=== PATIENT | female | born 1945 | race Caucasian/White ===

== ENCOUNTER 2018-08-05 13:30 | Outpatient (CLI) | payer MEDICARE, BC, SELFPAY ==
--- NOTE | 2018-08-05 11:15 | DI.RAD_ITS ---
SYMPTOMS/DIAGNOSIS: RIGHT ANKLE PAIN, M25.571 RIGHT ANKLE: Three views. No priors. No acute fracture or dislocation is seen. In the ankle joint, there is moderate narrowing of the medial joint space. Osteophytes are seen at the ankle, particularly anteriorly. Small well- corticated osseous fragments are seen at the tip of the medial malleolus consistent with old injury. At the talonavicular joint, there is marked joint space narrowing, sclerosis and hypertrophy. No radiopaque foreign bodies are seen in the soft tissues. IMPRESSION: 1. No acute abnormality. 2. 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 The findings are most marked at the talonavicular joint.
== END 2018-08-05 13:50 ==
PROVIDERS: PCP Family Medicine; Visit Provider Family Medicine
DX: M25.571 Pain in right ankle and joints of right foot (principal); M25.771 Osteophyte, right ankle
CPT/HCPCS: 73610

== ENCOUNTER 2019-10-12 09:21 | Outpatient (RCR) | payer OTHER, SELFPAY ==
[2019-10-12 21:39] LABS: Calculated LDL 96 mg/dL; Cholesterol 174 mg/dL (<200); Glucose 94 mg/dL (74-106); HDL Cholesterol 65 mg/dL (40-60); Triglyceride 67 mg/dL (<150)
== END 2019-11-10 23:59 | disposition home or self-care (01) ==
LOC: PRC 09:21
PROVIDERS: PCP Family Medicine; Visit Provider Family Medicine
DX: E78.41 Elevated Lipoprotein(a) (principal); E78.5 Hyperlipidemia, unspecified; Z13.1 Encounter for screening for diabetes mellitus
CPT/HCPCS: 80061; 82947

== ENCOUNTER 2020-08-11 19:24 | Outpatient (REF) | payer OTHER, SELFPAY ==
[2020-08-15 19:06] LABS: Patient Race White; SARS-CoV-2 RNA Undetected (Undetected); SARS-CoV-2 Specimen Source Nasopharynx
== END 2020-08-11 19:44 ==
LOC: NCHCN 19:24
PROVIDERS: PCP Family Medicine; Visit Provider Family Medicine
DX: Z20.828 Contact with and (suspected) exposure to other viral communicable diseases (principal)
CPT/HCPCS: U0003

== ENCOUNTER 2021-10-27 08:31 | Outpatient (REF) | payer OTHER, SELFPAY ==
[2021-10-27 14:48] LABS: HCT 43.4 % (36.0-46.0); HGB 13.9 g/dL (11.2-15.7); MCH 28.8 pg (27.0-33.0); MCV 89.9 fL (80-95); MPV 9.7 fL (8.0-11.0); Platelet Count 203 10^3/uL (130-400); RBC 4.83 10^6/uL (3.93-5.22); RDW-SD 42.9 fL; WBC 6.19 10^3/uL (4.4-10.8)
[2021-10-27 15:02] LABS: ALT 21 U/L (14-59); AST 14 U/L (15-37); Albumin 3.6 g/dL (3.4-5.0); Alkaline Phosphatase 67 U/L (46-116); Anion Gap 4.8 mmol/L (3-11); BUN 19 mg/dL (7-18); Bilirubin, Total 0.5 mg/dL (0.2-1.0); CO2 30.2 mmol/L (21.0-32.0); CREATININE 0.9 mg/dL (0.55-1.02); Calcium 8.5 mg/dL (8.5-10.1); Calculated LDL 92 mg/dL (<100); Chloride 107 mmol/L (98-107); Cholesterol 169 mg/dL (<200); Glucose 92 mg/dL (74-106); HDL Cholesterol 66 mg/dL (40-60); Potassium 4.1 mmol/L (3.5-5.1); Sodium 142 mmol/L (136-145); Total Protein 6.3 g/dL (6.4-8.2); Triglyceride 59 mg/dL (<150)
[2021-10-27 15:07] LABS: Hemoglobin A1C 5.9 % (<5.7)
== END 2021-10-27 08:32 | disposition home or self-care (01) ==
LOC: NCHCN 08:31
PROVIDERS: PCP Family Medicine; Visit Provider Family Medicine
DX: D64.9 Anemia, unspecified (principal); E83.51 Hypocalcemia; R73.9 Hyperglycemia, unspecified; E78.49 Other hyperlipidemia
CPT/HCPCS: 80053; 80061; 85027; 83036

== ENCOUNTER 2022-06-08 16:25 | Outpatient (REF) | payer OTHER, SELFPAY ==
[2022-06-10 14:14] LABS: COVID-19 RT-PCR UVMMC Result Negative (Negative)
== END 2022-06-08 16:26 | disposition home or self-care (01) ==
LOC: NCHCN 16:25
PROVIDERS: PCP Family Medicine; Visit Provider Registered Nurse
DX: R39.89 Other symptoms and signs involving the genitourinary system (principal)
CPT/HCPCS: 87077; U0003; 87086

== ENCOUNTER 2022-06-12 19:06 | Outpatient (REF) | payer OTHER, SELFPAY ==
[2022-06-12 20:26] LABS: Bilirubin Negative (Negative); Blood Negative (Negative); Clarity Sl Cloudy (Clear); Glucose Negative (Negative); Ketones Negative (Negative); Leukocyte Esterase Negative (Negative); Nitrite Negative (Negative); Specific Gravity 1.015 (1.005-1.025); Urobilinogen 0.2 EU/dL (Up TO 0.2)
[2022-06-12 20:29] LABS: Abs Immature Grans 0.02 10^3/uL (0.0-0.06); Absolute Basophil Count 0.07 10^3/uL (0.0-0.2); Absolute Eosinophil Count 0.12 10^3/uL (0.0-0.7); Absolute Lymphocyte Count 1.95 10^3/uL (1.2-3.4); Absolute Monocyte Count 0.57 10^3/uL (0.1-0.8); Absolute Neutrophil Count 5.56 10^3/uL (1.2-6.7); Basophils % 0.8; ESR 3 mm/hr (0-30); Eosinophils % 1.4; HCT 43.7 % (36.0-46.0); HGB 14.9 g/dL (11.2-15.7); Immature Grans % 0.2; Lymphocytes % 23.5; MCH 29.9 pg (27.0-33.0); MCHC 34.1 % (32.0-36.0); MCV 88 fL (80-95); MPV 9.9 fL (8.0-11.0); Monocytes % 6.9; Neutrophils % 67.2; Platelet Count 228 10^3/uL (130-400); RBC 4.98 10^6/uL (3.93-5.22); RDW 12.6 % (11.7-14.6); RDW-SD 40.4 fL; WBC 8.29 10^3/uL (4.4-10.8)
[2022-06-12 21:07] LABS: ALT 21 U/L (14-59); AST 19 U/L (15-37); Albumin 3.9 g/dL (3.4-5.0); Alkaline Phosphatase 65 U/L (46-116); Anion Gap 5.7 mmol/L (3-11); BUN 16 mg/dL (7-18); Bilirubin, Total 0.5 mg/dL (0.2-1.0); CO2 29.3 mmol/L (21.0-32.0); CREATININE 0.8 mg/dL (0.55-1.02); Calcium 8.9 mg/dL (8.5-10.1); Chloride 101 mmol/L (98-107); Glucose 97 mg/dL (74-106); Lipase 342 U/L (73-393); Potassium 3.8 mmol/L (3.5-5.1); Sodium 136 mmol/L (136-145); Total Protein 7.3 g/dL (6.4-8.2)
[2022-06-12 21:11] LABS: C-Reactive Protein < 0.05 mg/dL (0.0-0.3)
[2022-06-14 10:51] LABS: Lyme Ab w Rflx to Lyme Confirm Negative (Negative)
[2022-06-18 21:31] LABS: Anaplasma phagocytophilum Negative (Negative); B. miyamotoi PCR Negative (Negative); Babesia divergens/MO-1 Negative (Negative); Babesia duncani Negative (Negative); Babesia microti Negative (Negative); Ehrlichia chaffeensis Negative (Negative); Ehrlichia ewingii/canis Negative (Negative); Ehrlichia muris eauclairensis Negative (Negative)
== END 2022-06-12 19:07 | disposition home or self-care (01) ==
LOC: NCHCN 19:06
PROVIDERS: PCP Family Medicine; Visit Provider Nurse Practitioner Family
DX: R11.0 Nausea (principal); G50.1 Atypical facial pain
CPT/HCPCS: 80053; 83690; 85652; 87798; 81003; 85025; 86140; 86618

== ENCOUNTER 2022-07-13 12:10 | Emergency (ER) | payer OTHER, SELFPAY ==
[2022-07-13] VITALS (11 sets, daily range): BP systolic 137–143; BP diastolic 67–77; PULSE 74–79; RESP 14–26; TEMP 36.7; O2SAT 96–99
--- NOTE | 2022-07-13 12:30 | RT.EKG_ITS ---
APPROVED REPORT Exam: Resting ECG Reason for Exam: generalized weakness Patient Location: E HR:78 bpm ECG Measurements Heart Rate 78 AXIS IA 171 P 67 QRSd 100 QRS -20 QT 374 T 45 QTc 428 Conclusion Sinus rhythm...normal P axis, V-rate 60- 99 sinus rhythm, normal axis, normal intervals; j point elevation and t wave inversions V1 V2
[2022-07-13 13:15] LABS: Abs Immature Grans 0.05 10^3/uL (0.0-0.06); Absolute Basophil Count 0.04 10^3/uL (0.0-0.2); Absolute Eosinophil Count 0.01 10^3/uL (0.0-0.7); Absolute Lymphocyte Count 0.69 10^3/uL (1.2-3.4); Absolute Monocyte Count 0.61 10^3/uL (0.1-0.8); Absolute Neutrophil Count 11.92 10^3/uL (1.2-6.7); Basophils % 0.3; Eosinophils % 0.1; HCT 41.3 % (36.0-46.0); Immature Grans % 0.4; Lymphocytes % 5.2; MCH 30.1 pg (27.0-33.0); MCHC 33.9 % (32.0-36.0); MCV 89 fL (80-95); Monocytes % 4.6; Neutrophils % 89.4; Platelet Count 174 10^3/uL (130-400); RBC 4.65 10^6/uL (3.93-5.22); RDW 12.7 % (11.7-14.6); RDW-SD 41.5 fL; WBC 13.33 10^3/uL (4.4-10.8)
[2022-07-13 13:16] LABS: Bilirubin Negative (Negative); Blood Trace-intact (Negative); Clarity Cloudy (Clear); Glucose Negative (Negative); Ketones Negative (Negative); Leukocyte Esterase Trace (Negative); Nitrite Positive (Negative); pH 6.5 (5-8)
[2022-07-13] MEDS: Normal Saline 1,000 ML 500 ML IV (13:21)
[2022-07-13 13:22] LABS: Source Nasal/Nares
[2022-07-13 13:23] LABS: Bacteria Many HPF (Negative); C & S Indicated? Yes; Casts Negative LPF (Negative); Crystals Negative HPF (Negative); Epithelial Cells Few HPF (Negative); Mucus Negative (Negative); RBC 0-2 HPF (0-2)
[2022-07-13 13:35] LABS: ALT 17 U/L (14-59); AST 16 U/L (15-37); Albumin 3.6 g/dL (3.4-5.0); Alkaline Phosphatase 58 U/L (46-116); BUN 17 mg/dL (7-18); CREATININE 0.9 mg/dL (0.55-1.02); Calcium 8.5 mg/dL (8.5-10.1); Chloride 103 mmol/L (98-107); Estimated GFR 66.26 (mL/min/1.73m2); Glucose 112 mg/dL (74-106); Lipase 42 U/L (73-393); Magnesium 2.1 mg/dL (1.8-2.4); Potassium 3.6 mmol/L (3.5-5.1); Sodium 139 mmol/L (136-145); Troponin I < 50 ng/L (<or=60)
[2022-07-13 13:54] LABS: COVID-19 PCR Negative (Negative)
--- NOTE | 2022-07-13 14:00 | DI.CT_ITS ---
Exam(s) CT RENAL COLIC WO EXAM: CT RENAL COLIC WO INDICATION: right flank pain. COMPARISON: No exams were available for comparison TECHNIQUE: CT examination was performed without contrast administration. FINDINGS: Images obtained through the lung bases are unremarkable. Visualized portions of the liver and splee n appear intact. Visualized portions of the pancreas are unremarkable. Gallbladder and bile ducts are CT normal. Abdominal aorta is of normal diameter. No significant abdominal wall hernia. No significant abdominal or pelvic adenopathy. Adrenals appear normal bilaterally. The kidneys are normal in size and shape. There is no evidence of a renal mass or hydronephrosis. A re nonobstructing right lower pole renal calculi measuring about 3 millimeters and 1 millimeter in di ameter. No left renal calculi. No ureteral dilatation or calcification identified. Urinary bladder is unremarkable in appearance. IMPRESSION: Small nonobstructing right renal calculi. No other significant findings.. RADIATION DOSE DELIVERED: 767.15mGy.cm DLP 767.15mGy.cm Total DLP !Error CTDIvol DATA REPOSITORY: All CT scans at this facility are submitted to the National Radiology Data Registry (NRDR) Dose Index Registry (DIR) with the [employer] (ACR). RADIATION OPTIMIZATION: All CT scans at this facility use at least one of these dose optimization te chniques: automated exposure control; mA and/or kV adjustment per patient size (includes targeted exa ms where dose is matched to clinical indication); or iterative reconstruction.
--- NOTE | 2022-07-13 15:18 | W.ED.GENAD ---
Discharge Plan Disposition Patient Disposition: HOME Condition: Stable Discharge Details Clinical Impression: Acute pyelonephritis Primary Care Provider: Rika Matthews ED Provider: Solomon Reid Home Meds and New Rx's Prescriptions: New cefpodoxime 200 mg tablet 200 mg PO BID 12 Days Qty: 24 0RF Rx Instructions: must administer with a meal/food ondansetron 4 mg tablet,disintegrating 4 mg PO Q6H PRN (Reason: nausea and vomiting) Qty: 10 0RF Continued rosuvastatin [Crestor] 10 mg Tablet 10 mg PO DAILY solifenacin [Vesicare] 10 mg Tablet 10 mg PO DAILY Held omeprazole 20 mg Capsule,Delayed Release(Dr/Ec) 20 mg PO DAILY Hold Instructions: Until antibiotics are completed Discharge Instructions Instructions: Kidney Infection (ED) Additional Instructions: If you develop any significant worsening of symptoms to include uncontrollable nausea vomiting, worsening fever chills, or inability to tolerate your medications please return immediately to the emergency department for reassessment. Otherwise you should notice signs of improvement in the next 24 to 48 hours and if you do not also return to the emergency department. Otherwise stay well-hydrated and take medication as prescribed. Referrals: Rika Matthews [Primary Care Provider] - 1 week Discharge Data Discharge Date/Time-TO BE ENTERED AT DEPARTURE: 07/13/22 15:45 Medical Decision Making Patient presents to the emergency department for not feeling well for approximately 1 month. Last night that she did began having some fever and some dry heaving. Patient states mild acid reflux and some urinary urgency with incontinence which is uncommon. Physical exam shows right CVA tenderness otherwise unremarkable exam with soft nonperitoneal abdomen. We will plan on checking labs, urinalysis and CT scan due to CVA tenderness. Review of labs show a leukocytosis, unremarkable nondiagnostic CMP, negative initial troponin, negative lipase. Urinalysis does show signs to suggest infection with the lab nitrates leukocyte esterase and 10-20 WBCs present. Reflective culture was ordered by the lab. Patient is negative for COVID. CT imaging shows no emergent findings. I feel that patient has developed pyelonephritis and will give patient dose of Rocephin and start patient on antibiotics. We will also send patient home with Zofran help with any further nausea. Given patient's age and diagnosis I did clearly instruct patient to monitor symptoms closely and have a low threshold to return to the emergency department for any worsening of symptoms otherwise at this time I do feel that patient is safe for attempt at outpatient therapy. After discussion of diagnosis and plan of care patient has no further needs, questions, or concerns and states clear understanding to return to the emergency department for any worsening symptoms. This documentation was generated using [employer] dictation system, please disregard any oddities of phrase or misspellings. Imaging Data Radiologic Study: Attestation: I personally reviewed and interpreted this imaging study as follows: Imaging: CT Scan Radiologist's impression: FINDINGS: Images obtained through the lung bases are unremarkable. Visualized portions of the liver and spleen appear intact. Visualized portions of the pancreas are unremarkable. Gallbladder and bile ducts are CT normal. Abdominal aorta is of normal diameter. No significant abdominal wall hernia. No significant abdominal or pelvic adenopathy. Adrenals appear normal bilaterally. The kidneys are normal in size and shape. There is no evidence of a renal mass or hydronephrosis. Are nonobstructing right lower pole renal calculi measuring about 3 millimeters and 1 millimeter in diameter. No left renal calculi. No ureteral dilatation or calcification identified. Urinary bladder is unremarkable in appearance. IMPRESSION: Small nonobstructing right renal calculi. No other significant findings. HPI General Mode of arrival: ambulatory. Date/Time Provider Initiated Documentation: 07/13/22 12:44. Limitations to Documentation: no limitations. Information obtained by: patient and RN notes reviewed. History of Present Illness 76 year old F presents to the emergency department with the chief complaint of General malaise fever chills no runny, described as mild, with intensity rated at 2. Quality is described as aching, and is localized to the right (flank). Patient started experiencing this month(s) and it has been constant. No relieving factors improve symptom(s), No exacerbating factors reported . Patient did receive the following treatments prior to arrival, none Related Data Home Medications Medication Instructions Recorded Confirmed cefpodoxime 200 mg tablet 200 mg PO BID 12 days #24 tabs 07/13/22 omeprazole 20 mg capsule,delayed 20 mg PO DAILY 07/13/22 07/13/22 release ondansetron 4 mg disintegrating 4 mg PO Q6H PRN nausea and 07/13/22 tablet vomiting #10 tabs rosuvastatin 10 mg tablet (Crestor) 10 mg PO DAILY 07/13/22 07/13/22 solifenacin 10 mg tablet (Vesicare) 10 mg PO DAILY 07/13/22 07/13/22 Previous Rx's Medication Instructions Recorded cefpodoxime 200 mg tablet 200 mg PO BID 12 days #24 tabs 07/13/22 ondansetron 4 mg disintegrating 4 mg PO Q6H PRN nausea and 07/13/22 tablet vomiting #10 tabs Allergies Allergy/AdvReac Type Severity Reaction Status Date / Time No Known Allergies Allergy Unverified 07/13/22 12:46 General Stated Complaint: GenMedical JANETTE: 3 Review of Systems Constitutional Constitutional: Reports chills, Reports fever(s), Denies headache(s), Reports malaise and Reports poor appetite ENT Ears, Nose, Mouth, and Throat: Denies headache(s) Cardiovascular Cardiovascular: Denies chest pain and Denies dyspnea Respiratory Respiratory: Denies cough and Denies dyspnea Gastrointestinal Gastrointestinal: Denies abdominal pain, Reports heartburn, Reports nausea and Reports vomiting Genitourinary Genitourinary: Denies dysuria, Reports urinary incontinence and Reports urinary urgency Musculoskeletal Musculoskeletal: Denies back pain Integumentary/Breasts Skin/Breast: Denies rash Neurologic Neurologic: Denies headache(s) PFSH All Active Problems (Updated 07/13/22 @ 15:19 by Solomon Reid NP) Acute pyelonephritis (Acute) Social History Smoking/Tobacco Use Status: Never Smoking risk assessment performed?: Yes Alcohol Intake: never Drug use: Never Substance use type: does not use Do you feel safe at home: Yes Do you feel safe in your relationship?: Yes Exam Const General: cooperative and no acute distress Orientation: alert, awake and oriented x3 Resp Effort & Inspection: normal respiratory effort and able to speak in complete sentences Auscultation: clear to auscultation bilaterally Cardio Rate: regular rate Rhythm: regular rhythm Heart Sounds: S1 normal and S2 normal GI Inspection: normal to inspection Palpation: soft, not firm, no guarding, not rigid and nontender General: CVA tenderness on the right Back/Spine/Pelvis Back: no CVA tenderness Neuro General: patient alert, patient awake and patient oriented x3 Extrem General: capillary refill normal Course Vital Signs Vital signs: Vital Signs Temperature 36.7 C 07/13/22 12:39 Pulse 76 07/13/22 12:39 Respiratory Rate 14 07/13/22 12:39 Blood Pressure 137/67 07/13/22 12:39 Pulse Oximetry 96 07/13/22 12:39 Temperature 36.7 C 07/13/22 12:39 Temperature Source Temporal Artery Scan 07/13/22 12:39 Pulse 76 07/13/22 12:39 Respiratory Rate 14 07/13/22 12:51 Respiratory Effort Non-Labored 07/13/22 12:51 Respiratory Depth Normal 07/13/22 12:51 Respiratory Pattern Normal 07/13/22 12:51 Blood Pressure 137/67 07/13/22 12:39 Blood Pressure Position Supine 07/13/22 12:39 Pulse Oximetry 96 07/13/22 12:39 Oxygen Delivery Method Room Air 07/13/22 12:39 Oxygen Flow Rate 0 07/13/22 12:39 Lab/Test Results Lab/Test Results: 07/13/22 12:58 Urine - Reflex from Ua Urine Culture - Pending Laboratory Tests Range/Units 07/13/22 07/13/22 07/13/22 12:58 13:05 13:05 WBC (4.4-10.8) 10^3/uL 13.33 H RBC (3.93-5.22) 10^6/uL 4.65 Hgb (11.2-15.7) g/dL 14.0 Hct (36.0-46.0) % 41.3 MCV (80-95) fL 89 MCH (27.0-33.0) pg 30.1 MCHC (32.0-36.0) % 33.9 RDW (11.7-14.6) % 12.7 Plt Count (130-400) 10^3/uL 174 MPV (8.0-11.0) fL 9.0 Immature Gran % 0.4 Neutrophils % 89.4 Lymphocytes % 5.2 Monocytes % 4.6 Eosinophils % 0.1 Basophils % 0.3 Nucleated RBC % (0.0-0.3) % 0.0 Absolute Neutrophils (1.2-6.7) 10^3/uL 11.92 H Absolute Lymphocytes (1.2-3.4) 10^3/uL 0.69 L Absolute Monocytes (0.1-0.8) 10^3/uL 0.61 Absolute Eosinophils (0.0-0.7) 10^3/uL 0.01 Absolute Basophils (0.0-0.2) 10^3/uL 0.04 Sodium (136-145) mmol/L 139 Potassium (3.5-5.1) mmol/L 3.6 Chloride (98-107) mmol/L 103 Carbon Dioxide (21.0-32.0) mmol/L 29.0 Anion Gap (3-11) mmol/L 7.0 BUN (7-18) mg/dL 17 Creatinine (0.55-1.02) mg/dL 0.9 Est GFR (CKD-EPI 2020) (mL/min/1.73m2) 66.26 Glucose (74-106) mg/dL 112 H Calcium (8.5-10.1) mg/dL 8.5 Magnesium (1.8-2.4) mg/dL 2.1 Total Bilirubin (0.2-1.0) mg/dL 1.0 AST (15-37) U/L 16 ALT (14-59) U/L 17 Alkaline Phosphatase (46-116) U/L 58 Troponin I (<or=60) ng/L < 50 Total Protein (6.4-8.2) g/dL 7.0 Albumin (3.4-5.0) g/dL 3.6 Lipase (73-393) U/L 42 Urine Color (Yellow) Yellow Urine Clarity (Clear) Cloudy Urine pH (5-8) 6.5 Ur Specific [place] (1.005-1.025) 1.020 Urine Protein (Negative) mg/dL Negative Urine Ketones (Negative) mg/dL Negative Urine Blood (Negative) Trace-intact H Urine Nitrite (Negative) Positive H Urine Bilirubin (Negative) Negative Urine Urobilinogen (Up TO 0.2) EU/dL 1.0 H Ur Leukocyte Esterase (Negative) Trace H Urine RBC (0-2) HPF 0-2 Urine WBC (0-5) HPF 10-20 H Ur Epithelial Cells (Negative) HPF Few Urine Crystals (Negative) HPF Negative Urine Bacteria (Negative) HPF Many Urine Casts (Negative) LPF Negative Urine Mucus (Negative) Negative Ur Culture Indicated? Yes Urine Glucose (Negative) mg/dL Negative COVID-19 Source SARS-CoV-2 (PCR) (Negative) Range/Units 07/13/22 13:18 WBC (4.4-10.8) 10^3/uL RBC (3.93-5.22) 10^6/uL Hgb (11.2-15.7) g/dL Hct (36.0-46.0) % MCV (80-95) fL MCH (27.0-33.0) pg MCHC (32.0-36.0) % RDW (11.7-14.6) % Plt Count (130-400) 10^3/uL MPV (8.0-11.0) fL Immature Gran % Neutrophils % Lymphocytes % Monocytes % Eosinophils % Basophils % Nucleated RBC % (0.0-0.3) % Absolute Neutrophils (1.2-6.7) 10^3/uL Absolute Lymphocytes (1.2-3.4) 10^3/uL Absolute Monocytes (0.1-0.8) 10^3/uL Absolute Eosinophils (0.0-0.7) 10^3/uL Absolute Basophils (0.0-0.2) 10^3/uL Sodium (136-145) mmol/L Potassium (3.5-5.1) mmol/L Chloride (98-107) mmol/L Carbon Dioxide (21.0-32.0) mmol/L Anion Gap (3-11) mmol/L BUN (7-18) mg/dL Creatinine (0.55-1.02) mg/dL Est GFR (CKD-EPI 2020) (mL/min/1.73m2) Glucose (74-106) mg/dL Calcium (8.5-10.1) mg/dL Magnesium (1.8-2.4) mg/dL Total Bilirubin (0.2-1.0) mg/dL AST (15-37) U/L ALT (14-59) U/L Alkaline Phosphatase (46-116) U/L Troponin I (<or=60) ng/L Total Protein (6.4-8.2) g/dL Albumin (3.4-5.0) g/dL Lipase (73-393) U/L Urine Color (Yellow) Urine Clarity (Clear) Urine pH (5-8) Ur Specific [place] (1.005-1.025) Urine Protein (Negative) mg/dL Urine Ketones (Negative) mg/dL Urine Blood (Negative) Urine Nitrite (Negative) Urine Bilirubin (Negative) Urine Urobilinogen (Up TO 0.2) EU/dL Ur Leukocyte Esterase (Negative) Urine RBC (0-2) HPF Urine WBC (0-5) HPF Ur Epithelial Cells (Negative) HPF Urine Crystals (Negative) HPF Urine Bacteria (Negative) HPF Urine Casts (Negative) LPF Urine Mucus (Negative) Ur Culture Indicated? Urine Glucose (Negative) mg/dL COVID-19 Source Nasal/Nares SARS-CoV-2 (PCR) (Negative) Negative
== END 2022-07-13 15:45 | disposition home or self-care (01) ==
PROVIDERS: Emergency Provider Nurse Practitioner Family; PCP Family Medicine
DX: N10 Acute pyelonephritis (principal); D72.829 Elevated white blood cell count, unspecified; K21.9 Gastro-esophageal reflux disease without esophagitis; N39.41 Urge incontinence; Z20.822 Contact with and (suspected) exposure to COVID-19
CPT/HCPCS: 36415; 80053; 83690; 87077; 87635; 93005; 96361; 96365; 99284; 74176; 81003; 81015; 83735; 84484; 85025; 87086; 87186; 93010; J0696

== ENCOUNTER 2023-12-12 10:03 | Outpatient (REF) | payer MEDICARE, SELFPAY ==
[2023-12-12 15:43] LABS: Calculated LDL 82 mg/dL (<100); Cholesterol 154 mg/dL (<200); HDL Cholesterol 64 mg/dL (40-60); Triglyceride 44 mg/dL (<150)
== END 2023-12-12 10:04 | disposition home or self-care (01) ==
LOC: NCHCN 10:03
PROVIDERS: PCP Family Medicine; Visit Provider Family Medicine
DX: E78.5 Hyperlipidemia, unspecified (principal); R73.03 Prediabetes
CPT/HCPCS: 80061; 83036

== ENCOUNTER 2024-05-26 18:16 | Outpatient (REF) | payer MEDICARE, SELFPAY ==
--- OUTSIDE RECORDS SUMMARY | 2024-05-26 18:27 | XMS_ITS ---
Author Organization Unknown Address [address] [place] [phone] Phone Care Team Providers Care Hot Kettle Tender Name Role Phone VANNESA Melgoza Attending Unavailable Results MM SCREENING BILAT MAMMO W T CAROLIN W CAD - Completed: 09/13/2022 10:59 LOINC: [facility] [place], [place] [address] PACS TRAY CHECKER REPORT Patient Name: KYLE SCALES MRN: Sex: : Age: [id number] F 1945 77 Account: Accession: Admit: StayType: [id number] 09/13/2022 O/P Ordered: Order ID: Submitted: Ordering Provider: 09/13/2022 10:27 [id number] MIGUEL MARTINEZ Completed: Technologist: Resulted: 09/13/2022 10:59 BMM 09/13/2022 12:36 Study Description: MM SCREENING BILAT MAMMO W ANNIKA W CAD Study Reason: SCREENING TECHNIQUE: Bilateral full field digital CC and MLO mammographic images were obtained with 3D tomosynthesis and utilizing computer aided detection (CAD). COMPARISON: Prior mammograms were reviewed. FINDINGS: The fibroglandular tissue pattern is again noted to be moderately dense, this somewhat decreasing the sensitivity of the mammogram for finding hidden underlying lesions. There are no CAD designations. There are no spiculated masses nor malignant appearing microcalcification groups. Asymmetric tissue medially in the right breast is unchanged from prior studies. There is no significant architectural distortion nor skin thickening-retraction. IMPRESSION: 1. No radiographic evidence of malignancy. BiRads Category: 1-negative BI_RADS Density Category C: Heterogeneously dense Breast density Category C or D implies that the patient has dense breast tissue. Dense breast tissue can make it harder to find cancer on a mammogram. Dense breast tissue is also associated with an increased risk of breast cancer. This information about the result of the mammogram report was provided to the patient to raise their awareness. Use this report when you speak with the patient about their risks for breast cancer, which includes their family history. At that time, you may recommend additional screening tests (Ultrasound or MRI) as these tests may add significant information. A negative radiographic report should not delay biopsy if a dominant or clinically suspicious mass is present. Up to ten percent of cancers are not identified on mammography. A negative report may reinforce clinical impression. Adenosis and dense breasts may obscure an underlying neoplasm. False positive reports average 6 to 10%. Patient will receive a letter notifying them of these results. Report Digitally Signed by Meng Edmond on 09/13/2022 12:36 PM EDT Social History Type Status Start Date End Date Code Code Syst em Smoking History Never smoker (Never Smoked) [id number] [employer] CT Sex Female Hospital Discharge Instructions Should you have any questions prior to discharge, please contact a member of your healthcare team. If you have left the hospital and have any questions, please contact your primary care physician. Reason For Referral No Data Found Allergies and Adverse Reactions Allergy Substance Reaction Severity Start Date Concern Status Co de Code System No Known Drug Allergies Active 466106827 SNOMED-CT Plan of Treatment Pre-Op Covid-19 Testing 10/17/2020 CT LOWER EXTREM W/O CONTRAST 03/15/2023 MM SCREEN BILAT 01/22/2024 MM SCREEN BILAT 09/13/2022 BONE DENSITY DEXA SPINE & HIP 4 Encounters Encounter Diagnosis Start Date Code Code Sys tem Inconclusive mammogram 09/13/2022 SNOME D-CT Personal Care Team Section Performer Name Performer Role Active Date Inactive Da te
--- OUTSIDE RECORDS SUMMARY | 2024-05-26 18:27 | XMS_ITS ---
Author Organization Unknown Address [address] [place] [address] [phone] Phone Care Team Providers Care Sliver Cutter Name Role Phone MIGUEL Arrington Attending Unavailable VANNESA Melgoza Primary Unavailable Results XR ANKLE RT 3V* - Completed: 02/06/2022 18:39 LOINC: RIGHT ANKLE Right ankle prosthesis is noted, unchanged. There are screws present related to calcaneal osteotomy. Degenerative changes are noted in the talocalcaneal, talonavicular and calcaneocuboid joints. Dictated by: CEO JAYDA HAMLIN MD Transcribed by: [facility] 02/06/2212:20 D Sunday, February 06, 2022 11:56:34 AM [id number] Electronically Reviewed and Signed By: JAYDA HAMLIN MD 02/06/22 12:37 Copy for: [facility] Social History Type Status Start Date End Date Code Code Syst em Smoking History Never smoker (Never Smoked) 660831046 SNOMED CT Sex Female Hospital Discharge Instructions Should [...] Code System No Known Drug Allergies Active [id number] SNOMED-CT Plan of Treatment Pre-Op Covid-19 Testing 10/17/2020 CT LOWER EXTREM W/O CONTRAST 03/15/2023 MM SCREEN BILAT 01/22/2024 MM SCREEN BILAT 09/13/2022 BONE DENSITY DEXA SPINE & HIP 4 Encounters Encounter Diagnosis Start Date Code Code Sys tem Ankle joint prosthesis present 02/06/2022 [id number] SNOMED-CT Personal Care Team Section Performer Name Performer Role Active Date Inactive Da te
--- OUTSIDE RECORDS SUMMARY | 2024-05-26 18:27 | XMS_ITS ---
Author Organization Unknown Address [address] [place] [address] [phone] Phone Care Team Providers Care Human Resources Operations Coordinator Name Role Phone MIGUEL Arrington Attending Unavailable VANNESA Melgoza Primary Unavailable Results CT LOWER EXT WO CONTRAST RT* - Completed: 03/15/2023 09:11 LOINC: [facility] RAD[facility]OLOG[facility] [place], [place] [address] PACS AUTO GLASS TECHNICIAN REPORT Patient Name: KYLE SCALES MRN: Sex: : Age: [id number] F 1945 77 Account: Accession: Admit: StayType: [id number] 03/15/2023 O/P Ordered: Order ID: Submitted: Ordering Provider: 03/15/2023 08:58 [id number] SUDHIR CEJA Completed: Technologist: Resulted: 03/15/2023 09:11 J 03/15/2023 12:44 Study Description: CT LOWER EXT WO CONTRAST RT* Study Reason: RT ANKLE PAIN Technique: Imaging Protocol: Axial computed tomography images with coronal and sagittal reformatted images were created and reviewed. Comparison: Comparison examination is 09/11/2022. FINDINGS: Examination is limited by artifact from the patient's total ankle arthroplasty. Bones: There are again seen postsurgical changes of a total right ankle arthroplasty. There is been no change in appearance of the lucencies seen around the tibial and talar components of the hardware. No worsening of the lucencies is seen. No fracture is identified. There are again seen findings of a posterior calcaneal osteotomy with a single screw traversing the osteotomy site. The osteotomy is intact. The orthopedic hardware appears unremarkable. There are degenerative changes seen in the hindfoot particularly at the talonavicular joint where there is joint space narrowing and bony hypertrophy. Subchondral sclerosis and subchondral cysts are also seen. The bones are osteopenic. No lytic or sclerotic lesions are identified. Soft Tissues: There is unchanged thickening of the Achilles tendon. No focal fluid collection is seen to suggest an abscess. IMPRESSION: 1. No change in appearance of the tibial talar arthroplasty since 09/11/2022. 2. Stable degenerative changes seen in the hindfoot. 3. No acute abnormality. Radiation Optimization: All CT scans at this facility use at least one of these dose optimization techniques: automated exposure control; mA and/or kV adjustment per patient size (includes targeted exams where dose is matched to clinical indication); or iterative reconstruction. Report Digitally Signed by Perez Beltran on 03/15/2023 12:44 PM EDT Social History Type Status Start Date End Date Code Code Syst em Smoking History Never smoker (Never Smoked) [id number] [facility] CT Sex Female Hospital Discharge Instructions Should [...] Code System No Known Drug Allergies Active [id number] [facility]-CT Plan of Treatment Pre-Op Covid-19 Testing 10/17/2020 CT LOWER EXTREM W/O CONTRAST 03/15/2023 MM SCREEN BILAT 01/22/2024 MM SCREEN BILAT 09/13/2022 BONE DENSITY DEXA SPINE & HIP 4 Encounters Encounter Diagnosis Start Date Code Code Sys tem Arthralgia of the ankle and/or foot 03/15/2023 [id number] SNOMED-CT Personal Care Team Section Performer Name Performer Role Active Date Inactive Da te
--- OUTSIDE RECORDS SUMMARY | 2024-05-26 18:27 | XMS_ITS ---
Author Organization Unknown Address [address] [place] [address] [phone] Phone Care Team Providers Care Loan Representative Name Role Phone MIGUEL Arrington Attending Unavailable VANNESA Melgoza Primary Unavailable Social History Type Status Start Date End Date Code Code Syst em Smoking History Never smoker (Never Smoked) 019131490 SNOMED CT Sex Female Hospital Discharge Instructions [...] Code System No Known Drug Allergies Active 996142613 SNOMED-CT Plan of Treatment Pre-Op Covid-19 Testing 10/17/2020 CT LOWER EXTREM W/O CONTRAST 03/15/2023 MM SCREEN BILAT 01/22/2024 MM SCREEN BILAT 09/13/2022 BONE DENSITY DEXA SPINE & HIP 4 Encounters Encounter Diagnosis Start Date Code Code Sys tem Loosening of prosthesis 09/19/2022 109366748 SNOM ED-CT Personal Care Team Section Performer Name Performer Role Active Date Inactive Da te
--- OUTSIDE RECORDS SUMMARY | 2024-05-26 18:27 | XMS_ITS ---
Author Organization Unknown Address [address] [place] [address] [phone] Phone Care Team Providers Care Extrusion Die Corrector Name Role Phone MIGUEL Arrington Attending Unavailable VANNESA Melgoza Primary Unavailable Social History Type Status Start Date End Date Code Code Syst em Smoking History Never smoker (Never Smoked) 467298912 SNOMED CT Sex Female Hospital Discharge Instructions [...] Code System No Known Drug Allergies Active 331274593 SNOMED-CT Plan of Treatment Pre-Op Covid-19 Testing 10/17/2020 CT LOWER EXTREM W/O CONTRAST 03/15/2023 MM SCREEN BILAT 01/22/2024 MM SCREEN BILAT 09/13/2022 BONE DENSITY DEXA SPINE & HIP 4 Encounters Encounter Diagnosis Start Date Code Code Sys tem Arthralgia of the ankle and/or foot 07/23/2022 96077 [id number] SNOMED-CT Personal Care Team Section Performer Name Performer Role Active Date Inactive Da te
--- OUTSIDE RECORDS SUMMARY | 2024-05-26 18:27 | XMS_ITS | Patient Health Record ---
Author Organization [facility] Address [address] [place] [address] Care Team Providers Care Real Estate Developer Name Role Phone ByronRika Primary Care Provider Unavailsilverio Merino MD, Gwen Unavailable [phone] Melonie Garcia Unavailable [phone] Allergies No Known Allergies Reason For Referral No Information Medications Medication SIG (Take, Route, Frequency, Duration) Notes Start Date End Date Status Azopt one eye only Active Vitamin D 1000 UNIT 1 capsule Orally Onc e a day Active Timolol Hemihydrate eye drops Active Crestor 10 MG 1 tablet Orally Once a day for 30 day(s) Active Solifenacin Succinate 10 MG TAKE 1 TABLET BY MOUTH ONCE DAILY for 90 days Active Estradiol 0.1 MG/GM _insert 1 GRAM VAGINALLY TWICE WEEKLY for 90 Active Estrace 0.1 MG/GM _insert 1 gm twice p r week Vaginal twice per week for 90 days Active Social History Tobacco Use: Social History Observation Description Date Details (start date - stop date) Never Smoker NA - NA Smoking Question Answer Notes Are you a: nonsmoker Problems Problem Type SNOMED Code ICD Code Onset Dates Problem Status W/U Status Risk Notes Problem Urge incontinence of urine (75365674) Urge incontinence (N39.41) Active confirmed Problem Postmenopausal atrophic vaginitis (27390029) Postmenopausal atrophic vaginitis (N95.2) Active confirmed Vital Signs Blood pressure diastolic 82 01/22/2024 Height 66 in 01/22/2024 Blood pressure systolic 122 01/22/2024 Weight 140 lbs 01/22/2024 BMI 22.59 kg/m2 01/22/2024 Encounters Encounter Location Date Provider Diagnosis [facility] [address] [facility], [address] [place] [address] 01/22/2024 Melonie Garcia Encounter for gynecological examination (general) (routine) without abnormal findings Z01.419 ; Urge incontinence N39.41 and Postmenopausal atrophic vaginitis N95.2 [facility] [address] [place] [address], [address] [place] [address] 07/03/2023 Gwen Merino [facility] [address] [place] [address], [address] [place] [address] 12/05/2023 Gwen Merino Postmenopausal atrophic vaginitis N95.2 [facility] [address] [place] [address], [address] [place] [address] 12/16/2023 Gwen eMrino Assessments Encounter Date Diagnosis (ICD Code) Assessment Notes Treat ment Notes Treatment Clinical Notes 12/05/2023 Postmenopausal atrophic vaginitis (ICD-10 - N95.2) 01/22/2024 Encounter for gynecological examination (general) (routine) without abnormal findings (ICD-10 - Z01.419) Continue healthy habits. Discussed health screening recommendations. Mammogram guidelines discussed. Return for yearly Production Supply Equipment Tender preventive exam and as needed for problems. Additional health care maintenance with primary care provider. Pap / HPV no longer needed (>65 yrs old). Reviewed routine DENSITY CONTROL PUNCHER care - optional - happy to see her for routine care. Would need to see her for mediation management or PCP could take over meds. [place] where [place] and [place] relocating 01/22/2024 Urge incontinence (ICD-10 - N39.41) No reported side effects with Vesicare but she feels as if it's no longer working -we reviewed risks/benefits of Vesicare including progressing Glaucoma -patient to discontinue medication for now because she does not feel it is helping -she defers urology vs urogyn referral today because she is trying to relocate care -she will keep us posted if she would like a referral 01/22/2024 Postmenopausal atrophic vaginitis (ICD-10 - N95.2) Happy with use of Estrace. Refill through [facility] today. Plan Of Treatment Pending Test Test Name Order Date MAMMOGRAM, SCREENING 07/25/2017 Insurance Providers Payer Name Payer Address Payer Phone Subscriber Number Group Number Insured Name Patient Relationship to Insured Coverage Start Date Coverage End Date [employer] [address] [address] [place] [address] [id number] GonzaloArlet gilmoreLou Self - patient is the insured Medical (General) History Medical History History ICD Code Hyperlipidemia Glaucoma (controlled per report) urge incontinence Hx kidney stones Hx kidney infection Hx recurrent UTI's Surgical History Surgery Date(Month/Year) Vaginal sling 1979' frozen shoulder surgery 2008 cataract surgery stents placed in b/l eyes for glaucoma
--- OUTSIDE RECORDS SUMMARY | 2024-05-26 18:27 | XMS_ITS ---
Author Organization Unknown Address [address] [place] [address] [phone] Phone Care Team Providers Care Jewish History Professor Name Role Phone MIGUEL Arrington Attending Unavailable VANNESA Melgoza Primary Unavailable Results XR ANKLE RT 3V* - Completed: 06/06/2022 11:42 LOINC: RIGHT ANKLE - 3 VIEWS:Compar ed to 02/06/22. Tibiotalar prosthesis remains stable. No fracture nor loosening. Osteotomy screw and site in the calcaneus appears satisfactory. Degenerative changes in the subtalar joint are again noted. Dictated by: MIKI DAMIAN MD Transcribed by: DANYELLE 06/09/2208:20 D Saturday, June 06, 2022 12:55:57 PM [id number] Electronically Reviewed and Signed By: KEILY DAMIAN MD 06/13/22 09:56 Copy for: [facility] Social History Type Status Start Date End Date Code Code Syst em Smoking History Never smoker (Never Smoked) 606013289 SNOMED CT Sex Female Hospital Discharge Instructions [...] Code System No Known Drug Allergies Active 876575586 SNOMED-CT Plan of Treatment Pre-Op Covid-19 Testing 10/17/2020 CT LOWER EXTREM W/O CONTRAST 03/15/2023 MM SCREEN BILAT 01/22/2024 MM SCREEN BILAT 09/13/2022 BONE DENSITY DEXA SPINE & HIP 4 Encounters Encounter Diagnosis Start Date Code Code Sys tem Bone spur of right ankle 06/06/2022 [id number] SNOMED-CT Personal Care Team Section Performer Name Performer Role Active Date Inactive Da te
--- OUTSIDE RECORDS SUMMARY | 2024-05-26 18:28 | XMS_ITS ---
Author Organization Unknown Address [address] [place] [address] [phone] Phone Care Team Providers Care Process Engineer Name Role Phone MIGUEL Arrington Attending Unavailable VANNESA Melgoza Primary Unavailable Social History Type Status Start Date End Date Code Code Syst em Smoking History Never smoker (Never Smoked) 725648440 SNOMED CT Sex Female Hospital Discharge Instructions [...] Code System No Known Drug Allergies Active 052745581 SNOMED-CT Plan of Treatment Pre-Op Covid-19 Testing 10/17/2020 CT LOWER EXTREM W/O CONTRAST 03/15/2023 MM SCREEN BILAT 01/22/2024 MM SCREEN BILAT 09/13/2022 BONE DENSITY DEXA SPINE & HIP 4 Encounters Encounter Diagnosis Start Date Code Code Sys tem Arthralgia of the ankle and/or foot 03/18/2023 86525 4009 SNOMED-CT Personal Care Team Section Performer Name Performer Role Active Date Inactive Da te
--- OUTSIDE RECORDS SUMMARY | 2024-05-26 18:28 | XMS_ITS ---
Author Organization Unknown Address [address] [place] [address] [phone] Phone Care Team Providers Care Flight Line Mechanic Name Role Phone VANNESA Melgoza Attending Unavailable Results BD DXA BONE DENSITY HIP AND SPINE - Completed: 01/22/2024 13:35 LOINC: [place], [place] [address] PACS DIRECTOR IT PROJECT REPORT Patient Name: KYLE SCALES MRN: Sex: : Age: [id number] F 1945 78 Account: Accession: Admit: StayType: [id number] 01/22/2024 O/P Ordered: Order ID: Submitted: Ordering Provider: 01/22/2024 12:47 [id number] MIGUEL MARTINEZ Completed: Technologist: Resulted: 01/22/2024 13:35 DA 01/22/2024 15:31 Study Description: BD DXA BONE DENSITY HIP AND SPINE Study Reason: OSTEOPENIA TECHNIQUE: Performed on a Hologic unit. COMPARISON: No exams were available for comparison FINDINGS: Lumbar Spine total T-score: 1.2 Hip total T-score: 0.2 Independent reading at the femoral neck yields a T score of -0.1 IMPRESSION: Bone mineral density measures in the normal range. Fracture risk is low. Note: Any spine fracture indicates 5x risk for subsequent spine fracture and 2x risk for subsequent hip fracture. World Health Organization criteria for BMD interpretation classify patients: Normal...... T- Score at or above -1.0 Osteopenic... T- Score between -1.0 and -2.5 Osteoporosis... T-Score at or below -2.5 No exams were available for comparison Report Digitally Signed by Meng Edmond on 01/22/2024 03:31 PM EDT MM SCREENING BILAT MAMMO W T CAROLIN W CAD - Completed: 01/22/2024 13:11 LOINC: [facility] [place], [place] [address] PACS DIRECTOR IT PROJECT REPORT Patient Name: KYLE SCALES MRN: Sex: : Age: [id number] F 1945 78 Account: Accession: Admit: StayType: [id number] 01/22/2024 O/P Ordered: Order ID: Submitted: Ordering Provider: 01/22/2024 12:47 [id number] MIGUEL MARTINEZ Completed: Technologist: Resulted: 01/22/2024 13:11 KVK 01/22/2024 13:23 Study Description: MM SCREENING BILAT MAMMO W ANNIKA W CAD Study Reason: Screening TECHNIQUE: Bilateral full field digital CC and MLO mammographic images were obtained with 3D tomosynthesis and utilizing computer aided detection (CAD). COMPARISON: Prior mammograms were reviewed. FINDINGS: There has been no significant change in the appearance and distribution of the fibroglandular tissue which is again noted to be moderately dense, this somewhat decreasing the sensitivity of the mammogram for finding hidden underlying lesions.. There are no CAD designations. There are no obvious new spiculated masses nor malignant appearing microcalcification groups. There is no significant architectural distortion nor [...] Report Digitally Signed by Meng Edmond on 01/22/2024 01:23 PM EDT Social History Type Status Start Date End Date Code Code Syst em Smoking History Never smoker (Never Smoked) 314748403 SNTiltap CT Sex Female Hospital Discharge Instructions Should [...] Code System No Known Drug Allergies Active 672453173 SNOMED-CT Plan of Treatment Pre-Op Covid-19 Testing 10/17/2020 CT LOWER EXTREM W/O CONTRAST 03/15/2023 MM SCREEN BILAT 01/22/2024 MM SCREEN BILAT 09/13/2022 BONE DENSITY DEXA SPINE & HIP 4 Encounters Encounter Diagnosis Start Date Code Code Sys tem Screening mammography 01/22/2024 47611143 SNOMED -CT Personal Care Team Section Performer Name Performer Role Active Date Inactive Da te
--- OUTSIDE RECORDS SUMMARY | 2024-05-26 18:29 | XMS_ITS | Encounter Summary ---
Author Organization [facility] Address [facility] [place] [address] Care Team Providers Care Binder Roller Name Role Phone Rika Matthews MD Primary Care Provider [phone] Encounter Details Date Type Department Care Team (Late st Contact Info) Description 04/24/2024 Telephone Ophthalmology at [facility] [place] [address] Rodolfo Xavier MD [facility] [place] [address] Social History Tobacco Use Types Packs/Day Years Used Date Smoking Tobacco: Never Smokeless Tobacco: Never Alcohol Use Standard Drinks/Week Comments Not Currently 0 (1 standard drink = 0.6 oz pur e alcohol) 2x/week [facility] Inpatient Questions Answer Date Recorded Does Anyone Try to Keep You From Having Contact with Others or Doing Things Outside Your Home? no 12/09/2023 Feels Threatened by Someone no 11/12 Feels Unsafe at Home or Work/School no 12/09/2023 Physical Signs of Abuse Present no 12/09/2023 Sex and Gender Information Value Date Recorded Sex Assigned at Not on file Gender Identity Female 08/26/2018 8:14 PM EDT Sexual Orientation Not on file documented as of this encounter Miscellaneous Notes * Telephone Encounter - Perez Kennedy - 04/24/2024 3:04 PM EDT PT requested callback re: Lens Billing she was not aware of/not quoted. Billing dept told her to contact [facility] Team about the matter. documented in this encounter Plan of Treatment Upcoming Encounters Date Type Department Care Team (Late st Contact Info) Description 10/13/2024 2:45 PM EST Office [place] [address] Rodolfo Xavier MD [facility] [place] [address] documented as of this encounter Visit Diagnoses Not on filedocumented in this encounter Care Teams Binder Roller Relationship Specialty Start Date End Date Rika Matthews MD [address] [place] [address] PCP - General 07/30/13 documented as of this encounter
--- OUTSIDE RECORDS SUMMARY | 2024-05-26 18:29 | XMS_ITS | Encounter Summary ---
Author Organization [facility] Address [facility] [place] [address] Care Team Providers Care Magento Developer Name Role Phone Rika Matthews MD Primary Care Provider [phone] Reason for Visit * Reason Comments Post Op Encounter Details Date Type Department Care Team (Late st Contact Info) Description 11/26/2023 10:00 AM EST Office [place] [address] [place] [address] Status post cataract extraction and insertion of intraocular lens, left Social History Tobacco Use Types Packs/Day Years Used Date Smoking Tobacco: Never Smokeless Tobacco: Never Alcohol Use Standard Drinks/Week Comments Not Currently 0 (1 standard drink = 0.6 oz pur e alcohol) 2x/week Sex and Gender Information Value Date Recorded Sex Assigned at Not on file Gender Identity Female 08/26/2018 8:14 PM EDT Sexual Orientation Not on file documented as of this encounter Progress Notes * Rodolfo Xavier MD - 11/26/2023 10:00 AM EST POD #1 S/p CE IOL OS eye done 11/25/23: Normal postoperative appearance IOP good Plan: Continue post operative drops left eye: Ketorolac 4x a day Vigamox 4x a day Pred forte 4x a day Until gone Shield at night Continue glaucoma medications both eyes: cosopt 2x a day FUV post op as scheduled documented in this encounter Plan of Treatment Upcoming Encounters Date Type Department Care Team (Late st Contact Info) Description 10/13/2024 2:45 PM EST Office Visit Ophthalmology at [facility] [place] [place] [address] [facility] [place] [address] documented as of this encounter Visit Diagnoses Diagnosis Status post cataract extraction and insertion of intraocular lens, left documented in this encounter Care Teams Magento Developer Relationship Specialty Start Date End Date Rika Matthews MD [address] [place] [address] PCP - General 07/30/13 documented as of this encounter
--- OUTSIDE RECORDS SUMMARY | 2024-05-26 18:29 | XMS_ITS | Encounter Summary ---
Author Organization [facility] [place] [address] Care Team Providers Care Catering Truck Operator Name Role Phone Rika Matthews MD Primary Care Provider [phone] Encounter Details Date Type Department Care Team (Latest Contact Info) Description 04/14/2024 Travel Social History Tobacco Use Types Packs/Day Years Used Date Smoking Tobacco: Never Smokeless Tobacco: Never Alcohol Use Standard Drinks/Week Comments Not Currently 0 (1 standard drink = 0.6 oz pur e alcohol) 2x/week [facility] Inpatient Questions Answer Date Recorded Does Anyone [...] on file documented as of this encounter Plan of Treatment Upcoming Encounters Date Type Department Care Team (Late st Contact Info) Description 10/13/2024 2:45 PM EST Office Visit Ophthalmology at [facility] [place] [address] Rodolfo Xavier MD [facility] [address] documented as of this encounter Visit Diagnoses Not on filedocumented in this encounter Care Teams Catering Truck Operator Relationship Specialty Start Date End Date Rika Matthews MD [address] [place] [address] PCP - General 07/30/13 documented as of this encounter
--- OUTSIDE RECORDS SUMMARY | 2024-05-26 18:29 | XMS_ITS ---
Author Organization Unknown Address [address] [place] [address] [phone] Phone Care Team Providers Care Dye Room Helper Name Role Phone MIGUEL Arrington Attending Unavailable VANNESA Melgoza Primary Unavailable Results XR ANKLE RT 3V* - Completed: 03/23/2024 10:23 LOINC: [place], [place] [address] [facility] PACS ARTIFICIAL MARBLE WORKER REPORT Patient Name: KYLE SCALES MRN: Sex: : Age: [id number] O 1945 78 Account: Accession: Admit: StayType: [id number] 03/23/2024 O Ordered: Order ID: Submitted: Ordering Provider: 03/23/2024 10:20 [id number] SUDHIR GRISSOM Completed: Technologist: Resulted: 03/23/2024 10:22 LB 03/23/2024 19:16 FINAL REPORT EXAM: XR ANKLE RT 3V* CLINICAL HISTORY: Reason for Extrem: Pain. TECHNIQUE: 2D digital imaging was performed. COMPARISON: XR ANKLE RT 3V* from 06/06/2022 CT ANKLE RIGHT WO CONTRAST from 09/11/2022 MM SCREENING BILAT MAMMO W ANNIKA W CAD from 09/13/2022 FINDINGS: 3 views Stable position alignment of the components of the tibiotalar joint prosthesis. However, there is now a lucent area in the distal tibia above the prosthesis which was not evident on outside CT scan of 09/11/2022. Also not evident on prior right ankle images of 06/06/2022. This has a thin sclerotic border. Similar lucency in the talus is not seen. Single screw in the calcaneus is again noted. No fractures IMPRESSION: There has been interval development of a lucent area in the distal tibia immediately above the tibial component of the prosthesis. Significant new finding. This area measures approximately 2 by 1.8 cm. DATA REPOSITORY: RADIATION DOSE DELIVERED: Electronically signed by: Meng Edmond Dictated: 03/23/2024 19:16 Social History Type Status Start Date End Date Code Code Syst em Smoking History Never smoker (Never Smoked) 123568093 SNOMED CT Sex Female Hospital Discharge Instructions [...] Code System No Known Drug Allergies Active 994938656 SNOMED-CT Plan of Treatment Pre-Op Covid-19 Testing 10/17/2020 CT LOWER EXTREM W/O CONTRAST 03/15/2023 MM SCREEN BILAT 01/22/2024 MM SCREEN BILAT 09/13/2022 BONE DENSITY DEXA SPINE & HIP 4 Encounters Encounter Diagnosis Start Date Code Code Sys tem Ankle joint prosthesis present 03/23/2024 843754497 SNOMED-CT Personal Care Team Section Performer Name Performer Role Active Date Inactive Da te Imaging Narrative Notes [facility] [place], [place] [address] [facility] P[facility] ARTIFICIAL MARBLE WORKER REPORT Patient Name: KYLE SCALES MRN: Sex: : Age: [id number] O 1945 78 Account: Accession: Admit: StayType: [id number] 03/23/2024 O Ordered: Order ID: Submitted: Ordering Provider: 03/23/2024 10:20 [id number] SUDHIR GRISSOM Completed: Technologist: Resulted: 03/23/2024 10:22 LB 03/23/2024 19:16 FINAL REPORT EXAM: XR ANKLE RT 3V* CLINICAL HISTORY: Reason for Extrem: Pain. TECHNIQUE: 2D digital imaging was performed. COMPARISON: XR ANKLE RT 3V* from 06/06/2022 CT ANKLE RIGHT WO CONTRAST from 09/11/2022 MM SCREENING BILAT MAMMO W ANNIKA W CAD from 09/13/2022 FINDINGS: 3 views Stable position alignment of the components of the tibiotalar joint prosthesis. However, there is now a lucent area in the distal tibia above the prosthesis which was not evident on outside CT scan of 09/11/2022. Also not evident on prior right ankle images of 06/06/2022. This has a thin sclerotic border. Similar lucency in the talus is not seen. Single screw in the calcaneus is again noted. No fractures
--- OUTSIDE RECORDS SUMMARY | 2024-05-26 18:29 | XMS_ITS | Data Portability ---
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 Education was provided on healthy nutrition, including a diet rich in fruits and vegetables, minimizing simple carbohydrates, salt, and saturated fats. Encouraged regular cardiovascular exercise such as walking at least 30 minutes daily, 5 times per week. Emphasized preventive health measures and educated pt on fall prevention and community-based lifestyle interventions to help reduce health risks and promote healthy living. Personalized prevention plan (PPP) completed and reviewed with patient. Patient was given copy of PPP at conclusion of visit. Not available 12/16/2023 07:01:02 Plan of Treatment Reminders Order Date Submit Date Provider Last Modified By Organization Details Last Modified Time Details Appointments Office Visit 30 2023 11:30A M AISHA Carpenter'HARRhona Not available Not available Not available Lab urinalysi s, dipstick 2023 024 [email or web address] [facility], [address] [facility], [place], [address], 12/02/2023 17:45:50 lipid panel, serum 2023 024 [email or web address] [facility] (Registration ), [address] [place] [address] [place], [address], 12/19/2023 06:49:49 HbA1c (hemoglob in A1c), blood 2023 024 [email or web address] [facility] (Registration ), [address] [facility] [place], [address], 12/19/2023 06:49:56 Referral urogyneco logist referral - urge incontine nce, tried pelvic floor PT without success 2023 024 [facility] [address], [address], 05/13/2024 09:20:38 Procedures None recorded. Surgeries None recorded. Imaging MAMMO, screening , bilateral [address] - Radiology, [address] [place] [address], [address], 05/11/2024 12:57:37 DEXA 2023 024 [facility] - Radiology, [address] [place] [address], [address], 01/22/2024 13:36:07 electroca rdiogram [address], [address] [facility], [place], [address], 05/26/2024 13:11:32 Medication Orders Flonase Allergy Relief 50 mcg/actua tion nasal spray,min pension 2023 024 [email or web address] [id number], [address], [place], [place], [id number], 05/26/2024 11:39:52 Patient TargetsNo targets recorded. Patient Instructions Encounter Date Encounter Id Patient Instructions Last Modified By Organization Details Last Modified Time 12/02/2023 [id number] Treat pain with acetaminophen (Tylenol) Try gargling with salt water for sore throat. Take honey, alone or in tea. Perform nasal irrigation with Neti Pot or saline nasal spray 2-3 times per day to help with congestion. Followed by flonase 2 sprays each nostril per day Try a hot shower before bed and sleep propped up to decrease postnasal drip. Please call with any question or concern [email or web address] Not available 12/02/2023 15:45:54 12/16/2023 [id number] Discussed and explained advance directives such as standard forms to the {{patient caregive r patient and caregiver}}. Face to face discussion lasted for a duration of ___ minutes. Not available 12/16/2023 07:01:02 Reason for Referral Urogynecologist Referral for Urge incontinence of urine urge incontinence, tried pelvic floor PT without success Referring Physician: Miguel Granado, Family Medicine, Encounter Date: 05/11/2024 Results Created Date Observation Date Name Description Value Unit Range Abnormal Flag LastModifiedBy Organization Detail LastModifiedTime 11/27/19 24 11/27/2023 influ nicole virus A + B + SARS- CoV-2 (COVI D19) Ag panel , rapid IA, upper respi rator y speci men Influenza A negati ve Not Available [address], [address], 11/27/2023 08:56:16 11/27/19 24 11/27/2023 influ nicole virus A + B + SARS- CoV-2 (COVI D19) Ag panel , rapid IA, upper respi rator y speci men Influenza B negati ve Not Available [address], [address], 11/27/2023 08:56:16 11/27/19 24 11/27/2023 influ nicole virus A + B + SARS- CoV-2 (COVI D19) Ag panel , rapid IA, upper respi rator y speci men SARS-COV-2 negati ve Not Available [address], [place], [address], 11/27/2023 08:56:16 12/02/19 24 12/02/2023 urina lysis , dipst ick Leukocytes Negati ve Not Available [address], [address], 12/02/2023 16:27:27 12/02/19 24 12/02/2023 urina lysis , dipst ick Nitrite negati ve Not Available [address], [address], 12/02/2023 16:27:27 12/02/19 24 12/02/2023 urina lysis , dipst ick Urobilinogen .2 Not Available [address], [address], 12/02/2023 16:27:27 12/02/19 24 12/02/2023 urina lysis , dipst ick Protein Negati ve Not Available [address], [address], 12/02/2023 16:27:27 12/02/19 24 12/02/2023 urina lysis , dipst ick pH 6.0 Not Available [address], [address], 12/02/2023 16:27:27 12/02/19 24 12/02/2023 urina lysis , dipst ick Blood Negati ve Not Available [address], [address], 12/02/2023 16:27:27 12/02/19 24 12/02/2023 urina lysis , dipst ick Specific [place] 1.010 Not Available [facility] [address] [place], [address], 12/02/2023 16:27:27 12/02/19 24 12/02/2023 urina lysis , dipst ick Ketone Negati ve Not Available [address], [address], 12/02/2023 16:27:27 12/02/19 24 12/02/2023 urina lysis , dipst ick Bilirubin Negati ve Not Available [address], [address], 12/02/2023 16:27:27 12/02/19 24 12/02/2023 urina lysis , dipst ick Glucose Negati ve Not Available [facility] [address] [place], [address], 12/02/2023 16:27:27 12/02/19 24 12/02/2023 urina lysis , dipst ick Appearance Clear Not Available [address], [address], 12/02/2023 16:27:27 12/02/19 24 12/02/2023 urina lysis , dipst ick Color Yellow Not Available [address], [address], 12/02/2023 16:27:27 12/12/19 24 12/12/2023 HEMOG LOBIN A1C hemoglobin A1C 6.0 % <5.7 high Not Available Earline prasad [address] [place], [address] 12/12/2023 15:32:53 12/12/19 24 12/12/2023 LIPID 2 cholesterol 154 mg/dL <200 Not Available [facility] [address] [place], [address] 12/12/2023 15:47:00 12/12/19 24 12/12/2023 LIPID 2 triglyceride 44 mg/dL <150 Not Available Jack kessler [address] [place], [address] 12/12/2023 15:47:00 12/12/19 24 12/12/2023 LIPID 2 HDL cholesterol 64 mg/dL 40-60 Not Available H[facility] [address] [facility] [place], [address] 12/12/2023 15:47:00 12/12/19 24 12/12/2023 LIPID 2 calculated LDL 82 mg/dL <100 Not Available Earline prasad [address] [facility] [place], [address] 12/12/2023 15:47:00 01/22/20 24 01/22/2024 tamra FAIR bilat eral [facility] Roc moreno [facility] [address] PACS TRANSC RIPCROW Prasad REPORT _ Patien t Name: ARLET TERESA MRN: Sex: : Age: [id number] F [id number] [address]: Access ion: Admit: StayTy pe: [id number] O/P Ordere d: Order ID: Submit angel: Orderi ng Provid er: 2023 12:47 [id number] MIGUEL MARTINEZ angel: Techno logist : Result ed: 2023 13:11 KVK 2023 13:23 _ Study Descri ption: MM SCREEN ING BILAT MAMMO W ANNIKA W CAD Study Reason : Screen ing TECHNI QUE: Bilate ral full field digita l CC and MLO mammog raphic images were obtain ed with 3D tomosy nthesi s and utiliz ing comput er aided detect ion (CAD). COMPAR SHER: Prior mammog sami were review ed. FINDIN GS: There has been no signif icant change in the appear ance and distri bution of the fibrog landul ar tissue which is again noted to be modera tely dense, this somewh at decrea sing the sensit ivity of the mammog luiz for findin g hidden underl candida lesion s.. There are no CAD design ations . There are no obviou s new spicul ated masses nor malign ant appear ing microc alcifi cation groups . There is no signif icant godwin ectura l distor tion nor skin thicke gilmar-r etract ion. IMPRES LON: 1. No radiog raphic eviden ce of malign lupillo. BiRads Catego ry: 1-nega tive BI_RAD S Densit y Catego ry C: Hetero geneou sly dense Breast densit y Catego ry C or D implie s that the patien t has dense breast tissue . Dense breast tissue can make it harder to find cancer on a mammog luiz. Dense breast tissue is also associ ated with an increa sed risk of breast cancer . This inform ation about the result of the mammog luiz report was provid ed to the patien t to raise their awaren ess. Use this report when you speak with the patien t about their risks for breast cancer , which includ es their family histor y. At that time, you may recomm end additi onal screen ing tests (Ultra sound or MRI) as these tests may add signif icant inform ation. A negati ve radiog raphic report should not delay biopsy if a domina nt or clinic ally suspic ious mass is presen t. Up to ten percen t of cancer s are not identi fied on mammog pedro. A negati ve report may reinfo rce clinic al impres lon. Adenos is and dense breast s may obscur e an underl candida neopla sm. False positi ve report s averag e 6 to 10%. Laura t will receiv e a letter notify ing them of these result s. Report Damien raya Signed by Meng Edmond on 2023 01:23 PM EDT [email or web address] [facility] (Lab) [address] [place], [address], 05/11/2024 12:57:37 01/22/20 24 01/22/2024 DEXA No observ ation record ed. [facility] Cardiology [address] [place], [address], 01/22/2024 15:44:02 01/22/20 24 01/22/2024 bd dxa bone densi ty hip and spine [facility] RADIOL OGY Meagan Crawford [address] PACS TRANSC RIPTIO N REPORT _ Patien t Name: ARLET TERESA MRN: Sex: : Age: [id number] F [id number] Accoun t: Access ion: Admit: StayTy pe: [id number] O/P Ordere d: Order ID: Submit angel: Orderi ng Provid er: 2023 12:47 [id number] MIGUEL MARTINEZ angel: Techno logist : Result ed: 2023 13:35 DAH 2023 15:31 _ Study Descri ption: BD DXA BONE DENSIT Y HIP AND SPINE Study Reason : OSTEOP ENIA TECHNI QUE: Perfor med on a Hologi c unit. COMPAR SHER: No exams were availa ble for compar sher FINDIN GS: Lumbar Spine total T-scor e: 1.2 Hip total T-scor e: 0.2 Indepe ndent readin g at the femora l neck yields a T score of -0.1 IMPRES LON: Bone minera l densit y measur es in the normal range. Fractu re risk is low. Note: Any spine fractu re indica suzy 5x risk for subseq uent spine fractu re and 2x risk for subseq uent hip fractu re. World Health Organi zation criter ia for BMD interp retati on classi fy patien ts: Normal ...... T- Score at or above -1.0 Osteop enic.. . T- Score betwee n -1.0 and -2.5 Osteop orosis ... T-Scor e at or below -2.5 No exams were availa ble for compar sher Report Damien raya Signed by Meng Edmond on 2023 03:31 PM EDT [facility] (Lab) [address] [place] [address], [address], 01/22/2024 19:32:34 03/23/20 24 03/23/2024 xr ankle RT 3V* [facility]GY Meagan Crawford t [address] INFINI TT PACS TRANSC RIPTIO N REPORT _ Patien t Name: ARLET TERESA MRN: Sex: : Age: [id number] O [id number] Accoun t: Access ion: Admit: StayTy pe: [id number] O Judy d: Order ID: Submit angel: Kam Monaco er: 2023 10:20 [id number] SUDHIR GRISSOM Tonia angel: Techno logist : Result ed: 2023 10:22 LB 2023 19:16 _ FINAL REPORT EXAM: XR ANKLE RT 3V* CLINIC AL HISTOR Y: Reason for Extrem : Pain. TECHNI QUE: 2D digita l imagin g was perfor med. COMPAR SHER: XR ANKLE RT 3V* from 2021 CT ANKLE RIGHT WO CONTRA ST from 2021 MM SCREEN ING BILAT MAMMO W ANNIKA W CAD from 2021 FINDIN GS: 3 views Stable positi on alignm ent of the compon ents of the tibiot alar joint prosth esis. Howeve r, there is now a lucent area in the distal tibia above the prosth esis which was not eviden t on outsid e CT scan of 2021. Also not eviden t on prior right ankle images of 2021. This has a thin sclero tic border . Simila r lucenc y in the talus is not seen. Single screw in the calcan eus is again noted. No fractu res IMPRES LON: There has been interv al develo pment of a lucent area in the distal tibia immedi ately above the tibial compon ent of the prosth esis. Signif icant new findin g. This area measur es approx imatel y 2 by 1.8 cm. DATA REPOSI TORY: RADIAT ION DOSE DELIVE RED: Electr onical ly signed by: Meng Edmond ed: 2023 19:[email or web address] [place] [address] (Lab) [address] [place], [address], 03/24/2024 08:58:43 03/27/20 24 03/23/2024 xr ankle RT 3V* [facility] Meagan Crawford [address] INFINI TT PACS TRANSC RIPTIO N REPORT _ Patien t Name: ARLET TERESA MRN: Sex: : Age: [id number] O [id number] Acc[address]: Access ion: Admit: StayTy pe: [id number] O Judy d: Order ID: Submit angel: Kam Monaco er: 2023 10:20 [id number] SUDHIR GRISSOM angel: Techno logist : Result ed: 2023 10:22 LB 2023 19:16 _ FINAL REPORT EXAM: XR ANKLE RT 3V* CLINIC AL HISTOR Y: Reason for Extrem : Pain. TECHNI QUE: 2D digita l imagin g was perfor med. COMPAR SHER: XR ANKLE RT 3V* from 2021 CT ANKLE RIGHT WO CONTRA ST from 2021 MM SCREEN ING BILAT MAMMO W ANNIKA W CAD from 2021 FINDIN GS: 3 views Stable positi on alignm ent of the compon ents of the tibiot alar joint prosth esis. Kulwinder r, there is now a lucent area in the distal tibia above the prosth esis which was not eviden t on outsid e CT scan of 2021. Also not eviden t on prior right ankle images of 2021. This has a thin sclero tic border . Simila r lucenc y in the talus is not seen. Single screw in the calcan eus is again noted. No fractu res IMPRES LON: There has been interv al develo pment of a lucent area in the distal tibia immedi ately above the tibial compon ent of the prosth esis. Signif icant new findin g. This area measur es approx imatel y 2 by 1.8 cm. DATA REPOSI TORY: RADIAT ION DOSE DELIVE RED: Electr onical ly signed by: Meng Edmond ed: 2023 19:[email or web address] [place] [address] (Lab) [address] [place] [address], [address], 03/27/2024 16:10:03 05/26/20 24 05/26/2024 elect guicho johnson am No observ ation record ed. [email or web address] [facility] [address] [facility], [place], [address], 05/26/2024 13:11:31 Result Notes None recorded. Problems Name Status Onset Date Resolution Date Notes Provider Name and Address Organization Details Recorded Time Glaucoma Active 2005 Problem Code: H40.9; Problem Code Type: ICD-10; Not Available [facility] 3 04:02:07 Degeneration of cervical intervertebra l disc Active 2005 Problem Code: M50.30; Problem Code Type: ICD-10; Not Available [facility] 3 04:02:07 Urge incontinence of urine Active 200411/01/2015 - Comments only - Miguel Granado MD - Mild, continue antichol meds for this. Problem Code: N39.41; Problem Code Type: ICD-10; Not Available [facility] 3 04:02:07 Idiopathic osteoarthriti s Active 201610/08/2017 - Comments only - Miguel Granado MD - reviewed conservative management. Problem Code: M19.049; Problem Code Type: ICD-10; Not Available [facility] 3 04:02:07 Contusion of right lower leg Completed 201707/11/2018 06/27/2018 - Comments only - Miguel Granado MD - Reassurance provided, advised conservative management. Problem Code: S80.11xA; Problem Code Type: ICD-10; Not Available [facility] 3 04:02:07 Screening mammography Active 2018 Problem Code: Z12.31; Problem Code Type: ICD-10; Not Available [facility] 3 04:02:07 Screening for malignant neoplasm of colon Active 2018 Problem Code: Z12.11; Problem Code Type: ICD-10; Not Available [facility] 3 04:02:08 Adjustment disorder Active 201810/23/2019 - Comments only - Miguel Granado MD - SC provided. Problem Code: F43.20; Problem Code Type: ICD-10; Not Available [facility] 3 04:02:08 Adult health examination Active 201810/23/2019 - Comments only - Miguel Granado MD - Medicare wellness exam. Personalized prevention plan competed and rev'd with patient. patient was given copy of PPP at conclusion of visit. Referred for mammo and for colo next jun. UTD with scg labs. Problem Code: Z00.00; Problem Code Type: ICD-10; Not Available [facility] 3 04:02:08 Impacted cerumen in left ear Completed 201912/18/2019 Problem Code: H61.22; Problem Code Type: ICD-10; Not Available [facility] 3 04:02:08 Exposure to communicable disease Completed 201908/12/2020 Problem Code: Z20.9; Problem Code Type: ICD-10; Not Available [facility] 3 04:02:08 History of polyp of colon Active 2019 Problem Code: Z86.010; Problem Code Type: ICD-10; Not Available [facility] 3 04:02:08 Prediabetes Active 202001/11/2023 - Comments only - Miguel Granado MD - A1c stable at 5.9. Patient very aware of strategies to decrease risk of progression to diabetes. Declined referral or further information. Problem Code: R73.03; Problem Code Type: ICD-10; Not Available [facility] 3 04:02:08 General examination of patient Active 202011/07/2021 - Comments only - Miguel Granado MD - Medicare wellness exam. Personalized prevention plan competed and rev'd with patient. patient was given copy of PPP at conclusion of visit. UTD with ca scgs, IZs, scg labs. Problem Code: Z00.8; Problem Code Type: ICD-10; Not Available [facility] 3 04:02:08 Acute stress disorder Active 202001/05/2022 - Improved - Miguel Granado MD - Agree with continuing just the buspirone and acupuncture. Noted adverse reaction to initial dose of Lexapro, although it sounds like her GI symptoms are somatic representatio n of anxiety so I would not counted as an allergy per se. Follow-up left open. Problem Code: F43.0; Problem Code Type: ICD-10; Not Available [facility] 3 04:02:09 Viral screening Completed 202107/08/2022 Problem Code: Z11.52; Problem Code Type: ICD-10; Not Available [facility] 3 04:02:09 Genitourinary symptoms Completed 202107/08/2022 Problem Code: R39.9; Problem Code Type: ICD-10; Not Available [facility] 3 04:02:09 Cough Completed 202106/22/2022 Problem Code: R05.8; Problem Code Type: ICD-10; Not Available [facility] 3 04:02:09 Lower abdominal pain Completed 202106/22/2022 Problem Code: R10.30; Problem Code Type: ICD-10; Not Available [facility] 3 04:02:09 Acute pharyngitis Completed 202106/22/2022 Problem Code: J02.9; Problem Code Type: ICD-10; Not Available [facility] 3 04:02:09 Fever Completed 202106/22/2022 Problem Code: R50.9; Problem Code Type: ICD-10; Not Available [facility] 3 04:02:09 Atypical facial pain Active 2021 Problem Code: G50.1; Problem Code Type: ICD-10; Not Available [facility] 3 04:02:10 Gastroesophag eal reflux disease without esophagitis Active 202108/01/2022 - Improved - Miguel Granado MD - Reviewed option of trial of discontinuati on of omeprazole to see if she can manage symptoms with diet alone. Okay to resume if symptoms worsen off the medication. Problem Code: K21.9; Problem Code Type: ICD-10; Not Available [facility] 3 04:02:10 Inconclusive mammography finding Active 2021 Problem Code: R92.2; Problem Code Type: ICD-10; Not Available [facility] 3 04:02:10 Urinary tract infectious disease Completed 202201/16/2023 Problem Code: N39.0; Problem Code Type: ICD-10; Not Available [facility] 3 04:02:10 Acute bronchitis Completed 201610/08/2017 Problem Code: J20.9; Problem Code Type: ICD-10; Not Available [facility] 3 04:02:12 Urinary incontinence Completed 200408/07/2023 Problem Code: 788.3; Problem Code Type: ICD-9; Not Available [facility] 3 04:02:13 Sprain of ankle Completed 201008/07/2023 Problem Code: 845.09; Problem Code Type: ICD-9; Not Available [facility] 3 04:02:13 Anemia Completed 202008/01/2022 Problem Code: D64.9; Problem Code Type: ICD-10; Not Available [facility] 3 04:02:15 Clinical finding Completed 201008/07/2023 Problem Code: 796.4; Problem Code Type: ICD-9; Not Available [facility] 3 04:02:15 Altered bowel function Completed 202108/01/2022 Problem Code: R19.4; Problem Code Type: ICD-10; Not Available [facility] 3 04:02:15 Screening mammography Completed 201510/08/2017 Problem Code: Z12.31; Problem Code Type: ICD-10; Not Available [facility] 3 04:02:16 Asthenia Completed 201011/01/2015 Problem Code: R53.1; Problem Code Type: ICD-10; Not Available [facility] 3 04:02:16 Arthralgia of the ankle and/or foot Completed 201708/07/2023 08/05/2018 - Comments only - Miguel Granado MD - 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 Recom'd plain films and referral to ortho ([facility]). Problem Code: M25.571; Problem Code Type: ICD-10; Not Available [facility] 3 04:02:17 Trochanteric bursitis of left hip Completed 201410/08/2017 Problem Code: M70.62; Problem Code Type: ICD-10; Not Available [facility] 3 04:02:18 Hypocalcemia Completed 202008/01/2022 Problem Code: E83.51; Problem Code Type: ICD-10; Not Available [facility] 3 04:02:18 Hyperglycemia Completed 202008/07/2023 Problem Code: R73.9; Problem Code Type: ICD-10; Not Available [facility] 3 04:02:19 Diabetes mellitus screening Completed 201810/23/2019 Problem Code: Z13.1; Problem Code Type: ICD-10; Not Available [facility] 3 04:02:19 Screening for disorder Completed 201410/08/2017 Problem Code: Z13.9; Problem Code Type: ICD-10; Not Available [facility] 3 04:02:20 Nausea Completed 202108/01/2022 Problem Code: R11.0; Problem Code Type: ICD-10; Not Available [facility] 3 04:02:21 Blood glucose outside reference range Completed 202008/07/2023 Problem Code: R73.09; Problem Code Type: ICD-10; Not Available [facility] 3 04:02:22 Spontaneous rupture of flexor tendons Completed 201010/08/2017 Problem Code: M66.379; Problem Code Type: ICD-10; Not Available [facility] 3 04:02:22 Bilateral age-related nuclear cataracts Active 2022 JUAN MANUEL ADAM, [facility] 3 10:25:52 Bilateral primary open angle glaucoma Active 2022 JUAN MANUEL ADAM, [facility] 3 10:26:06 Acute upper respiratory infection Active 2023 JUN BARAKAT [address], [place], [address] , [facility] 4 15:39:39 Familial combined hyperlipidemi a Active [address], [place], [address] , [facility] 4 08:26:29 Serous otitis media of left ear Active [address], [place], [address] , [facility] 4 11:20:05 Pain of right ankle joint Active 2023 JUAN MANUEL ADAM, [facility] 4 09:20:24 Pseudophakia Active 2023 JUAN MANUEL ADAM, [facility] 4 08:39:50 Bilateral eye astigmatism Active 2023 MIKE FRANK MA null, [facility] 4 08:40:11 Presbyopia Active 2023 MIKE FRANK MA null, [facility] 4 08:40:19 Retinal hemorrhage Active 2023 MIGUEL GRANADO MD [address], [place], [address] [facility] 4 07:40:47 Problem Notes None recorded. Procedures Surgical History None recorded. Imaging Results Imaging Date Name Status LastModified by Organization Details LastModified Time 01/22/2024 MAMMO, screening, bilateral completed [email or web address] [facility] (Lab) [address] [place] [address], [id number], 05/11/2024 12:57:37 01/22/2024 DEXA completed [address] [facility] [address] [place] [address], [id number], 01/22/2024 15:44:02 01/22/2024 bd dxa bone density hip and spine completed [facility] (Lab) [address] [place] [address], [id number], 01/22/2024 19:32:34 03/23/2024 xr ankle RT 3V* completed [email or web address] [facility] (Lab) [address] [place] [address], [id number], 03/24/2024 08:58:43 03/23/2024 xr ankle RT 3V* completed [facility] (Lab) [address] [place] [address], [id number], 03/27/2024 16:10:03 05/26/2024 electrocardiogram completed [address] 4 [facility], [place], [address], 05/26/2024 13:11:31 Procedure Notes None recorded. Medical Equipment None Reported. Allergies No known drug allergies Medications Name Sig Start Date Stop Date Status Note LastModified by Organization Details LastModified Time buspirone 5 mg tablet 1-2 tabs 3 times/ day as needed for anxiety or sleep 06/08 completed Not Available Not Available Not Available meloxicam 15 mg tablet Take one tab by mouth, once daily. 2019 active Not Available Not Available Not Avai lable ondansetron HCl 4 mg tablet Take on tab orally every 6 hours as needed for nausea 2019 active Not Available Not Available Not Avai lable calcium 500 mg tablet 1 tablet once a day 06/08 completed Not Available Not Available Not Available tramadol 50 mg tablet Take 1 tab by mouth every 7 hours as needed for pain. 2019 active Not Available Not Available Not Avai lable ketorolac 0.5 % eye drops INSTILL 1 DROP INTO AFFECTED EYE(S) BY OPHTHALMI C ROUTE 4 TIMES PER DAY 05/26 completed Not Available Not Available Not Available Guaiatussin AC 10 mg-100 mg/5 mL oral liquid Take 1-2 tsp by mouth at bedtime as needed for cough 10/08 completed Not Available Not Available Not Available famotidine 20 mg tablet Take 1 tablet by mouth once a day 07/11 completed Not Available Not Available Not Available benzonatate 100 mg capsule TAKE 1 CAPSULE BY MOUTH THREE TIMES DAILY NEEDED FOR COUGH 12/16 completed Not Available Not Available Not Available timolol 0.5 % eye drops 1 drop into both eyes once a day 07/11 completed Not Available Not Available Not Available omeprazole 20 mg capsule,del ayed release Take 1 capsule by mouth once a day take on empty stomach 01/11 completed Not Available Not Available Not Available dorzolamide 22.3 mg-timolol 6.8 mg/mL eye drops 04/23 completed Not Available Not Available Not Available gabapentin 100 mg capsule Take 1 capsule by mouth three times a day 11/07 completed Not Available Not Available Not Available estradiol 0.01% (0.1 mg/gram) vaginal cream active Not Available Not Available Not Available albuterol sulfate HFA 90 mcg/actuati on aerosol inhaler INHALE 2 PUFFS BY MOUTH EVERY 4 HOURS FOR 14 DAYS 05/26 completed Not Available Not Available Not Available Cipro 250 mg tablet 1 TAB BID 01/23 completed Not Available Not Available Not Available ondansetron 4 mg disintegrat ing tablet DISSOLVE 1 TABLET ON THE TONGUE EVERY 8 HOURS NEEDED FOR NAUSEA 12/16 completed Not Available Not Available Not Available fluticasone propionate 50 mcg/actuati on nasal spray,suspe nsion SHAKE LIQUID AND USE 2 SPRAYS IN EACH NOSTRIL EVERY DAY active Not Available Not Available No t Available amoxicillin 875 mg-potassiu m clavulanate 125 mg tablet TAKE 1 TABLET BY MOUTH EVERY 12 HOURS FOR 5 DAYS 12/02 completed Not Available Not Available Not Available dorzolamide 2 % eye drops Administe r 1 drop into both eyes twice a day 12/16 completed Not Available Not Available Not Available Acidophilus capsule 12/02 completed Not Available Not Available Not Available Bactrim DS 800 mg-160 mg tablet Take 1 tablet by mouth twice a day for 5 days 11/17 completed Not Available Not Available Not Available moxifloxaci n 0.5 % eye drops INSTILL 1 DROP INTO AFFECTED EYE(S) BY OPHTHALMI C ROUTE 3 TIMES PER DAY 05/26 completed Not Available Not Available Not Available Ciprodex 0.3 %-0.1 % ear drops,suspe nsion 4 drops in affected ear BID for 7 days 12/18 completed rx to hold - will ask for this if gets pain Not Available Not Available Not Available rosuvastati n 10 mg tablet Take 1 tablet by mouth once a day active Not Available Not Available No t Available Lexapro 5 mg tablet Take 1 tablet by mouth once a day may increase to 10 mg po qd after a week 01/05 completed Not Available Not Available Not Available gabapentin 100 mg tablet tabs three times daily 10/29 completed Not Available Not Available Not Available solifenacin 10 mg tablet Take 1 tablet by mouth once a day 05/12 completed Not Available Not Available Not Available Vesicare 5 mg tablet 1TAB daily 2010 active Not Available Not Available Not Avai lable Vitamin D3 active Not Available Not Av ailable Not Available prednisolon e acetate (PF) 1 % eye drops,suspe nsion 05/26 completed Not Available Not Available Not Available Paxlovid 300 mg (150 mg x 2)-100 mg tablets in a dose pack Take 3 tablet by mouth twice a day for 5 days 05/26 completed Not Available Not Available Not Available Vitals Date Recorded Body height Body mass index (BMI) Body weight Body temperature Oxygen saturation Oxygen saturation in Arterial blood by Pulse oximetry Heart rate Systolic blood pressure Diastolic blood pressure Provider Name and Address Organization Details Last Updated DateTime 4 168.91 cm 23.3 kg/m2 67747.2 9 g 97.6 [degF] 96 % 96 % 80 /min 128 mm[Hg] 66 mm[Hg] MARCUS LEO LPN [facility] 4 15:23:54 Date Recorded Body height Body mass index (BMI) Body weight Body temperature Oxygen saturation Oxygen saturation in Arterial blood by Pulse oximetry Heart rate Systolic blood pressure Diastolic blood pressure Systolic blood pressure Diastolic blood pressure Provider Name and Address Organization Details Last Updated DateTime 4 168.28 cm 22.8 kg/m2 48054.2 7 g 97.5 [degF] 99 % 99 % 68 /min 178 mm[Hg] 86 mm[Hg] 184 mm[Hg] 80 mm[Hg] ELIZABETH RAO RN [facility] 4 10:48:34 Date Recorded Body height Body mass index (BMI) Body weight Body temperature Oxygen saturation Oxygen saturation in Arterial blood by Pulse oximetry Heart rate Systolic blood pressure Diastolic blood pressure Provider Name and Address Organization Details Last Updated DateTime 4 168.28 cm 23.1 kg/m2 57552.7 4 g 98 [degF] 98 % 98 % 76 /min 116 mm[Hg] 78 mm[Hg] MIKE FRANK MA [facility] 4 11:41:23 Social History Question Answer Notes LastModified by Organizat ion Details LastModified Time Tobacco Smoking Status Never Smoker MARCUS LEO, DANITA null, [place] - [facility]. 12/02/2023 15:24:07 Would You Say That, In General, Your Health Is Very Good Information not available 12/16/2023 How Often Does Anyone, Including Family, Physically Hurt You? Never Information not available 12/16/2023 How Often Does Anyone, Including Family, Insult Or Talk Down To You? Never Information no t available 12/16/2023 How Often Does Anyone, Including Family, Threaten You With Harm? Never Information not available 12/16/2023 How Often Does Anyone, Including Family, Scream Or Curse At You? Never Information not available 12/16/2023 Within The Past 12 Months, You Worried That Your Food Would Run Out Before You Got Money To Buy More. Never True Information n ot available 12/16/2023 Within The Past 12 Months, The Food You Bought Just Didn't Last And You Didn't Have Money To Get More. Never True Information n ot available 12/16/2023 How Hard Is It For You To Pay For The Very Basics Like Food, Housing, Medical Care, And Heating? Would You Say It Is: Not Hard At All Information not available 12/16/2023 In The Past 12 Months, Has Lack Of Reliable Transportation Kept You From Medical Appointments, Meetings, Work Or From Getting Things Needed For Daily Living? No Information not available 12/16/2023 What Is Your Housing Situation Today? I Have Housing. Information not available 12/16/2023 How Often In The Past Year Have You Used Marijuana (including Smoking, Vaping, Dabbing, Or Edibles)? 2-4 Times Per Month Information not available 12/16/2023 How Often In The Past Year Have You Used Prescription Medications That Were Not Prescribed To You? Never Information n ot available 12/16/2023 How Often In The Past Year Have You Taken Your Own Prescription Medication More Than The Way It Was Prescribed Or For Different Reasons Than Its Intended Purpose? Never Information no t available 12/16/2023 How Often In The Past Year Have You Used Other Drugs (for Example, Heroin, Cocaine, Meth, Salvia, Inhalants)? Never Information not available 12/16/2023 Have You Ever Used IV Drugs? No Information not available 12/16/2023 What Matters Most To You? Family Information not available 12/16/2023 During The Past Four Weeks Has Your Physical And Emotional Health Limited Your Social Activities With Family And Friends, Neighbors, Or Groups? Not At All Information not available 12/16/2023 During The Past Four Weeks, Was Someone Available To Help You If You Needed And Wanted Help? (For Example, If You [place] Very Nervous, Lonely, Or Blue; Got Sick And Had To Stay In Bed; Needed Someone To Talk To; Needed Help With Daily Chores; Or Needed Help Just Taking Care Of Yourself.) Yes- As Much As I Wanted Information not available 12/16/2023 During The Past Four Weeks, What Was The Hardest Physical Activity You Could Do For At Least 2 Minutes? Moderate Information not available 12/16/2023 Can You Get To Places Out Of Walking Distance Without Help? (For Example, Can You Travel Alone On Buses Or Taxis, Or Drive Your Own Car?) Yes Information not available 12/16/2023 Can You Go Shopping For Groceries Or Clothes Without Someone? s Help? Yes Information not available 12/16/2023 Can You Prepare Your Own Meals? Yes Information not available 12/16/2023 Can You Do Your Housework Without Help? Yes Information not available 12/16/2023 Because Of Any Health Problems, Do You Need The Help Of Another Person With Your Personal Care Needs Such As Eating, Bathing, Dressing, Or Getting Around The House? No Information not available 12/16/2023 Can You Handle Your Own Money Without Help? Yes Information not available 12/16/2023 Are You Having Difficulties Driving Your Car? No Information no t available 12/16/2023 Do You Always Fasten Your Seat Belt When You Are In A Car? Yes- Usually Information not available 12/16/2023 How Often During The Past Four Weeks Have You Been Bothered By Any Of The Following Problems? Falling Or Dizzy When Standing Up? Never Information not available 12/16/2023 Sexual Problems? Never Informat ion not available 12/16/2023 Trouble Eating Well? Never Information not available 12/16/2023 Teeth Or Denture Problems? Never Information not available 12/16/2023 Problems Using The Telephone? Never Information not available 12/16/2023 Tiredness Or Fatigue? Seldom Information not available 12/16/2023 Have You Had 2 Or More Falls Or Sustained An Injury With A Fall In The Last Year? No Information no t available 12/16/2023 Do You Have Difficulty With Walking Or Balance? No Information not available 12/16/2023 Do You Currently Use A Hearing Device? No Information not available 12/16/2023 Do You Currently Have Any Trouble With Your Vision? No Information no t available 12/16/2023 Do You Exercise For About 20 Minutes Three Or More Days A Week? Yes- Most Of The Time Information not available 12/16/2023 Are There Any Safety Concerns In Your Home (see Attached CDC Pamphlet)? No Information not available 12/16/2023 How Often Do You Have Trouble Taking Medicines The Way You Have Been Told To Take Them? I Always Take Them As Prescribed Information not available 12/16/2023 How Confident Are You That You Can Control And Manage Most Of Your Health Problems? Somewhat Confident Information not available 12/16/2023 Do You Currently Have Any Difficulty With Your Hearing? No Information not available 12/16/2023 Date Of Most Recent SBINS 12/16/2023 Information not available 12/16/2023 What Was The Date Of Your Most Recent Tobacco Screening? 12/16/2023 Information not available 12/16/2023 Has Tobacco Cessation Counseling Been Provided? No Information not available 12/16/2023 Do You Or Have You Ever Used Any Other Forms Of Tobacco Or Nicotine? No Information not available 12/16/2023 Sex: Female Functional Status None recorded. Mental Status None recorded. Family History Relationship Description Onset Age of this Age Resolved Age Notes Mother Family history of acute medical disorder passed 1988 esophageal CA and Stomach CA Notes:*Problem: Significant for father at 70 of lung cancer. He was a smoker and mother is her early 70s of esophageal cancer. No known breast or colon cancer. No coronary artery disease and no Alzheimer's. brother passed AML 2022 Medical History No medical history recorded. Gynecological HistoryNo gynecological history recorded. Obstetrics History GPAL:G 0 P 0 0 0 0 Immunizations Vaccine Type Date Status Provider Name and Address Organization Details Recorded Time Tdap 06/21/2009 completed Not Available [facility] 05:19:46 Tdap 10/23/2019 completed Not Available [facility] 05:19:46 zoster live 06/21/2009 completed Not Available [facility] 09/20/2023 05:19:46 Pneumococcal conjugate PCV 13 10/08/2017 completed Not Available [facility] 09/20/2023 05:19:46 Influenza, high-dose, trivalent, PF 08/05/2018 completed Not Available [facility] 09/20/2023 05:19:47 Influenza, split virus, trivalent, preservative 10/13/2015 completed Not Available [facility] 09/20/2023 05:19:47 zoster recombinant 06/24/[address] [facility] 09/20/2023 05:19:47 zoster recombinant 10/14/[address] [facility] 09/20/2023 05:19:48 COVID-19, mRNA, LNP-S, PF, 100 mcg/0.5mL dose or 50 mcg/0.25mL dose 12/07/2020 completed Not Available [facility] 09/20/2023 05:19:48 COVID-19, mRNA, LNP-S, PF, 100 mcg/0.5mL dose or 50 mcg/0.25mL dose 01/04/2021 completed Not Available [facility] 09/20/2023 05:19:48 COVID-19, mRNA, LNP-S, PF, 100 mcg/0.5mL dose or 50 mcg/0.25mL dose 09/05/2021 completed Not Available [facility] 09/20/2023 05:19:48 SARS-COV-2 (COVID-19) vaccine, UNSPECIFIED 04/06/2022 completed Not Available [facility] 09/20/2023 05:19:48 COVID-19, mRNA, LNP-S, bivalent, PF, 10 mcg/0.2 mL 08/03/2022 completed Not Available [facility] 09/20/2023 05:19:48 pneumococcal polysaccharide PPV23 10/19/2011 completed Not Available [facility] 2022 05:19:49 Hep A, adult 11/01/2015 completed Not Available [facility] 09/20/2023 05:19:49 influenza, unspecified formulation 08/03/2022 completed Not Available [facility] 09/20/2023 05:19:49 influenza, unspecified formulation 08/04/2014 completed Not Available [facility] 09/20/2023 05:19:49 influenza, unspecified formulation 08/18/2020 completed Not Available [facility] 09/20/2023 05:19:49 influenza, unspecified formulation 08/20/2012 completed Not Available [facility] 09/20/2023 05:19:50 influenza, unspecified formulation 08/26/2009 completed Not Available [facility] 09/20/2023 05:19:50 influenza, unspecified formulation 08/31/2013 completed Not Available [facility] 09/20/2023 05:19:50 influenza, unspecified formulation 09/05/2021 completed Not Available [facility] 09/20/2023 05:19:50 influenza, unspecified formulation 09/12/2011 completed Not Available [facility] 09/20/2023 05:19:50 influenza, unspecified formulation 09/29/2007 completed Not Available [facility] 09/20/2023 05:19:50 SARS-COV-2 (COVID-19) vaccine, UNSPECIFIED 08/25/2023 completed JUAN MANUEL [facility] 11/18/2023 11:19:51 influenza, unspecified formulation 08/25/2023 completed JUAN MAN[facility] 11/18/2023 11:20:00 Past Encounters Encounter ID Performer Location Encounter Start Date Encounter Closed Date Diagnosis/Indication Diagnosis SNOMED-CT Code [id number] MIGUEL GRANADO MD [address] [address] 11/18/2023 11:09:03 11/18/2023 15:13:48 Bilateral age-related nuclear cataracts [id number] Aishajulieta Roland PA-C [address] [address] 11/27/2023 08:36:57 11/27/2023 09:22:39 Upper respiratory infection 07072491 Acute otitis media 93797 03 [id number] [address] 12/02/2023 15:14:36 12/02/2023 16:34:11 Acute upper respiratory infection 83339798 Urge incon tinence of urine 43068467 Urinary symptoms 0696079 08 [id number] Ary Smith [address] [address] 12/12/2023 08:33:50 12/12/2023 09:26:00 Adult health examination 287563430 [id number] MIGUEL GRANADO MD [address] [address] 12/16/2023 10:25:44 12/16/2023 11:37:10 Adult health examination 756778163 Prediabetes 277094777 Familial c ombined hyperlipidemia 093037054 Screening mammography 24 996082 Screening for osteoporosis 538642992 Serous darya tis media of left ear 970717557104292 3 Postmenopausal state 764 93198 [id number] MIGUEL GRANADO MD [address] [address] 05/11/2024 15:46:57 05/11/2024 16:27:06 Urge incontinence of urine 79782812 Retinal hemorrhage 99115 764 [id number] Aishajulieta Roland PA-C [address] [address] 05/26/2024 11:25:12 05/26/2024 12:19:19 Retinal hemorrhage 55885523 Health Concerns Section Related Observation LastModified by Organization Detai ls LastModified Time None Recorded Concern Status LastModified by Organization Details LastModified Time None Recorded Advance Directives Directive None Recorded Payers Encounter Date Sequence Insurance Name Policy Number Policy Grant Covered Member ID Grant Member ID Guarantor Name 12/02/2023 1 [employer] [id number] 2 Destinee Chalupa [id number] Destinee Chalupa 12/12/2023 1 [employer] (MEDICARE REPLACEMENT PPO) [id number] 2 Arlet L Chalupa [id number] Destinee Chalupa 12/16/2023 1 [employer] (MEDICARE REPLACEMENT PPO) [id number] 2 Arlet L Chalupa [id number] Destinee Chalupa 05/11/2024 1 [employer] (MEDICARE REPLACEMENT PPO) [id number] 2 Arlet L Chalupa [id number] Destinee Chalupa 05/26/2024 1 [employer] (MEDICARE REPLACEMENT PPO) [id number] 2 Arlet L Chalupa [id number] Destinee Chalupa Notes Date Note Type Note Provider Name and Address Organization Details Recorded Time 12/02/2023 text/html HPI Notes: CC: Continued left ear clogged sensation after completing Augmentin for possible bacterial OM. She has had upper respiratory symptoms for the past 3 weeks, gradually improving, definitely coughing less. She feels improved from when she was here on 11/27, continues to cough but not as much, ear pain continues but not as much, mostly just a clogged sensation. Also concerned she might have a UTI as her chronic urinary incontinence has worsened since she has had this URI. No fevers, shortness of breath, diarrhea, urethral burning, urethral discharge, or back pain [address], [place], [address], [facility]. 12/02/2023 17:38:28 12/16/2023 text/html HPI Notes: Raffi nt seen for MWV. HSA reviewed, no concerns. No cognitive concerns. Care team, med , FH, SH reviewed and updated. She is a week out from her second cataract repair and doing well. She is using eyedrops as recommended. Had a bad cold 2 weeks ago, see ROS regarding persistent left ear symptoms. MD [address], [place], [address], [facility]. 12/16/2023 11:20:45 05/11/2024 text/html HPI Notes: Raffi nt seen via telehealth to review incidental finding of a small retinal hemorrhage at eye exam. No known history of cardiovascular or cerebrovascular disease. No family history of early CAD. 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 She had elevated blood pressure readings the last 2 office visits but has checked some home readings and they have been fine. No History of hypertension. Denies any changes in vision, recovered well from recent cataract surgery. She does get treatment for glaucoma. 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 She had tried pelvic floor PT in the past without success. MD [address], [place], [address], [facility], [facility]. 05/11/2024 16:22:09 05/26/2024 text/html HPI Notes: Pt is a 78 y/o F here for ECG for a baseline as per PCP and recommendation as per her director of critical care. She is also interested in getting lipoprotein A testing and carotid exam. She is feeling well. No complaints. [address], [place], [address], [facility]. 05/26/2024 13:12:20 OBGyn Episode No OBEpisode recorded.
--- OUTSIDE RECORDS SUMMARY | 2024-05-26 18:29 | XMS_ITS | Encounter Summary ---
Author Organization [facility] [place] [address] Care Team Providers Care Test Conductor Name Role Phone Rika Matthews MD Primary Care Provider [phone] Reason for Visit * Auth/Cert (Routine) Specialty Diagnoses / Procedures Referred By Francisco t Referred To Contact Diagnoses Cataract Procedures PRO EXTRACAPSULAR CATARACT RMVL INSERTION IO LENS PROSTH W/O ECP PRO INSERTION ANTERIOR DRAINAGE DEV W/O EXTRAOCULAR RESERVOIR, EXT APPR CATARACT EXTRACTION, EXTRACAPSULAR,TORIC LENS INSERTION (WRVU 7.35) INSERTION OF ANTERIOR SEGMENT AQUEOUS DRAINAGE DEVICE W/O RESERVOIR (WRVU 13.2) Rodolfo Xavier MD [facility] [place] [address] [address] [facility] Referral ID Status Reason Start Date Expiration Date Visits Re quested Visits Authorized [id number] 1 1 Encounter Details Date Type Department Care Team (Latest Contact Info) Description 11/25/2023 12:21 PM EST - 11/25/2023 2:55 PM EST Hospital Encounter [facility] [place] [address] Rodolfo Xavier MD [facility] [place] [address] Discharge Disposition: Home Social History Tobacco Use Types Packs/Day Years Used Date Smoking Tobacco: Never Smokeless Tobacco: Never Alcohol Use Standard Drinks/Week Comments Not Currently 0 (1 standard drink = 0.6 oz pur e alcohol) 2x/week Sex and Gender Information Value Date Recorded Sex Assigned at Not on file Gender Identity Female 08/26/2018 8:14 PM EDT Sexual Orientation Not on file documented as of this encounter Last Filed Vital Signs Vital Sign Reading Time Taken Comments Blood Pressure 151/103 11/25/2023 2:47 PM EST Pulse 95 11/25/2023 2:47 PM EST Temperature 36 ??C (96.8 ??F) 11/25/2023 2:47 PM EST Respiratory Rate 16 11/25/2023 2:47 PM EST Oxygen Saturation 96% 11/25/2023 2:47 PM EST Inhaled Oxygen Concentration - - Weight 62.6 kg (138 lb) 11/25/2023 1:31 PM EST Height 170.2 cm (5' 7) 11/25/2023 1:31 PM EST Body Mass Index 21.61 11/25/2023 1:31 PM EST documented in this encounter Discharge Instructions * Discharge Instructions* Kayleigh Schmidt RN - 11/25/2023 1:17 PM EST Instructions for the first day following CATARACT (and cataract with iStent) surgery Rodolfo Xavier M.D. Section of ophthalmology [facility] [phone] - Wear either the eye shield or glasses of any kind for the first 24 hours after surgery. -Do not rub your eye. -No swimming or hot tubs for 1 month after surgery. - The surgery center nurses should confirm time of your follow up appointment for tomorrow with . This appointment will be at the [facility] in the main building at [facility] - Mild discomfort is normal, but if you have any severe eye pain or bleeding call [phone] and ask to speak to the eye doctor manager long term care. - Call you Primary Care Doctor or the Emergency Room for any non eye related medical issues. - Your eye will be red tomorrow - this is normal. - Your glasses prescription has changed and you old glasses may not work anymore. You will get a new glasses prescription in about 4-6 weeks - Start your post-op drops in 2 hours. Your post-op drops to take while awake are prednisolone acetate 1% (white or pink), Moxifloxacin (keating) and Ketorolac (hagen) each four times daily. Use at breakfast, lunch, dinner and bedtime. - Be sure to wait 5 minutes between each drop so that they don't dilute each other. - The prednisolone acetate drops (white or pink) need to be shaken. - Some of the drops, especially the Ketorolac (hagen), may sting. It can be helpful to refrigerate them to make them more comfortable. - If you are on glaucoma drops, it is very important that you keep taking these as usual. -Use all of the drops until the bottles run out, then stop. You do not need to refill any of the drops from surgery - Bring your Eye Kit and drops to all postoperative visits. Moderate Sedation You may have received medication before and/or during your procedure, which affects your judgement and reaction time. Do not drive, operate machinery, drink alcoholic beverages, or make any legal decisions for 24 hours. Be careful on stairs, as you may be unsteady on your feet. You may eat a regular diet as tolerated. Do not smoke if you are alone. IV site -- slight redness, or tenderness is normal, you can use a warm compress. If tenderness and redness increases or foul drainage occurs, please contact your M. D. Questions or problems after 5pm or on a weekend: Call the [facility] bulldozer operator and ask for the physician manager long term care covering for your doctor. 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 30 mL 3 10/18/2023 meloxicam (MOBIC) 15 mg Tablet Take 1 tablet by mouth daily. 30 tablet 1 09/02/2018 solifenacin (VESICARE) 5 mg Tablet Take 10 mg by mouth daily. rosuvastatin (CRESTOR) 10 mg tablet 12/22/2010 estradiol (ESTRACE) 0.01 % (0.1 mg/g) vaginal cream 12/22/2010 documented as of this encounter Progress Notes * Kayleigh Schmidt RN - 11/25/2023 2:51 PM EST Date/Procedure: Meds Given Comments Cataract Midazolam: 1.5mg Fentanyl: 12.5mcg Patient tolerated procedure without difficulty. If cataract, patient will be returning for second eye on 12/09/23. Okay to leave message and call day before on 12/06/23. Discharge instructions and medications reviewed with patient and escort. All questions answered andwritten copy sent home with patient. Patient ambulated to car for discharge accompanied by [facility] staff member. documented in this encounter H&P Notes * Bernie Adler MD - 11/25/2023 1:18 PM EST Arlet Hilton was examined in the preoperative area. She reports no new symptoms or other changein her health since her preoperative history and physical exam was performed less than 30 days ago.Her exam reveals no significant changes. She is breathing comfortably, without cyanosis or use of ac cessory muscles. Vital signs are within acceptable parameters. The eyes are quiet without dischargeor other signs of active infection. Heart: RRR Lungs: Trace wheeze in LLL Mal: 1 ASA: 2 The sedation plan was reviewed with Arlet Hilton and she expressed understanding and agreement. Arlet Hilton has bilateral cataracts and primary open angle glaucoma in both eyes. Today's surgery is on the LEFT side. Bernie Adler MD [facility] Ophthalmology PGY3 [id number] I saw the patient with the following level of supervision from the attending: Direct from Dr. Xavier. documented in this encounter Miscellaneous Notes * Op Note - Rodolfo Xavier MD - 11/25/2023 2:21 PM EST [facility] [place] Note Patient Name: Arlet Hilton : [id number] MR#: [id number] Case Date: 11/25/2023 Surgeon: Surgeon(s) and Role: * Rodolfo Xavier MD - Primary * Bernie Adler MD - Resident - Assisting Preoperative diagnosis: Cataract, Mild POAG Postoperative diagnosis: Cataract, Mild POAG Procedure(s) (LRB): CATARACT EXTRACTION, EXTRACAPSULAR,TORIC LENS INSERTION (WRVU 7.35) (Left) INSERTION OF ANTERIOR SEGMENT AQUEOUS DRAINAGE DEVICE W/O RESERVOIR (WRVU 13.2) (Left) Anesthesia: Anesthesia type not filed in the log. Estimated Blood Loss: Specimens removed during surgery: None Drains: * No LDAs found * Surgical Closure: Primary Closure - skin incision is completely closed without any wires, kristian, drains or other devices Disposition: regional anesthesia administered without incident Condition: doing well without problems (Please see the Surgical Encounter Summary for any Implant and Specimen details pertinent to this patient.) HPI/Surgical Indications: Ms Hilton presents to clinic with decreased vision in the left eye. Thisis secondary to nuclear sclerotic cataract and is interfering with her ability to perform her dailyactivities. In addition she has open-angle glaucoma and would like to have better control of her intraocular pressure. After discussing the risks and benefits of surgery, she requested we proceed with cataract extraction with a toric lens and iStent placement to improve her vision and help better control her pressure. Procedure Description: Procedure Description: After informed consent was obtained the patient was taken back to the OR where the cornea was marked at the 3 6 and 9:00 margins. She was placed under mild IV sedation. she was prepped and draped in a sterile fashion and an eyelid speculum was placed inthe left eye. 1% preservative free lidocaine was instilled on the eye and a paracenitsis port was made in the peripheral clear cornea and 1% preservative free lidocaine was injected into the anteriorchamber. The anterior chamber was filled with viscoelastic and a keratome was used to create a beveled, temporal clear cornea stab incision. A bent needle cystotome and Utrata forceps were used to create a continuous curvilinear capsulorhexis. Hydrodisection and hydrodemarcation was carried out using BSS. The nucleus was the emulsified using a stop and chop technique. The remaining epineculus andcortex was removed using irrigation and aspiration. The posterior capsule was inspected and found to be intact. The capsular bag and anterior chamber were filled with viscoelastic. The microscope wasrotated to 30 degrees and the patient's head was rotated 30 degrees in the opposite direction. The gonioprism was placed on the anterior surface of the cornea and iStent inject was inserted across the anterior chamber. 2 stents were placed without difficulty. The microscope was rotated back into position. The cornea was marked at 92 degrees and an [facility] [id number] 16.0 diopter lens was inserted in to the bag. The lens was dialed into position and remained well aligned with the corneal markings even after the viscoelastic had been removed. The remaining viscoelastic was removed with irrigation and aspiration. The corneal wound was hydrated and the wound was found to be water tight. The eyelid speculum and drapes were removed and routine postoperative drops were instilled and a patch and shield were placed. The patient was taken from the operating room to the recovery room in stable condition. Surgical Infection Prevention Bundle Used? N/A Attestation: Case Date: 11/25/2023 I was present and I participated during the entire procedure (does not need to include opening and closing). Rodolfo Xavier MD 11/25/2023 documented in this encounter Plan of Treatment Upcoming Encounters Date Type Department Care Team (Late st Contact Info) Description 10/13/2024 2:45 PM EST Office Visit Ophthalmology at [facility] [place] [address] Rodolfo Xavier MD [facility] [address] [place] [id number] documented as of this encounter Procedures Procedure Name Priority Date/Time Associated Diagnosis Comments Chemodenervation Of Trunk 6 Or More Muscles ([id number]) 11/25/2023 2:09 PM EST Cataract Extracapsular Cataract Rmvl Insertion Io Lens Prosth W/O Ecp (56143) 11/25/2023 2:09 PM EST Cataract CATARACT EXTRACTION,EXTRACAPSULAR,TO VICKY LENS INSERTION Routine 11/25/2023 1:12 PM EST documented in this encounter Visit Diagnoses Not on filedocumented in this encounter Administered Medications Inactive Administered Medications - up to 3 most recent administrations Medication Order MAR Action Action Date Dose Rate Site cyclopentolate (Cyclodryl) ophthalmic solution 1 drop 1 drop, Left Eye, EVERY 5 MIN, 3 doses, First dose on Sat11/25/23 at 1330, Last dose on Sat11/25/23 at 1340, 1 drop to the operative eye every 5 minutes times 3. Start day of surgery. Do NOT place dilating drops in post-op kit!, Day of Surgery (Day of Procedure), Routine Given 11/25/2023 1:36 PM EST 1 drop Given 11/25/2023 1:32 PM EST 1 drop Given 11/25/2023 1:22 PM EST 1 drop ketorolac tromethamine (Acular) 0.5 % ophthalmic solution 1 drop 1 drop, Left Eye, ONCE, 1 dose, On Sat11/25/23 at 1330, 1 drop to the operative eye once, start on day of surgery, Day of Surgery (Day of Procedure), Routine Given 11/25/2023 1:37 PM EST 1 drop lactated ringers infusion 1,000 mL, at 100 mL/hr, Intravenous, CONTINUOUS, Starting on Sat11/25/23 at 1330, Until Sat11/25/23 at 1451, Day of Surgery (Day of Procedure) New Bag 11/25/2023 1:40 PM EST 1,000 mLs 100 mL/hr moxifloxacin (Vigamox) 0.5 % ophthalmic solution 1 drop 1 drop, Left Eye, EVERY 5 MIN, 3 doses, First dose on Sat11/25/23 at 1330, Last dose on Sat11/25/23 at 1340, 1 drop to the operative eye every 5 minutes times 3. Start on the day of surgery. , Day of Surgery (Day of Procedure), Routine Given 11/25/2023 1:36 PM EST 1 drop Given 11/25/2023 1:32 PM EST 1 drop Given 11/25/2023 1:21 PM EST 1 drop PHENYLephrine (Mydfrin) 2.5 % ophthalmic solution 1 drop 1 drop, Left Eye, EVERY 5 MIN, 3 doses, First dose on Sat11/25/23 at 1330, Last dose on Sat11/25/23 at 1340, 1 drop to the operative eye every 5 minutes times 3. Start on the day of surgery. Do NOT place dilating drops in post-op kit!, Day of Surgery (Day of Procedure), Routine Given 11/25/2023 1:36 PM EST 1 drop Given 11/25/2023 1:32 PM EST 1 drop Given 11/25/2023 1:22 PM EST 1 drop prednisoLONE acetate (Pred-Forte) 1 % suspension 1 drop 1 drop, Left Eye, ONCE, 1 dose, On Sat11/25/23 at 1330, 1 drop to the operative eye once, start on day of surgery, Day of Surgery (Day of Procedure), Routine Given 11/25/2023 1:37 PM EST 1 drop documented in this encounter Active and Recently Administered Medications Times are shown in EST. Scheduled Medication Order 11/23/2023 11/24/2023 11/25/2023 cyclopentolate (Cyclodryl) ophthalmic solution 1 drop (COMPLETED) 1 drop, Left Eye, EVERY 5 MIN, 3 doses, First dose on Sat11/25/23 at 1330, Last dose on Sat11/25/23 at 1340, 1 drop to the operative eye every 5 minutes times 3. Start day of surgery. Do NOT place dilating drops in post-op kit!, Day of Surgery (Day of Procedure), Routine 1322 (Given - Provid er: Kayleigh Schmidt RN)1332 (Given - Provider: Lilian Dowling RN)1336 (Given - Provider: Lilian Dowling RN) ketorolac tromethamine (Acular) 0.5 % ophthalmic solution 1 drop (COMPLETED) 1 drop, Left Eye, ONCE, 1 dose, On Sat11/25/23 at 1330, 1 drop to the operative eye once, start on day of surgery, Day of Surgery (Day of Procedure), Routine 1337 (Given - Provid er: Lilian Dowling RN) moxifloxacin (Vigamox) 0.5 % ophthalmic solution 1 drop (COMPLETED) 1 drop, Left Eye, EVERY 5 MIN, 3 doses, First dose on Sat11/25/23 at 1330, Last dose on Sat11/25/23 at 1340, 1 drop to the operative eye every 5 minutes times 3. Start on the day of surgery. , Day of Surgery (Day of Procedure), Routine 1321 (Given - Provid er: Kayleigh Schmidt RN)1332 (Given - Provider: Lilian Dowling RN)1336 (Given - Provider: Lilian Dowling RN) PHENYLephrine (Mydfrin) 2.5 % ophthalmic solution 1 drop (COMPLETED) 1 drop, Left Eye, EVERY 5 MIN, 3 doses, First dose on Sat11/25/23 at 1330, Last dose on Sat11/25/23 at 1340, 1 drop to the operative eye every 5 minutes times 3. Start on the day of surgery. Do NOT place dilating drops in post-op kit!, Day of Surgery (Day of Procedure), Routine 1322 (Given - Provid er: Kayleigh Schmidt RN)1332 (Given - Provider: Lilian Dowling RN)1336 (Given - Provider: Lilian Dolwing RN) prednisoLONE acetate (Pred-Forte) 1 % suspension 1 drop (COMPLETED) 1 drop, Left Eye, ONCE, 1 dose, On Sat11/25/23 at 1330, 1 drop to the operative eye once, start on day of surgery, Day of Surgery (Day of Procedure), Routine 1337 (Given - Provid er: Lilian Dowling RN) Continuous Medication Order 11/23/2023 11/24/2023 11/25/2023 lactated ringers infusion (CANCELED) 1,000 mL, at 100 mL/hr, Intravenous, CONTINUOUS, Starting on Sat11/25/23 at 1330, Until Sat11/25/23 at 1451, Day of Surgery (Day of Procedure) 1340 (New Bag - Prov ider: Lilian Dowling RN) PRN Medication Order 11/23/2023 11/24/2023 11/25/2023 fentaNYL (pf) (50 mcg/mL) multi-dose injection 25 mcg (CANCELED) 25 mcg, Intravenous, EVERY 5 MIN PRN, Starting on Sat11/25/23 at 1313, Until Sat11/25/23 at 1451, Pain, For use in the Operating Room (OR), [facility] ([facility]), or Special Procedure Room only under direct provider supervision and verbal order. Hold for respiratory rate less than 8 breaths per minute. (maximum dose 100 mcg), Intra-Operative (Intra-Procedure), Routine 1421 (Given - Provid er: Kayleigh Schmidt RN) midazolam (pf) (Versed) (1 mg/mL) multi-dose injection 0.25-1 mg (CANCELED) 0.25-1 mg, Intravenous, EVERY 5 MIN PRN, Starting on Sat11/25/23 at 1313, Until Sat11/25/23 at 1451, Anxiety, For use in the Operating Room (OR), [facility] Center ([facility]) or Special Procedure room only with direct provider supervision and verbal order. Hold for delirium/agitation. (Maximum dose 4 mg.), Intra-Operative (Intra-Procedure), Routine 1419 (Given - Provid er: Kayleigh Schmidt RN)1425 (Given - Provider: Kayleigh Schmidt RN) documented in this encounter Care Teams Test Conductor Relationship Specialty Start Date End Date Rika Matthews MD [address] [place] [address] PCP - General 07/30/13 documented as of this encounter
--- OUTSIDE RECORDS SUMMARY | 2024-05-26 18:29 | XMS_ITS | Encounter Summary ---
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, moderate stage Social History Tobacco Use Types Packs/Day Years Used Date Smoking Tobacco: Never Smokeless Tobacco: Never Alcohol Use Standard Drinks/Week Comments Yes 7 (1 standard drink = 0.6 oz pur e alcohol) Sex and Gender Information Value Date Recorded Sex Assigned at Not on file Gender Identity Female 08/26/2018 8:14 PM EDT Sexual Orientation Not on file documented as of this encounter Plan of Treatment Upcoming Encounters Date Type Department Care Team (Late st Contact Info) Description 10/13/2024 2:45 PM EST [place] [phone] Rodolfo Xavier MD [facility] [place] [address] documented as of this encounter Visit Diagnoses Diagnosis Chronic open angle glaucoma of both eyes, moderate stage documented in this encounter Care Teams Power Mule Operator Relationship Specialty Start Date End Date Rika Matthews MD [address] [place] [address] PCP - General 07/30/13 documented as of this encounter
--- OUTSIDE RECORDS SUMMARY | 2024-05-26 18:29 | XMS_ITS | Encounter Summary ---
Author Organization [facility] Address [facility] [place] [address] Care Team Providers Care Senior Property Manager Name Role Phone Rika Matthews MD Primary Care Provider [phone] Encounter Details Date Type Department Care Team (Latest Contact Info) Description 12/02/2023 Travel Social History Tobacco Use Types Packs/Day [...] 2:45 PM EST Office Visit Ophthalmology at [facility] [place] [address] Rodolfo Xavier MD [facility] [place] [address] documented as of this encounter Visit Diagnoses Not on filedocumented in this encounter Care Teams Senior Property Manager Relationship Specialty Start Date End Date Rika Matthews MD [address] [place] [id number] PCP - General 07/30/13 documented as of this encounter
--- OUTSIDE RECORDS SUMMARY | 2024-05-26 18:29 | XMS_ITS | Encounter Summary ---
Author Organization [facility] [place] [address] Care Team Providers Care Deck Specialist Name Role Phone Rika Matthews MD Primary Care Provider [phone] Encounter Details Date Type Department Care Team (Latest Contact Info) Description 12/17/2023 Travel Social History Tobacco Use Types Packs/Day Years Used Date Smoking Tobacco: Never Smokeless Tobacco: Never Alcohol Use Standard Drinks/Week Comments Not Currently 0 (1 standard drink = 0.6 oz pur e alcohol) 2x/week [facility] Inpatient Questions Answer Date Recorded Does [...] 2:45 PM EST Office Visit Ophthalmology at [facility] [place] [address] Rodolfo Xavier MD [facility] [place] [address] documented as of this encounter Visit Diagnoses Not on filedocumented in this encounter Care Teams Deck Specialist Relationship Specialty Start Date End Date Rika Matthews MD [address] [place] [address] PCP - General 07/30/13 documented as of this encounter
--- OUTSIDE RECORDS SUMMARY | 2024-05-26 18:29 | XMS_ITS | Continuity of Care Document ---
Author Organization [facility], [facility] Address [address] [place] [address] Care Team Providers Care Economic History Teacher Name Role Phone [facility] Orthopedic Surgeon [facility] Social Worker [phone] Assessment No assessment recorded. Plan of Treatment Reminders Order Date Submit Date Provider Last Modified By Organization Details Last Modified Time Details Appointments Office Visit 30 2023 11:30A M YUDITH Carpenter'HARRhona Not available Not available Not available Lab None recorded. Referral urogyneco logist referral - urge incontine nce, tried pelvic floor PT without success 2023 [address], [address], 05/13/2024 09:20:38 Procedures None recorded. Surgeries None recorded. Imaging None recorded. Medication Orders None recorded. Patient TargetsNo targets recorded. Patient InstructionsNo instructions recorded. Reason for Referral Urogynecologist Referral for Urge incontinence of urine urge incontinence, tried pelvic floor PT without success Referring Physician: Rika Granado, Family Medicine, Encounter Date: 05/11/2024 Results Created Date Observation Date Name Description Value Unit Range Abnormal Flag LastModifiedBy Organization Detail LastModifiedTime 05/26/20 24 05/26/2024 darin johnson am No observ ation record ed. [email or web address] [address], [place], [address], 05/26/2024 13:11:31 Result Notes None recorded. Problems Name Status Onset Date Resolution Date Notes Provider Name and Address Organization Details Recorded Time Glaucoma Active 2005 Problem Code: H40.9; Problem Code Type: ICD-10; Not Available [facility] 3 04:02:07 Degeneration of cervical intervertebra l disc Active 2005 Problem Code: M50.30; Problem Code Type: ICD-10; Not Available [facility] 3 04:02:07 Urge incontinence of urine Active 200411/01/2015 - Comments only - Rika Granado MD - Mild, continue antichol meds for this. Problem Code: N39.41; Problem Code Type: ICD-10; Not Available [facility] 3 04:02:07 Idiopathic osteoarthriti s Active 201610/08/2017 - Comments only - Rika Granado MD - reviewed conservative management. Problem Code: M19.049; Problem Code Type: ICD-10; Not Available [facility] 3 04:02:07 Contusion of right lower leg Completed 201707/11/2018 06/27/2018 - Comments only - Rika Granado MD - Reassurance provided, advised conservative management. Problem Code: S80.11xA; Problem Code Type: ICD-10; Not Available [facility] 3 04:02:07 Screening mammography Active 2018 Problem Code: Z12.31; Problem Code Type: ICD-10; Not Available [facility] 3 04:02:07 Screening for malignant neoplasm of colon Active 2018 Problem Code: Z12.11; Problem Code Type: ICD-10; Not Available [facility] 3 04:02:08 Adjustment disorder Active 201810/23/2019 - Comments only - Rika Granado MD - AK provided. Problem Code: F43.20; Problem Code Type: ICD-10; Not Available [facility] 3 04:02:08 Adult health examination Active 201810/23/2019 - Comments only - Rika Granado MD - Medicare wellness exam. Personalized prevention plan competed and rev'd with patient. patient was given copy of PPP at conclusion of visit. Referred for mammo and for colo next jun. UTD with scg labs. Problem Code: Z00.00; Problem Code Type: ICD-10; Not Available [facility] 3 04:02:08 Impacted cerumen in left ear Completed 201912/18/2019 Problem Code: H61.22; Problem Code Type: ICD-10; Not Available [facility] 3 04:02:08 Exposure to communicable disease Completed 201908/12/2020 Problem Code: Z20.9; Problem Code Type: ICD-10; Not Available [facility] 3 04:02:08 History of polyp of colon Active 2019 Problem Code: Z86.010; Problem Code Type: ICD-10; Not Available [facility] 3 04:02:08 Prediabetes Active 202001/11/2023 - Comments only - Rika Granado MD - A1c stable at 5.9. Patient very aware of strategies to decrease risk of progression to diabetes. Declined referral or further information. Problem Code: R73.03; Problem Code Type: ICD-10; Not Available [facility] 3 04:02:08 General examination of patient Active 202011/07/2021 - Comments only - Rika Granado MD - Medicare wellness exam. Personalized prevention plan competed and rev'd with patient. patient was given copy of PPP at conclusion of visit. UTD with ca scgs, IZs, scg labs. Problem Code: Z00.8; Problem Code Type: ICD-10; Not Available [facility] 3 04:02:08 Acute stress disorder Active 202001/05/2022 - Improved - Rika Granado MD - Agree with continuing just the buspirone and acupuncture. Noted adverse reaction to initial dose of Lexapro, although it sounds like her GI symptoms are somatic representatio n of anxiety so I would not counted as an allergy per se. Follow-up left open. Problem Code: F43.0; Problem Code Type: ICD-10; Not Available [facility] 3 04:02:09 Viral screening Completed 202107/08/2022 Problem Code: Z11.52; Problem Code Type: ICD-10; Not Available [facility] 3 04:02:09 Genitourinary symptoms Completed 202107/08/2022 Problem Code: R39.9; Problem Code Type: ICD-10; Not Available [facility] 3 04:02:09 Cough Completed 202106/22/2022 Problem Code: R05.8; Problem Code Type: ICD-10; Not Available [facility] 3 04:02:09 Lower abdominal pain Completed 202106/22/2022 Problem Code: R10.30; Problem Code Type: ICD-10; Not Available [facility] 3 04:02:09 Acute pharyngitis Completed 202106/22/2022 Problem Code: J02.9; Problem Code Type: ICD-10; Not Available [facility] 3 04:02:09 Fever Completed 202106/22/2022 Problem Code: R50.9; Problem Code Type: ICD-10; Not Available [facility] 3 04:02:09 Atypical facial pain Active 2021 Problem Code: G50.1; Problem Code Type: ICD-10; Not Available [facility] 3 04:02:10 Gastroesophag eal reflux disease without esophagitis Active 202108/01/2022 - Improved - Rika Granado MD - Reviewed option of trial of discontinuati on of omeprazole to see if she can manage symptoms with diet alone. Okay to resume if symptoms worsen off the medication. Problem Code: K21.9; Problem Code Type: ICD-10; Not Available [facility] 3 04:02:10 Inconclusive mammography finding Active 2021 Problem Code: R92.2; Problem Code Type: ICD-10; Not Available [facility] 3 04:02:10 Urinary tract infectious disease Completed 202201/16/2023 Problem Code: N39.0; Problem Code Type: ICD-10; Not Available [facility] 3 04:02:10 Acute bronchitis Completed 201610/08/2017 Problem Code: J20.9; Problem Code Type: ICD-10; Not Available [facility] 3 04:02:12 Urinary incontinence Completed 200408/07/2023 Problem Code: 788.3; Problem Code Type: ICD-9; Not Available [facility] 3 04:02:13 Sprain of ankle Completed 201008/07/2023 Problem Code: 845.09; Problem Code Type: ICD-9; Not Available [facility] 3 04:02:13 Anemia Completed 202008/01/2022 Problem Code: D64.9; Problem Code Type: ICD-10; Not Available [facility] 3 04:02:15 Clinical finding Completed 201008/07/2023 Problem Code: 796.4; Problem Code Type: ICD-9; Not Available [facility] 3 04:02:15 Altered bowel function Completed 202108/01/2022 Problem Code: R19.4; Problem Code Type: ICD-10; Not Available [facility] 3 04:02:15 Screening mammography Completed 201510/08/2017 Problem Code: Z12.31; Problem Code Type: ICD-10; Not Available [facility] 3 04:02:16 Asthenia Completed 201011/01/2015 Problem Code: R53.1; Problem Code Type: ICD-10; Not Available [facility] 3 04:02:16 Arthralgia of the ankle and/or foot Completed 201708/07/2023 08/05/2018 - Comments only - Rika Granado MD - 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 Recom'd plain films and referral to ortho ([facility] Problem Code: M25.571; Problem Code Type: ICD-10; Not Available [facility] 3 04:02:17 Trochanteric bursitis of left hip Completed 201410/08/2017 Problem Code: M70.62; Problem Code Type: ICD-10; Not Available [facility] 3 04:02:18 Hypocalcemia Completed 202008/01/2022 Problem Code: E83.51; Problem Code Type: ICD-10; Not Available [facility] 3 04:02:18 Hyperglycemia Completed 202008/07/2023 Problem Code: R73.9; Problem Code Type: ICD-10; Not Available [facility] 3 04:02:19 Diabetes mellitus screening Completed 201810/23/2019 Problem Code: Z13.1; Problem Code Type: ICD-10; Not Available [facility] 3 04:02:19 Screening for disorder Completed 201410/08/2017 Problem Code: Z13.9; Problem Code Type: ICD-10; Not Available [facility] 3 04:02:20 Nausea Completed 202108/01/2022 Problem Code: R11.0; Problem Code Type: ICD-10; Not Available [facility] 3 04:02:21 Blood glucose outside reference range Completed 202008/07/2023 Problem Code: R73.09; Problem Code Type: ICD-10; Not Available [facility] 3 04:02:22 Spontaneous rupture of flexor tendons Completed 201010/08/2017 Problem Code: M66.379; Problem Code Type: ICD-10; Not Available [facility] 3 04:02:22 Bilateral age-related nuclear cataracts Active 2022 JUAN MANUEL ADAM, [facility]. 3 10:25:52 Bilateral primary open angle glaucoma Active 2022 JUAN MANUEL ADAM, [facility]. 3 10:26:06 Acute upper respiratory infection Active [address], [place], [address] , [facility]. 4 15:39:39 Familial combined hyperlipidemi a Active [address], [place], [address] , [facility] 4 08:26:29 Serous otitis media of left ear Active [address], [facility] [address] , [facility] 4 11:20:05 Pain of right ankle joint Active 2023 MIKE FRANK MA null, [facility] 4 09:20:24 Pseudophakia Active 2023 MIKE FRANK MA null, [facility] 4 08:39:50 Bilateral eye astigmatism Active 2023 MIKE FRANK MA null, [facility] 4 08:40:11 Presbyopia Active 2023 MIKE FRANK MA null, [facility] 4 08:40:19 Retinal hemorrhage Active [address], [place], [address] , [facility] 4 07:40:47 Problem Notes None recorded. Medical Equipment None Reported. [...] Not Available Not Available Not Available Vitals None Recorded Social History Question Answer Notes LastModified by Organizat ion Details LastModified Time Tobacco Smoking Status Never Smoker MARCUS LEO, DANITA null, [place] - [facility]. 12/02/2023 15:24:07 Would You Say That, In [...] And Wanted Help? (For Example, If You Keaton Very Nervous, Lonely, Or Blue; Got Sick [...] Safety Concerns In Your Home (see Attached [facility] Pamphlet)? No Information not available 12/16/2023 How [...] Recorded Time Tdap 06/21/2009 completed Not Available [facility] 05:19:46 Tdap 10/23/2019 completed Not Available [facility] 05:19:46 zoster live 06/21/2009 completed Not Available [facility] 09/20/2023 05:19:46 Pneumococcal conjugate PCV 13 10/08/2017 completed Not Available [facility] 09/20/2023 05:19:46 Influenza, high-dose, trivalent, PF 08/05/2018 completed Not Available [facility] 09/20/2023 05:19:47 Influenza, split virus, trivalent, preservative 10/13/2015 completed Not Available [facility] 09/20/2023 05:19:47 zoster recombinant 06/24/2018 completed Not Available [facility] 09/20/2023 05:19:47 zoster recombinant 10/14/2018 completed Not Available [facility] 09/20/2023 05:19:48 COVID-19, mRNA, LNP-S, PF, 100 mcg/0.5mL dose or 50 mcg/0.25mL dose 12/07/2020 completed Not Available [facility] 09/20/2023 05:19:48 COVID-19, mRNA, LNP-S, PF, 100 mcg/0.5mL dose or 50 mcg/0.25mL dose 01/04/2021 completed Not Available [facility] 09/20/2023 05:19:48 COVID-19, mRNA, LNP-S, PF, 100 mcg/0.5mL dose or 50 mcg/0.25mL dose 09/05/2021 completed Not Available [facility] 09/20/2023 05:19:48 SARS-COV-2 (COVID-19) vaccine, UNSPECIFIED 04/06/2022 completed Not Available [facility] 09/20/2023 05:19:48 COVID-19, mRNA, LNP-S, bivalent, PF, 10 mcg/0.2 mL 08/03/2022 completed Not Available [facility] 09/20/2023 05:19:48 pneumococcal polysaccharide PPV23 10/19/2011 completed Not Available [facility] 2022 05:19:49 Hep A, adult 11/01/2015 completed Not Available [facility] 09/20/2023 05:19:49 influenza, unspecified formulation 08/03/2022 completed Not Available [facility] 09/20/2023 05:19:49 influenza, unspecified formulation 08/04/2014 completed Not Available [facility] 09/20/2023 05:19:49 influenza, unspecified formulation 08/18/2020 completed Not Available [facility] 09/20/2023 05:19:49 influenza, unspecified formulation 08/20/2012 completed Not Available [facility] 09/20/2023 05:19:50 influenza, unspecified formulation 08/26/2009 completed Not Available [facility] 09/20/2023 05:19:50 influenza, unspecified formulation 08/31/2013 completed Not Available [facility] 09/20/2023 05:19:50 influenza, unspecified formulation 09/05/2021 completed Not Available [facility] 09/20/2023 05:19:50 influenza, unspecified formulation 09/12/2011 completed Not Available [facility] 09/20/2023 05:19:50 influenza, unspecified formulation 09/29/2007 completed Not Available [facility] 09/20/2023 05:19:50 SARS-COV-2 (COVID-19) vaccine, UNSPECIFIED 08/25/2023 completed JUAN MANUEL ADAM [facility] 11/18/2023 11:19:51 influenza, unspecified formulation 08/25/2023 completed JUAN MANUEL ADAM [facility] 11/18/2023 11:20:00 Past Encounters Encounter ID Performer Location Encounter Start Date Encounter Closed Date Diagnosis/Indication Diagnosis SNOMED-CT Code [id number] RIKA GRANADO MD [address] [address] 05/11/2024 15:46:57 05/11/2024 16:27:06 Urge incontinence of urine [id number] Retinal hemorrhage 71288 008 Health Concerns Section Related Observation LastModified by Organization Detai ls LastModified Time None Recorded Concern Status LastModified by Organization Details LastModified Time None Recorded Payers Encounter Date Sequence Insurance Name Policy Number Policy Grant Covered Member ID Grant Member ID Guarantor Name 05/11/2024 1 [employer] (MEDICARE REPLACEMENT PPO) [id number] 2 Arlet Hilton [id number] Destinee Hilton Notes Date Note Type Note Provider Name and Address Organization Details Recorded Time 05/11/2024 text/html HPI Notes: Raffi nt seen [...] urge incontinence which has worsened since her brake adjuster discontinued Vesicare due to concerns regarding increased risk of dementia associated with it. She had tried pelvic floor PT in the past without success. RIKA GRANADO MD [address], [place], [address], [facility]. 05/11/2024 16:22:09 OBGyn Episode No OBEpisode recorded.
--- OUTSIDE RECORDS SUMMARY | 2024-05-26 18:29 | XMS_ITS | Encounter Summary ---
Author Organization [facility], Located [facility] [place] [address] Care Team Providers Care High School Drafting Teacher Name Role Phone Rika Matthews MD Primary Care Provider [phone] Encounter Details Date Type Department Care Team (Latest Contact Info) Description 01/21/2024 Travel Social History Tobacco Use Types Packs/Day Years Used Date Smoking Tobacco: Never Smokeless Tobacco: Never Alcohol Use Standard Drinks/Week Comments Not Currently 0 (1 standard drink = 0.6 oz pur e alcohol) 2x/week [facility] Inpatient Questions Answer Date Recorded Does [...] 2:45 PM EST Office Visit Ophthalmology [facility] [place] [address] [facility] [place] [address] documented as of this encounter Visit Diagnoses Not on filedocumented in this encounter Care Teams [employer] Drafting Teacher Relationship Specialty Start Date End Date Rika Matthews MD [address] [place] [address] PCP - General 07/30/13 documented as of this encounter
--- OUTSIDE RECORDS SUMMARY | 2024-05-26 18:29 | XMS_ITS | Encounter Summary ---
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, moderate stage Social History Tobacco Use Types Packs/Day Years Used Date Smoking Tobacco: Never Smokeless Tobacco: Never Alcohol Use Standard Drinks/Week Comments Not Currently 0 (1 standard drink = 0.6 oz pur e alcohol) 2x/week [facility] Inpatient Questions Answer Date Recorded Does [...] as of this encounter Progress Notes * Leif Truong MD - 01/21/2024 10:30 AM EDT POM #1 S/p CE IOL + iStent OS eye done 11/25/23: Normal postoperative appearance IOP good S/p CE IOL with iStent right eye: Normal postoperative appearance Doing well IOP good Myopia with astigmatism & presbyopia OU: Glasses rx provided COAG OU, moderate stage: Continue cosopt, IOP WNL today. Plan: Continue cosopt BID OU, but will stop 1 month prior to appt. RTC in 3-4 months for OCT, DFE. Leif Truong MD PGY-3 Ophthalmology Pager #[phone] I saw the patient with the following level of supervision: Direct from the attending, Dr. Xavier * Rodolfo Xavier MD - 01/21/2024 10:30 AM EDT I have seen the patient in person and reviewed the resident's above history and exam and I agree with the details as written. The assessment and plan were formulated in discussion with me and I agreewith them as documented. 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
--- OUTSIDE RECORDS SUMMARY | 2024-05-26 18:29 | XMS_ITS | Encounter Summary ---
Author Organization [facility] [place] [address] Care Team Providers Care Air Tucker Name Role Phone Rika Matthews MD Primary Care Provider [phone] Encounter Details Date Type Department Care Team (Latest Contact Info) Description 12/10/2023 Travel Social History Tobacco Use Types Packs/Day Years Used Date Smoking Tobacco: Never Smokeless Tobacco: Never Alcohol Use Standard Drinks/Week Comments Not Currently 0 (1 standard drink = 0.6 oz pur e alcohol) 2x/week [facility] Inpatient Questions Answer Date Recorded Does [...] 2:45 PM EST Office Visit Ophthalmology at [facility] [place] [address] Rodolfo Xavier MD [facility] [place] [address] documented as of this encounter Visit Diagnoses Not on filedocumented in this encounter Care Teams Air Tucker Relationship Specialty Start Date End Date Rika Matthews MD [address] [place] [address] PCP - General 07/30/13 documented as of this encounter
--- OUTSIDE RECORDS SUMMARY | 2024-05-26 18:29 | XMS_ITS | Encounter Summary ---
Author Organization [facility] [place] [address] Care Team Providers [employer] Name Role Phone Rika Matthews MD Primary Care Provider [phone] Reason for Visit * Auth/Cert (Routine) Specialty Diagnoses / Procedures Referred By Francisco t Referred To Contact Diagnoses Cataract and glaucoma Procedures PRO EXTRACAPSULAR CATARACT RMVL INSERTION IO LENS PROSTH W/O ECP PRO INSERTION ANTERIOR DRAINAGE DEV W/O EXTRAOCULAR RESERVOIR, EXT APPR CATARACT EXTRACTION, EXTRACAPSULAR,TORIC LENS INSERTION (WRVU 7.35) INSERTION OF ANTERIOR SEGMENT AQUEOUS DRAINAGE DEVICE W/O RESERVOIR (WRVU 13.2) Rodolfo Xavier MD [facility] [place] [place] [address] [facility] Referral ID Status Reason Start Date Expiration Date Visits Re quested Visits Authorized [id number] 1 1 Encounter Details Date Type Department Care Team (Latest Contact Info) Description 12/09/2023 12:45 PM EST - 12/09/2023 2:48 PM EST Hospital Encounter Outpatient Surgery Center On License [facility] [place] [address] Rodolfo Xavier MD [facility] [place] [address] [place] [address] Discharge Disposition: Home Social History Tobacco Use Types Packs/Day Years Used Date Smoking Tobacco: Never Smokeless Tobacco: Never Alcohol Use Standard Drinks/Week Comments Not Currently 0 (1 standard drink = 0.6 oz pur e alcohol) 2x/week [facility] Inpatient Questions Answer Date Recorded Does Anyone [...] Sign Reading Time Taken Comments Blood Pressure 169/97 12/09/2023 2:30 PM EST Pulse 69 12/09/2023 2:30 PM EST Temperature 36.9 ??C (98.4 ??F) 12/09/2023 2:30 PM ES T Respiratory Rate 16 12/09/2023 2:30 PM EST Oxygen Saturation 99% 12/09/2023 2:30 PM EST Inhaled Oxygen Concentration - - Weight 63.5 kg (140 lb) 12/09/2023 1:00 PM EST Height 170.2 cm (5' 7) 12/09/2023 1:00 PM EST Body Mass Index 21.93 12/09/2023 1:00 PM EST documented in this encounter Discharge Instructions * Discharge Instructions* Barbara Aceves RN - 12/09/2023 12:54 PM EST Instructions for the first day following CATARACT (and cataract with iStent) surgery Rodolfo Xavier M.D. Section of ophthalmology [facility] [phone] - Wear either the eye shield or glasses of any kind for the first 24 hours after surgery. -Do not rub your eye. -No swimming or hot tubs for 1 month after surgery. - The surgery center nurses should confirm time of your follow up appointment for tomorrow with . This appointment will be at the Eye Clinic in the main building at [facility]. - Mild discomfort is normal, but if you have any severe eye pain or bleeding call [phone] and ask to speak to the eye doctor call or contact centre operator. - Call you Primary Care Doctor or [...] 5pm or on a weekend: Call the [facility] willow machine operator and ask for the physician call or contact centre operator covering for your doctor. documented in this encounter Medications at Time of Discharge Medication Sig Dispensed Refills Start Date End Date ketorolac tromethamine (Acular) 0.5 % Drops Place 1 drop into the right eye 4 times daily. prednisoLONE acetate (Pred-Forte) 1 % Drops, Suspension Place 1 drop into the right eye 4 times daily. dorzolamide-timoloL (Cosopt) 22.3-6.8 mg/mL DropsIndications:Chronic open angle [...] 0.01 % (0.1 mg/g) vaginal cream 12/22/2010 moxifloxacin (Vigamox) 0.5 % Drops Place 1 drop into the right eye 3 times daily. 04/14/2024 documented as of this encounter Progress Notes * Barbara Aceves RN - 12/09/2023 1:52 PM EST Date/Procedure: Meds Given Comments 12/09/23 right eye cataract removal 25 Mcg Fenanyl 1.5 Mg Midazolam Tolerated well. Vital signs stable during procedure. Needle stick occurred in operating room after the procedure during the clean-up. Patient made awareof the needle stick.This nurse adriana the necessary labs after the needle stick. Discharge instructions, medications, and follow-up appointments reviewed with patient and escort. All questions answered and written copy sent home with patient. Patient instructed to wiggle foot if having pain, need to cough, etc. Patient instructed not to talk during procedure. Pain assessment unable to verbalize (non-verbal) but will indicate pain with foot wiggle, ask surgeon to pause and verbally assess patient. Eye shield placed on correct eye before leaving the OR. Vital signs assessed and stable before discharge. Patient tolerating PO fluids before discharge. Patient walked with staff member to car for discharge. Eye care kit with eye drops given to patient for discharge. documented in this encounter H&P Notes * Bernie Adler MD - 12/09/2023 1:11 PM EST Arlet Hilton was examined in [...] signs of active infection. Heart: RRR Lungs: CTAB Mal: 1 ASA: 2 The sedation plan was reviewed with Arlet Hilton and she expressed understanding and agreement. Arlet Hilton has a cataract in the right eye and primary open angle glaucoma. Today's surgery is on the RIGHT side. Bernie Adler MD [facility] Ophthalmology PGY3 p3992 I saw the patient with the following level of supervision from the attending: Direct from Dr. Xavier. documented in this encounter Miscellaneous Notes * Op Note - Rodolfo Xavier MD - 12/09/2023 2:06 PM EST [facility] Operative Note Patient Name: Arlet Hilton : [id number] MR#: [id number] Case Date: 12/09/2023 Surgeon: Surgeon(s) and Role: * Rodolfo Xavier MD - Primary * Bernie Adler MD - Resident - Assisting Preoperative diagnosis: Cataract and glaucoma Postoperative diagnosis: Cataract and glaucoma Procedure(s) (LRB): CATARACT EXTRACTION, EXTRACAPSULAR,TORIC LENS INSERTION (WRVU 7.35) (Right) INSERTION OF ANTERIOR SEGMENT AQUEOUS DRAINAGE DEVICE W/O RESERVOIR (WRVU 13.2) (Right) Anesthesia: Anesthesia type not filed in the [...] to clinic with decreased vision in the right eye. This is secondary to nuclear sclerotic cataract and is interfering with her ability to perform her daily activities. In addition she has open-angle glaucoma and would like to decrease the number of medications she is taking. She also has a moderate to high amount of astigmatism and would like this corrected with a toric lens. After discussing the risks and benefits of surgery, she requested we proceed with cataract extraction with a toric lens placement and iStent placement to improve her vision and better control her pressure. Procedure Description: Procedure Description: After informed consent was obtained the patient was taken back to the OR where she was marked with a corneal marker at 3 6 and 9:00. She was then positioned and placed under mild IV sedation. she was prepped and draped in a sterile fashion and an eyelidspeculum was placed in the right eye. 1% preservative free lidocaine was instilled on the eye and aparacenitsis port was made in the peripheral clear cornea and 1% preservative free lidocaine was injected into the anterior chamber. The anterior chamber was filled with viscoelastic and a keratome was used to create a beveled, temporal clear cornea stab incision. A bent needle cystotome and Utrata forceps were used to create a continuous curvilinear capsulorhexis. Hydrodisection and hydrodemarcation was carried out using BSS. The nucleus was the emulsified using a stop and chop technique. The remaining epineculus and cortex was removed using irrigation and aspiration. The posterior capsule was inspected and found to be intact. The capsular bag and anterior chamber were filled with viscoelastic. The microscope was rotated to 30 degrees and the patient's head was rotated 30 degrees in the opposite direction. The gonioprism was placed on the anterior surface of the cornea and iStent inject was inserted across the anterior chamber. 2 stents were placed without difficulty. The microscope was rotated back into position. The cornea was marked at 92 degrees.[facility] [id number] 16.5diopter lens was inserted in to the bag without difficulty and dialed into position at 92 degrees. The remaining viscoelastic was removed with irrigation and aspiration. The corneal wound was hydrated and the wound was found to be water tight. The eyelid speculum and drapes were removed and routinepostoperative drops were instilled and a patch and shield were placed. The patient was taken from the operating room to the recovery room in stable condition. Surgical Infection Prevention Bundle Used? N/A Attestation: Case Date: 12/09/2023 I was present and I participated during the entire procedure (does not need to include opening and closing). Rodolfo Xavier MD 12/09/2023 documented in this encounter Plan of Treatment Upcoming Encounters Date Type Department Care Team (Late st Contact Info) Description 10/13/2024 2:45 PM EST Office Visit Ophthalmology at [facility] [place] [address] Rodolfo Xavier MD [facility] [place] [address] [place] [address] documented as of this encounter Procedures Procedure Name Priority Date/Time Associated Diagnosis Comments Chemodenervation Of Trunk 6 Or More Muscles (79402GZCK) 12/09/2023 1:56 PM EST Cataract and glaucoma Extracapsular Cataract Rmvl Insertion Io Lens Prosth W/O Ecp (69178) 12/09/2023 1:56 PM EST Cataract and glaucoma CATARACT EXTRACTION,EXTRACAPSULAR,TO VICYK LENS INSERTION Routine 12/09/2023 12:54 PM EST documented in this encounter Visit Diagnoses Not on filedocumented in this encounter Administered Medications Inactive Administered Medications - up to 3 most recent administrations Medication Order MAR Action Action Date Dose Rate Site cyclopentolate (Cyclodryl) ophthalmic solution 1 drop 1 drop, Right Eye, EVERY 5 MIN, 3 doses, First dose on Sat12/09/23 at 1315, Last dose on Sat12/09/23 at 1325, 1 drop to the operative eye every 5 minutes times 3. Start day of surgery. Do NOT place dilating drops in post-op kit!, Day of Surgery (Day of Procedure), Routine Given 12/09/2023 1:17 PM EST 1 drop Given 12/09/2023 1:11 PM EST 1 drop Given 12/09/2023 1:07 PM EST 1 drop ketorolac tromethamine (Acular) 0.5 % ophthalmic solution 1 drop 1 drop, Right Eye, ONCE, 1 dose, On Sat12/09/23 at 1315, 1 drop to the operative eye once, start on day of surgery, Day of Surgery (Day of Procedure), Routine Given 12/09/2023 1:33 PM EST 1 drop moxifloxacin (Vigamox) 0.5 % ophthalmic solution 1 drop 1 drop, Right Eye, EVERY 5 MIN, 3 doses, First dose on Sat12/09/23 at 1315, Last dose on Sat12/09/23 at 1325, 1 drop to the operative eye every 5 minutes times 3. Start on the day of surgery. , Day of Surgery (Day of Procedure), Routine Given 12/09/2023 1:27 PM EST 1 drop Given 12/09/2023 1:24 PM EST 1 drop Given 12/09/2023 1:23 PM EST 1 drop PHENYLephrine (Mydfrin) 2.5 % ophthalmic solution 1 drop 1 drop, Right Eye, EVERY 5 MIN, 3 doses, First dose on Sat12/09/23 at 1315, Last dose on Sat12/09/23 at 1325, 1 drop to the operative eye every 5 minutes times 3. Start on the day of surgery. Do NOT place dilating drops in post-op kit!, Day of Surgery (Day of Procedure), Routine Given 12/09/2023 1:17 PM EST 1 drop Given 12/09/2023 1:11 PM EST 1 drop Given 12/09/2023 1:07 PM EST 1 drop prednisoLONE acetate (Pred-Forte) 1 % suspension 1 drop 1 drop, Right Eye, ONCE, 1 dose, On Sat12/09/23 at 1315, 1 drop to the operative eye once, start on day of surgery, Day of Surgery (Day of Procedure), Routine Given 12/09/2023 1:29 PM EST 1 drop documented in this encounter Active and Recently Administered Medications Times are shown in EST. Scheduled Medication Order 12/07/2023 12/08/2023 12/09/2023 cyclopentolate (Cyclodryl) ophthalmic solution 1 drop (COMPLETED) 1 drop, Right Eye, EVERY 5 MIN, 3 doses, First dose on Sat12/09/23 at 1315, Last dose on Sat12/09/23 at 1325, 1 drop to the operative eye every 5 minutes times 3. Start day of surgery. Do NOT place dilating drops in post-op kit!, Day of Surgery (Day of Procedure), Routine 1307 (Given - Provid er: Barbara Aceves RN)1311 (Given - Provider: Barbara Aceves RN)1317 (Given - Provider: Barbara Aceves RN) ketorolac tromethamine (Acular) 0.5 % ophthalmic solution 1 drop (COMPLETED) 1 drop, Right Eye, ONCE, 1 dose, On Sat12/09/23 at 1315, 1 drop to the operative eye once, start on day of surgery, Day of Surgery (Day of Procedure), Routine 1333 (Given - Provid er: Barbara Aceves RN) moxifloxacin (Vigamox) 0.5 % ophthalmic solution 1 drop (COMPLETED) 1 drop, Right Eye, EVERY 5 MIN, 3 doses, First dose on Sat12/09/23 at 1315, Last dose on Sat12/09/23 at 1325, 1 drop to the operative eye every 5 minutes times 3. Start on the day of surgery. , Day of Surgery (Day of Procedure), Routine 1323 (Given - Provid er: aBrbara Aceves RN)1324 (Given - Provider: Barbara Aceves RN)1327 (Given - Provider: Barbara Aceves RN) PHENYLephrine (Mydfrin) 2.5 % ophthalmic solution 1 drop (COMPLETED) 1 drop, Right Eye, EVERY 5 MIN, 3 doses, First dose on Sat12/09/23 at 1315, Last dose on Sat12/09/23 at 1325, 1 drop to the operative eye every 5 minutes times 3. Start on the day of surgery. Do NOT place dilating drops in post-op kit!, Day of Surgery (Day of Procedure), Routine 1307 (Given - Provid er: Barbara Aceves RN)1311 (Given - Provider: Barbara Aceves RN)1317 (Given - Provider: Barbara Aceves RN) prednisoLONE acetate (Pred-Forte) 1 % suspension 1 drop (COMPLETED) 1 drop, Right Eye, ONCE, 1 dose, On Sat12/09/23 at 1315, 1 drop to the operative eye once, start on day of surgery, Day of Surgery (Day of Procedure), Routine 1329 (Given - Provid er: Barbara Aceves RN) PRN Medication Order 12/07/2023 12/08/2023 12/09/2023 acetaminophen (Tylenol) tablet 650 mg 650 mg, Oral, ONCE PRN, 1 dose, Starting on Sat12/09/23 at 1441, Until Sat12/09/23 at 1659, Pain, Maximum dose of acetaminophen is 4,000 mg from all sources in 24 hours. When ordered for pain, acetaminophen should be given even when other ordered pain medications are indicated., Recovery (Recovery-Hospital Unit), Routine fentaNYL (pf) (50 mcg/mL) multi-dose injection 25 mcg (CANCELED) 25 mcg, Intravenous, EVERY 5 MIN PRN, Starting on Sat12/09/23 at 1254, Until Sat12/09/23 at 1448, Pain, For use in the Operating Room (OR), Outpatient Surgical Center (OSC), or Special Procedure Room only under direct provider supervision and verbal order. Hold for respiratory rate less than 8 breaths per minute. (maximum dose 100 mcg), Intra-Operative (Intra-Procedure), Routine 1403 (Given - Provid er: Barbara Aceves RN) midazolam (pf) (Versed) (1 mg/mL) multi-dose injection 0.25-1 mg (CANCELED) 0.25-1 mg, Intravenous, EVERY 5 MIN PRN, Starting on Sat12/09/23 at 1254, Until Sat12/09/23 at 1448, Anxiety, For use in the Operating Room (OR), Outpatient Surgery Center (OSC) or Special Procedure room only with direct provider supervision and verbal order. Hold for delirium/agitation. (Maximum dose 4 mg.), Intra-Operative (Intra-Procedure), Routine 1403 (Given - Provid er: Barbara Aceves RN)1407 (Given - Provider: Barbara Aceves RN) documented in this encounter Care Teams [employer] Teacher Relationship Specialty Start Date End Date Rika Matthews MD [address] [place] [address] PCP - General 07/30/13 documented as of this encounter
--- OUTSIDE RECORDS SUMMARY | 2024-05-26 18:29 | XMS_ITS | Encounter Summary ---
Author Organization [facility] Address [facility] [place] [address] Care Team Providers Care Planer Tailer Name Role Phone Rika Matthews MD Primary Care Provider Reason for Visit * Reason Comments Chronic Open Angle Glaucoma Encounter Details Date Type Department Care Team (Late st Contact Info) Description 04/14/2024 3:15 PM EDT Office [place] [address] Rodolfo Xavier MD [facility] [address] Chronic open angle glaucoma of both eyes, moderate stage (Primary Dx); Pseudophakia of both eyes; Astigmatism with presbyopia, bilateral Social History Tobacco Use Types Packs/Day Years Used Date Smoking Tobacco: Never Smokeless Tobacco: Never Alcohol Use Standard Drinks/Week Comments Not Currently 0 (1 standard drink = 0.6 oz pur e alcohol) 2x/week [facility] Inpatient Questions Answer Date Recorded Does Anyone [...] Progress Notes * Rodolfo Xavier MD - 04/14/2024 3:15 PM EDT S/p CE IOL + iStent left eye done 11/25/23 S/p CE IOL + iStent right eye done 12/09/23: Doing good IOP higher than last visit, but good OCT stable Myopia with astigmatism & presbyopia OU: Glasses rx provided COAG OU, moderate stage: Continue cosopt Retinal Hemorrhage/ ? Small BRVO left eye: Unknown etiology, will have her see her primary MD for possible cardiac workup. Plan: Stay off Cosopt RTC F/u with Dr Matthews within 1-2 month for work up of retinal heme 6 months for HVF documented in this encounter Plan of Treatment Upcoming Encounters Date Type Department Care Team (Late st Contact Info) Description 10/13/2024 2:45 PM EST Office Visit Ophthalmology at [facility] [place], operated [place] [facility] [place] [address] Rodolfo Xavier [place] [address] documented as of this encounter Procedures Procedure Name Priority Date/Time Associated Diagnosis Comments OCT OPTIC NERVE - OU - BOTH EYES Routine 04/14/2024 4:12 PM EDT Chronic open angle glaucoma of both eyes, moderate stage documented in this encounter Results * Oct Optic Nerve - OU - Both Eyes (04/14/2024 4:12 PM EDT) Anatomical Region Laterality Modality Other Narrative 04/14/2024 4:12 PM EDT Right Eye Quality was good. Left Eye Quality was good. Notes Optic nerve report G = 71 OD G = 64 OS borderline normal limits OD, outside normal limits OS Interpretation: stable Rodolfo Xavier MD OPHTHALMOLOGY SERVIC [facility] ORDERABLES documented in this encounter Visit Diagnoses Diagnosis Chronic open angle glaucoma of both eyes, moderate stage- Primary Pseudophakia of both eyes Lens replaced by other means Astigmatism with presbyopia, bilateral documented in this encounter Care Teams Planer Tailer Relationship Specialty Start Date End Date Rika Matthews MD [address] [place] [address] PCP - General 07/30/13 documented as of this encounter
--- OUTSIDE RECORDS SUMMARY | 2024-05-26 18:29 | XMS_ITS | Encounter Summary ---
Author Organization [facility] [place] [address] Care Team Providers Care Rn Maternity Name Role Phone Rika Matthews MD Primary Care Provider [phone] Reason for Visit * Auth/Cert (Routine) Specialty Diagnoses / Procedures Referred By Francisco t Referred To Contact Diagnoses Cataract and glaucoma Procedures PRO EXTRACAPSULAR CATARACT RMVL INSERTION IO LENS PROSTH W/O ECP PRO INSERTION ANTERIOR DRAINAGE DEV W/O EXTRAOCULAR RESERVOIR, EXT APPR CATARACT EXTRACTION, EXTRACAPSULAR,TORIC LENS INSERTION (WRVU 7.35) INSERTION OF ANTERIOR SEGMENT AQUEOUS DRAINAGE DEVICE W/O RESERVOIR (WRVU 13.2) Rodolfo Xavier MD [facility] [place] [address] [facility] Referral ID Status Reason Start Date Expiration Date Visits Re quested Visits Authorized [id number] 1 1 Encounter Details Date Type Department Care Team (Late st Contact Info) Description 12/09/2023 2:31 PM EST - 12/09/2023 3:31 PM EST Surgery [facility] [place] [address] Rodolfo Xavier MD [facility] [place] [address] CATARACT EXTRACTION, EXTRACAPSULAR,TORIC LENS INSERTION (WRVU 7.35) Social History Tobacco Use Types Packs/Day Years Used Date Smoking Tobacco: Never Smokeless Tobacco: Never Alcohol Use Standard Drinks/Week Comments Not Currently 0 (1 standard drink = 0.6 oz pur e alcohol) 2x/week [facility] Questions Answer Date Recorded Does [...] encounter Discharge Instructions * Discharge Instructions* Barbara Aceves, RN - 12/09/2023 12:54 PM EST Instructions for the first day following CATARACT (and cataract with iStent) surgery Rodolfo Xavier M.D. Section of ophthalmology [facility] [phone] - Wear either the eye shield or [...] Eye Clinic in the main building at [facility]. - Mild discomfort is normal, but if you have any severe eye pain or bleeding call [phone] and ask to speak to the eye doctor counter control operator. - Call you Primary Care Doctor [...] 5pm or on a weekend: Call [facility] eyelet punch operator and ask for the physician counter control operator covering for your doctor. documented in [...] on the RIGHT side. Bernie Adler MD [facility] Ophthalmology PGY3 p3992 I saw the patient with the following level of supervision from the attending: Direct from Dr. Xavier. documented in this encounter Miscellaneous Notes * Op Note - Rodolfo Xavier MD - 12/09/2023 2:06 PM EST [facility] Operative Note Patient Name: Arlet Hilton : [id number] MR#: [id number] Case Date: 12/09/2023 Surgeon: Surgeon(s) and Role: [...] 2:45 PM EST Office Visit Ophthalmology at [facility] [place] [address] Rodolfo Xavier MD [facility] [place] [address] documented as of this encounter Procedures Procedure Name Priority Date/Time Associated Diagnosis Comments Chemodenervation Of Trunk 6 Or More Muscles ([id number]) 12/09/2023 1:56 PM EST Cataract and glaucoma Extracapsular Cataract Rmvl Insertion Io Lens Prosth W/O Ecp (09955) 12/09/2023 1:56 PM EST Cataract and glaucoma CATARACT EXTRACTION,EXTRACAPSULAR,TO VICKY LENS INSERTION Routine 12/09/2023 12:54 PM EST [...] Given 12/09/2023 1:07 PM EST 1 drop fentaNYL (pf) (50 mcg/mL) multi-dose injection 25 mcg 25 mcg, Intravenous, EVERY 5 MIN PRN, Starting on Sat12/09/23 at 1254, Until Sat12/09/23 at 1448, Pain, For use in the Operating Room (OR), Outpatient Surgical Center (OSC), or Special Procedure Room only under direct provider supervision and verbal order. Hold for respiratory rate less than 8 breaths per minute. (maximum dose 100 mcg), Intra-Operative (Intra-Procedure), Routine Given 12/09/2023 2:03 PM EST 2 5 mcg ketorolac tromethamine (Acular) 0.5 % ophthalmic solution 1 drop 1 drop, Right Eye, ONCE, 1 dose, On Sat12/09/23 at 1315, 1 drop to the operative eye once, start on day of surgery, Day of Surgery (Day of Procedure), Routine Given 12/09/2023 1:33 PM EST 1 drop midazolam (pf) (Versed) (1 mg/mL) multi-dose injection 0.25-1 mg 0.25-1 mg, Intravenous, EVERY 5 MIN PRN, Starting on Sat12/09/23 at 1254, Until Sat12/09/23 at 1448, Anxiety, For use in the Operating Room (OR), Outpatient Surgery Center (OSC) or Special Procedure room only with direct provider supervision and verbal order. Hold for delirium/agitation. (Maximum dose 4 mg.), Intra-Operative (Intra-Procedure), Routine Given 12/09/2023 2:07 PM EST 0.5 mg Given 12/09/2023 2:03 PM EST 1 mg moxifloxacin (Vigamox) 0.5 % ophthalmic solution 1 [...] Procedure), Routine 1323 (Given - Provid er: Barbara Aceves RN)1324 (Given - Provider: Barbara Aceves [...] RN) documented in this encounter Care Teams Rn Maternity Relationship Specialty Start Date End Date Rika Matthews MD [address] [place] [address] PCP - General 07/30/13 documented as of this encounter
--- OUTSIDE RECORDS SUMMARY | 2024-05-26 18:29 | XMS_ITS | Encounter Summary ---
Author Organization [facility] Address [facility] [place] [address] Care Team Providers Care Business Process Associate Name Role Phone Rika Matthews MD Primary Care Provider [phone] Reason for Visit * Reason Comments Post Op Encounter Details Date Type Department Care Team (Late st Contact Info) Description 12/02/2023 11:00 AM EST [place] [address] [place] [address] Status post cataract extraction and insertion of intraocular lens, left; Chronic open angle glaucoma of both eyes, moderate stage; Retinal tear, right Social History Tobacco Use Types Packs/Day Years [...] Progress Notes * Rodolfo Xavier MD - 12/02/2023 11:00 AM EST POW #1 S/p CE IOL OS eye done 11/25/23: Normal postoperative appearance IOP good Plan: Continue post operative drops left eye: Ketorolac 4x a day Vigamox 4x a day Pred forte 4x a day Until gone Shield at night Continue glaucoma medications both eyes: cosopt 2x a day Follow for surgery as scheduled documented in this encounter Plan of Treatment Upcoming Encounters Date Type Department Care Team (Late st Contact Info) Description 10/13/2024 2:45 PM EST Office Visit Ophthalmology at [facility] [place] [address] Rodolfo Xavier MD [facility] [place] [address] documented as of this encounter Visit Diagnoses Diagnosis Status post cataract extraction and insertion of intraocular lens, left Chronic open angle glaucoma of both eyes, moderate stage Retinal tear, right documented in this encounter Care Teams Business Process Associate Relationship Specialty Start Date End Date Rika Matthews MD [address] [place] [address] PCP - General 07/30/13 documented as of this encounter
--- OUTSIDE RECORDS SUMMARY | 2024-05-26 18:29 | XMS_ITS | Continuity of Care Document ---
Author Organization [facility], [facility] Address [address] [place] [address] Care Team Providers Care Farm Planner Name Role Phone [facility] Orthopedic Surgeon [facility] Semiconductor Development Technician Assessment No assessment recorded. Plan of Treatment Reminders Order Date Submit Date Provider Last Modified By Organization Details Last Modified Time Details Appointments Office Visit 30 2023 11:30A M AISHA Carpenter'HARRhona Not available Not available Not available Lab None recorded. Referral None recorded. Procedures None recorded. Surgeries None recorded. Imaging electroca rdiogram [address], [address] [place] [address], [address], 05/26/2024 13:11:32 Medication Orders None recorded. Patient TargetsNo targets recorded. Patient InstructionsNo instructions recorded. Reason for Referral Urogynecologist Referral for Urge incontinence of urine urge incontinence, tried pelvic floor PT without success Referring Physician: Rika Granado, Family Medicine, Encounter Date: 05/11/2024 Results Created Date Observation Date Name Description Value Unit Range Abnormal Flag LastModifiedBy Organization Detail LastModifiedTime 05/26/20 24 05/26/2024 elect guicho thompsongr am No observ ation record ed. [address], [address], 05/26/2024 13:11:31 Result Notes None recorded. Problems Name Status Onset Date Resolution Date Notes Provider Name and Address Organization Details Recorded Time Glaucoma Active 2005 Problem Code: H40.9; Problem Code Type: ICD-10; Not Available [facility] 3 04:02:07 Degeneration of cervical intervertebra l disc Active 2005 Problem Code: M50.30; Problem Code Type: ICD-10; Not Available [facility] 3 04:02:07 Urge incontinence of urine Active 200411/01/2015 - Comments only - Rika Granado MD - Mild, continue antichol meds for this. Problem Code: N39.41; Problem Code Type: ICD-10; Not Available [facility] 3 04:02:07 Idiopathic osteoarthriti s Active 201610/08/2017 - Comments only - Rika Granado MD - reviewed conservative management. Problem Code: M19.049; Problem Code Type: ICD-10; Not Available [facility] 3 04:02:07 Contusion of right lower leg Completed 201707/11/2018 06/27/2018 - Comments only - Rika Granado MD - Reassurance provided, advised conservative management. Problem Code: S80.11xA; Problem Code Type: ICD-10; Not Available [facility] 3 04:02:07 Screening mammography Active 2018 Problem Code: Z12.31; Problem Code Type: ICD-10; Not Available [facility] 3 04:02:07 Screening for malignant neoplasm of colon Active 2018 Problem Code: Z12.11; Problem Code Type: ICD-10; Not Available [facility] 3 04:02:08 Adjustment disorder Active 201810/23/2019 - Comments only - Rika Granado MD - [place] provided. Problem Code: F43.20; Problem Code Type: ICD-10; Not Available [facility] 3 04:02:08 Adult health examination Active 201810/23/2019 - Comments only - Rika Granado MD - Medicare wellness exam. Personalized prevention plan competed and rev'd with patient. patient was given copy of PPP at conclusion of visit. Referred for mammo and for colo next jun. UTD with scg labs. Problem Code: Z00.00; Problem Code Type: ICD-10; Not Available [facility] 3 04:02:08 Impacted cerumen in left ear Completed 201912/18/2019 Problem Code: H61.22; Problem Code Type: ICD-10; Not Available [facility] 3 04:02:08 Exposure to communicable disease Completed 201908/12/2020 Problem Code: Z20.9; Problem Code Type: ICD-10; Not Available [facility] 3 04:02:08 History of polyp of colon Active 2019 Problem Code: Z86.010; Problem Code Type: ICD-10; Not Available [facility] 3 04:02:08 Prediabetes Active 202001/11/2023 - Comments only - Rika Granado MD - A1c stable at 5.9. Patient very aware of strategies to decrease risk of progression to diabetes. Declined referral or further information. Problem Code: R73.03; Problem Code Type: ICD-10; Not Available [facility] 3 04:02:08 General examination of patient Active 202011/07/2021 - Comments only - Rika Granado MD - Medicare wellness exam. Personalized prevention plan competed and rev'd with patient. patient was given copy of PPP at conclusion of visit. UTD with ca scgs, IZs, scg labs. Problem Code: Z00.8; Problem Code Type: ICD-10; Not Available [facility] 3 04:02:08 Acute stress disorder Active 202001/05/2022 [...] F43.0; Problem Code Type: ICD-10; Not Available [facility] 3 04:02:09 Viral screening Completed 202107/08/2022 Problem Code: Z11.52; Problem Code Type: ICD-10; Not Available [facility] 3 04:02:09 Genitourinary symptoms Completed 202107/08/2022 Problem Code: R39.9; Problem Code Type: ICD-10; Not Available [facility] 3 04:02:09 Cough Completed 202106/22/2022 Problem Code: R05.8; Problem Code Type: ICD-10; Not Available [facility] 3 04:02:09 Lower abdominal pain Completed 202106/22/2022 Problem Code: R10.30; Problem Code Type: ICD-10; Not Available [facility] 3 04:02:09 Acute pharyngitis Completed 202106/22/2022 Problem Code: J02.9; Problem Code Type: ICD-10; Not Available [facility] 3 04:02:09 Fever Completed 202106/22/2022 Problem Code: R50.9; Problem Code Type: ICD-10; Not Available [facility] 3 04:02:09 Atypical facial pain Active 2021 Problem Code: G50.1; Problem Code Type: ICD-10; Not Available [facility] 3 04:02:10 Gastroesophag eal reflux disease without esophagitis Active 202108/01/2022 - Julienne - Rika Granado MD - Reviewed option of trial of discontinuati on of omeprazole to see if she can manage symptoms with diet alone. Okay to resume if symptoms worsen off the medication. Problem Code: K21.9; Problem Code Type: ICD-10; Not Available [facility] 3 04:02:10 Inconclusive mammography finding Active 2021 Problem Code: R92.2; Problem Code Type: ICD-10; Not Available [facility] 3 04:02:10 Urinary tract infectious disease Completed 202201/16/2023 Problem Code: N39.0; Problem Code Type: ICD-10; Not Available [facility] 3 04:02:10 Acute bronchitis Completed 201610/08/2017 Problem Code: J20.9; Problem Code Type: ICD-10; Not Available [facility] 3 04:02:12 Urinary incontinence Completed 200408/07/2023 Problem Code: 788.3; Problem Code Type: ICD-9; Not Available [facility] 3 04:02:13 Sprain of ankle Completed 201008/07/2023 Problem Code: 845.09; Problem Code Type: ICD-9; Not Available [facility] 3 04:02:13 Anemia Completed 202008/01/2022 Problem Code: D64.9; Problem Code Type: ICD-10; Not Available [facility] 3 04:02:15 Clinical finding Completed 201008/07/2023 Problem Code: 796.4; Problem Code Type: ICD-9; Not Available [facility] 3 04:02:15 Altered bowel function Completed 202108/01/2022 Problem Code: R19.4; Problem Code Type: ICD-10; Not Available [facility] 3 04:02:15 Screening mammography Completed 201510/08/2017 Problem Code: Z12.31; Problem Code Type: ICD-10; Not Available [facility] 3 04:02:16 Asthenia Completed 201011/01/2015 Problem Code: R53.1; Problem Code Type: ICD-10; Not Available [facility] 3 04:02:16 Arthralgia of the ankle and/or foot Completed 201708/07/2023 08/05/2018 - Comments only - Rika Granado MD - 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 Recom'd plain films and [place] [place] Problem Code: M25.571; Problem Code Type: ICD-10; Not Available [facility] 3 04:02:17 Trochanteric bursitis of left hip Completed 201410/08/2017 Problem Code: M70.62; Problem Code Type: ICD-10; Not Available [facility] 3 04:02:18 Hypocalcemia Completed 202008/01/2022 Problem Code: E83.51; Problem Code Type: ICD-10; Not Available [facility] 3 04:02:18 Hyperglycemia Completed 202008/07/2023 Problem Code: R73.9; Problem Code Type: ICD-10; Not Available [facility] 3 04:02:19 Diabetes mellitus screening Completed 201810/23/2019 Problem Code: Z13.1; Problem Code Type: ICD-10; Not Available [facility] 3 04:02:19 Screening for disorder Completed 201410/08/2017 Problem Code: Z13.9; Problem Code Type: ICD-10; Not Available [facility] 3 04:02:20 Nausea Completed 202108/01/2022 Problem Code: R11.0; Problem Code Type: ICD-10; Not Available [facility] 3 04:02:21 Blood glucose outside reference range Completed 202008/07/2023 Problem Code: R73.09; Problem Code Type: ICD-10; Not Available [facility] 3 04:02:22 Spontaneous rupture of flexor tendons Completed 201010/08/2017 Problem Code: M66.379; Problem Code Type: ICD-10; Not Available [facility] 3 04:02:22 Bilateral age-related nuclear cataracts Active 2022 JUAN MANUEL ADAM, [facility]. 3 10:25:52 Bilateral primary open angle glaucoma Active 2022 JUAN MANUEL ADAM, [facility]. 3 10:26:06 Acute upper respiratory infection Active [address], [place], [address] , [facility]. 4 15:39:39 Familial combined hyperlipidemi a Active [address], [place], [address] , [facility] 4 08:26:29 Serous otitis media of left ear Active [address], [place], [address] , [facility] 4 11:20:05 Pain of right ankle joint Active 2023 MIKE FRANK MA null, [facility] 4 09:20:24 Pseudophakia Active 2023 MIKE FRANK MA null, [facility] 4 08:39:50 Bilateral eye astigmatism Active 2023 MIKE FRANK MA null, [facility] 4 08:40:11 Presbyopia Active 2023 MIKE FRANK MA null, [facility] 4 08:40:19 Retinal hemorrhage Active [address], [place], [address] , [facility] 4 07:40:47 Problem Notes None recorded. Procedures Surgical History None recorded. Imaging Results Imaging Date Name Status LastModified by Organization Details LastModified Time 05/26/2024 electrocardiogram completed [address], [address], 05/26/2024 13:11:31 Procedure Notes None recorded. Medical [...] Not Available No t Available amoxicillin 875 mg-fernando m clavulanate 125 mg tablet TAKE 1 [...] Updated DateTime 4 168.28 cm 23.1 kg/m2 39292.7 4 g 98 [degF] 98 % 98 % 76 /min 116 mm[Hg] 78 mm[Hg] MIKE FRANK MA [facility] 4 11:41:23 Social History Question Answer Notes LastModified by Organizat ion Details LastModified Time Tobacco Smoking Status Never Smoker DANITA GOMEZ, [facility] 12/02/2023 15:24:07 Would You Say That, In [...] And Wanted Help? (For Example, If You [place] Very Nervous, Lonely, Or Blue; Got Sick [...] Recorded Time Tdap 06/21/2009 completed Not Available [facility] 05:19:46 Tdap 10/23/2019 completed Not Available [facility] 05:19:46 zoster live 06/21/2009 completed Not Available [facility] 09/20/2023 05:19:46 Pneumococcal conjugate PCV 13 10/08/2017 completed Not Available [facility] 09/20/2023 05:19:46 Influenza, high-dose, trivalent, PF 08/05/2018 completed Not Available [facility] 09/20/2023 05:19:47 Influenza, split virus, trivalent, preservative 10/13/2015 completed Not Available [facility] 09/20/2023 05:19:47 zoster recombinant 06/24/[address] [facility] 09/20/2023 05:19:47 zoster recombinant 10/14/[address] [facility] 09/20/2023 05:19:48 COVID-19, mRNA, LNP-S, PF, 100 mcg/0.5mL dose or 50 mcg/0.25mL dose 12/07/2020 completed Not Available [facility] 09/20/2023 05:19:48 COVID-19, mRNA, LNP-S, PF, 100 mcg/0.5mL dose or 50 mcg/0.25mL dose 01/04/2021 completed Not Available [facility] 09/20/2023 05:19:48 COVID-19, mRNA, LNP-S, PF, 100 mcg/0.5mL dose or 50 mcg/0.25mL dose 09/05/2021 completed Not Available [facility] 09/20/2023 05:19:48 SARS-COV-2 (COVID-19) vaccine, UNSPECIFIED 04/06/2022 completed Not Available [facility] 09/20/2023 05:19:48 COVID-19, mRNA, LNP-S, bivalent, PF, 10 mcg/0.2 mL 08/03/2022 completed Not Available [facility] 09/20/2023 05:19:48 pneumococcal polysaccharide PPV23 10/19/2011 completed Not Available [facility] 2022 05:19:49 Hep A, adult 11/01/2015 completed Not Available [facility] 09/20/2023 05:19:49 influenza, unspecified formulation 08/03/2022 completed Not Available [facility] 09/20/2023 05:19:49 influenza, unspecified formulation 08/04/2014 completed Not Available [facility] 09/20/2023 05:19:49 influenza, unspecified formulation 08/18/2020 completed Not Available [facility] 09/20/2023 05:19:49 influenza, unspecified formulation 08/20/2012 completed Not Available [facility] 09/20/2023 05:19:50 influenza, unspecified formulation 08/26/2009 completed Not Available [facility] 09/20/2023 05:19:50 influenza, unspecified formulation 08/31/2013 completed Not Available [facility] 09/20/2023 05:19:50 influenza, unspecified formulation 09/05/2021 completed Not Available [facility] 09/20/2023 05:19:50 influenza, unspecified formulation 09/12/2011 completed Not Available [facility] 09/20/2023 05:19:50 influenza, unspecified formulation 09/29/2007 completed Not Available [facility] 09/20/2023 05:19:50 SARS-COV-2 (COVID-19) vaccine, UNSPECIFIED 08/25/2023 completed JUAN MANUEL DAAM, [facility] 11/18/2023 11:19:51 influenza, unspecified formulation 08/25/2023 completed JUAN MANUEL ADAM, [facility] 11/18/2023 11:20:00 Past Encounters Encounter ID Performer Location Encounter Start Date Encounter Closed Date Diagnosis/Indication Diagnosis SNOMED-CT Code [id number] RIKA GRANADO MD [address] [address] 05/11/2024 15:46:57 05/11/2024 16:27:06 Urge incontinence of urine [id number] Retinal hemorrhage 00228 800 [id number] Aisha Roland PA-C [address] [address] 05/26/2024 11:25:12 05/26/2024 12:19:19 Retinal hemorrhage [id number] Health Concerns Section Related Observation LastModified by Organization Detai ls LastModified Time None Recorded Concern Status LastModified by Organization Details LastModified Time None Recorded Payers Encounter Date Sequence Insurance Name Policy Number Policy Grant Covered Member ID Grant Member ID Guarantor Name 05/26/2024 1 [employer] (MEDICARE REPLACEMENT PPO) [id number] 2 Arlet Hilton [id number] Destinee Hilton Notes Date Note Type Note Provider Name and Address Organization Details Recorded Time 05/26/2024 text/html HPI Notes: Pt is a 78 y/o F here for ECG for a baseline as per PCP and recommendation as per her finisher machine. She is also interested in getting lipoprotein A testing and carotid exam. She is feeling well. No complaints. [address], [place], [address], [facility] 05/26/2024 13:12:20 OBGyn Episode No OBEpisode recorded.
--- OUTSIDE RECORDS SUMMARY | 2024-05-26 18:29 | XMS_ITS | Encounter Summary ---
Author Organization [facility] Address [facility] [place] [address] Care Team Providers Care Supervisor Lime Name Role Phone Rika Matthews MD Primary Care Provider [phone] Reason for Visit * Reason Comments Post Op Encounter Details Date Type Department Care Team (Late st Contact Info) Description 12/10/2023 10:00 AM EST Office Visit Ophthalmology at [facility] [place] [address] Rodolfo Xavier MD [facility] [place] [address] Status post cataract extraction and insertion of intraocular lens of right eye Social History Tobacco Use Types Packs/Day Years Used Date Smoking Tobacco: Never Smokeless Tobacco: Never Alcohol Use Standard Drinks/Week Comments Not Currently 0 (1 standard drink = 0.6 oz pur e alcohol) 2x/week [facility] Inpatient Questions Answer Date Recorded Does Anyone [...] as of this encounter Progress Notes * Bernie Adler MD - 12/10/2023 10:00 AM EST POD #1 S/p CE IOL with iStent right eye: Normal postoperative appearance Doing well IOP good Plan: Ketorolac 4x a day Vigamox 4x a day Pred forte 4x a day Until gone Zofran for nausea Shield at night FUV post op as scheduled Bernie Adler MD [facility] Ophthalmology PGY3 [id number] I saw the patient with the following level of supervision from the attending: Direct from Dr. Xavier. * Rodolfo Xavier MD - 12/10/2023 10:00 AM EST I have seen the patient in person [...] 2:45 PM EST Office [place] [address] Rodolfo Xavier MD [facility] [place] [address] documented as of this encounter Visit Diagnoses Diagnosis Status post cataract extraction and insertion of intraocular lens of right eye documented in this encounter Care Teams Supervisor Lime Relationship Specialty Start Date End Date Rika Matthews MD [address] [place] [address] PCP - General 07/30/13 documented as of this encounter
--- OUTSIDE RECORDS SUMMARY | 2024-05-26 18:29 | XMS_ITS | Encounter Summary ---
Author Organization [facility] Address [facility] [place] [address] Care Team Providers Care Blade Filer Name Role Phone Rika Matthews MD Primary Care Provider [phone] Reason for Visit * Reason Comments Post Op Encounter Details Date Type Department Care Team (Late st Contact Info) Description 12/17/2023 2:45 PM EST Office [place] [address] Rodolfo Xavier MD [facility] [place] [address] Status post cataract extraction and insertion of intraocular lens, right Social History Tobacco Use Types Packs/Day Years Used Date Smoking Tobacco: Never Smokeless Tobacco: Never Alcohol Use Standard Drinks/Week Comments Not Currently 0 (1 standard drink = 0.6 oz pur e alcohol) 2x/week [facility] Inpatient Questions Answer Date Recorded Does Anyone [...] Progress Notes * Rodolfo Xavier MD - 12/17/2023 2:45 PM EST POD #1 S/p CE IOL OS eye done 11/25/23: Normal postoperative appearance IOP good S/p CE IOL with iStent right eye: Normal postoperative appearance Doing well IOP good Plan: Continue post operative drops [...] 2:45 PM EST Office [place] [address] Rodolfo Xavier MD [facility] [place] [id number] documented as of this encounter Visit Diagnoses Diagnosis Status post cataract extraction and insertion of intraocular lens, right documented in this encounter Care Teams Blade Filer Relationship Specialty Start Date End Date Rika Matthews MD [address] [place] [address] PCP - General 07/30/13 documented as of this encounter
--- OUTSIDE RECORDS SUMMARY | 2024-05-26 18:29 | XMS_ITS | Encounter Summary ---
Author Organization [facility] [place] [address] Care Team Providers Care Cpo Name Role Phone Rika Matthews MD Primary Care Provider [phone] Encounter Details Date Type Department Care Team (Latest Contact Info) Description 04/13/2024 Travel Social History Tobacco Use Types Packs/Day Years Used Date Smoking Tobacco: Never Smokeless Tobacco: Never Alcohol Use Standard Drinks/Week Comments Not Currently 0 (1 standard drink = 0.6 oz pur e alcohol) 2x/week [facility] Inpatient Questions Answer Date Recorded Does Anyone [...] 2:45 PM EST Office Visit Ophthalmology at [facility] [place] [address] Rodolfo Xavier MD [facility] [place] [address] documented as of this encounter Visit Diagnoses Not on filedocumented in this encounter Care Teams Cpo Relationship Specialty Start Date End Date Rika Matthews MD [address] [place] [address] PCP - General 07/30/13 documented as of this encounter
--- OUTSIDE RECORDS SUMMARY | 2024-05-26 18:29 | XMS_ITS | Clinical Summary ---
Author Organization [facility] Address [facility] [place] [address] Care Team Providers Care Spice Mixer Name Role Phone Rika Matthews MD Primary Care Provider [phone] Allergies Active Allergy Reactions Criticality Noted Date Comments Bimatoprost Medium Brimonidine Tartrate Medium Latanoprost Medium Medications Medication Sig Dispensed Refills Start Date End Date Status rosuvastatin (CRESTOR) 10 mg tablet 12/22/2010 Active estradiol (ESTRACE) 0.01 % (0.1 mg/g) vaginal cream 12/22/2010 Active solifenacin (VESICARE) 5 mg Tablet Take 10 mg by mouth daily. Active meloxicam (MOBIC) 15 mg Tablet Take 1 tablet by mouth daily. 30 tablet 1 09/02/2018 Active Additional Information Patient not taking.Reported on 04/14/2024 dorzolamide-timoloL (Cosopt) 22.3-6.8 mg/mL DropsIndications:Salesperson Florist Supplies libby open angle glaucoma of both eyes, moderate stage Place 1 drop into both eyes 2 times daily. 30 mL 3 10/18/2023 Active ketorolac tromethamine (Acular) 0.5 % Drops Place 1 drop into the right eye 4 times daily. Active prednisoLONE acetate (Pred-Forte) 1 % Drops, Suspension Place 1 drop into the right eye 4 times daily. Active ondansetron ODT (Zofran-ODT) 4 mg disintegrating tablet Take 1 tablet by mouth every 8 hours as needed for Nausea. 10 tablet 12/10/2023 Active Active Problems Problem Noted Date Diagnosed Date COAG (chronic open-angle glaucoma) 07/04/2011 Overview (08/10/2012): 07/04/2011 Arlet Hilton is a 65 y.o. female ref by dr chciho koehler, [facility], on 04/20 With coag. Discs= 0.3/0.5. VFs=nl od and os= small inf nasal step. OCT= 89/76 on 04/20. Tmax=~25. IOP status= 19 ou on lexy ou and az os. ADR= lum, xal, lobo, alpha. Gonio= open ou but slight plat config= watch. Surgery= pi ou. VA=20 ou w -3 myopia. Target= ~20/17. Plan dil. ? Alt. Encounters Date Type Department Care Team Description 04/28/2024 Telephone Ophthalmology at [place] [phone] Rodolfo Xavier MD Appointment 04/24/2024 [place] [phone] Rodolfo Xavier MD 04/14/2024 3:15 PM EDT Office [place] [phone] Rodolfo Xavier MD Chronic open angle glaucoma of both eyes, moderate stage (Primary Dx); Pseudophakia of both eyes; Astigmatism with presbyopia, bilateral 04/14/2024 Travel 04/13/2024 Travel from Last 3 Months Immunizations Name Administration Dates Next Due Hepatitis A Adult ([employer]ix, Vaqta) 04/19/2015 Hepatitis A, Unspecified Formulation 11/01/2015 Tdap 11/11/2007 Typhoid Live, Oral 04/19/2015 Family History Medical History Relation Comments Glaucoma Brother Heart Disease Brother Cancer Father Heart Disease Maternal Grandmother Cancer Mother Diabetes Mother Cancer Paternal Grandmother Glaucoma Paternal Uncle Amblyopia Neg Hx Cataracts Neg Hx Hypertension Neg Hx Macular Degeneration Neg Hx Retinal Detachment Neg Hx Strabismus Neg Hx Thyroid Disease Neg Hx Relation Status Comments Brother Father Maternal Grandmother Mother Paternal Grandmother Paternal Uncle Social History Tobacco Use Types Packs/Day Years Used Date Smoking Tobacco: Never Smokeless Tobacco: Never Alcohol Use Standard Drinks/Week Comments Not Currently 0 (1 standard drink = 0.6 oz pur e alcohol) 2x/week IPV Inpatient Questions Answer Date Recorded Does Anyone [...] PM EDT Sexual Orientation Not on file Last Filed Vital Signs Vital Sign Reading [...] Mass Index 21.93 12/09/2023 1:00 PM EST Plan of Treatment Upcoming Encounters Date Type Department Care Team (Late st Contact Info) Description 10/13/2024 2:45 PM EST Office Visit Ophthalmology at [facility] [place] [address] Rodolfo Xavier MD [facility] [place] [address] Health Maintenance Due Date Last Done Comments Hepatitis C Screening 1963 Zoster vaccine (1 of 2) 1995 Advance Directive 2000 Bone Density Scan 2010 Pneumoccocal Vaccine: 65+ (1 of 1 - PCV) 2010 Tetanus vaccine 11/11/2017 11/11/2007 Covid-19 Vaccine ( season) 2023 Influenza (Flu) vaccine (1 o f 1 - Influenza standard series) 07/12/2024 Tdap adult Completed 11/11/2007 Medical Devices Implanted Type Area Legal Arbitrator Device Identifier Shelf Expiration Date Model / Serial / Lot Lens Iol Sn6at6 +16.0d 6.0x13.0 Toric Post Biconvex Single ([id number]) (Autoreq) - [id number] Implanted:Qty: 1 on 11/25/2023 by Rodolfo Xavier MD at [facility] IMPLANTS Left: Eye [employer] [id number] 07/10/2026 SN6AT6.16 0 / [id number] / Stent Ophthalmic Cataract Intracocular Pressure Istent ([id number]) - [id number] Implanted:Qty: 1 on 11/25/2023 by Rodolfo Xavier MD at [facility] IMPLANTS Left: Eye [employer] [id number] 04/10/2025 [facility] / [id number] / [id number] Lens Iol Sn6at4 +16.5d 6.0x13.0 Toric Post Biconvex Single ([id number]) ([employer]) - [id number] Implanted:Qty: 1 on 12/09/2023 by Rodolfo Xavier MD at [facility] IMPLANTS Right: Eye [employer] [id number] 11/20/2025 SN6AT4.16 5 / [id number] 65 / Stent Ophthalmic Cataract Intracocular Pressure Istent ([id number]) - [id number] Implanted:Qty: 1 on 12/09/2023 by Rodolfo Xavier MD at [facility] IMPLANTS Right: Eye [employer] [id number] 05/10/2026 [facility] / [id number] / [id number] Procedures Procedure Name Priority Date/Time Associated Diagnosis Comments OCT OPTIC NERVE - OU - BOTH EYES Routine 04/14/2024 4:12 PM EDT Chronic open angle glaucoma of both eyes, moderate stage from Last 3 Months Results * Oct Optic Nerve - OU - Both Eyes (04/14/2024 4:12 PM EDT) Anatomical Region Laterality Modality Other Narrative 04/14/2024 4:12 PM EDT Right Eye Quality was good. Left Eye Quality was good. Notes Optic nerve report G = 71 OD G = 64 OS borderline normal limits OD, outside normal limits OS Interpretation: stable Rodolfo Xavier MD OPHTHALMOLOGY SERVIC ES ORDERABLES from Last 3 Months Care Teams Spice Mixer Relationship Specialty Start Date End Date Rika Matthews MD [address] [place], [place] [address] PCP - General 07/30/13
--- OUTSIDE RECORDS SUMMARY | 2024-05-26 18:29 | XMS_ITS | Encounter Summary ---
Author Organization [facility] Address [facility] [place] [address] Care Team Providers Care Chyron Operator Name Role Phone Rika Matthews MD Primary Care Provider [phone] Reason for Visit * Reason Onset Date Comments Appointment 04/28/2024 Encounter Details Date Type Department Care Team (Late st Contact Info) Description 04/28/2024 Telephone Ophthalmology at [place] [phone] Rodolfo Xavier MD [facility] [place] [address] Appointment Social History Tobacco Use Types Packs/Day Years [...] * Telephone Encounter - Perez Kennedy - 05/05/2024 2:08 PM EDT Pt scheduled * Telephone Encounter - Rika Campuzano - 04/28/2024 12:40 PM EDT LM for pt to schedule next appt with [facility]: Return in about 6 months (around 10/14/2024) for EPF, 24-2 HVF, no dilation, no imaging, IOP check. documented in this encounter Plan of Treatment Upcoming Encounters Date Type Department Care Team (Late st Contact Info) Description 10/13/2024 2:45 PM EST [place] [address] Rodolfo Xavier MD [facility] [place] [address] documented as of this encounter Visit Diagnoses Not on filedocumented in this encounter Care Teams Chyron Operator Relationship Specialty Start Date End Date Rika Matthews MD [address] [place] [address] PCP - General 07/30/13 documented as of this encounter
--- OUTSIDE RECORDS SUMMARY | 2024-05-26 18:29 | XMS_ITS | Encounter Summary ---
Author Organization [facility] Address [facility] [place] [address] Care Team Providers Care Ip Technology Transactions Attorney Name Role Phone Rika Matthews MD Primary Care Provider [phone] Reason for Visit * Reason Onset Date Comments Appointment 01/30/2024 Encounter Details Date Type Department Care Team (Late st Contact Info) Description 01/30/2024 Telephone Ophthalmology at [facility] [place] [phone] Rodolfo Xavier MD [facility] [place] [address] Appointment Social History Tobacco Use Types Packs/Day Years Used Date Smoking Tobacco: Never Smokeless Tobacco: Never Alcohol Use Standard Drinks/Week Comments Not Currently 0 (1 standard drink = 0.6 oz pur e alcohol) 2x/week [facility] Inpatient Questions Answer Date Recorded Does Anyone [...] encounter Miscellaneous Notes * Telephone Encounter - Rika Campuzano - 01/31/2024 4:56 PM EDT MP scheduled. * Telephone Encounter - Rika Campuzano - 01/30/2024 2:16 PM EDT Called and spoke to pt to schedule next appt with [facility]: Return in about 3 months (around 04/22/2024) for 3-4 months for AUG, DFE. . Pt would like to schedule in April, but would like to coordinate with other appts she has as she goes back and forth btwn [place] and [place]. Pt unable to schedule at time of call and will call back to schedule when able. documented in this encounter Plan of Treatment Upcoming Encounters Date Type Department Care Team (Late st Contact Info) Description 10/13/2024 2:45 PM EST Office [place] [address] [place] [address] documented as of this encounter Visit Diagnoses Not on filedocumented in this encounter Care Teams Ip Technology Transactions Attorney Relationship Specialty Start Date End Date Rika Matthews MD [address] [place] [address] PCP - General 07/30/13 documented as of this encounter
--- OUTSIDE RECORDS SUMMARY | 2024-05-26 18:29 | XMS_ITS | Encounter Summary ---
Author Organization [facility] Address [facility] [place] [address] Care Team Providers Care Commercial Journeyman Electrician Name Role Phone Rika Matthews MD Primary Care Provider [phone] Encounter Details Date Type Department Care Team (Latest Contact Info) Description 11/26/2023 Travel Social History Tobacco Use Types Packs/Day [...] Ophthalmology at [facility] [place] [address] Rodolfo Xavier MD [facility] [place] [address] documented as of this encounter Visit Diagnoses Not on filedocumented in this encounter Care Teams Commercial Journeyman Electrician Relationship Specialty Start Date End Date Rika Matthews MD [address] [place] [id number] PCP - General 07/30/13 documented as of this encounter
--- OUTSIDE RECORDS SUMMARY | 2024-05-26 18:29 | XMS_ITS | Encounter Summary ---
Author Organization [facility] Address [facility] [place] [address] Care Team Providers Care Acoustical Tile Drill Press Operator Name Role Phone Rika Matthews MD Primary Care Provider [phone] Reason for Visit * Reason Comments Cataract Encounter Details Date Type Department Care Team (Late st Contact Info) Description 10/08/2023 10:00 AM EST Office [place] [address] Rodolfo Xavier MD [facility] [place] [address] Age-related nuclear cataract, bilateral; Chronic open angle glaucoma of both eyes, [...] Progress Notes * Rodolfo Xavier MD - 10/08/2023 10:00 AM EST COAG OU, moderate stage OU IOP good today HVF with concern for slight progression nasally OD, stable OS Cataracts OU: Visually significant Affecting Arlet Hilton's daily activities Would likely benefit from CE IOL OU R/B/A re-discussed with Arlet Hilton and she would like to proceed with cataract extraction with iStent in both eyes left eye first [place] (distance) Desires Toric lens in both eyes (understands additional out of pocket cost) Plan: Continue glaucoma medications both eyes: cosopt 2x a day RTC: cataract surgery, documented in this encounter Plan of Treatment Upcoming Encounters Date Type Department Care Team (Late st Contact Info) Description 10/13/2024 2:45 PM EST Office Visit Ophthalmology at [facility] [place] [address] Rodolfo Xavier MD [facility] [place] [address] documented as of this encounter Visit Diagnoses Diagnosis Age-related nuclear cataract, bilateral Senile nuclear sclerosis 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
--- OUTSIDE RECORDS SUMMARY | 2024-05-26 18:29 | XMS_ITS | Encounter Summary ---
Author Organization [facility] Address [facility] [place] [address] Care Team Providers Care Lands Resource Manager Name Role Phone Rika Matthews MD Primary Care Provider [phone] Encounter Details Date Type Department Care Team (Latest Contact Info) Description 10/08/2023 Travel Social History Tobacco Use Types Packs/Day [...] 2:45 PM EST Office Visit Ophthalmology at [facility] [place] [address] Rodolfo Xavier MD [facility] [place] [address] documented as of this encounter Visit Diagnoses Not on filedocumented in this encounter Care Teams Lands Resource Manager Relationship Specialty Start Date End Date Rika Matthews MD [address] [place] [id number] PCP - General 07/30/13 documented as of this encounter
--- OUTSIDE RECORDS SUMMARY | 2024-05-26 18:29 | XMS_ITS | Encounter Summary ---
Author Organization [facility] [place] [address] Care Team Providers Care Product Safety Associate Name Role Phone Rika Matthews MD Primary Care Provider [phone] Reason for Visit * Auth/Cert (Routine) Specialty Diagnoses / Procedures Referred By Francisco t Referred To Contact Diagnoses Cataract Procedures PRO EXTRACAPSULAR CATARACT RMVL INSERTION IO LENS PROSTH W/O ECP PRO INSERTION ANTERIOR DRAINAGE DEV W/O EXTRAOCULAR RESERVOIR, EXT APPR CATARACT EXTRACTION, EXTRACAPSULAR,TORIC LENS INSERTION (WRVU 7.35) INSERTION OF ANTERIOR SEGMENT AQUEOUS DRAINAGE DEVICE W/O RESERVOIR (WRVU 13.2) Rodolfo Xavier MD [facility] [place] [address] [facility] Referral ID Status Reason Start Date Expiration Date Visits Re quested Visits Authorized [id number] 1 1 Encounter Details Date Type Department Care Team (Late st Contact Info) Description 11/25/2023 1:57 PM EST - 11/25/2023 2:57 PM EST Surgery [facility] [place] [address] Rodolfo Xavier MD [facility] [place] [address] CATARACT EXTRACTION, EXTRACAPSULAR,TORIC LENS INSERTION (WRVU 7.35) [...] surgery Rodolfo Xavier M.D. Section of ophthalmology [facility] [phone] - Wear either the eye shield or [...] Eye Clinic in the main building at [facility]. - Mild discomfort is normal, but if you have any severe eye pain or bleeding call [phone] and ask to speak to the eye doctor loss prevention and safety manager. - Call you Primary Care Doctor or [...] on a weekend: Call the [facility] switchboard operator helper and ask for the physician loss prevention and safety manager covering for your doctor. documented in this [...] on the LEFT side. Bernie Adler MD [place] Ophthalmology PGY3 [id number] I saw the patient with the following level of supervision from the attending: Direct from Dr. Xavier. documented in this encounter Miscellaneous Notes * Op Note - Rodolfo Xavier MD - 11/25/2023 2:21 PM EST [facility] Operative Note Patient Name: Arlet Hilton : [id number] MR#: [id number] Case Date: 11/25/2023 Surgeon: Surgeon(s) and Role: [...] at 92 degrees and an [facility] [id number] 16.0 diopter lens was inserted in to [...] 2:45 PM EST Office Visit Ophthalmology at [facility] [place] [address] Rodolfo Xavier MD [facility] [place] [address] documented as of this encounter Procedures Procedure Name Priority Date/Time Associated Diagnosis Comments Chemodenervation Of Trunk 6 Or More Muscles ([id number]) 11/25/2023 2:09 PM EST Cataract Extracapsular Cataract Rmvl Insertion Io Lens Prosth W/O Ecp (87642) 11/25/2023 2:09 PM EST Cataract CATARACT EXTRACTION,EXTRACAPSULAR,TO [...] Given 11/25/2023 1:22 PM EST 1 drop fentaNYL (pf) (50 [...] dose 100 mcg), Intra-Operative (Intra-Procedure), Routine Given 11/25/2023 2:21 PM EST 12.5 mcg Right Arm ketorolac tromethamine (Acular) 0.5 % ophthalmic solution [...] 1:40 PM EST 1,000 mLs 100 mL/hr midazolam (pf) (Versed) (1 mg/mL) multi-dose injection 0.25-1 mg 0.25-1 mg, Intravenous, EVERY 5 MIN PRN, Starting on Sat11/25/23 at 1313, Until Sat11/25/23 at 1451, Anxiety, For use in the Operating Room (OR), Outpatient Surgery Center (OSC) or Special Procedure room only with direct provider supervision and verbal order. Hold for delirium/agitation. (Maximum dose 4 mg.), Intra-Operative (Intra-Procedure), Routine Given 11/25/2023 2:25 PM EST 0.5 mg Right Arm Given 11/25/2023 2:19 PM EST 1 mg moxifloxacin (Vigamox) 0.5 [...] 1322 (Given - Provid er: Kayleigh Schmidt RN)133 (Given - Provider: Lilian Dowling RN)133 (Given - Provider: Lilian Dowling RN) ketorolac tromethamine (Acular) 0.5 % ophthalmic solution 1 drop (COMPLETED) 1 drop, Left Eye, ONCE, 1 dose, On Sat11/25/23 at 1330, 1 drop to the operative eye once, start on day of surgery, Day of Surgery (Day of Procedure), Routine 133 (Given - Provid er: Lilian Dowling RN) [...] RN)1336 (Given - Provider: Lilian Dowling RN) prednisoLONE acetate (Pred-Forte) 1 % suspension [...] RN) documented in this encounter Care Teams Product Safety Associate Relationship Specialty Start Date End Date Rika Matthews MD [address] [place] [address], [place] [address] PCP - General 07/30/13 documented as of this encounter
--- OUTSIDE RECORDS SUMMARY | 2024-05-26 18:30 | XMS_ITS | Encounter Summary ---
Author Organization [facility] [place] [address] Care Team Providers Care Or First Assist Registered Nurse Name Role Phone Rika Matthews MD Primary Care Provider [phone] Encounter Details Date Type Department Care Team (Late st Contact Info) Description 12/18/2016 10:30 AM EST Office [place] [address] Darwin Carrero MD [facility] [place] [address] Retinal tear, right [s/p Laser OD 10/10/15] Social History Tobacco Use Types Packs/Day Years Used Date Smoking Tobacco: Never Smokeless Tobacco: Never Alcohol Use Standard Drinks/Week Comments Yes 1 (1 standard drink = 0.6 oz pur e alcohol) QD Sex and Gender Information Value Date Recorded Sex Assigned at Not on file Gender Identity Female 08/26/2018 8:14 PM EDT Sexual Orientation Not on file documented as of this encounter Progress Notes * Darwin Carrero MD - 12/18/2016 10:30 AM EST ASSESSMENT: 1. Retinal tear, right [s/p Laser OD 10/10/15] Good treatment, no new breaks OU PLAN: Follow up with Dr. Calle for ongoing eye care and annual exams Follow up retina PRN The Ophthalmology scribe for this encounter is MAURO Quinn. I performed and personally participated in the best and critical portions of the service. I have reviewed/updated the documentation, and confirm that all of the information is accurate as described. Darwin Carrero MD documented in this encounter Plan of Treatment Upcoming Encounters Date Type Department Care Team (Late st Contact Info) Description 10/13/2024 2:45 PM EST Office Visit Ophthalmology at [facility] [place] [address] Rodolfo Xavier MD [facility] [place] [address] documented as of this encounter Visit Diagnoses Diagnosis Retinal tear, right [s/p Laser OD 10/10/15] documented in this encounter Care Teams Or First Assist Registered Nurse Relationship Specialty Start Date End Date Rika Matthews MD [address] [place] [address] PCP - General 07/30/13 documented as of this encounter
--- OUTSIDE RECORDS SUMMARY | 2024-05-26 18:30 | XMS_ITS | Encounter Summary ---
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 Chronic open angle glaucoma of both eyes, moderate stage ??? Age-related nuclear cataract, bilateral ??? Retinal tear, right [s/p Laser OD 10/10/15] ??? Ocular migraine ??? Astigmatism with presbyopia, bilateral Arlet Hilton is a 75 y.o. with the following ophthalmic problems: Assessment and Plan: COAG OU, stable nerves and IOP slightly above goal OD/OS. ?- Continue Azopt OS BID, and Timolol 0.5% OU QAM. Wait at least 15 min between each AM drop (2018) ?- RTC?? 6 months for CEE, DFE & VF 24-2 Glaucoma summary (continued from prior visits) 07/04/2011 Arlet Hilton is a 65 y.o. female ref by dr chicho koehler, [facility], on 04/20 With moderate coag. ?? Discs= 0.3/0.65. ?? VFs=nl od and os= small inf nasal step.and nsce on 12/23 and nsc on 01/21.and on 02/22= nsc od and slight increase in density of L inf nasal step.. And nsc ou on 02/23. Stable 02/2016. 11/2020 Stable 03/2017, 05/2018 OCT= 89/76 on 04/20. And 88/72 on 07/23. 83/74 on 07/24 and nsc ou. And on 08/24= nsc ou at 83/75. On 08/25 = 81/70. 09/2016 80/68. 78/67 11/2017. 79/67 01/2019. 74/64 2019. OCT mac on 08/24= nl ou. Normal and stable 09/2016 Target= ~20/17. Tmax=~25. ??ADR= lum, xal, lobo, alpha. ?? Gonio= open ou but slight plat config= watch. ?? Surgery= pi ou nj 04. Alt os 360 dgc on 04/24. Cataracts OU ? - Monitor for now, sooner with changes in vision. Stable retinal tear repair OD ?- Pt ed re si/sx/risks of RD and to RTC STAT w/ increase in floaters, flashes, curtains/shades. Ocular Migraine - Noted. Ref Err OU - Rx given at [facility]. Pt happy with current glasses! - Findings and concerns discussed with Arlet and she expressed understanding. -Upon Return 6 months for CEE, DFE, VF 24-2 sooner with changes in sx/vision documented in this encounter Plan of Treatment Upcoming Encounters Date Type Department Care Team (Late st Contact Info) Description 10/13/2024 2:45 PM EST Office Visit Ophthalmology at [facility] [place] [address] Rodolfo Xavier MD [facility] [place] [address] documented as of this encounter Procedures Procedure Name Priority Date/Time Associated Diagnosis Comments OCT OPTIC NERVE - OU - BOTH EYES Routine 05/18/2021 12:55 PM EDT Chronic open angle glaucoma of both eyes, moderate stage documented in this encounter Results * Oct Optic Nerve - OU - Both Eyes (05/18/2021 12:55 PM EDT) Anatomical Region Laterality Modality Other Narrative 05/18/2021 12:55 PM EDT OCT RNFL OD: Reliable, thin superior, S/T, within normal limits all other quadrants. ??last 80, 78, 79, 74, 75 OS: Reliable, thin superior, borderline all other quadrants. ??last 68, 67, 67, 64, 64 ?? Macula OD: Reliable, normal foveal pit. OS: Reliable, normal foveal pit. Dolly Calle OD OPHTHALMOLOGY SERVIC ES ORDERABLES documented in this encounter Visit Diagnoses Diagnosis Chronic open angle glaucoma of both eyes, moderate stage Age-related nuclear cataract, bilateral Senile nuclear sclerosis Retinal tear, right [s/p Laser OD 10/10/15] Ocular migraine Other forms of migraine, without mention of intractable migraine without mention of status migrainosus Astigmatism with presbyopia, bilateral documented in this encounter Care Teams Palm And Back Forger Relationship Specialty Start Date End Date Rika Matthews MD [address] [place] [address] PCP - General 07/30/13 documented as of this encounter
--- OUTSIDE RECORDS SUMMARY | 2024-05-26 18:30 | XMS_ITS | Encounter Summary ---
Author Organization [facility] Address [facility] [place] [address] Care Team Providers Care Hazardous Substances Scientist Name Role Phone Rika Matthews MD Primary Care Provider [phone] Encounter Details Date Type Department Care Team (Late st Contact Info) Description 05/23/2022 2:40 PM EDT Office Visit Dermatology at [facility] [address] [place] [address] Nina Abad MD [facility] [address] [place] [address] Multiple benign nevi; Nelson angioma; Seborrheic keratoses; Lentigines; Seborrheic keratoses, inflamed; Milia Social History Tobacco Use Types Packs/Day Years [...] as of this encounter Progress Notes * Nina Abad - 05/23/2022 2:40 PM EDT Images from the original note were not included. DEPARTMENT OF DERMATOLOGY Medical Dermatology Clinic Provider: Nina Abad MD Patient's preferred name Arlet Preferred contact method for results [x]Phone []myD-H []Letter Detailed phone message OK? YEs Are there any other people with whom we may discuss your care? Past Medical History Date, location, treatment Melanoma No Dysplastic nevi No SCC No BCC No AKs Yes - LN2 UV Exposure & Protection Other relevant past medical history + DF and mild DN bxd??in [place] Family History Details Melanoma No NMSC No Other relevant family history No Social History Occupation: Retired Other: Moved here from [place] to be closer to children and grandchildren Pre-Procedure Screening Details Allergy to lidocaine, epinephrine, Dermabond, chlorhexidine, or adhesives Bleeding disorder or blood thinners Implanted devices (Pacemaker, defibrillator, deep brain stimulator, cochlear implant) History of Present Illness: Arlet Hilton is a 76 y.o. Patient returns to clinic today for a full skin exam. Patient denies any specific skin concerns today; no lesions that are new, changing or symptomatic. Last visit at Dermatology: 02/28/2021 Last visit with this provider: 02/28/2021 Medications: Reviewed in eD-H Allergies: Reviewed in eD-H Skin Examination: Full skin examination: Patient asked to undress to their comfort level. Verbalized that the provider???s preference is that the patient remove all clothing and that the provider will not examine areas patient elects to keep covered. Patient elects to keep underwear on and have the following examined: scalp, hair, face, ears, neck, chest, axillae, abdomen, back, and upper and lower extremities. Genitalia and buttocks were not examined. Assessment/Plan #. Inflamed Seborrheic Keratosis - Inflamed, stuck on, waxy papule on the right shoulder. - Discussed benign nature of lesion(s) and provided reassurance. - Due to irritation present on today's exam and history of symptoms, discussed removal with cryotherapy. - Patient elects to proceed with cryotherapy today. Procedure: Destruction of lesion(s) with cryotherapy (LN2). Location(s): As noted above Number: 1 Discussed procedure and expectations including risks and benefits. Verbal consent obtained. Treatedwith LN2. There were no complications; Patient tolerated the procedure well. Post-procedure expectations and wound care were reviewed. #. Seborrheic Keratoses - Stuck on, waxy papules on the trunk and extremities. - Discussed benign nature of lesions and provided reassurance. No treatment necessary at this time. #. Benign Nevi - Scattered medium brown, evenly pigmented macules and papules on the trunk and extremities with reassuring pigment pattern on dermoscopy. - Discussed benign nature of lesions and provided reassurance. Will continue to monitor. #. Lentigines - Scattered light-brown, evenly pigmented, well-demarcated macules on sun-exposed areas of the trunk and extremities. - No worrisome pigmented lesions. Discussed benign nature of lesions and provided reassurance. Willcontinue to monitor. #. Nelson Angiomas - Multiple bright red, well-demarcated papules on the trunk and extremities. - Discussed benign nature of lesions and provided reassurance. No treatment necessary at this time. #. Milia - 0.1 cm firm, round, white subcutaneous papule on the right clavicle. - Discussed benign nature of lesion and provided reassurance. No treatment necessary. Other: ??? Sun protection discussed (protective clothing and SPF30+ broad-spectrum sunscreen) RTC: 1 year for FSE []Note routed to litigation legal secretary [x]Recall placed in scheduling system []Appointment scheduled at checkout Scribe attestation: Francia Hitchcock [facility] has performed the documentation for this encounter in the presence of and acting as a scribe for Nina Abad MD. I performed the above scribed service and agree with the accuracy of the documentation in this encounter. Reviewed and signed by: Nina Abad MD Dermatology [facility] Patient seen and evaluated with staff windows server architect: Vickie Carter MD Dermatology [facility] * Vickie Carter MD - 05/23/2022 2:40 PM EDT I directly supervised Dr. Abad during this office visit. Dr. Abad presented the history and physical exam to me. I, then, saw and examined this patient with Dr. Abad . We reviewed the history and pertinent details and I confirmed the physical findings. I agree with the details of the history and physical exam as documented in Dr. Abad's note. VICKIE CARTER MD Staff Physician documented in this encounter Plan of Treatment Upcoming Encounters Date Type Department Care Team (Late st Contact Info) Description 10/13/2024 2:45 PM EST Office Visit Ophthalmology at [facility] [place] [address] Rodolfo Xavier MD [facility] [place] [address] documented as of this encounter Visit Diagnoses Diagnosis Multiple benign nevi Benign neoplasm of skin, site unspecified Nelson angioma Nevus, non-neoplastic Seborrheic keratoses Lentigines Other dyschromia Seborrheic keratoses, inflamed Milia Sebaceous cyst documented in this encounter Care Teams Hazardous Substances Scientist Relationship Specialty Start Date End Date Rika Matthews MD [address] [place] [address] PCP - General 07/30/13 documented as of this encounter
--- OUTSIDE RECORDS SUMMARY | 2024-05-26 18:30 | XMS_ITS | Encounter Summary ---
Author Organization [facility] [place] [address] Care Team Providers Care Colorist Name Role Phone Rika Matthews MD Primary Care Provider [phone] Encounter Details Date Type Department Care Team (Latest Contact Info) Description 08/05/2018 - 08/05/2018 11:59 PM EDT Hospital Encounter [place] [phone] Rika Matthews MD [address] [address] Discharge Disposition: Home Social History Tobacco Use [...] on file documented as of this encounter Medications at Time of Discharge Medication Sig Dispensed Refills Start Date End Date solifenacin (VESICARE) 5 mg Tablet Take 10 mg by mouth daily. rosuvastatin (CRESTOR) 10 mg tablet 12/22/2010 estradiol (ESTRACE) 0.01 % (0.1 mg/g) vaginal cream 12/22/2010 brinzolamide (AZOPT) 1 % Drops, SuspensionIndications:M oderate stage chronic open angle glaucoma Place 1 drop into the left eye 2 times daily. 20 mL 3 10/16/2017 10/23/2018 timolol (TIMOPTIC-XE) 0.5 % Gel Forming SolutionIndications:Mod erate stage chronic open angle glaucoma Place 1 drop into both eyes every morning. 15 mL 3 10/16/2017 10/23/2018 atovaquone-proguanil (MALARONE) 250-100 mg TabletIndications:Couns eling about travel Take 1 tablet by mouth daily. Start 1 day before travel to risk area,daily in risk area and daily for one week after leaving risk area. 18 tablet 07/04/2016 09/02/2018 ciprofloxacin HCl (CIPRO) 500 mg Tablet Take 1 tablet by mouth 2 times daily. Take twice a day for fever with diarrhea. 6 tablet 0 04/19/2015 09/02/2018 documented as of this encounter Plan of Treatment Upcoming Encounters Date Type Department Care Team (Late st Contact Info) Description 10/13/2024 2:45 PM EST Office Visit Ophthalmology at [facility] [place] [address] Rodolfo Xavier MD [facility] [place] [address] documented as of this encounter Procedures Procedure Name Priority Date/Time Associated Diagnosis Comments FILM LIBRARY STORAGE ONLY DX ANKLE Routine 08/05/2018 12:00 AM EDT documented in this encounter Results * Film Library- Storage Only DX Ankle (08/05/2018 12:00 AM EDT) Narrative [facility] - 08/06/2018 10:47 AM EDT This exam is for storage only and is auto-finalizing. Rika Matthews MD IMG FILM LIBRARY ORD ERABLES [place], [place] documented in this encounter Visit Diagnoses Not on filedocumented in this encounter Care Teams Colorist Relationship Specialty Start Date End Date Rika Matthews MD [address] [place] [address] PCP - General 07/30/13 documented as of this encounter
--- OUTSIDE RECORDS SUMMARY | 2024-05-26 18:30 | XMS_ITS | Encounter Summary ---
Author Organization [facility] Address [facility] [place] [address] Care Team Providers Care Global Analytics Head Name Role Phone Rika Matthews MD Primary Care Provider [phone] Encounter Details Date Type Department Care Team (Late st Contact Info) Description 02/28/2021 9:00 AM EDT Office Visit Dermatology at [facility] [address] [place] [address] Gato Ng MD [facility] [address] [address] Multiple benign nevi; Nelson angioma Social History Tobacco Use Types Packs/Day Years [...] as of this encounter Progress Notes * Gato Ng MD - 02/28/2021 9:00 AM EDT Images from the original note were not included. DERMATOLOGY - ESTABLISHED PATIENT FOLLOW-UP Date of service: 02/28/2021 Arlet Hilton : 1945, 75 y.o. Chief Complaint: No chief complaint on file. HPI: Arlet Hilton is a 75 y.o. female last seen by Dr. Marcano on 12/2019 Ms. Hilton returns today for a full skin exam. Pt denies any new, growing or concerning lesions. Relevant Skin History: - Skin cancer (including type): None Hx of AKs?? No history of skin cancer DF and mild DN bxd??in [place] ?? Family History: Melanoma: none ?? Social History: Retired. From [place], moved here to be closer to children and grandchildren.?? Medications: Current Outpatient Medications Medication Sig Dispense Refill ??? timoloL (TIMOPTIC) 0.5 % Drops Place 1 drop into both eyes daily. 15 mL 3 ??? brinzolamide (Azopt) 1 % Drops, Suspension Place 1 drop into the left eye 2 times daily. 15 mL 3 ??? gabapentin (Neurontin) 100 mg Capsule Take 100 mg by mouth daily. ??? meloxicam (MOBIC) 15 mg Tablet Take 1 tablet by mouth daily. (Patient not taking: Reported on 04/29/2020) 30 tablet 1 ??? solifenacin (VESICARE) 5 mg tablet Take 10 mg by mouth daily. ??? rosuvastatin (CRESTOR) 10 mg tablet ??? estradiol (ESTRACE) 0.01 % (0.1 mg/g) vaginal cream No current facility-administered medications for this visit. Allergies: Allergies Allergen Reactions ??? Bimatoprost ??? Brimonidine Tartrate ??? Latanoprost Review of Systems: - General: Feels well. - Skin: No other skin concerns. Examination: - Constitutional: Patient was alert, well-appearing and in no noticeable distress. - Skin: Skin examination of the scalp, face, ears, neck, back, chest, abdomen, right and left upperextremities, right and left lower extremities, hands, feet, and buttocks was normal with the exception of the findings listed below. Genitalia not examined. 1. Scattered light to medium brown macules on the trunk and extremities with reassuring pigment pattern on dermoscopy. 2. 0.3-0.6cm light-brown evenly pigmented, well-demarcated macule 3. Multiple 0.2-0.4cm bright red, well-demarcated papules Assessment/Plan: 1. Benign Appearing Nevi- - On the trunk and extremities multiple, 0.3-0.5cm, medium-brown, evenly- pigmented macules and papules. - Reassurance, discussed importance of ABCDE's and monthly self exams 2. Lentigines Benign. Counseled: lentigines, sun damage and spontaneous development, rare risk of lentigo maligna (melanoma arising in a lentigo), sun protection, no treatment necessary but discussed cosmetic options, including topical bleaching agents, as well as chemical peels and lasers. Answered all questions. 3. Nelson Angiomas Counseled: nelson angiomas. Benign. No treatment necessary unless symptoms develop. Treatment considered cosmetic and [id number]. Treatment options, including but not limited to electrocautery, discussed. RTC: In one year for full skin exam Note initiated by GATO NG MD. GATO NG MD Department of Dermatology [facility] documented in this encounter Plan of Treatment Upcoming Encounters Date Type Department Care Team (Late st Contact Info) Description 10/13/2024 2:45 PM EST [place] [address] Rodolfo Xavier [place] [facility] [place] [address] documented as of this encounter Visit Diagnoses Diagnosis Multiple benign nevi Benign neoplasm of skin, site unspecified Nelson angioma Nevus, non-neoplastic documented in this encounter Care Teams Global Analytics Head Relationship Specialty Start Date End Date Rika Matthews MD [address] [place] [address] PCP - General 07/30/13 documented as of this encounter
--- OUTSIDE RECORDS SUMMARY | 2024-05-26 18:30 | XMS_ITS | Encounter Summary ---
Author [place] [address] Care Team Providers Care Boilermaker'S Assistant Name Role Phone Rika Matthews MD Primary Care Provider [phone] Reason for Visit * Reason Onset Date Comments Bumped Appointment 09/12/2017 Encounter Details Date Type Department Care Team (Late st Contact Info) Description 09/12/2017 Telephone [place] [phone] Dolly Calle OD [facility] DR [place] [address] Bumped Appointment Social History Tobacco Use Types Packs/Day [...] encounter Miscellaneous Notes * Telephone Encounter - Alexa Dorsey - 09/12/2017 1:42 PM EDT Called to CAN/RSC LYNN Calle appt on 10/01/17. Left contact info for pt to call on H & C #'s to RSC. Letter sent also. documented in this encounter Plan of Treatment Upcoming Encounters Date Type Department Care Team (Late st Contact Info) Description 10/13/2024 2:45 PM EST Office Visit Ophthalmology at [facility] [place] [address] Rodolfo Xavier MD [facility] [place] [address] documented as of this encounter Visit Diagnoses Not on filedocumented in this encounter Care Teams Boilermaker'S Assistant Relationship Specialty Start Date End Date Rika Matthews MD [address] [place] [address] PCP - General 07/30/13 documented as of this encounter
--- OUTSIDE RECORDS SUMMARY | 2024-05-26 18:30 | XMS_ITS | Encounter Summary ---
[place] [address] Care Team Providers Care Cigar Bander Name Role Phone Rika Matthews MD Primary Care Provider [phone] Reason for Visit * Reason Onset Date Comments Bumped Appointment 01/28/2020 Encounter Details Date Type Department Care Team (Late st Contact Info) Description 01/28/2020 [place] [phone] Dolly Calle OD [facility] [place] [address] Bumped Appointment Social History Tobacco Use Types [...] * Telephone Encounter - Alexa Dorsey - 02/19/2020 11:09 AM EDT Contacted pt, RSC appt kale Calle to 04/29/20. Pass code given. * Telephone Encounter - Anh Bowen COA - 01/28/2020 1:11 PM EDT Spoke with pt letting them know that their appt with Dr. Calle on 02/09/2020 has been cancelled and that they will receive a call in a few weeks to reschedule. documented in this encounter Plan of Treatment Upcoming Encounters Date Type Department Care Team (Late st Contact Info) Description 10/13/2024 2:45 PM EST Office Visit Ophthalmology at [facility] [place] [place] [address] Rodolfo Xavier MD [facility] [place] [address] documented as of this encounter Visit Diagnoses Not on filedocumented in this encounter Care Teams Cigar Bander Relationship Specialty Start Date End Date Rika Matthews MD [address] [place] [address] PCP - General 07/30/13 documented as of this encounter
--- OUTSIDE RECORDS SUMMARY | 2024-05-26 18:30 | XMS_ITS | Encounter Summary ---
Author Organization [place] [address] Care Team Providers Care Box Puller Name Role Phone Rika Matthews MD Primary Care Provider [phone] Reason for Visit * Reason Onset Date Comments Appointment 11/21/2020 Encounter Details Date Type Department Care Team (Late st Contact Info) Description 11/21/2020 [place] [phone] Dolly Calle OD [facility] [place] [address] Appointment Social History Tobacco Use Types Packs/Day [...] * Telephone Encounter - Alexa Dorsey - 11/21/2020 4:45 PM ESTSummary: 6 M Luc [facility] : 05/18/21. Spoke w pt to [facility] Luc FU for: 6 months (around 05/18/2021) for OCT RNFL, DFE. ARTHUR on 05/18/21 documented in this encounter Plan of Treatment Upcoming Encounters Date Type Department Care Team (Late st Contact Info) Description 10/13/2024 2:45 PM EST Office Visit Ophthalmology at [facility] [place] [address] Rodolfo Xavier MD [facility] [place] [address] documented as of this encounter Visit Diagnoses Not on filedocumented in this encounter Care Teams Box Puller Relationship Specialty Start Date End Date Rika Matthews MD [address] [place] [address] PCP - General 07/30/13 documented as of this encounter
--- OUTSIDE RECORDS SUMMARY | 2024-05-26 18:30 | XMS_ITS | Encounter Summary ---
Author Organization [facility] Address [facility] [place] [address] Care Team Providers Care Grader Green Meat Name Role Phone Rika Matthews MD Primary Care Provider [phone] Encounter Details Date Type Department Care Team (Latest Contact Info) Description 07/22/2023 Travel Social History Tobacco Use Types Packs/Day [...] 2:45 PM EST Office Visit Ophthalmology at [facility] [place] [address] Rodolfo Xavier MD [facility] [place] [address] documented as of this encounter Visit Diagnoses Not on filedocumented in this encounter Care Teams Grader Green Meat Relationship Specialty Start Date End Date Rika Matthews MD [address] [place] [id number] PCP - General 07/30/13 documented as of this encounter
--- OUTSIDE RECORDS SUMMARY | 2024-05-26 18:30 | XMS_ITS | Encounter Summary ---
Author Organization [facility] [place] [address] Care Team Providers Care Procedural Nurse Name Role Phone Rika Matthews MD Primary Care Provider Reason for Visit * Reason Comments Medication Refill Encounter Details Date Type Department Care Team (Late st Contact Info) Description 02/01/2020 [place] [phone] Dolly Calle OD [facility] [place] [address] Moderate stage chronic open angle glaucoma Social History Tobacco Use Types Packs/Day Years [...] 2:45 PM EST Office [place] [phone] Rodolfo Xavier MD [facility] [place] [address] documented as of this encounter Visit Diagnoses Diagnosis Moderate stage chronic open angle glaucoma documented in this encounter Care Teams Procedural Nurse Relationship Specialty Start Date End Date Rika Matthews MD [address] [address] PCP - General 07/30/13 documented as of this encounter
--- OUTSIDE RECORDS SUMMARY | 2024-05-26 18:30 | XMS_ITS | Encounter Summary ---
Author Organization [facility] [place] [address] Care Team Providers Care Industrial Hygenist Name Role Phone Rika Matthews MD Primary Care Provider [phone] Reason for Visit * Reason Comments Right Ankle Pain has been problematic for 40 years, over the summer and fall it has gotten worse especially within the last 1.5 months * Consultation (Routine) - Specialty Diagnoses / Procedures Referred By Francisco evans Referred To Contact Orthopaedics Diagnoses right ankle pain Procedures Rika Matthews MD [address] [address] [facility] [address] [place] [id number] Referral ID Status Reason Start Date Expiration Date V isits Requested Visits Authorized [id number] Consult, Test & Treat 08/06/2018 08/06/2019 1 1 Encounter Details Date Type Department Care Team (Late st Contact Info) Description 09/02/2018 10:20 AM EDT Office [place] [address] Emory Valentin MD [facility] [place] [address] Arthritis of ankle, right Social History Tobacco Use Types Packs/Day [...] Sign Reading Time Taken Comments Blood Pressure 159/83 09/02/2018 10:35 AM EDT Pulse 75 09/02/2018 10:35 AM EDT Temperature - - Respiratory Rate - - Oxygen Saturation - - Inhaled Oxygen Concentration - - Weight 61 kg (134 lb 6.4 oz) 09/02/2018 10:35 AM EDT Height 170.2 cm (5' 7) 09/02/2018 10:35 AM EDT Body Mass Index 21.05 09/02/2018 10:35 AM EDT documented in this encounter Progress Notes * Ritu Alicea, SALES REPRESENTATIVE [employer] - 09/02/2018 10:20 AM EDT PATIENT NAME: Arlet Hilton AGE: 73 y.o. MR#: [id number] DATE OF VISIT: 09/02/2018 DATE OF INJURY/ONSET: Acute on Chronic STAFF: Dr. Valentin CHIEF COMPLAINT: symptomatic LEFT ankle post traumatic OA New to Orthopaedics. HISTORY OF PRESENT ILLNESS Ms. Hilton a 73 y.o. year old female comes into clinic today for [facility] for above. She is quite active and has developed tibiotalar pain left ankle after a few recentinjuries. She is known with a + remote LEFT ankle sprain with chronic instability ~ 40 years ago that required surgical reconstructive surgery. She has done relatively well since then with no recurrent instability. No reported post op complications or infection. She has however experienced three recent distinct injuries over the past few months including inadvertently tripping over a rock while walking with her , a subsequent hitting her medial aspect of the ankle with a rail tie a fewweeks later with pain and swelling of the distal tibia region. Finally, Following the aforementioned injuries, she then joined her Daughter in a Cross Fit class that warmed up with running. She has not run in quite some time and since than she has developed persistent pain and swelling of the LEFT tibiotalar joint. Modalities thus far have including a soft neoprene sleeve, OTC oral NSAID's, relative rest and avoidance of painful activity. However, despite these conservative measures, the LEFT ankle pain and swelling persists and she is here discuss treatment options further. She and Her will be traveling to [place] in about 10 days and She is appropriately concerned about her ability to enjoy her trip. Other than evidence of increased superficial varicosities of the LEFT distal medial tibia since her contusion like injury with known hx of varicosities, Her health has been stable otherwise. She is here for definitive management. Past Medical History: Diagnosis Date ??? Allergic state ??? Chronic kidney disease per PT report hx of kidney stones. ??? Glaucoma ??? Hyperlipidemia ??? Post-menopause on HRT (hormone replacement therapy) Past Surgical History: Procedure Laterality Date ??? FOCAL LASER TREATMENT Right 10/10/15 Prophylactic laser OD for retinal ?hole/tear (NNB) ??? PERIPHERAL IRIDOTOMY 2002- OU Allergies Allergen Reactions ??? Bimatoprost ??? Brimonidine Tartrate ??? Latanoprost Social History Socioeconomic History ??? Marital status: Spouse name: None ??? Number of children: None ??? Years of education: None ??? Highest education level: None Social Needs ??? Financial resource strain: None ??? Food insecurity - worry: None ??? Food insecurity - inability: None ??? Transportation needs - medical: None ??? Transportation needs - non-medical: None Occupational History ??? None Tobacco Use ??? Smoking status: Never Smoker ??? Smokeless tobacco: Never Used Substance and Sexual Activity ??? Alcohol use: Yes Alcohol/week: 4.2 oz Types: 7 Cans of beer per week ??? Drug use: No ??? Sexual activity: None Other Topics Concern ??? None Social History Narrative ??? None Family History Problem Relation Age of Onset ??? Glaucoma Brother ??? Heart Disease Brother ??? Glaucoma Paternal Uncle ??? Cancer Mother ??? Diabetes Mother ??? Cancer Father ??? Heart Disease Maternal Grandmother ??? Cancer Paternal Grandmother ??? Macular Degeneration Neg Hx ??? Retinal Detachment Neg Hx ??? Cataracts Neg Hx ??? Amblyopia Neg Hx ??? Hypertension Neg Hx ??? Strabismus Neg Hx ??? Thyroid Disease Neg Hx ROS: Denies fever, chills, nausea, vomiting, vision change, shortness of breath, chest pain, visionchanges, headaches, bowel or bladder problem, ear, nose, sinus problem, neuro or psychiatric, or endocrine disorder not addressed above. There is no history of bleeding disorders. No DVT or PE history. No sleep apnea or CPAP use. There are no reported problems with anesthesia. PHYSICAL EXAM: Vitals: 09/02/18 1035 BP: 159/83 BP Location (NBP): Left arm Patient Position: Sitting BP Cuff Sizes: Adult (25-34 cm) Pulse: 75 Weight: 61 kg (134 lb 6.4 oz) Height: 170.2 cm (5' 7) Body mass index is 21.05 kg/m??. Ms. Lida gilmore 73 y.o. is alert and oriented. She appears in no acute discomfort and is resting comfortably in a chair in the exam room. Here with her . Enters exam room unassisted with a somewhat stiff gait and mildly antalgic. Double to raise is ok yet unable to single toe raise right. Inspection: Mild disuse atrophy of the calf muscles. Superficial varicosities noted both feet with no calf swelling, negative homans' sign. ++ moderate swelling of the tibiotalar joint. Painless motion of the subtalar joint which is quite stiff and no motion or pain of the talonavicular joint Palpation: + TTP at the tibiotalar joint and mild medial distal 2/3rds distal medial tibia at the contusion site. ROM: Dorsiflexion: 5 degrees Plantarflexion: 20 degrees Inversion: Equal and symmetric to the bilateral side Eversion: Equal and symmetric to the bilateral side Strength: 5/5 in all planes of motion with EHL/FHL 5/5. Orthopaedic tests: Painless subtalar joint. No instability with a/p drawer or inversion stress. Neurovascular: Foot is sensate and well perfused, DP and PT 2+ to palpation. Sensation intact to 1st webspace, medial and lateral sole and dorsum. RADIOLOGICAL STUDIES: Outside right ankle x-ray reviewed image by image in the office today revealsmoderate to severe tibiotalar DJD with marginal osteophytes and subchondral sclerosis with completeobliteration of the talonavicular joint with severe DJD. 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 PLAN: Ms. Hilton and Victor Manuel discussed her radiologic findings and physical exam findings. Treatment options and risks/benefits discussed from least to most invasive. Patient understands options. Dr Valentin looked in on the patient and agrees with above. Given the patients findings on physical examination and radiologic studies it seems appropriate to schedule and refer the patient for the followin) At this time, Given her pending trip to [place]. We could start with conservative treatment including a prescriptive oral NSAID'S, bracing, activity modification. 2) She can start with oral Mobic order in [facility]. Sent to her pharmacy to be used daily for 4-6 weeks at the same time every day with her largest meal. 3) Durable medical equipment including an active ankle brace recommended for her trip in the short term. Order in [facility]. We could consider an chela brace if pain and function are not significantly improved. 4) Ultimately however, if things do not settle with aforementioned conservative measures consider surgical options including arthrodesis. If she undergoes arthrodesis surgery, we would recommend a diagnostic injection to make certain we known exactly where her pain is generating from. She and her are comfortable with this approach. The patient indicates understanding of these issues and agrees with the plan. F/u PRN. Sooner as necessary. documented in this encounter Plan of Treatment Upcoming Encounters Date Type Department Care Team (Late st Contact Info) Description 10/13/2024 2:45 PM EST Office Visit Ophthalmology at [facility] [place] [address] Rodolfo Xavier MD [facility] [place] [address] documented as of this encounter Visit Diagnoses Diagnosis Arthritis of ankle, right Unspecified arthropathy, ankle and foot documented in this encounter Care Teams Industrial Hygenist Relationship Specialty Start Date End Date Rika Matthews MD [address] [place] [address] PCP - General 07/30/13 documented as of this encounter
--- OUTSIDE RECORDS SUMMARY | 2024-05-26 18:30 | XMS_ITS | Encounter Summary ---
[place] [address] Care Team Providers Care Photographic Processor Name Role Phone Rika Matthews MD Primary Care Provider [phone] Reason for Visit * Reason Comments Chronic Open Angle Glaucoma Encounter Details Date Type Department Care Team (Late st Contact Info) Description 12/04/2017 9:40 AM EST Office [place] [address] Dolly Calle, OD [facility] [place] [address] Moderate stage chronic open angle glaucoma; Retinal tear, right [s/p Laser OD 10/10/15]; Age-related nuclear cataract, bilateral; Ocular migraine; Astigmatism with presbyopia, bilateral Social [...] Progress Notes * Dolly Calle, OD - 12/04/2017 9:40 AM EST Encounter Diagnoses Name Primary? Moderate stage chronic open angle glaucoma ??? Retinal tear, right [s/p Laser OD 10/10/15] ??? Age-related nuclear cataract, bilateral ??? Ocular migraine ??? Astigmatism with presbyopia, bilateral Arlet Hilton is a 72 y.o. with the following ophthalmic problems: Assessment and Plan: COAG OU, stable nerves and IOP below goal OD/OS. ?- Continue Azopt OS BID, and Timolol 0.5% OU QAM ?- RTC?? 6 months for DFE & HVF 24-2 Glaucoma summary (continued from prior visits) 07/04/2011 Arlet Hilton is a 65 y.o. female ref by dr chicho koehler, [facility], on 04/20 With moderate coag. ?? Discs= 0.3/0.65. ?? VFs=nl od and os= small inf nasal step.and nsce on 12/23 and nsc on 01/21.and on 02/22= nsc od and slight increase in density of L inf nasal step.. And nsc ou on 02/23. Stable 02/2016. Stable 03/2017 OCT= 89/76 on 04/20. And 88/72 on 07/23. 83/74 on 07/24 and nsc ou. And on 08/24= nsc ou at 83/75. On 08/25 = 81/70. 09/2016 80/68. 78/67 11/2017. OCT mac on 08/24= nl ou. Normal [...] floaters, flashes, curtains/shades. Ocular Migraine - Noted. - Findings and concerns discussed with Arlet and she expressed understanding. -Upon Return 6 months for DFE and VF 24-2, sooner with changes in sx/vision documented in this encounter Plan of Treatment Upcoming Encounters Date Type Department Care Team (Late st Contact Info) Description 10/13/2024 2:45 PM EST Office Visit Ophthalmology at [facility] [place] [address] Rodolfo Xavier MD [facility] [place] [address] documented as of this encounter Procedures Procedure Name Priority Date/Time Associated Diagnosis Comments OCT OPTIC NERVE - OU - BOTH EYES Routine 12/04/2017 10:52 AM EST Moderate stage chronic open angle glaucoma documented in this encounter Results * OCT OPTIC [id number] EYES (12/04/2017 10:52 AM EST) Anatomical Region Laterality Modality Other Narrative 12/04/2017 10:52 AM EST OCT RNFL OD: Reliable, borderline superior, thin S/T, within normal limits all other quadrants. 78, last 80 OS: Reliable, thin superior, borderline nasal and inf, within normal limits all other quadrants. 67, last 68 ?? Macula OD: Reliable, normal foveal pit. OS: Reliable, normal foveal pit. Dolly Calle OD [facility]PHTHALMOLOGY SERV[facility] ES ORDERABLES documented in this encounter Visit Diagnoses Diagnosis Moderate stage chronic open angle glaucoma Retinal tear, right [s/p Laser OD 10/10/15] Age-related nuclear cataract, bilateral Senile nuclear sclerosis Ocular migraine Other forms of migraine, without mention of intractable migraine without mention of status migrainosus Astigmatism with presbyopia, bilateral documented in this encounter Care Teams Photographic Processor Relationship Specialty Start Date End Date Rika Matthews MD [address] [place] [address] PCP - General 07/30/13 documented as of this encounter
--- OUTSIDE RECORDS SUMMARY | 2024-05-26 18:30 | XMS_ITS | Encounter Summary ---
[place] [address] Care Team Providers Care Ballast Inspector Name Role Phone Rika Matthews MD Primary Care Provider [phone] Reason for Visit * Reason Onset Date Comments Medication Problem 08/22/2020 which timolol ? Encounter Details Date Type Department Care Team (Late st Contact Info) Description 08/22/2020 [place] [id number] Dolly Calle OD [facility] [place] [address] Medication Problem (which timolol?) Social History Tobacco Use Types Packs/Day Years [...] encounter Miscellaneous Notes * Telephone Encounter - Bernie Baumann - 08/22/2020 1:28 PM EDT Spoke to pharmacist: explained that timoptic (generic) was fine - lowest copay * Telephone Encounter - Bernie Baumann - 08/22/2020 1:06 PM EDT Pharmacist via : wanted to know which Timolol should be refilled. documented in this encounter Plan of Treatment Upcoming Encounters Date Type Department Care Team (Late st Contact Info) Description 10/13/2024 2:45 PM EST Office [place] [address] Rodolfo Xavier MD [place] [address] documented as of this encounter Visit Diagnoses Not on filedocumented in this encounter Care Teams Ballast Inspector Relationship Specialty Start Date End Date Rika Matthews MD [address] [place] [address] PCP - General 07/30/13 documented as of this encounter
--- OUTSIDE RECORDS SUMMARY | 2024-05-26 18:30 | XMS_ITS | Encounter Summary ---
Author Organization [facility] Address [facility] [place] [address] Care Team Providers Care Lien Searcher Name Role Phone Rika Matthews MD Primary Care Provider [phone] Encounter Details Date Type Department Care Team (Latest Contact Info) Description 12/07/2022 Travel Social History Tobacco Use Types Packs/Day [...] Ophthalmology at [facility] [place] [address] Rodolfo Xavier MD [facility] [place] [address] documented as of this encounter Visit Diagnoses Not on filedocumented in this encounter Care Teams Lien Searcher Relationship Specialty Start Date End Date Rika Matthews MD [address] [place] [id number] PCP - General 07/30/13 documented as of this encounter
--- OUTSIDE RECORDS SUMMARY | 2024-05-26 18:30 | XMS_ITS | Encounter Summary ---
[place] [address] Care Team Providers Care Engineer Process Name Role Phone Rika Matthews MD Primary Care Provider [phone] Reason for Visit * Reason Comments Chronic Open Angle Glaucoma Encounter Details Date Type Department Care Team (Late st Contact Info) Description 06/05/2018 9:45 AM EDT Office [place] [address] Dolly Calle, OD [facility] [place] [address] Chronic open angle glaucoma of both eyes, moderate stage; Retinal tear, right [s/p Laser OD 10/10/15]; [...] Progress Notes * Dolly Calle, OD - 06/05/2018 9:45 AM EDT Encounter Diagnoses Name Primary? Chronic open angle glaucoma of both eyes, moderate stage ??? Retinal tear, right [s/p Laser OD 10/10/15] ??? Age-related nuclear cataract, bilateral ??? Ocular migraine ??? Astigmatism with presbyopia, bilateral Arlet Hilton is a 72 y.o. with the following ophthalmic problems: Assessment and Plan: COAG OU, stable nerves and IOP below goal OD/OS. ?- Continue Azopt OS BID, and Timolol 0.5% OU QAM ?- RTC?? 6 months for DFE & OCTg Glaucoma summary (continued from prior visits) 07/04/2011 Arlet Hilton is a 65 y.o. female ref by dr chicho koehler, [facility], on 04/20 With moderate coag. ?? Discs= 0.3/0.65. ?? VFs=nl od and os= small inf nasal step.and nsce on 12/23 and nsc on 01/21.and on 02/22= nsc od and slight increase in density of L inf nasal step.. And nsc ou on 02/23. Stable 02/2016. Stable 03/2017, 05/2018 OCT= 89/76 on 04/20. [...] Noted. Ref Err OU - Rx given - Findings and concerns discussed with Arlet and she expressed understanding. -Upon Return 6 months for DFE and OCT RNFL, sooner with changes in sx/vision documented in this encounter Plan of Treatment Upcoming Encounters Date Type Department Care Team (Late st Contact Info) Description 10/13/2024 2:45 PM EST Office Visit Ophthalmology at [facility] [place] [place] [address] Rodolfo Xavier [place] [address] documented as of this encounter Procedures Procedure Name Priority Date/Time Associated Diagnosis Comments AUTOMATED VISUAL FIELD - EXTENDED - OU- BOTH EYES Routine 06/05/2018 10:50 AM EDT Chronic open angle glaucoma of both eyes, moderate stage documented in this encounter Results * AUTOMATED VISUAL FIELD - EXTENDED - OU- BOTH EYES (06/05/2018 10:50 AM EDT) Anatomical Region Laterality Modality Other Narrative 06/05/2018 10:50 AM EDT Right Eye Threshold was 24-2. Reliability was good. Progression has been stable. Left Eye Threshold was 24-2. Reliability was good. Progression has been stable. Notes OD: Normal and stable to prior tests. OS: inferior nasal step stable to prior tests. ? Dolly Calle OD OPHTHALMOLOGY SERVIC ES ORDERABLES documented in this encounter Visit Diagnoses Diagnosis Chronic open angle glaucoma of both eyes, moderate stage Retinal tear, right [s/p Laser OD 10/10/15] Age-related nuclear cataract, bilateral Senile nuclear sclerosis Ocular migraine Other forms of migraine, without mention of intractable migraine without mention of status migrainosus Astigmatism with presbyopia, bilateral documented in this encounter Care Teams Engineer Process Relationship Specialty Start Date End Date Rika Matthews MD [address] [place] [address] PCP - General 07/30/13 documented as of this encounter
--- OUTSIDE RECORDS SUMMARY | 2024-05-26 18:30 | XMS_ITS | Encounter Summary ---
Author Organization [facility] [place] [address] Care Team Providers Care Bill Poster Installer Name Role Phone Rika Matthews MD Primary Care Provider [phone] Reason for Referral * Physical Therapy (Routine) - Specialty Diagnoses / Procedures Referred By Francisco evans Referred To Contact Physical Therapy Diagnoses Right ankle pain, unspecified chronicity Emory Valentin MD [facility] [place] [address] Referral ID Status Reason Start Date Expiration Date V isits Requested Visits Authorized [id number] Evaluate and Treat 09/05/2018 03/04/2019 20 20 Encounter Details Date Type Department Care Team (Late st Contact Info) Description 09/05/2018 Orders [place] [address] Emory Valentin MD [facility] [place] [address] Right ankle pain, unspecified chronicity Social History Tobacco Use Types Packs/Day Years [...] 2:45 PM EST Office Visit Ophthalmology at [facility] [place] [address] Rodolfo Xavier [place] [facility] [place] [address] Scheduled Referrals Name Type Priority Associated Diagnoses Orde r Schedule Referral to Physical Therapy Outpatient Referral Routine Right ankle pain, unspecified chronicity Ordered: 09/05/2018 documented as of this encounter Visit Diagnoses Diagnosis Right ankle pain, unspecified chronicity documented in this encounter Care Teams Bill Poster Installer Relationship Specialty Start Date End Date Rika Matthews MD [address] [place] [address] PCP - General 07/30/13 documented as of this encounter
--- OUTSIDE RECORDS SUMMARY | 2024-05-26 18:30 | XMS_ITS | Encounter Summary ---
Author Organization [facility] Address [facility] [place] [address] Care Team Providers Care Department Chair Name Role Phone Rika Matthews MD Primary Care Provider [phone] Reason for Visit * Reason Comments Glaucoma Encounter Details Date Type Department Care Team (Late st Contact Info) Description 12/07/2022 9:30 AM EST [place] [address] [place] [address] Age-related nuclear cataract, bilateral (Primary Dx); Chronic open angle glaucoma of both eyes, [...] as of this encounter Progress Notes * Guillermo Marinelli MD - 12/07/2022 9:30 AM EST Assessment/Plan: Encounter Diagnoses Name Primary? Chronic open angle glaucoma of both eyes, moderate stage ??? Age-related nuclear cataract, bilateral Yes ??? Retinal tear, right Arlet Hilton is a 77 y.o. female with the following ophthalmic problems: COAG OU, moderate stage OU IOP good today HVF with concern for slight progression nasally OD, stable OS Cataracts OU: Visually significant Affecting Arlet Hilton's daily activities Would likely benefit from CE IOL OU R/B/A discussed with Arlet Hilton and she would like to proceed with cataract extraction with iStent in both eyes left eye first Goal [place] (distance) Desires Toric lens in both eyes (understands additional out of pocket cost) Plan: Could add drop but given symptomatic from cataracts, will pursue CE IOL with iStent OU Cataract orders entered, consent signed, THORNE done, planning initiated Continue cosopt both eyes two times a day RTC: Schedule for cataract surgery, hcks following -- Guillermo Marinelli MD PGY-3, Ophthalmology Resident #[id number] 12/07/2022 11:10 AM I saw the patient with the following level of supervision from the attending: Direct from Dr. Xavier. * Rodolfo Xavier MD - 12/07/2022 9:30 AM EST I have seen the patient [...] Ophthalmology at [facility] [place] [address] Rodolfo Xavier MD [facility] [place] [address] Pending Results Name Type Priority Associated Diagnoses Date /Time Automated Visual Field - Extended - OU - Both Eyes Ophthalmology Routine Chronic open angle glaucoma of both eyes, moderate stage Age-related nuclear cataract, bilateral Retinal tear, right 12/07/2022 11:17 AM EST documented as of this encounter Procedures Procedure Name Priority Date/Time Associated Diagnosis Comments AUTOMATED VISUAL FIELD - EXTENDED - OU- BOTH EYES Routine 12/07/2022 11:17 AM EST Chronic open angle glaucoma of both eyes, moderate stage Age-related nuclear cataract, bilateral Retinal tear, right documented in this encounter Visit Diagnoses Diagnosis Age-related nuclear cataract, bilateral- Primary Senile nuclear sclerosis Chronic open angle glaucoma of both eyes, moderate stage Retinal tear, right documented in this encounter Care Teams Department Chair Relationship Specialty Start Date End Date Rika Matthews MD [address] [place] [id number] PCP - General 07/30/13 documented as of this encounter
--- OUTSIDE RECORDS SUMMARY | 2024-05-26 18:30 | XMS_ITS | Encounter Summary ---
Author Organization [facility] Address [facility] [place] [address] Care Team Providers Care Production Hand Name Role Phone Rika Matthews MD Primary Care Provider [phone] Encounter Details Date Type Department Care Team (Late st Contact Info) Description 07/29/[address] [facility] [address] [place] [address] Deidra Taveras PA [facility] [address] [place] [address] Social History Tobacco Use Types Packs/Day Years [...] encounter Miscellaneous Notes * Telephone Encounter - Delia Witt - 07/29/2017 10:15 AM EDT Pt left message requesting a change of current appointments. I reached back out and left my return call back number. documented in this encounter Plan of Treatment Upcoming Encounters Date Type Department Care Team (Late st Contact Info) Description 10/13/2024 2:45 PM EST Office Visit Ophthalmology at [facility] [place] [address] Rodolfo Xavier MD [facility] [place] [address] documented as of this encounter Visit Diagnoses Not on filedocumented in this encounter Care Teams Production Hand Relationship Specialty Start Date End Date Rika Matthews MD [address] [place] [address] PCP - General 07/30/13 documented as of this encounter
--- OUTSIDE RECORDS SUMMARY | 2024-05-26 18:30 | XMS_ITS | Encounter Summary ---
Author Organization [facility] [place] [address] Care Team Providers Care Wool And Pelt Grader Name Role Phone Rika Matthews MD Primary Care Provider [phone] Reason for Visit * Reason Onset Date Comments Medication Refill 08/18/2020 Change from Ti mXE to Shayne drops Encounter Details Date Type Department Care Team (Late st Contact Info) Description 08/18/2020 [place] [phone] Dolly Calle OD [facility] [place] [address] Chronic open angle glaucoma of both eyes, [...] 2:45 PM EST Office [place] [address] Rodolfo Xavier MD [facility] [place] [address] documented as of this encounter Visit Diagnoses Diagnosis Chronic open angle glaucoma of both eyes, moderate stage documented in this encounter Care Teams Wool And Pelt Grader Relationship Specialty Start Date End Date Rika Matthews MD [address] [address] PCP - General 07/30/13 documented as of this encounter
--- OUTSIDE RECORDS SUMMARY | 2024-05-26 18:30 | XMS_ITS | Encounter Summary ---
Author Organization [facility] [place] [address] Care Team Providers Care Burnisher And Bumper Name Role Phone Rika Matthews MD Primary Care Provider [phone] Reason for Visit * Reason Comments Chronic Open Angle Glaucoma POAG OU. Cat aracts OU. Ocular migraine. Azopt bid OS and 6:00 am Timolol 1/2% GFS OU qam 5:30 am. Presents for DFE/HVF. SARMAD 12/28 Dr Carrero Encounter Details Date Type Department Care Team (Late st Contact Info) Description 03/13/2017 9:00 AM EDT Office [place] [address] Dolly Calle, OD [facility] DR [place] [address] COAG (chronic open-angle glaucoma); Retinal tear, right [s/p Laser OD 10/10/15]; History of repair of retinal tear by laser photocoagulation; Age-related nuclear cataract, bilateral; Ocular migraine Social History Tobacco Use Types Packs/Day Years [...] Progress Notes * Dolly Calle, OD - 03/13/2017 9:00 AM EDT Encounter Diagnoses Name Primary? COAG (chronic open-angle glaucoma) ??? Retinal tear, right [s/p Laser OD 10/10/15] ??? History of repair of retinal tear by laser photocoagulation ??? Age-related nuclear cataract, bilateral ??? Ocular migraine Arlet Hilton is a 71 y.o. with the following ophthalmic problems: Assessment and Plan: COAG OU, stable nerves and IOP below goal OD/OS. ?- Continue Azopt OS BID, and Timolol 0.5% OU QAM ?- RTC?? 6 months for DFE & OCT RNFL Glaucoma summary (continued from prior visits) 07/04/2011 Arlet Hilton is a 65 y.o. female ref by dr chicho koehler, [facility], on 04/20 With moderate coag. ?? Discs= [...] 83/75. On 08/25 = 81/70. 09/2016 80/68. OCT mac on 08/24= nl ou. Normal and stable 09/2016 Target= ~20/17. Tmax=~25. ??ADR= lum, xal, lobo, alpha. ?? Gonio= open ou but slight plat config= watch. ?? Surgery= pi ou nj 04. Alt os 360 dgc on 6/14. Cataracts OU ? - Monitor for now, [...] 2:45 PM EST Office Visit Ophthalmology at [facility] [place] [address] Rodolfo Xavier [place] [address] documented as of this encounter Procedures Procedure Name Priority Date/Time Associated Diagnosis Comments AUTOMATED VISUAL FIELD - EXTENDED - OU- BOTH EYES Routine 03/13/2017 1:04 PM EDT COAG (chronic open-angle glaucoma) documented in this encounter Results * AUTOMATED VISUAL FIELD - EXTENDED - OU- BOTH EYES (03/13/2017 1:04 PM EDT) Anatomical Region Laterality Modality Other Narrative 03/13/2017 1:04 PM EDT HVF 24-2 Indication: Glaucoma?? OD: FL: 11/25?? FP:?? 3% FN: 0%?? MD: -0.87 PSD: 2.04 Impression: Normal and stable to prior tests. OS: FL: 11/25?? FP:?? 1% FN:??2% ??MD: -2.69 PSD: 3.44 Impression: Inferior nasal step stable to prior tests. ? Dolly Calle OD OPHTHALMOLOGY SERVIC ES ORDERABLES documented in this encounter Visit Diagnoses Diagnosis COAG (chronic open-angle glaucoma) Primary open-angle glaucoma Retinal tear, right [s/p Laser OD 10/10/15] History of repair of retinal tear by laser photocoagulation Age-related nuclear cataract, bilateral Senile nuclear sclerosis Ocular migraine Other forms of migraine, without mention of intractable migraine without mention of status migrainosus documented in this encounter Care Teams Burnisher And Bumper Relationship Specialty Start Date End Date Rika Matthews MD [address] [place] [address] PCP - General 07/30/13 documented as of this encounter
--- OUTSIDE RECORDS SUMMARY | 2024-05-26 18:30 | XMS_ITS | Encounter Summary ---
Author Organization [facility] Address [facility] [place] [address] Care Team Providers Care Emergency Medical Services Coordinator Name Role Phone Rika Matthews MD Primary Care Provider [phone] Reason for Visit * Reason Comments Chronic Open Angle Glaucoma Encounter Details Date Type Department Care Team (Late st Contact Info) Description 05/07/2022 9:00 AM EDT Office [place] [address] Rodolfo Xavier MD [facility] [place] [address] Chronic open angle glaucoma of both eyes, moderate stage; Combined forms of age-related cataract of both eyes Social History Tobacco Use Types Packs/Day Years [...] Progress Notes * Rodolfo Xavier MD - 05/07/2022 9:00 AM EDT COAG OU, moderate stage OU IOP good today Cataract OU Borderline glare, she is happy with her current vision Plan: Cosopt both eyes two times a day RTC: 6 months IOP, dilation, HVF, BAT, refract if needed documented in this encounter Plan of Treatment Upcoming Encounters Date Type Department Care Team (Late st Contact Info) Description 10/13/2024 2:45 PM EST Office [place] [address] Rodolfo Xavier MD [facility] [place] [address] documented as of this encounter Visit Diagnoses Diagnosis Chronic open angle glaucoma of both eyes, moderate stage Combined forms of age-related cataract of both eyes Other and combined forms of senile cataract documented in this encounter Care Teams Emergency Medical Services Coordinator Relationship Specialty Start Date End Date Rika Matthews MD [address] [place] [address] PCP - General 07/30/13 documented as of this encounter
--- OUTSIDE RECORDS SUMMARY | 2024-05-26 18:30 | XMS_ITS | Encounter Summary ---
Author Organization [facility] [place] [address] Care Team Providers Care Railway Switchman Name Role Phone Rika Matthews MD Primary Care Provider [phone] Reason for Visit * Reason Onset Date Comments Medication Refill 10/16/2017 Azopt and Shayne to [facility] Encounter Details Date Type Department Care Team (Late st Contact Info) Description 10/16/2017 [place] [phone] Dolly Calle OD [facility] [address] Moderate stage chronic open angle glaucoma Social [...] 2:45 PM EST Office [place] [address] Rodolfo Xavier MD [facility] [place] [address] documented as of this encounter Visit Diagnoses Diagnosis Moderate stage chronic open angle glaucoma documented in this encounter Care Teams Railway Switchman Relationship Specialty Start Date End Date Rika Matthews MD [address] [address] PCP - General 07/30/13 documented as of this encounter
--- OUTSIDE RECORDS SUMMARY | 2024-05-26 18:30 | XMS_ITS | Encounter Summary ---
[place] [address] Care Team Providers Care Wellfield Technician Name Role Phone Rika Matthews MD Primary Care Provider [phone] Reason for Visit * Reason Comments Chronic Open Angle Glaucoma Encounter Details Date Type Department Care Team (Late st Contact Info) Description 01/12/2019 10:40 AM EST Office [place] [address] Dolly Calle, OD [facility] [place] [address] Chronic open angle glaucoma of both eyes, moderate stage; Moderate stage chronic open angle glaucoma; Age-related nuclear cataract, bilateral; Retinal tear, right [...] on file documented as of this encounter Patient Instructions * Patient Instructions* Dolly Calle, OD - 01/12/2019 10:40 AM EST For dry eye, use AM and PM PRESERVATIVE FREE drops noted below 4 to 6 times per day. Do NOT use ???Visine or anything that says ???gets the red out?? . AM Drops (Use 4-6 times per day) - DAYTIME DROPS TheraTears Refresh GenTeal Systane PM Drops (Use once at night in both eyes before you go to bed) - NIGHT-TIME DROPS Refresh PM Systane Gel GenTeal Gel documented in this encounter Progress Notes * Dolly Calle, OD - 01/12/2019 10:40 AM EST Encounter Diagnoses Name Primary? Chronic open angle glaucoma of both eyes, moderate stage ??? Retinal tear, right [s/p Laser OD 10/10/15] ??? Age-related nuclear cataract, bilateral ??? Ocular migraine ??? Astigmatism with presbyopia, bilateral Arlet Hilton is a 73 y.o. with the following ophthalmic problems: Assessment and Plan: COAG OU, stable nerves and IOP below goal OD/OS. ?- Continue Azopt OS BID, and Timolol 0.5% OU QAM ?- RTC?? 6 months for DFE & HVF 24-2 Glaucoma summary (continued from prior visits) 07/04/2011 Arlet Hilton is a 65 y.o. female ref by dr chicho koehler, [facility], on 04/20 With moderate coag. [...] 81/70. 09/2016 80/68. 78/67 11/2017. 79/67 01/2019. OCT mac on 08/24= nl ou. Normal [...] Ref Err OU - Rx given at [facility] - Findings and concerns discussed with Arlet and she expressed understanding. -Upon Return 6 months for CEE, DFE and HVF 24-2, sooner with changes in sx/vision documented in this encounter Plan of Treatment Upcoming Encounters Date Type Department Care Team (Late st Contact Info) Description 10/13/2024 2:45 PM EST Office Visit Ophthalmology at [facility] [place] [place] [address] Rodolfo Xavier MD [facility] [place] [address] documented as of this encounter Procedures Procedure Name Priority Date/Time Associated Diagnosis Comments OCT OPTIC NERVE - OU - BOTH EYES Routine 01/12/2019 11:21 AM EST Chronic open angle glaucoma of both eyes, moderate stage documented in this encounter Results * OCT OPTIC [id number] EYES (01/12/2019 11:21 AM EST) Anatomical Region Laterality Modality Other Narrative 01/12/2019 11:21 AM EST OCT RNFL OD: Reliable, borderline superior, thin S/T, within normal limits all other quadrants. 79, last 80, 78 OS: Reliable, thin superior, borderline nasal and inf, within normal limits all other quadrants. 67, last 68, 67 ?? Macula OD: Reliable, normal foveal pit. OS: Reliable, normal foveal pit. Dolly Crockettvas OD OPHTHALMOLOGY SERVIC ES ORDERABLES documented in this encounter Visit Diagnoses Diagnosis Chronic open angle glaucoma of both eyes, moderate stage Moderate stage chronic open angle glaucoma Age-related nuclear cataract, bilateral Senile nuclear sclerosis Retinal tear, right [s/p Laser OD 10/10/15] Ocular migraine Other forms of migraine, without mention of intractable migraine without mention of status migrainosus Astigmatism with presbyopia, bilateral documented in this encounter Care Teams Wellfield Technician Relationship Specialty Start Date End Date Rika Matthews MD [address] [place] [address] PCP - General 07/30/13 documented as of this encounter
--- OUTSIDE RECORDS SUMMARY | 2024-05-26 18:30 | XMS_ITS | Encounter Summary ---
Author Organization [facility] [place] [address] Care Team Providers Care Veneer Drier Feeder Name Role Phone Rika Matthews MD Primary Care Provider [phone] Encounter Details Date Type Department Care Team (Late st Contact Info) Description 08/08/2018 External Results [place] [phone] Rika Matthews MD [address] [address] Social History Tobacco Use Types Packs/Day Years [...] 2:45 PM EST Office [place] [address] Rodolfo Xavier MD [facility] [place] [address] documented as of this encounter Procedures Procedure Name Priority Date/Time Associated Diagnosis Comments DIAGNOSTIC RADIOLOGY SCAN Routine 08/05/2018 documented in this encounter Results * Scan Doc: Diagnostic Radiology (08/05/2018) Anatomical Region Laterality Modality Other Rika Matthews MD MEDIA MGR SCAN EXT O RDR/RSLT documented in this encounter Visit Diagnoses Not on filedocumented in this encounter Care Teams Veneer Drier Feeder Relationship Specialty Start Date End Date Rika Matthews MD [address] [place] [address] PCP - General 07/30/13 documented as of this encounter
--- OUTSIDE RECORDS SUMMARY | 2024-05-26 18:30 | XMS_ITS | Encounter Summary ---
Author Organization [facility] Address [facility] [place] [address] Care Team Providers Care Night Shift Manager Name Role Phone Rika Matthews MD Primary Care Provider [phone] Reason for Visit * Reason Comments Skin Check Encounter Details Date Type Department Care Team (Late st Contact Info) Description 12/15/2019 1:00 PM EST Office Visit Dermatology at [facility] [address] [place] [address] Leif Blanton MD [facility] [address] [place] [address] Multiple benign nevi; Nelson angioma Social History [...] of this encounter Progress Notes * Leif Marcano MD - 12/15/2019 1:00 PM EST Images from the original note were not included. DERMATOLOGY - ESTABLISHED PATIENT FOLLOW-UP Date of service: 12/15/2019 Arlet Hilton : 1945, 74 y.o. Chief Complaint: Chief Complaint Patient presents with ??? Skin Check HPI: Arlet Hilton is a 74 y.o. female last seen by Dr. Schilling on 02/13/2019. Ms. Hilton returns today for a full skin exam. Pt denies any new, growing or concerning lesions. Relevant Skin History: - Skin cancer (including type): None Hx of AKs?? No history of skin cancer DF and mild DL bxd??in [place] ?? Family History: Melanoma: none ?? Social History: [place]ired. From [place], moved here to be closer to children and grandchildren.?? Medications: Current Outpatient Medications Medication Sig Dispense Refill ??? brinzolamide (AZOPT) 1 % Drops, Suspension Place 1 drop into the left eye 2 times daily. 15 mL 3 ??? timolol (TIMOPTIC-XE) 0.5 % Gel Forming Solution Place 1 drop into both eyes every morning. 15 mL 3 ??? solifenacin (VESICARE) 5 mg tablet Take 10 mg by mouth daily. ??? rosuvastatin (CRESTOR) 10 mg tablet ??? estradiol (ESTRACE) 0.01 % (0.1 mg/g) vaginal cream ??? meloxicam (MOBIC) 15 mg Tablet Take 1 tablet by mouth daily. (Patient not taking: Reported on 12/15/2019) 30 tablet 1 No current facility-administered medications for this visit. [...] the findings listed below. Genitalia not examined. - SVETLANA Mays was present and on standby during my examination. Diagnosis/Skin findings/Assessment/Plan: 1. Benign Appearing Nevi- - On the trunk and extremities multiple, 0.3-0.5cm, medium-brown, evenly- pigmented macules and papules. - Reassurance, discussed importance of ABCDE's and monthly self exams 2. Nelson Angiomas- - Multiple 0.2-0.4cm bright red, well-demarcated papules on the trunk and extremities - Reassured of benign nature RTC: In one year for full skin exam Note initiated by SVETLANA Mays. I, SVETLANA Mays, have performed the documentation for this encounter in the presence of and acting as a scribe for Leif Marcano MD. I performed the services which were documented by the scribe, and I agree with the accuracy of the documentation in this encounter. Leif Marcano MD Reviewed and signed by: Leif Marcano MD Resident in Dermatology [facility] Patient seen and evaluated with staff food production supervisor: Carly Charles MD Section of Dermatology [facility] * Carly Charles MD - 12/15/2019 1:00 PM EST I directly supervised Dr. Marcano during this office visit. Dr. Marcano presented the history and physical exam to me. I then saw and examined this patient with Dr. Marcano . We reviewed the history and pertinent details and I confirmed the physical findings. I agree with the details of the historyand physical exam as documented in Dr. Marcano's note. Carly Charles MD Staff Physician documented in this encounter Plan of Treatment Upcoming Encounters Date Type Department Care Team (Late st Contact Info) Description 10/13/2024 2:45 PM EST Office Visit Ophthalmology at [facility] [place] [address] Rodolfo Xavier [place] [address] documented as of this encounter Visit Diagnoses Diagnosis Multiple benign nevi Benign neoplasm of skin, site unspecified Nelson angioma Nevus, non-neoplastic documented in this encounter Care Teams Night Shift Manager Relationship Specialty Start Date End Date Rika Matthews MD [facility] [address] [place] [address] PCP - General 07/30/13 documented as of this encounter
--- OUTSIDE RECORDS SUMMARY | 2024-05-26 18:30 | XMS_ITS | Encounter Summary ---
[place] [address] Care Team Providers Care Oracle E Business Developer Name Role Phone Rika Matthews MD Primary Care Provider [phone] Reason for Visit * Reason Comments Eye Exam Encounter Details Date Type Department Care Team (Late st Contact Info) Description 07/20/2019 10:00 AM EDT Office Visit [place] [address] Dolly Calle, OD [facility] [place] [address] Chronic open angle glaucoma of both eyes, [...] Progress Notes * Dolly Calle, OD - 07/20/2019 10:00 AM EDT Encounter Diagnoses Name Primary? Chronic [...] drop (2018) ?- RTC?? 6 months for DFE & OCTg Glaucoma summary (continued from prior visits) 07/04/2011 Arlet Hilton is a 65 y.o. female ref by dr chicho koehler, [facility], on 04/20 With moderate coag. ?? [...] -Upon Return 6 months for DFE and OCTg, sooner with changes in sx/vision documented in this encounter Plan of Treatment Upcoming Encounters Date Type Department Care Team (Late st Contact Info) Description 10/13/2024 2:45 PM EST Office Visit Ophthalmology at [facility] [place] [address] Rodolfo Xavier MD [place] [address] documented as of this encounter Procedures Procedure Name Priority Date/Time Associated Diagnosis Comments AUTOMATED VISUAL FIELD - EXTENDED - OU- BOTH EYES Routine 07/20/2019 11:09 AM EDT Chronic open angle glaucoma of both eyes, moderate stage documented in this encounter Results * AUTOMATED VISUAL FIELD - EXTENDED - OU- BOTH EYES (07/20/2019 11:09 AM EDT) Anatomical Region Laterality Modality Other Narrative 07/20/2019 11:09 AM EDT Right Eye Threshold was 24-2. [...] bilateral documented in this encounter Care Teams Oracle E Business Developer Relationship Specialty Start Date End Date Rika Matthews MD [address] [place] [address] PCP - General 07/30/13 documented as of this encounter
--- OUTSIDE RECORDS SUMMARY | 2024-05-26 18:30 | XMS_ITS | Encounter Summary ---
Author Organization [facility] Address [facility] [place] [address] Care Team Providers Care Complex Case Manager Name Role Phone Rika Matthews MD Primary Care Provider [phone] Encounter Details Date Type Department Care Team (Late st Contact Info) Description 02/20/[address] [facility] [address] [place] [address] Gauri Schilling MD [facility] [address] [place] [address] Social History Tobacco Use Types Packs/Day Years [...] encounter Miscellaneous Notes * Telephone Encounter - Gauri Schilling MD - 02/20/2019 5:10 PM EDT Called patient to discuss pathology: DIAGNOSIS A. Skin, left lower medial leg, shave biopsy: - Ulcer and hemorrhage, with inflammation and reactive changes ? (see discussion) DISCUSSION Sections show central ulceration with hemorrhage and fibrin deposition. There is focal epidermal necrosis adjacent to the ulcer and an associated mixed inflammatory component composed of lymphocytes,histiocytes, neutrophils and scattered eosinophils is present. Reactive vascular changes are also present under the ulcerated area. Small focus of foreign material is noted in the superficial aspect of the ulcer, which is not polarizable and may represent a tissue contaminant. ??The background epidermis shows subtle verrucoid hyperplasia. Overall, the etiology of ulceration is not clear. No carcinoma or ?atypical melanocytic proliferation ??is identified on multiple deeper sections. ?Clinical correlation is recommended. Discussed that biopsy somewhat non-specific but suspect area was unknowingly traumatized a created a superficial wound. No evidence for malignancy on biopsy. Advised to continue applying plain vaseline to area until healed. If this lesion is persistent, instructed patient to call back to clinic forre-evaluation. If resolves will see patient back at annual FBSE. documented in this encounter Plan of Treatment Upcoming Encounters Date Type Department Care Team (Late st Contact Info) Description 10/13/2024 2:45 PM EST Office Visit [place] [address] Rodolfo Xavier MD [facility] [place] [address] documented as of this encounter Visit Diagnoses Not on filedocumented in this encounter Care Teams Complex Case Manager Relationship Specialty Start Date End Date Rika Matthews MD [address] [place] [address] PCP - General 07/30/13 documented as of this encounter
--- OUTSIDE RECORDS SUMMARY | 2024-05-26 18:30 | XMS_ITS | Encounter Summary ---
[place] [address] Care Team Providers Care Business System Manager Name Role Phone Rika Matthews MD Primary Care Provider [phone] Reason for Visit * Reason Onset Date Comments Appointment 05/03/2020 Encounter Details Date Type Department Care Team (Late st Contact Info) Description 05/03/2020 Telephone [place] [phone] Dolly Calle OD [facility] [place] [address] Appointment Social History Tobacco Use Types Packs/Day [...] encounter Miscellaneous Notes * Telephone Encounter - Kayce Cheek - 05/18/2020 2:32 PM EDT Pt scheduled * Telephone Encounter - Alexa Dorsey - 05/17/2020 2:20 PM EDT Lft pt a 2nd msg and mailed a letter. * Telephone Encounter - Alexa Dorsey - 05/03/2020 11:24 AM EDT Pt to call & ARTHUR w Luc: months (around 10/29/2020), or if symptoms worsen or fail to improve, for CEE, HVF 24-2, DFE. At time of call was looking at Early Oct for a date due to distance pt drives from [place], [place] (to avoid winter driving for pt) and scheduling mid-day in past. documented in this encounter Plan of Treatment Upcoming Encounters Date Type Department Care Team (Late st Contact Info) Description 10/13/2024 2:45 PM EST Office Visit Ophthalmology at [facility] [place] [address] Rodolfo Xavier MD [facility] [place] [address] documented as of this encounter Visit Diagnoses Not on filedocumented in this encounter Care Teams Business System Manager Relationship Specialty Start Date End Date Rika Matthews MD [address] [place] [address] PCP - General 07/30/13 documented as of this encounter
--- OUTSIDE RECORDS SUMMARY | 2024-05-26 18:30 | XMS_ITS | Encounter Summary ---
[place] [address] Care Team Providers Care Resaw Machine Operator Name Role Phone Rika Matthews MD Primary Care Provider [phone] Reason for Visit * Reason Comments Chronic Open Angle Glaucoma Encounter Details Date Type Department Care Team (Late st Contact Info) Description 09/11/2016 10:00 AM EDT Office [place] [address] Dolly Calle, OD [facility] [place] [address] COAG (chronic open-angle glaucoma), moderate stage; Age-related nuclear cataract, bilateral; History of repair of retinal tear by laser photocoagulation; Ocular migraine Social History Tobacco Use Types [...] Progress Notes * Dolly Calle, OD - 09/11/2016 10:00 AM EDT Encounter Diagnoses Name Primary? COAG (chronic open-angle glaucoma), moderate stage ??? Age-related nuclear cataract, bilateral ??? History of repair of retinal tear by laser photocoagulation ??? Ocular migraine Arlet Hilton is a 71 y.o. with the following ophthalmic problems: Assessment and Plan: COAG OU, stable nerves and IOP below goal OD, 1 point above goal OS. ?- Continue Azopt OS BID, and Timolol 0.5% OU QAM ?- RTC?? 6 months for DFE & HVF 24-2 Glaucoma summary (continued from visits with Dr. Santamaria) 07/04/2011 Arlet Hilton is a 65 y.o. female ref by dr chicho koehler, [facility], on 04/20 With moderate coag. ?? Discs= 0.3/0.5. ?? VFs=nl od and os= small inf nasal step.and nsce on 12/23 and nsc on 01/21.and on 02/22= nsc od and slight increase in density of L inf nasal step.. And nsc ou on 02/23. Stable 02/2016. OCT= 89/76 on 04/20. And 88/72 on 07/23. 83/74 on 07/24 and nsc ou. And on 08/24= nsc ou at 83/75. On 08/25 = 81/70. 09/2016 80/68. OCT mac on 08/24= nl ou. Normal and stable 09/2016 Tmax=~25. ?? ADR= lum, xal, lobo, alpha. ?? Gonio= open ou but slight plat config= watch. ?? Surgery= pi ou nj 04. Alt os 360 dgc on 04/24. Target= ~20/17. Cataracts OU ? - Monitor for now, sooner with changes in vision. Stable retinal tear repair OD ?- Pt ed re si/sx/risks of RD and to RTC STAT w/ increase in floaters, flashes, curtains/shades. Ocular Migraine - Noted. Ref Err OU - Rx given today - Findings and concerns discussed with Arlet and she expressed understanding. -Upon Return 6 months for DFE and HVF 24-2, sooner with changes in sx/vision documented in this encounter Plan of Treatment Upcoming Encounters Date Type Department Care Team (Late st Contact Info) Description 10/13/2024 2:45 PM EST Office Visit Ophthalmology at [facility] [place] [address] Rodolfo Xavier MD [facility] [address] documented as of this encounter Procedures Procedure Name Priority Date/Time Associated Diagnosis Comments OCT OPTIC NERVE - OU - BOTH EYES Routine 09/11/2016 1:10 PM EDT COAG (chronic open-angle glaucoma), moderate stage documented in this encounter Results * OCT OPTIC [id number] EYES (09/11/2016 1:10 PM EDT) Anatomical Region Laterality Modality Other Narrative 09/11/2016 1:10 PM EDT OCT RNFL OD: Reliable, borderline superior, within normal limits all other quadrants. 80 OS: Reliable, thin superior, borderline nasal, within normal limits all other quadrants. 68 Macula OD: Reliable, normal foveal pit. OS: Reliable, normal foveal pit. ? Dolly Calle OD OPHTHALMOLOGY SERVIC ES ORDERABLES documented in this encounter Visit Diagnoses Diagnosis Coag (chronic open-angle glaucoma), moderate stage Age-related nuclear cataract, bilateral Senile nuclear sclerosis History of repair of retinal tear by laser photocoagulation Ocular migraine Other forms of migraine, without mention of intractable migraine without mention of status migrainosus documented in this encounter Care Teams Resaw Machine Operator Relationship Specialty Start Date End Date Rika Matthews MD [address] [place] [address] PCP - General 07/30/13 documented as of this encounter
--- OUTSIDE RECORDS SUMMARY | 2024-05-26 18:30 | XMS_ITS | Encounter Summary ---
Author Organization [facility] Address [facility] [place] [address] Care Team Providers Care Solid Tire Tuber Machine Operator Name Role Phone Rika Matthews MD Primary Care Provider [phone] Encounter Details Date Type Department Care Team (Late st Contact Info) Description 02/12/2019 Telephone Dermatology at [facility] [address] [place] [address] Gauri Schilling MD [facility] DR CAR[place] [address] Social History Tobacco Use Types Packs/Day Years [...] Telephone Encounter - Gauri Schilling MD - 02/12/2019 4:47 PM EDT Called patient regarding photos that she sent in via - of lesion on leg. Per patient, this has changed since her visit; has darkened and started bleeding. Based on this history and clinical photographs, recommended that patient come in for biopsy of lesion. She is available tomorrow, 02/13/19 at 1 pm. Will CC steel worker. documented in this encounter Plan of Treatment Upcoming Encounters Date Type Department Care Team (Late st Contact Info) Description 10/13/2024 2:45 PM EST Office Visit Ophthalmology at [facility] [place] [address] Rodolfo Xavier MD [facility] [place] [address] documented as of this encounter Visit Diagnoses Not on filedocumented in this encounter Care Teams Solid Tire Tuber Machine Operator Relationship Specialty Start Date End Date Rika Matthews MD [address] [place] [address] PCP - General 07/30/13 documented as of this encounter
--- OUTSIDE RECORDS SUMMARY | 2024-05-26 18:30 | XMS_ITS | Encounter Summary ---
Author Organization [facility] [place] [address] Care Team Providers Care Photographer Motion Picture Name Role Phone Rika Matthews MD Primary Care Provider [phone] Reason for Visit * Reason Onset Date Comments Appointment 05/25/2021 Encounter Details Date Type Department Care Team (Late st Contact Info) Description 05/25/2021 Telephone [place] [phone] Dolly Calle OD [facility] [place] [address] Appointment Social History Tobacco Use Types Packs/Day [...] * Telephone Encounter - Alexa Dorsey - 05/25/2021 3:45 PM EDTSummary: NPW ES Glauc Eval ARTHUR: 10/26/21 Spoke w pt to [facility] Follow-up appt to her visit w Dr Calle on 05/18/21. ARTHUR w ES on 10/26/21 for: 6 M for Glaucoma eval, POM - COAG OU - IOP continues to run above target OU. documented in this encounter Plan of Treatment Upcoming Encounters Date Type Department Care Team (Late st Contact Info) Description 10/13/2024 2:45 PM EST Office Visit Ophthalmology at [facility] [place] [address] Rodolfo Xavier MD [facility] [place] [address] documented as of this encounter Visit Diagnoses Not on filedocumented in this encounter Care Teams Photographer Motion Picture Relationship Specialty Start Date End Date Rika Matthews MD [address] [place] [address] PCP - General 07/30/13 documented as of this encounter
--- OUTSIDE RECORDS SUMMARY | 2024-05-26 18:30 | XMS_ITS | Encounter Summary ---
Author Organization [facility] [place] [address] Care Team Providers Care Dimensional Integration Engineer Name Role Phone Rika Matthews MD Primary Care Provider [phone] Reason for Visit * Reason Comments Medication Refill Encounter Details Date Type Department Care Team (Late st Contact Info) Description 11/08/2022 [place] [phone] Rodolfo Xavier MD [facility] [place] [address] Chronic open angle glaucoma of both eyes, [...] 2:45 PM EST Office [place] [phone] Rodolfo Xavier MD [facility] [place] [address] documented as of this encounter Visit Diagnoses Diagnosis Chronic open angle glaucoma of both eyes, moderate stage documented in this encounter Care Teams Dimensional Integration Engineer Relationship Specialty Start Date End Date Rika Matthews MD [address] [place] [address] PCP - General 07/30/13 documented as of this encounter
--- OUTSIDE RECORDS SUMMARY | 2024-05-26 18:30 | XMS_ITS | Encounter Summary ---
Author Organization [facility] Address [facility] [address] Care Team Providers Care Patient Ambassador Name Role Phone Rika Matthews MD Primary Care Provider [phone] Encounter Details Date Type Department Care Team (Late st Contact Info) Description 07/22/2023 2:00 PM EDT Office Visit Dermatology at [facility] [address] [place] [address] Leatha Landin MD [facility] DR CAROL[place] [address] Lentigines; SK (seborrheic keratosis); Nelson angioma; Multiple benign nevi; Dermatofibroma Social History Tobacco Use Types Packs/Day Years [...] as of this encounter Progress Notes * Leatha Landin MD - 07/22/2023 2:00 PM EDT Images from the original note were not included. DEPARTMENT OF DERMATOLOGY Medical Dermatology Clinic Provider: Leatha Landin MD Patient's preferred name Arlet Calero Preferred contact method for results [x]Phone []myD-H []Letter Detailed phone message OK? Yes Are there any other people with whom we may discuss your care? No Past Medical History Date, location, treatment Melanoma No Dysplastic nevi No SCC No BCC No AKs Yes - LN2 UV Exposure & Protection No Other relevant past medical history + DF and mild DN bxd in [place] Family History Details Melanoma No NMSC No Other relevant family history No Social History Occupation: Retired Hobbies: Other: Pre-Procedure Screening Details Allergy to lidocaine, epinephrine, Dermabond, chlorhexidine, or adhesives No Bleeding disorder or blood thinners No Implanted devices (Pacemaker, defibrillator, deep brain stimulator, cochlear implant) No History of Present Illness: Arlet Hilton is a 77 y.o. Patient returns to clinic today for a full skin exam. Patient denies any specific skin concerns today; no lesions that are new, changing or symptomatic. Last visit at Dermatology: 05/23/2022 Last visit with this provider: 05/23/2022 Medications: Reviewed in eD-H Allergies: Reviewed in [...] Genitalia and buttocks were not examined. Assessment/Plan # Solar lentigines - 0.3-0.6cm light-brown evenly pigmented, well-demarcated macules in a photodistributed pattern on the face, trunk and extremities. - Recommend diligent sun protection (hats/shade/clothing/sunscreen) - Discussed warning signs of skin cancer # Seborrheic keratoses - keating/brown waxy stuck-on papules and plaques on the nose, trunk and extremities. - Reassured of the benign nature of these lesions - No treatment needed # Melanocytic nevi - Scattered medium-brown macules and papules on the head, trunk, and extremities. - Morphology reassuring for benign nevi. - Reassured of benign appearance on exam today. - Reviewed warning signs of skin cancer - Recommend daily sun protection with protective clothing and SPF 30+ # Nelson angiomas - scattered on the trunk and extremities are bright red smooth papules. - Reassured of the benign nature of these lesions. No treatment needed. #. Dermatofibroma- 4mm brown macule on the right calf with stellate appearence on dermoscopy Counseled: Dermatofibromas, benign/non-cancerous growth of dermal dendritic histiocyte cells, commonly arise at site of a minor injury and etiology is unknown, prognosis, treatment options if recurs and/or is symptomatic. Other: Sun protection discussed (protective clothing and SPF30+ broad-spectrum sunscreen) RTC: 1-2 year for FSE []Note routed to receptionist secretary [x]Recall placed in scheduling system []Appointment scheduled at checkout Scribe attestation: SVETLANA Ozuna and Rosendo Macedo have performed the documentation for this encounter in the presence of and acting as a scribe for Leatha Landin MD. I performed the above scribed service and agree with the accuracy of the documentation in this encounter. Reviewed and signed by: Leatha Landin MD Dermatology [facility] Patient seen and evaluated with staff book binder: Carly Charles MD Dermatology [facility] * Carly Charles MD - 07/22/2023 2:00 PM EDT I directly supervised Dr. Landin during this office visit. Dr. Landin presented the history and physical exam to me. I, then, saw and examined this patient with Dr. Landin . We reviewed the history and pertinentdetails and I confirmed the physical findings. I agree with the details of the history and physicalexam as documented in Dr. Landin's note. Carly Charles MD Staff Physician documented in this encounter Plan of Treatment Upcoming Encounters Date Type Department Care Team (Late st Contact Info) Description 10/13/2024 2:45 PM EST Office Visit Ophthalmology at [facility] [place] [address] Rodolfo Xavier MD [facility] [place] [address] documented as of this encounter Visit Diagnoses Diagnosis Lentigines Other dyschromia SK (seborrheic keratosis) Other seborrheic keratosis Nelson angioma Nevus, non-neoplastic Multiple benign nevi Benign neoplasm of skin, site unspecified Dermatofibroma Benign neoplasm of skin, site unspecified documented in this encounter Care Teams Patient Ambassador Relationship Specialty Start Date End Date Rika Matthews MD [address] [place] [address] PCP - General 07/30/13 documented as of this encounter
--- OUTSIDE RECORDS SUMMARY | 2024-05-26 18:30 | XMS_ITS | Encounter Summary ---
[place] [address] Care Team Providers Care Application Helper Name Role Phone Rika Matthews MD Primary Care Provider [phone] Reason for Visit * Reason Comments Chronic Open Angle Glaucoma Encounter Details Date Type Department Care Team (Late st Contact Info) Description 04/29/2020 10:40 AM EDT Office [place] [address] Dolly Calle, OD [facility] [place] [address] Chronic open angle glaucoma of both eyes, moderate stage; Age-related nuclear cataract, bilateral; Retinal tear, right [s/p Laser OD 10/10/15]; Ocular migraine; Astigmatism with presbyopia, bilateral; Moderate stage chronic open angle glaucoma Social [...] Progress Notes * Dolly Calle, OD - 04/29/2020 10:40 AM EDT Encounter Diagnoses Name Primary? Chronic open angle glaucoma of both eyes, moderate stage ??? Age-related nuclear cataract, bilateral ??? Retinal tear, right [s/p Laser OD 10/10/15] ??? Ocular migraine ??? Astigmatism with presbyopia, bilateral Arlet Hilton is a 74 y.o. with the following ophthalmic problems: Assessment and Plan: COAG OU, stable nerves and IOP a unit above goal OD/OS. ?- Continue Azopt OS BID, and Timolol 0.5% OU QAM. Wait at least 15 min between each AM drop (2018) ?- RTC?? 6 months for DFE & HVF 24-2 Glaucoma summary (continued from prior visits) 07/04/2011 Arlet Hilton is a 65 y.o. female ref by dr chicho koehler, [facility], on 04/20 With moderate coag. ?? Discs= [...] Ref Err OU - Rx given at [place] - Findings and concerns discussed with Arlet and she expressed understanding. -Upon Return 6 months for CEE and HVF 24-2, sooner with changes in sx/vision documented in this encounter Plan of Treatment Upcoming Encounters Date Type Department Care Team (Late st Contact Info) Description 10/13/2024 2:45 PM EST Office Visit Ophthalmology at [facility] [place] [address] Rodolfo Xavier MD [facility] [place] [address] documented as of this encounter Procedures Procedure Name Priority Date/Time Associated Diagnosis Comments OCT OPTIC NERVE - OU - BOTH EYES Routine 04/29/2020 11:06 AM EDT Chronic open angle glaucoma of both eyes, moderate stage documented in this encounter Results * Oct Optic Nerve - OU - Both Eyes (04/29/2020 11:06 AM EDT) Anatomical Region Laterality Modality Other Narrative 04/29/2020 11:06 AM EDT OCT RNFL OD: Reliable, borderline superior, thin S/T, within normal limits all other quadrants. 74, last 80, 78, 79 OS: Reliable, thin superior, borderline nasal and inf, within normal limits all other quadrants. 64, last 68, 67, 67 ?? Macula OD: Reliable, normal foveal [...] of status migrainosus Astigmatism with presbyopia, bilateral Moderate stage chronic open angle glaucoma documented in this encounter Care Teams Application Helper Relationship Specialty Start Date End Date Rika Matthews MD [address] [place] [address] PCP - General 07/30/13 documented as of this encounter
--- OUTSIDE RECORDS SUMMARY | 2024-05-26 18:30 | XMS_ITS | Encounter Summary ---
Author Organization [facility] Address [facility] [place] [address] Care Team Providers Care Ict Programmer Name Role Phone Rika Matthews MD Primary Care Provider Reason for Visit * Reason Comments Skin Lesion Encounter Details Date Type Department Care Team (Late st Contact Info) Description 02/13/2019 1:00 PM EDT Office Visit Dermatology at [facility] [address] [place] [address] Gauri Schilling MD [facility] [place] [address] Neoplasm of uncertain behavior of skin (Primary Dx) Social History Tobacco Use Types Packs/Day Years [...] as of this encounter Progress Notes * Gauri Schilling MD - 02/13/2019 1:00 PM EDT Images from the original note were not included. DERMATOLOGY - ESTABLISHED PATIENT FOLLOW-UP Date of service: 02/13/2019 Arlet Hilton : 1945, 73 y.o. Chief Complaint: Chief Complaint Patient presents with ??? Skin Lesion HPI: Arlet Hilton is a 73 y.o. female last seen by myself on 10/23/2018. Ms. Hilton returns today for a lesion on her left lower leg. She thinks it first started this pastsummer. At her last visit, 10/23/18 appeared to be a benign keratosis. However, over the past week it darkened and started bleeding. Patient does not recall any trauma to this area; though noted it bleeding when she got out of the pool. She says she takes daily ASA 81 mg qday. No other lesions of concern. Relevant Skin History: - Skin cancer (including type): None Hx of AKs No history of skin cancer DF and mild DL bxd??in [place] Family History: Melanoma: none Social History: Retired. From [place], moved here to be closer to children and grandchildren. Medications: Current Outpatient Medications Medication Sig Dispense Refill ??? brinzolamide (AZOPT) 1 % Drops, Suspension Place 1 drop into the left eye 2 times daily. 15 mL 3 ??? timolol (TIMOPTIC-XE) 0.5 % Gel Forming Solution Place 1 drop into both eyes every morning. 15 mL 3 ??? meloxicam (MOBIC) 15 mg Tablet Take 1 tablet by mouth daily. 30 tablet 1 ??? solifenacin (VESICARE) 5 [...] and in no noticeable distress. - Skin: Focused skin examination of the left lower extremity was normal with the exception of the findings listed below. Diagnosis/Skin findings/Assessment/Plan: 1. Neoplasm of the Skin DDx: sSCC vs sBCC vs iSK vs amelanotic melanoma: 0.9cm x 0.7 cm pink plaque with central erosion. ?? Procedure: Skin biopsy by shave technique Time of procedure: 1314 Location: left lower medial leg ?? Discussed indications for procedure and expectations including risks and benefits. Verbal consent obtained. Skin prep with alcohol. Local anesthesia with 1% xylocaine, 1/100,000 epinephrine. A sampleof the lesion was removed by shave technique to the level of the dermis and submitted to Pathology.Hemostasis obtained (AlCl and/or electrocautery). There were no complications; the pt. tolerated the procedure well. The wound was dressed. Post-procedure expectations, wound care and activity restrictions were reviewed. ?? Follow-up based on pathology results. RTC: Pending pathology. If benign, previously recommended 1-2 years for FBSE. The following photos were obtained with patient consent: Note initiated by Gauri Schilling MD. I performed the above scribed service and agree with the accuracy of the documentation in this encounter. Reviewed and signed by: Gauri Schilling MD Resident in Dermatology [facility] Patient seen and evaluated with staff manager infrastructure: Bernie Yin MD Section of Dermatology [facility] * Bernie Yin MD - 02/13/2019 1:00 PM EDT I directly supervised Dr. Gauri Schilling during this office visit. Dr. Schilling presented the history andphysical exam to me. I then saw and examined this patient with Dr. Schilling. We reviewed the history andpertinent details and I confirmed the physical findings. I agree with the details of the history and physical exam as documented in Dr. Maier note. Bernie Yin MD Staff Physician documented in this encounter Plan of Treatment Upcoming Encounters Date Type Department Care Team (Late st Contact Info) Description 10/13/2024 2:45 PM EST Office [place] [address] Rodolfo Xavier MD [facility] [place] [address] documented as of this encounter Procedures Procedure Name Priority Date/Time Associated Diagnosis Comments SPECIMEN TO PATHOLOGY Routine 02/13/2019 1:35 PM EDT Neoplasm of uncertain behavior of skin SURGICAL PATHOLOGY REPORT Routine 02/13/2019 1:15 PM EDT documented in this encounter Results * Specimen to Pathology (02/13/2019 1:35 PM EDT) AP Specimen 02/13/2019 1:35 PM EDT 02/13/2019 5:09 PM EDT Narrative [facility] - 02/13/2019 5:09 PM EDT Specimen requisition ordered. ??Separate Pathology report to follow Resulting Agency Comment Spec In Lab Bernie Yin MD PATHOLOGY/CYTOLOG Y ORDERABLES [facility] [place] [address] * Surgical Pathology Report (02/13/2019 1:15 PM EDT) Surgical Pathology Report [id number] ? Location: [facility] The signing pathologist has (i) examined the relevant preparation(s) for the specimen(s) and (ii) rendered or confirmed the diagnosis(es). . ?Surgical Pathology DIAGNOSIS A. Skin, left lower medial leg, shave biopsy: - Ulcer and hemorrhage, with inflammation and reactive changes ? (see discussion) Electronically signed by: ??Lashonda Stevens MD Verified: ??02/19/2019 ?Dermatopatholog ist Performed at: ??-[facility]. of [facility]ology, [place], [place] DISCUSSION Sections show central ulceration with hemorrhage and fibrin deposition. There is focal epidermal necrosis adjacent to the ulcer and an associated mixed inflammatory component composed of lymphocytes, histiocytes, neutrophils and scattered eosinophils is present. Reactive vascular changes are also present under the ulcerated area. Small focus of foreign material is noted in the superficial aspect of the ulcer, which is not polarizable and may represent a tissue contaminant. The background epidermis shows subtle verrucoid hyperplasia. Overall, the etiology of ulceration is not clear. No carcinoma or ?atypical melanocytic proliferation ??is identified on multiple deeper sections. ?Clinical correlation is recommended. ADDITIONAL STUDIES A, A2. ??Multiple step-leveled sections were reviewed. CLINICAL INFORMATION Specimen Submitted: A - Skin, left lower medial leg, skin shave biopsy (1) Clinical History and Diagnosis: S SCC vs. S BCC vs. ISK vs. a melanocytic melanoma. 0.9 x 0.7 cm pink plaque with central erosion SPECIMEN PROCESSING A - Labeled/Fixative: Left lower medial leg, formalin. Quantity/Size: ??Single, 1.3 x 1.1 x 0.1 cm. Tissue Description: Shave of keating-pink skin with an eccentric keating-brown macule, 0.9 x 0.7 cm. Sections/Processi ng: Inked, serially sectioned and entirely submitted in 2 cassettes as follows: ? A1: ??Tips ? A2: ??Body ??pps [facility] 02/13/2019 1:15 PM EDT Gauri Schilling MD PATHOLOGY/CYTOLOGY O STEPHANIE [facility] [place] [address] documented in this encounter Visit Diagnoses Diagnosis Neoplasm of uncertain behavior of skin- Primary documented in this encounter Care Teams Ict Programmer Relationship Specialty Start Date End Date Rika Matthews MD [address] [place] [address] PCP - General 07/30/13 documented as of this encounter
--- OUTSIDE RECORDS SUMMARY | 2024-05-26 18:30 | XMS_ITS | Encounter Summary ---
Author Organization [facility] [place] [address] Care Team Providers Care Relationship Manager Name Role Phone Rika Matthews MD Primary Care Provider [phone] Reason for Visit * Reason Comments Medication Refill Encounter Details Date Type Department Care Team (Late st Contact Info) Description 10/23/2018 [place] [phone] Dolly Calle OD [facility] DR [place] [address] Moderate stage chronic open angle glaucoma Social [...] 2:45 PM EST Office [place] [phone] Rodolfo Xavier MD [facility] [place] [address] documented as of this encounter Visit Diagnoses Diagnosis Moderate stage chronic open angle glaucoma documented in this encounter Care Teams Relationship Manager Relationship Specialty Start Date End Date Rika Matthews MD [address] [address] PCP - General 07/30/13 documented as of this encounter
--- OUTSIDE RECORDS SUMMARY | 2024-05-26 18:30 | XMS_ITS | Encounter Summary ---
[place] [address] Care Team Providers Care Band Leader Name Role Phone Rika Matthews MD Primary Care Provider Reason for Visit * Reason Onset Date Comments Medication Refill 03/14/2021 Encounter Details Date Type Department Care Team (Late st Contact Info) Description 03/14/2021 Refill [place] [phone] Dolly Calle, [facility] [place] [address] Moderate stage chronic open angle glaucoma; Chronic open angle glaucoma of both eyes, [...] 2:45 PM EST Office Visit [place] [phone] Rodolfo Xavier MD [facility] [place] [address] documented as of this encounter Visit Diagnoses Diagnosis Moderate stage chronic open angle glaucoma Chronic open angle glaucoma of both eyes, moderate stage documented in this encounter Care Teams Band Leader Relationship Specialty Start Date End Date Rika Matthews MD [address] [address] PCP - General 07/30/13 documented as of this encounter
--- OUTSIDE RECORDS SUMMARY | 2024-05-26 18:30 | XMS_ITS | Encounter Summary ---
Author Organization [facility] Address [facility] [place] [address] Care Team Providers Care Plate Developer Name Role Phone Rika Matthews MD Primary Care Provider [phone] Reason for Visit * Reason Comments Eye Problem Encounter Details Date Type Department Care Team (Late st Contact Info) Description 10/26/2021 12:30 PM EST Office [place] [address] Rodolfo Xavier MD [place] [address] Combined forms of age-related cataract of both eyes (Primary Dx) Social History Tobacco Use Types [...] Progress Notes * Rodolfo Xavier MD - 10/26/2021 12:30 PM EST Arlet Hilton is a 76 y.o. female is referred by Dr Calle. COAG OU, moderate stage OU IOP good today HVF stable Cataract OU Borderline Glare, she is happy with her current vision Plan: Azopt OS BID Timolol 0.5% OU QAM Will change to Cosopt BID OU to decrease the number of bottles she is taking RTC: 6 months IOP documented in this encounter Plan of Treatment Upcoming Encounters Date Type Department Care Team (Late st Contact Info) Description 10/13/2024 2:45 PM EST Office Visit Ophthalmology at [facility] [place] [address] Rodolfo Xavier MD [facility] [place] [address] documented as of this encounter Procedures Procedure Name Priority Date/Time Associated Diagnosis Comments [id number] CALC BY LASER INTERFEROMETRY - OU - BOTH EYES Routine 10/26/2021 4:25 PM EST Combined forms of age-related cataract of both eyes AUTOMATED VISUAL FIELD - EXTENDED - OU- BOTH EYES Routine 10/26/2021 4:25 PM EST Combined forms of age-related cataract of both eyes documented in this encounter Results * [id number] Calc By Laser Interferometry - OU - Both Eyes (10/26/2021 4:25 PM EST) Anatomical Region Laterality Modality Other Narrative 10/26/2021 4:25 PM EST Table formatting from the original result was not included. Physician PreOp Lens Selection Right Eye Style: [id number] Power: 16.50. Target: plano. 12/19/2022. Left Eye Style: [id number] Power: 16.00. Target: plano. 12/19/2022. Notes Patient Hx Past Medical Hx ??Pt. ??has a past medical history of Allergic state, Chronic kidney disease, Glaucoma, Hyperlipidemia, and Post-menopause on HRT (hormone replacement therapy). Past Ophth Surg Hx ??Ophth surgical history includes: right focal laser, 10/10/15 (Prophylactic laser OD for retinal ?hole/tear (NNB)) and peripheral iridotomy, 2002- (OU). Eye Meds ??brinzolamide, dorzolamide-timoloL, estradioL, gabapentin, meloxicam, rosuvastatin, solifenacin, and timoloL IOL Biometry - Initial (source: LENSTAR) OD OS Date Performed 10/26/2021 ??2:21 PM 10/26/2021 ??2:21 PM ?? Target Refraction 0 0 ?? Axial Length 24.5 (mm) 24.58 (mm) ?? Anterior Chamber Depth 2.88 (mm) 2.89 (mm) ?? Horizontal White to White 12.06 (mm) 12.01 (mm) ?? Formula Used ? K's 44.12, 44.00@002, 012 / 46.02, 45.50@092, 102 43.83, 43.75@002, 001 / 46.53, 46.00@092, 091 ? Add'l Comments/Discrepancies/Concerns: POM done by HDD on 10/26/2021 OD: place @ 92 degrees OS: place @ 92 degrees Rodolfo Xavier MD OPHTHALMOLOGY SERVIC ES ORDERABLES * Automated Visual Field - Extended - OU - Both Eyes (10/26/2021 4:25 PM EST) Anatomical Region Laterality Modality Other Narrative 10/26/2021 4:25 PM EST Right Eye Threshold was 24-2. Strategy was BRIANDA. Left Eye Threshold was 24-2. Strategy was BRIANDA. Notes Visual Field Results Type of VF: ??HVF 24-2 Indication: ??COAG Reliability: ??good Glaucoma Hemifield Test (GHT) OD: outside normal limits OS: outside normal limits Visual Function Index (VFI) OD: 99 % OS: 91 % MD OD: +0.01 dB ?PSD OD: 2.02 dB MD OS: -3.59 dB ?? PSD OS: 7.18 dB Interpretation: stable Rodolfo Xavier MD OPHTHALMOLOGY SERVIC ES ORDERABLES documented in this encounter Visit Diagnoses Diagnosis Combined forms of age-related cataract of both eyes- Primary Other and combined forms of senile cataract documented in this encounter Care Teams Plate Developer Relationship Specialty Start Date End Date Rika Matthews MD [address] [place] [address] PCP - General 07/30/13 documented as of this encounter
--- OUTSIDE RECORDS SUMMARY | 2024-05-26 18:30 | XMS_ITS | Encounter Summary ---
Author Organization [facility] Address [facility] [place] [address] Care Team Providers Care Admissions Recruiter Name Role Phone Rika Matthews MD Primary Care Provider [phone] Reason for Visit * Reason Comments Skin Check Encounter Details Date Type Department Care Team (Late st Contact Info) Description 08/28/2017 11:00 AM EDT Office Visit Dermatology at [facility] [address] [place] [address] Shilo Pyle MD [facility] [address] [address] Deidra Taveras PA [facility] [place] [address] Multiple benign nevi; Seborrheic keratosis; Lentigines; Nelson angioma; AK (actinic keratosis); Dermatofibroma Social History Tobacco Use Types Packs/Day [...] this encounter Patient Instructions * Patient Instructions* Rossana Angel - 08/28/2017 11:00 AM EDT Actinic Keratoses You have been diagnosed today with Actinic Keratosis (AK). These dry, scaly patches are considered the earliest stage in the development of skin cancer. In rare cases, an AK can progress to skin cancer. Because of this risk, AKs are usually treated. You were treated today with Liquid Nitrogen. This is the most common treatment for AKs. Liquid nitrogen is extremely cold, and freezes the surface of the skin, causing the lesion to flake off. Treatment with liquid nitrogen can be uncomfortable, but discomfort should subside after a couple of hours. The area treated will look red and irritated, and it may blister up or turn dark, then fall off. This is normal! You do not need any special treatment for the area, but you may find cold compresses and/or a lightapplication of Vaseline soothing. For best results, do not rub or pick at the healing lesion. Expected healing time is 3-4 weeks. Please contact the Dermatology clinic at [phone] if the lesion has not fully resolved after 6 weeks. documented in this encounter Progress Notes * Deidra Taveras PA - 08/28/2017 11:00 AM EDT DERMATOLOGY - NEW PATIENT NOTE Date of service: 08/28/2017 Arlet Hilton : 1945 Dermatology Physician Rating Specialist Note: Deidra Taveras PA-C Chief Complaint Patient presents with ??? Skin Check Ms. Arlet Hilton is a 72 y.o. female. This is a new patient to me and to the clinic. Patient isself-referred. HPI: Ms. Hilton presents for a total body skin exam. She was last seen 2 years ago by a district court justice in [place]. She has no concerns. Skin History: No history of skin cancer DF and mild DL bxd in [place] Family History: Melanoma: none Social History: Relevant occupational/recreational/travel/animal exposures: retired. Medical History: Patient Active Problem List Diagnosis Code ??? COAG (chronic open-angle glaucoma) H40.1199 Medications: Current Outpatient Prescriptions Medication Sig Dispense Refill ??? timolol (TIMOPTIC-XE) 0.5 % Gel Forming Solution Place 1 drop into both eyes every morning. 15 mL 3 ??? brinzolamide (AZOPT) 1 % Drops, Suspension Place 1 drop into the left eye 2 times daily. 20 mL 3 ??? atovaquone-proguanil (MALARONE) 250-100 mg Tablet Take 1 tablet by mouth daily. Start 1 day before travel to risk area,daily in risk area and daily for one week after leaving risk area. 18 tablet0 ??? ciprofloxacin HCl (CIPRO) 500 mg Tablet Take 1 tablet by mouth 2 times daily. Take twice a day for fever with diarrhea. 6 tablet 0 ??? solifenacin (VESICARE) 5 mg tablet Take 10 mg by mouth daily. ??? rosuvastatin (CRESTOR) 10 mg tablet ??? estradiol (ESTRACE) 0.01 % (0.1 mg/g) vaginal cream No current facility-administered medications for this visit. Allergies: Allergies Allergen Reactions ??? Bimatoprost ??? Brimonidine Tartrate ??? Latanoprost Procedure screening: Allergies to lido/epi: no Defibrillator: no Review of Systems: - General: Feels well. - Skin: As per HPI; no other skin concerns. Examination: - Constitutional: Patient was alert, well-appearing and in no noticeable distress. - Skin: A full skin examination was performed. This includes the head, neck, face and scalp including behind the ears. The chest, abdomen, back, and axillae, as well as the arms, hands, palms, fingers. Legs, feet, toes and soles were also examined. Buttocks and breasts were also examined with patient consent. Genitalia were not examined. - Skin Type: 2 Specific skin findings/Diagnosis/Assessment/Treatment Plan: 1. Benign appearing nevi with even pigmentation and well defined margins are noted - Trunk and extremities: multiple, 0.3-0.5cm, medium-brown, evenly- pigmented macules and papules. All with regular pigment pattern on dermoscopy. No pigmented lesions suspicious for melanoma. - Patient reassured of benign nature. - No lesions suspicious for melanoma identified on exam today. Will continue to monitor. - Discussed importance of sun protection, sun avoidance strategies, protective clothing, and sunscreen. I discussed warning signs for skin cancer, including the ABCDEs of melanoma. ?? - Observe skin for change in color, size or character. Call if such occur. 2. Seborrheic keratosis - Trunk and extremities: Multiple, 0.4-0.6cm brown papules with waxy, stuck-on appearance. Milia-like cysts, comedone-like openings and/or fissuring on dermoscopy. - Patient reassured of benign nature. - Advised patient to call if areas become inflamed or irritated. - Advised patient these lesions are hereditary and adult-acquired, they can develop anywhere on thebody with the exception of the palms and soles. 3. Lentigines - Trunk and extremities: 0.3-0.6cm light-brown evenly pigmented, well-demarcated macules. - Patient reassured of benign nature. - Observe skin for change in color, size or character. Call if such occur. 4. Nelson angiomas - Trunk and extremities: Multiple 0.2-0.4cm bright red, well- demarcated papules. - Patient reassured of benign nature. - No treatment necessary. 5. Actinic keratosis - Left cheek, nose x3: 0.2-0.3cm scaly irregular pink papules. - Discussed premalignent potential of these lesions. - Discussed that a surgical procedure would likely be needed if these were to progress to skin cancer. - Shared decision to proceed with LN2 treatment at this time: Procedure Note: Procedure: Destruction of lesions with cryotherapy. Number: 3 Location: as above Discussed procedure and expectations including risks (including risk of hypopigmentation) and benefits. Verbal consent obtained. Frozen with LN2, 15-30 second thaw time, TWICE. There were no complications; the patient tolerated the procedure well. Post-procedure expectations and wound care were reviewed. 6. Dermatofibroma (DF) - Right dang and right thigh: firm papule, centrally raised and sclerotic, with peripheral hyperpigmentation and dimpling with lateral pressure. - Patient reassured of benign nature. - No treatment necessary. LOS: [address] RTC in 1 year for a full skin exam, sooner if needed. Reminder placed in scheduling system. Instructed to call if problems arise. Note initiated by DANITA SOLORZANO, Clinical Scribe - I am documenting this encounter acting as the scribe for and in the presence of Deidra Taveras PA-C I performed the above scribed service and agree with the accuracy of the documentation in this encounter. Reviewed and signed by Deidra Taveras PA-C Dermatology [facility] Patient seen with direct supervision of Attending Physician: Shilo Pyle MD Section of Dermatology [facility] * Shilo Pyle MD - 08/28/2017 11:00 AM EDT Skin cancer examination. Scaly papules c/w AKs on the face x [address] Otherwise benign skin exam including benignnevi, lengines. Patient seen in conjunction with Deidra Taveras PA-C Signed by: SHILO PYLE MD Section of Dermatology [facility] documented in this encounter Plan of Treatment Upcoming Encounters Date Type Department Care Team (Late st Contact Info) Description 10/13/2024 2:45 PM EST Office Visit Ophthalmology at [facility] [place] [place] [address] Rodolfo Xavier MD [facility] [place] [address] documented as of this encounter Visit Diagnoses Diagnosis Multiple benign nevi Benign neoplasm of skin, site unspecified Seborrheic keratosis Other seborrheic keratosis Lentigines Other dyschromia Nelson angioma Nevus, non-neoplastic AK (actinic keratosis) Actinic keratosis Dermatofibroma Benign neoplasm of skin, site unspecified documented in this encounter Care Teams Admissions Recruiter Relationship Specialty Start Date End Date Rika Matthews MD [address] [place] [address] PCP - General 07/30/13 documented as of this encounter
--- OUTSIDE RECORDS SUMMARY | 2024-05-26 18:30 | XMS_ITS | Encounter Summary ---
Author Organization [facility] Address [facility] [place] [address] Care Team Providers Care Fuel Truck Driver Name Role Phone Rika Matthews MD Primary Care Provider [phone] Encounter Details Date Type Department Care Team (Late st Contact Info) Description 04/25/2023 Telephone Ophthalmology at [facility] [place] [address] Rodolfo Xavier MD [facility] [place] [address] Social History Tobacco Use Types Packs/Day Years [...] encounter Miscellaneous Notes * Telephone Encounter - Rosario Bagley - 06/11/2023 2:00 PM EDT 06/11 spoke with pt and rescheduled, offered dates in Sep & Oct , pt declined and scheduled for Nov that way only 1 pre op is required, will need to be seen in clinic again as was last seen 12/07/2022, pt asked to be transferred back to clinic, sent letters -- [facility] [id number] * Telephone Encounter - Desiree Abel - 06/11/2023 12:44 PM EDT Cat re-eval with THORNE and sign new consents scheduled. * Telephone Encounter - Rosario Bagley - 04/25/2023 4:57 PM EDT 04/25 spoke with pt, surgery was canceled as Dr Xavier will be unexpectedly away & Department management is currently working on a plan for rescheduling.-- [facility] [address] documented in this encounter Plan of Treatment Upcoming Encounters Date Type Department Care Team (Late st Contact Info) Description 10/13/2024 2:45 PM EST Office [place] [address] [place] [address] documented as of this encounter Visit Diagnoses Not on filedocumented in this encounter Care Teams Fuel Truck Driver Relationship Specialty Start Date End Date Rika Matthews MD [address] [place] [address] PCP - General 07/30/13 documented as of this encounter
--- OUTSIDE RECORDS SUMMARY | 2024-05-26 18:30 | XMS_ITS | Encounter Summary ---
[place] [address] Care Team Providers Care Medical Insurance Clerk Name Role Phone Rika Matthews MD Primary Care Provider [phone] Reason for Visit * Reason Onset Date Comments Medication Refill 03/13/2021 Encounter Details Date Type Department Care Team (Late st Contact Info) Description 03/13/2021 [place] [id number] Dolly Calle, [facility] [place] [address] Moderate stage chronic open angle glaucoma; Chronic [...] 2:45 PM EST Office [place] [address] Rodolfo Xavier MD [facility] [place] [address] documented as of this encounter Visit Diagnoses Diagnosis Moderate stage chronic open angle glaucoma Chronic open angle glaucoma of both eyes, moderate stage documented in this encounter Care Teams Medical Insurance Clerk Relationship Specialty Start Date End Date Rika Matthews MD [address] [address] PCP - General 07/30/13 documented as of this encounter
--- OUTSIDE RECORDS SUMMARY | 2024-05-26 18:30 | XMS_ITS | Encounter Summary ---
Author Organization [facility] Address [facility] [place] [address] Care Team Providers Care Greenhouse Manager Name Role Phone Rika Matthews MD Primary Care Provider [phone] Reason for Visit * Reason Comments Skin Check Encounter Details Date Type Department Care Team (Late st Contact Info) Description 10/23/2018 10:00 AM EST Office Visit Dermatology at [facility] [address] [place] [address] Gauri Schilling MD [facility] DR [facility] [address] Seborrheic keratoses; Multiple benign nevi; Skin cancer screening; Solar lentigo Social History Tobacco Use Types Packs/Day Years [...] Progress Notes * Gauri Schilling MD - 10/23/2018 10:00 AM EST Images from the original note were not included. DERMATOLOGY - ESTABLISHED PATIENT FOLLOW-UP Date of service: 10/23/2018 Arlet Hilton : 1945, 73 y.o. Chief Complaint: Chief Complaint Patient presents with ??? Skin Check HPI: Arlet Hilton is a 73 y.o. female last seen by Sang ZACARIAS on 08/28/2017. Ms. Hilton returns today for a full skin cancer screening. She has only one area of concern on herleft lower leg. It started this summer as a brown spot, patient says it darkened in color which worried her and now has lightened. Lesion is asymptomatic. Non-tender, non-bleeding. No other lesions of concern. Relevant Skin History: Hx of AKs No history of skin cancer DF and mild DL bxd in [place] ?? Family History: Melanoma: none ?? Social History: Retired. From [place], moved here to be closer to children [...] the findings listed below. Genitalia not examined. Diagnosis/Skin findings/Assessment/Plan: 1. Seborrheic Keratoses: Scattered brown and flesh colored waxy nummular stuck on lesions on trunk and extremities, including lesion of concern in HPI. - Reassured of benign nature, no treatment needed 2. Solar lentigines: scattered light brown 3-6mm macules on the upper back, chest, and extremities. - Reassured of benign nature 3. Low density benign nevi - scattered medium brown macules and papules on the trunk and extremities with reassuring pigment pattern on dermoscopy. - Reassured of benign appearance on exam today. - Reviewed ABCDEs of melanoma and sun protection 4. Skin Cancer Surveillance -- no growths or lesions suspicious for malignancy on the body parts examined as listed above - discussed the importance of frequently monitoring for spots that change, which include the ABCEs of melanoma - discussed the importance of sun protection/avoidance RTC: In 1-2 years for a full skin check, or sooner if needed. Note initiated by MAURICE DENNY LPN. I, MAURICE DENNY LPN, have performed the documentation for this encounter in the presence of and acting as a scribe for Gauri Schilling MD. I performed the services which were documented by the scribe, and I agree with the accuracy of the documentation in this encounter. MAURICE DENNY LPN Reviewed and signed by: Gauri Schilling MD Resident in Dermatology [facility] Patient seen and evaluated with staff grease worker: Carly Charles MD Section of Dermatology [facility] * Carly Charles MD - 10/23/2018 10:00 AM EST I directly supervised Dr. Jett during this office visit. Dr. Jett presented the history and physical exam to me. I then saw and examined this patient with Dr. Jett. We reviewed the history and pertinent details and I confirmed the physical findings. I agree with the details of the history and physical exam as documented in Dr. Jett's note. Carly Charles MD Staff Physician documented in this encounter Plan of Treatment Upcoming Encounters Date Type Department Care Team (Late st Contact Info) Description 10/13/2024 2:45 PM EST Office Visit Ophthalmology at [facility] [place] [address] Rodolfo Xavier [place] [facility] [place] [address] documented as of this encounter Visit Diagnoses Diagnosis Seborrheic keratoses Multiple benign nevi Benign neoplasm of skin, site unspecified Skin cancer screening Screening for malignant neoplasm of the skin Solar lentigo Other dyschromia documented in this encounter Care Teams Greenhouse Manager Relationship Specialty Start Date End Date Rika Matthews MD [address] [place] [address] PCP - General 07/30/13 documented as of this encounter
--- OUTSIDE RECORDS SUMMARY | 2024-05-26 18:30 | XMS_ITS | Encounter Summary ---
[place] [address] Care Team Providers Care Timber Girdler Name Role Phone Rika Matthews MD Primary Care Provider [phone] Reason for Visit * Reason Comments Eye Problem Encounter Details Date Type Department Care Team (Late st Contact Info) Description 11/18/2020 2:40 PM EST Office [place] [address] Dolly Calle, OD [facility] [place] [address] Chronic open angle glaucoma of both eyes, moderate stage (Primary Dx); Age-related nuclear cataract, bilateral; Retinal tear, right [...] Progress Notes * Dolly Calle, OD - 11/18/2020 2:40 PM EST Encounter Diagnoses Name Primary? Chronic open angle glaucoma of both eyes, moderate stage Yes ??? Age-related nuclear cataract, bilateral ??? Retinal [...] dr chicho koehler, [facility], on 04/20 With moderate coag. ?? Discs= [...] expressed understanding. -Upon Return 6 months for DFE, OCTg sooner with changes in sx/vision documented in this encounter Plan of Treatment Upcoming Encounters Date Type Department Care Team (Late st Contact Info) Description 10/13/2024 2:45 PM EST Office Visit Ophthalmology at [facility] [place] [address] [facility] [address] documented as of this encounter Procedures Procedure Name Priority Date/Time Associated Diagnosis Comments AUTOMATED VISUAL FIELD - EXTENDED - OU- BOTH EYES Routine 11/18/2020 3:26 PM EST Chronic open angle glaucoma of both eyes, moderate stage documented in this encounter Results * Automated Visual Field - Extended - OU - Both Eyes (11/18/2020 3:26 PM EST) Anatomical Region Laterality Modality Other Narrative 11/18/2020 3:26 PM EST Right Eye Threshold was 24-2. Reliability was [...] glaucoma of both eyes, moderate stage- Primary Age-related nuclear cataract, bilateral Senile nuclear sclerosis Retinal tear, right [s/p Laser OD 10/10/15] Ocular migraine Other forms of migraine, without mention of intractable migraine without mention of status migrainosus Astigmatism with presbyopia, bilateral documented in this encounter Care Teams Timber Girdler Relationship Specialty Start Date End Date Rika Matthews MD [address] [place] [address] PCP - General 07/30/13 documented as of this encounter
--- OUTSIDE RECORDS SUMMARY | 2024-05-26 18:31 | XMS_ITS | Encounter Summary ---
Author Organization [facility] [place] [address] Care Team Providers Care Tumbling Instructor Name Role Phone Rika Matthews MD Primary Care Provider [phone] Reason for Visit * Reason Comments Blurred Vision 2-mon f/u on RT, s/p laser on 10/10/15-OS Encounter Details Date Type Department Care Team (Late st Contact Info) Description 12/13/2015 10:30 AM EST Office [place] [address] Darwin Carrero MD [facility] [place] [address] Retinal tear, right Social History Tobacco Use [...] Progress Notes * Darwin Carrero MD - 12/13/2015 11:24 AM EST ASSESSMENT 1. Retinal tear, right S/p Laser OD 2 months ago Good treatment PLAN FU Retina 1 year [address] DFE OU Dr. Calle for routine eye care I performed and personally participated in the best and critical portions of the service. I have reviewed/updated the documentation, and confirm that all of the information is accurate as described. Darwin Carrero MD documented in this encounter Plan of Treatment Upcoming Encounters Date Type Department Care Team (Late st Contact Info) Description 10/13/2024 2:45 PM EST Office Visit Ophthalmology at [facility] [place] [address] Rodolfo Xavier [place] [address] documented as of this encounter Visit Diagnoses Diagnosis Retinal tear, right documented in this encounter Care Teams Tumbling Instructor Relationship Specialty Start Date End Date Rika Matthews MD [address] [place] [address] PCP - General 07/30/13 documented as of this encounter
--- OUTSIDE RECORDS SUMMARY | 2024-05-26 18:31 | XMS_ITS | Referral Summary ---
Author Organization [facility] Address [address] [place] [address] Care Team Providers Care Reinstatement Clerk Name Role Phone Rika Matthews MD Primary Care Provider [phone] Social History Tobacco Use Types Packs/Day Years Used Date Smoking Tobacco: Never Smokeless Tobacco: Never Alcohol Use Standard Drinks/Week Comments Not Asked 0 (1 standard drink = 0.6 oz pur e alcohol) Sex and Gender Information Value Date Recorded Sex Assigned at Not on file Gender Identity Female 08/17/2022 16:46 EDT Sexual Orientation Not on file Last Filed Vital Signs Vital Sign Reading Time Taken Comments Blood Pressure - - Pulse - - Temperature - - Respiratory Rate - - Oxygen Saturation - - Inhaled Oxygen Concentration - - Weight 64.4 kg (142 lb) 03/27/2016 1230 EDT Height 169.1 cm (5' 6.58) 03/27/2016 1230 EDT Body Mass Index 22.53 03/27/2016 1230 EDT Plan of Treatment Not on file Chalupa, Destinee Personal/Famil y Self 1945 [address] [facility] [address] Chalupa, Destinee Personal/Famil y Self 1945 [address] [facility] [place] [address] Chalupa, Destinee Personal/Famil y Self 1945 [address] [facility] [address] Care Teams Reinstatement Clerk Relationship Specialty Start Date End Date Rika Matthews MD [address] [place] [address] PCP - General 03/27/16
--- OUTSIDE RECORDS SUMMARY | 2024-05-26 18:31 | XMS_ITS | Clinical Summary ---
Author Organization [facility] Address [address] [place] [address] Care Team Providers Care Currency Examiner Name Role Phone Rika Matthews MD Primary Care Provider [phone] Social History Tobacco Use Types Packs/Day Years Used Date Smoking Tobacco: Never Smokeless Tobacco: Never Alcohol Use Standard Drinks/Week Comments Not Asked 0 (1 standard drink = 0.6 oz pur e alcohol) Sex and Gender Information Value Date Recorded Sex Assigned at Not on file Gender Identity Female 08/17/2022 16:46 EDT Sexual Orientation Not on file Obstetrics History Last Filed Vital Signs Vital Sign Reading Time Taken Comments Blood Pressure - - Pulse - - Temperature - - Respiratory Rate - - Oxygen Saturation - - Inhaled Oxygen Concentration - - Weight 64.4 kg (142 lb) 03/27/2016 1230 EDT Height 169.1 cm (5' 6.58) 03/27/2016 1230 EDT Body Mass Index 22.53 03/27/2016 1230 EDT Plan of Treatment Health Maintenance Due Date Last Done Comments Hepatitis C Screen 1945 RSV Immunization ( o r 60+ Years) (1 - 1-dose 60+ series) 2005 Fall Risk Screening 2010 COVID-19 Vaccine (2022-24 season) 2023 Hernandezupa, Destinee Personal/Famil y Self 1945 [address] [place] [address] Hernandezupa, Destinee Personal/Famil y Self 1945 [address] [place] [address] Chalupa, Destinee Personal/Famil y Self 1945 [address] [facility] [place] [address] Care Teams Currency Examiner Relationship Specialty Start Date End Date Rika Matthews MD [address] [place] [address] PCP - General 03/27/16
--- OUTSIDE RECORDS SUMMARY | 2024-05-26 18:31 | XMS_ITS | Encounter Summary ---
Author Organization [facility] Address [address] [place] [address] Care Team Providers Care Roofing Foreman Name Role Phone Rika Matthews MD Primary Care Provider [phone] Reason for Referral * Radiology Services (Routine/Next Available) - Authorization Not Required Specialty Diagnoses / Procedures Referred By Contac t Referred To Contact Diagnoses Presence of right artificial ankle joint Pain in right ankle and joints of right foot Procedures CT ANKLE RIGHT WO CONTRAST CT LOWER EXTREMITY RIGHT WO CONTRAST James Verduzco MD [address] [place] [address] [facility] Referral ID Status Reason Start Date Expiration Date Visits Requested Visits Authorized [id number] Authorization Not Required 08/03/2022 1 1 Reason for Visit * Radiology Services (Routine/Next Available) - Authorization Not Required Specialty Diagnoses / Procedures Referred By Contlit evans Referred To Contact Diagnoses Presence of right artificial ankle joint Pain in right ankle and joints of right foot Procedures CT ANKLE RIGHT WO CONTRAST CT LOWER EXTREMITY RIGHT WO CONTRAST James Verduzco MD [address] [place] [address] [facility] Referral ID Status Reason Start Date Expiration Date Visits Requested Visits Authorized [id number] Authorization Not Required 08/03/2022 1 1 Encounter Details Date Type Department Care Team (Latest Contact Info) Description 09/11/2022 9:31 EDT Hospital Encounter [facility] Radiology [facility] [place] [address] [place] [address] Presence of right artificial ankle joint; Pain in right ankle and joints of right foot Discharge Disposition: Home or Self Care Social History Tobacco Use Types Packs/Day Years Used Date Smoking Tobacco: Never Smokeless Tobacco: Never Alcohol Use Standard Drinks/Week Comments Not Asked 0 (1 standard drink = 0.6 oz pur e alcohol) Sex and Gender Information Value Date Recorded Sex Assigned at Not on file Gender Identity Female 08/17/2022 16:46 EDT Sexual Orientation Not on file documented as of this encounter Discharge Disposition Disposition Code Departure Means Destination Home or Self Care documented in this encounter Plan of Treatment Not on file documented as of this encounter Procedures Procedure Name Priority Date/Time Associated Diagnosis Comments CT ANKLE RIGHT WO CONTRAST Routine 09/11/2022 14:21 EDT Presence of right artificial ankle joint Pain in right ankle and joints of right foot documented in this encounter Results * CT ANKLE RIGHT WO CONTRAST (09/11/2022 14:21 EDT) Anatomical Region Laterality Modality Lower Extremities Right Computed Tomog pedro 09/11/2022 16:1 1 EDT Impressions 09/11/2022 16:11 EDT 1. 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 In conjunction with the SPECT findings, imaging features are suspicious for hardware loosening. 2. ??Additional chronic and incidental findings as described in detail above. Narrative 09/11/2022 16:[address] ANKLE RIGHT WO CONTRAST ??09/11/2022 2:00 PM Signs and Symptoms/Comments: ?? Evaluate painful total ankle arthroplasty. Patient has pain, discomfort, instability and limited ROM.; right ankle Comparison: Concurrent Nuclear medicine SPECT exam. Technique: Routine contiguous axial 0.[address] images of the right ankle were obtained without contrast. Sagittal and coronal 2-D reconstructions were generated and reviewed. Findings: There is a total ankle arthroplasty with associated metallic streak artifact from the hardware producing some study limitation around the prosthesis. The hardware appears to be grossly intact with no evidence of failure or polyethylene liner displacement. However, there is some osteolysis around the anterior and medial margins of the talar component (for example sagittal series 206#111), which in conjunction with the SPECT findings is suspicious for a component of hardware loosening. No periprosthetic fracture is identified. There are surgical changes from a remote calcaneal osteotomy that appears well-healed. The screw spanning the osteotomy site is intact without evidence of failure or loosening. There are moderate to severe degenerative changes in the subtalar joint and throughout the midfoot. Degenerative changes are also noted in the first MTP joint. The bones are osteopenic. There is marked thickening of the Achilles tendon compatible with tendinosis. There is mild soft tissue swelling over the lateral malleolus. Minimal vascular calcifications are noted. There are is mild atrophy and fatty replacement of regional musculature. The soft tissues are otherwise grossly unremarkable in appearance. Procedure Note Adriano Kay, DO - 09/11/2022 CT ANKLE RIGHT WO CONTRAST 09/11/2022 2:00 PM Signs and Symptoms/Comments: Evaluate painful total ankle arthroplasty. Patient has pain, discomfort,instability and limited ROM.; right ankle Comparison: Concurrent Nuclear medicine SPECT exam. Technique: Routine contiguous axial 0.[address] images of the rightankle were obtained without contrast. Sagittal and coronal 2-Dreconstructions were generated and reviewed. Findings: There is a total ankle arthroplasty with associated metallic streakartifact from the hardware producing some study limitation around theprosthesis. The hardware appears to be grossly intact with no evidence offailure or polyethylene liner displacement. However, there is someosteolysis around the anterior and medial margins of the talar component(for example sagittal series 206#111), which in conjunction with the SPECTfindings is suspicious for a component of hardware loosening. Noperiprosthetic fracture is identified. There are surgical changes from a remote calcaneal osteotomy that appearswell- healed. The screw spanning the osteotomy site is intact withoutevidence of failure or loosening. There are moderate to severedegenerative changes in the subtalar joint and throughout the midfoot.Degenerative changes are also noted in the first MTP joint. The bones areosteopenic. There is marked thickening of the Achilles tendon compatible withtendinosis. There is mild soft tissue swelling over the lateral malleolus.Minimal vascular calcifications are noted. There are is mild atrophy andfatty replacement of regional musculature. The soft tissues are otherwisegrossly unremarkable in appearance. IMPRESSION 1. Total ankle arthroplasty with areas of osteolysis around theanteromedial margin of the talar component. In conjunction with the SPECTfindings, imaging features are suspicious for hardware loosening. 2. Additional chronic and incidental findings as described in detailabove. James Verduzco MD IMG CT ORDERABLES documented in this encounter Visit Diagnoses Diagnosis Presence of right artificial ankle joint Ankle joint replacement by other means Pain in right ankle and joints of right foot documented in this encounter Care Teams Roofing Foreman Relationship Specialty Start Date End Date Rika Matthews MD [address] [place] [id number] PCP - General 03/27/16 documented as of this encounter
--- OUTSIDE RECORDS SUMMARY | 2024-05-26 18:31 | XMS_ITS | Encounter Summary ---
Author Organization [facility] Address [address] [place] [address] Care Team Providers Care Wildlife Biostation Research Ecologist Name Role Phone Rika Matthews MD Primary Care Provider [phone] Reason for Referral * Radiology Services (Routine/Next Available) - Authorization Not Required Specialty Diagnoses / Procedures Referred By Contac t Referred To Contact Nuclear Medicine Diagnoses Presence of right artificial ankle joint Pain in right ankle and joints of right foot Procedures NM BONE SINGLE ZONE WITH SPECT/CT NM BONE SCAN 3 James Farmer MD [address] [place] [address] [facility] Referral ID Status Reason Start Date Expiration Date Visits Requested Visits Authorized [id number] Authorization Not Required 07/27/2022 1 1 Reason for Visit * Radiology Services (Routine/Next Available) - Authorization Not Required Specialty Diagnoses / Procedures Referred By Contac t Referred To Contact Nuclear Medicine Diagnoses Presence of right artificial ankle joint Pain in right ankle and joints of right foot Procedures NM BONE SINGLE ZONE WITH SPECT/CT NM BONE SCAN 3 James Farmer MD [address] [place] [address] [facility] Referral ID Status Reason Start Date Expiration Date Visits Requested Visits Authorized [id number] Authorization Not Required 07/27/2022 1 1 Encounter Details Date Type Department Care Team (Latest Contact Info) Description 09/11/2022 9:30 EDT Hospital Encounter [facility] Radiology Nuclear [place] [address] Presence of right artificial ankle joint; Pain [...] Procedure Name Priority Date/Time Associated Diagnosis Comments NM BONE SINGLE ZONE WITH SPECT/CT Routine 09/11/2022 14:15 EDT Presence of right artificial ankle joint Pain in right ankle and joints of right foot documented in this encounter Results * NM BONE SINGLE ZONE WITH SPECT/CT (09/11/2022 14:15 EDT) Anatomical Region Laterality Modality Nuclear Medicine 09/11/2022 16:2 2 EDT Impressions 09/11/2022 16:22 EDT 1. ??Findings concerning for loosening of the talar component of the right ankle arthroplasty (however unable to differentiate between an aseptic or septic process using the 3-phase scintigraphy findings). Correlation with radiographic history is essential for an accurate diagnosis. 2. ??Intense uptake in the right mid tarsal and talocalcaneal joints suggestive of severe arthrosis. 3. 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 4. ??Other scattered areas of mild to moderate degenerative changes throughout both feet. I have personally reviewed the images and the above interpretation and agree with the findings. Narrative 09/11/2022 16:22 EDT NM BONE SINGLE ZONE WITH SPECT/CT ??09/11/2022 1:00 PM Signs and Symptoms: ??Evaluate painful total ankle arthroplasty. Patient has pain, discomfort, instability and limited ROM.; Evaluate painful total ankle arthroplasty. Patient has pain, discomfort, instability and limited ROM. Comparison: CT right ankle 09/11/22 Technique: 3-phase bone scan with planar images was performed of the right ankle after the IV injection of 19 mCi Tc-99m MDP. Additionally SPECT/CT images of the right ankle were also obtained. Findings: Planar images: Flow, blood pool, and delayed images demonstrate increased uptake around the arthroplasty hardware in the right ankle, with more intense uptake around the talar component. Note Increased flow can be seen in both aseptic and septic loosening. ?? There is a normal clearance of radiotracer from the soft tissues. SPECT/CT There is intense radiotracer uptake along the undersurface of the talar prosthesis, with no obvious explanation on the accompanying low-resolution CT. There is also mild uptake along the periphery of the tibial prosthesis, associated with areas of lucency on the accompanying CT. However the majority of the bone-prosthesis interface demonstrate no significant uptake. There is intense uptake within the right mid tarsal and talocalcaneal joints, associated with severe joint space loss on CT. 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 Other scattered areas of mild uptake in the joints of the midfoot, MTP joints, and interphalangeal joints bilaterally suggest additional areas of arthrosis. Low-dose CT obtained for attenuation correction and co-registration: There has been a prior arthroplasty of the right tibiotalar joint as well as internal fixation of a remote calcaneal fracture. There are scattered degenerative changes in the midfoot and hindfoot. Degenerative disease is also present in the MTP and interphalangeal joints. The left ankle demonstrates normal alignment with no dislocation. There are scattered degenerative changes in the midfoot as well as the MTP and interphalangeal joints. ?? Procedure Note Pepe Hoffman MD - 09/11/2022 NM BONE SINGLE ZONE WITH SPECT/CT 09/11/2022 1:00 PM Signs and Symptoms: Evaluate painful total ankle arthroplasty. Patienthas pain, discomfort, instability and limited ROM.; Evaluate painful totalankle arthroplasty. Patient has pain, discomfort, instability and limitedROM. Comparison: CT right ankle 09/11/22 Technique: 3-phase bone scan with planar images was performed of the right ankleafter the IV injection of 19 mCi Tc-99m MDP. Additionally SPECT/CT imagesof the right ankle were also obtained. Findings: Planar images: Flow, blood pool, and delayed images demonstrate increased uptake aroundthe arthroplasty hardware in the right ankle, with more intense uptakearound the talar component. Note Increased flow can be seen in bothaseptic and septic loosening. There is a normal clearance of radiotracer from the soft tissues. SPECT/CT There is intense radiotracer uptake along the undersurface of the talarprosthesis, with no obvious explanation on the accompanying low-resolutionCT. There is also mild uptake along the periphery of the tibial prosthesis,associated with areas of lucency on the accompanying CT. However themajority of the bone-prosthesis interface demonstrate no significantuptake. There is intense uptake within the right mid tarsal and talocalcanealjoints, associated with severe joint space loss on CT. Additional intense focus of uptake in the left 2nd MTP joint associatedwith flattening of the metatarsal head, likely reflecting avascularnecrosis (Freiberg's infarction). Other scattered areas of mild uptake in the joints of the midfoot, MTPjoints, and interphalangeal joints bilaterally suggest additional areas ofarthrosis. Low-dose CT obtained for attenuation correction and co-registration: There has been a prior arthroplasty of the right tibiotalar joint as wellas internal fixation of a remote calcaneal fracture. There are scattereddegenerative changes in the midfoot and hindfoot. Degenerative disease isalso present in the MTP and interphalangeal joints. The left ankle demonstrates normal alignment with no dislocation. Thereare scattered degenerative changes in the midfoot as well as the MTP andinterphalangeal joints. IMPRESSION 1. Findings concerning for loosening of the talar component of the rightankle arthroplasty (however unable to differentiate between an aseptic orseptic process using the 3-phase scintigraphy findings). Correlation withradiographic history is essential for an accurate diagnosis. 2. Intense uptake in the right mid tarsal and talocalcaneal jointssuggestive of severe arthrosis. 3. 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 4. Other scattered areas of mild to moderate degenerative changesthroughout both feet. I have personally reviewed the images and the above interpretation andagree with the findings. James Verduzco [place] [facility] [place] documented in this encounter Visit Diagnoses Diagnosis Presence of right artificial ankle joint Ankle joint replacement by other means Pain in right ankle and joints of right foot documented in this encounter Administered Medications Inactive Administered Medications - up to 3 most recent administrations Medication Order MAR Action Action Date Dose Rate Site technetium (Tc-99m) methylene diphosphonate (MDP) injection 18 millicurie 18 millicurie, radiopharm IV, NOW X1, 1 dose, On Sat09/11/22 at 1030, Routine, Imaging Protocol Orders Given 09/11/2022 10:11 EDT 19.21 millicuries documented in this encounter Orders Medications Ordered That Alfonso ht Not Have Been Administered Count Last Ordered Date First Ordered Date technetium (Tc-99m) methylen e diphosphonate (MDP) injection 18 millicurie 1 09/11/2022 documented in this encounter Care Teams Wildlife Biostation Research Ecologist Relationship Specialty Start Date End Date Rika Matthews MD [address] [place] [id number] PCP - General 03/27/16 documented as of this encounter
--- OUTSIDE RECORDS SUMMARY | 2024-05-26 18:31 | XMS_ITS | Encounter Summary ---
[place] [address] Care Team Providers Care Golf Course Mechanic Name Role Phone Rika Matthews MD Primary Care Provider [phone] Reason for Visit * Reason Comments Chronic Open Angle Glaucoma moderate sta ge OU, 6 month f/u with HVF 24-2 fast and DFE Encounter Details Date Type Department Care Team (Late st Contact Info) Description 03/07/2016 10:00 AM EDT [place] [address] Dolly Calle, OD [facility] [place] [address] COAG (chronic open-angle glaucoma), moderate stage; Age-related nuclear cataract, bilateral; Retinal tear, right; Ocular migraine Social History Tobacco Use Types [...] Progress Notes * Dolly Calle, OD - 03/07/2016 10:32 AM EDT Encounter Diagnoses Name Primary? COAG (chronic open-angle glaucoma), moderate stage ??? Age-related nuclear cataract, bilateral ??? Retinal tear, right Arlet Hilton is a 70 y.o. with the following ophthalmic problems: Assessment and Plan: COAG OU, stable nerves and IOP below goal OD / OS. ?- Continue Azopt OS BID, and Timolol 0.5% OU QAM ?- RTC?? 6 months for DFE & OCT RNFL Glaucoma summary (continued from visits with Dr. Santamaria) 07/04/2011 Arlet Hilton is a 65 y.o. female ref [facility] dr [facility], [facility]20 With moderate coag. ?? Discs= [...] nsc ou at 83/75. On 08/25 = 81/70 Tmax=~25. ?? IOP status= 19 ou on lexy ou and az os. ie mtmt. ADR= lum, xal, lobo, alpha. ?? Gonio= open ou but slight plat config= watch. ?? Surgery= pi ou nj 04. Alt os 360 dgc on 04/24. VA=20 ou w -3 myopia. ?? OCT mac on 08/24= nl ou. Nc. Target= ~20/17. Cataracts OU ? - Monitor for now, sooner with changes in vision. Stable retinal tear repair OD ?- Follow up with Dr. Carrero as advised. ?- Pt ed re si/sx/risks of RD [...] 2:45 PM EST Office Visit Ophthalmology at [facility] [place] [address] Rodolfo Xavier [place] [address] Pending Results Name Type Priority Associated Diagnoses Date /Time AUTOMATED VISUAL FIELD - EXTENDED - OS - LEFT EYE Ophthalmology Routine 03/07/2016 11:31 AM EDT documented as of this encounter Procedures Procedure Name Priority Date/Time Associated Diagnosis Comments AUTOMATED VISUAL FIELD - EXTENDED - OU- BOTH EYES Routine 03/07/2016 11:31 AM EDT COAG (chronic open-angle glaucoma), moderate stage documented in this encounter Results * AUTOMATED VISUAL FIELD - EXTENDED - OU- BOTH EYES (03/07/2016 11:31 AM EDT) Anatomical Region Laterality Modality Other Narrative 03/07/2016 11:33 AM EDT HVF 24-2 Indication: Glaucoma ?? OD: FL: 0/10 ??FP: ??0% FN: 0% ??MD: -0.89 PSD: 1.39 Impression: Normal and stable to prior tests. OS: FL: 12/22 ??FP: ??8% FN: ??0% MD: -2.18 PSD: 4.63 Impression: Inferior nasal step stable to prior tests. Dolly Calle OD OPHTHALMOLOGY SERVIC ES ORDERABLES documented in this encounter Visit Diagnoses Diagnosis Coag (chronic open-angle glaucoma), moderate stage Age-related nuclear cataract, bilateral Senile nuclear sclerosis Retinal tear, right Ocular migraine Other forms of migraine, without mention of intractable migraine without mention of status migrainosus documented in this encounter Care Teams Golf Course Mechanic Relationship Specialty Start Date End Date Rika Matthews MD [address] [place] [address] PCP - General 07/30/13 documented as of this encounter
--- OUTSIDE RECORDS SUMMARY | 2024-05-26 18:31 | XMS_ITS | Encounter Summary ---
[place] [address] Care Team Providers Care Reaming Machine Operator For Plastic Name Role Phone Rika Matthews MD Primary Care Provider [phone] Reason for Visit * Reason Comments Chronic Open Angle Glaucoma 6 mo ck, OCT disc, dilate Encounter Details Date Type Department Care Team (Late st Contact Info) Description 07/30/2013 9:00 AM EDT [place] [id number] Martín Santamaria MD [facility] [address] [place] [address] COAG (chronic open-angle glaucoma) (Primary Dx) Discharge Disposition: Home Social History Tobacco Use Types Packs/Day Years Used Date Smoking Tobacco: Never Alcohol Use Standard Drinks/Week Comments Yes 0 (1 standard drink = 0.6 oz pur e alcohol) Sex and Gender Information Value Date Recorded Sex Assigned at Not on file Gender Identity Female 08/26/2018 8:14 PM EDT Sexual Orientation Not on file documented as of this encounter Progress Notes * Martín Santamaria MD - 07/30/2013 10:20 AM EDT 07/04/2011 Arlet Hilton is a 65 y.o. female ref by dr chicho koehler, [facility], on 04/20 With coag. Discs= 0.3/0.5. VFs=nl od and os= small inf nasal step.and no change on 12/23 and no change on 01/21.. OCT= 89/76 on 04/20. And 88/72 on 07/23. 83/74 on 07/24 and nsc ou. Tmax=~25. IOP status= 19 ou on lexy ou and az os. ADR= lum, xal, lobo, alpha. Gonio= open ou but slight plat config= watch. Surgery= pi ou nj 04. VA=20 ou w -3 myopia. Target= ~20/17. 07/30/2013= iops= 16 and glc stable same rx ck 6m hvfs and dil documented in this encounter Plan of Treatment Upcoming Encounters Date Type Department Care Team (Late st Contact Info) Description 10/13/2024 2:45 PM EST Office Visit Ophthalmology at [facility] [place] [address] Rodolfo Xavier MD [facility] [place] [address] documented as of this encounter Procedures Procedure Name Priority Date/Time Associated Diagnosis Comments OCT OPTIC NERVE - OU - BOTH EYES Routine 07/30/2013 10:17 AM EDT COAG (chronic open-angle glaucoma) documented in this encounter Results * OCT OPTIC [id number] EYES (07/30/2013 10:17 AM EDT) Anatomical Region Laterality Modality Other Narrative 07/30/2013 10:17 AM EDT No significant change/stable OU 83/74 Procedure Note Martín Santamaria MD - 07/30/2013 No significant change/stable OU 83/74 Martín Santamaria MD OPHTHALMOLOGY SERVIC ES ORDERABLES documented in this encounter Visit Diagnoses Diagnosis COAG (chronic open-angle glaucoma)- Primary Primary open-angle glaucoma documented in this encounter Care Teams Reaming Machine Operator For Plastic Relationship Specialty Start Date End Date Rika Matthews MD [address] [place] [address] PCP - General 07/30/13 documented as of this encounter
--- OUTSIDE RECORDS SUMMARY | 2024-05-26 18:31 | XMS_ITS | Encounter Summary ---
Author Organization [facility] Address [address] [place] [address] Care Team Providers Care Broadcast News Producer Name Role Phone Unknown, Provider Primary Care Provider [phone] Encounter Details Date Type Department Care Team ([facility] st Contact Info) Description 04/23/2007 Results Only [facility] [address] [place] [address] Jc Maldonado MD [address] [place] [id number] Social History Tobacco Use Types Packs/Day Years Used Date Smoking Tobacco: Never Assessed Sex and Gender Information Value Date Recorded Sex Assigned at Not on file Gender Identity Female 08/17/2022 16:46 EDT Sexual Orientation Not on file documented as of this encounter Plan of Treatment Not on file documented as of this encounter Procedures Procedure Name Priority Date/Time Associated Diagnosis Comments CYTOPATHOLOGY Routine 04/23/2007 0:00 EDT documented in this encounter Results * CYTOPATHOLOGY (04/23/2007 0:00 EDT) Pathology Report: CYTOPATHOLOGY REPORT Reports generated via electronic interface contain original data; however they are lacking the format of the original report. Caution should be taken when reading/interpreti ng unformatted reports. Name: ? DESTINEE SCALES ? Accession #: ? [id number] : ? 1945 (Age: 61) ??F ?Collect Date: ? 04/23/2007 Location: ? [facility] ? Receive Date: ? 04/24/2007 Provider: ?JC MALDONADO MD Copy to: ? Specimen/Source: ?ThinPrep Pap Test, Cervix, processed on [employer] ThinPrep Imaging System, with manual evaluation Last Menstrual Period: ? Menstrual/Pregnanc y Status: ? Menopausal Other: ? HPVA - HPV testing requested if ASC-US on the current ThinPrep Pap test. ? SPECIMEN ADEQUACY ? Satisfactory for Evaluation - transformation zone component present GENERAL CATEGORIZATION ? Negative for Intraepithelial Lesion or Malignancy ? Document reviewed and electronically signed by: ? DARELL Orantes(ASCP) ? Report Date: ??04/30/2007 12:04 End of Report SYDNEY DUARTE 04/23/2007 04/24/2007 Jc Maldonado MD PATHOLOGY ORDERABLES [facility] [address] [place] [address] documented in this encounter Visit Diagnoses Not on filedocumented in this encounter Care Teams Broadcast News Producer Relationship Specialty Start Date End Date Unknown, Provider, PCP - General 05/17/09 03/26/16 documented as of this encounter
--- OUTSIDE RECORDS SUMMARY | 2024-05-26 18:31 | XMS_ITS | Encounter Summary ---
Author Organization [facility] Address [address] [place] [address] Care Team Providers Care Online Marketing Coordinator Name Role Phone Rika Matthews MD Primary Care Provider [phone] Encounter Details Date Type Department Care Team (Late st Contact Info) Description 06/08/2022 Lab Requisition [facility] Pathology & Laboratory Medicine - [address] [address] Outr Resulting Lab, Provider Social History Tobacco Use Types Packs/Day Years [...] Procedure Name Priority Date/Time Associated Diagnosis Comments ZZCOVID-19 TEST [facility] PCR Today 06/08/2022 15:30 EDT COVID-19 TESTING Routine 06/08/2022 15:3 0 EDT documented in this encounter Results * COVID-19 TEST [facility] PCR (06/08/2022 15:30 EDT) Swab 06/08/2022 15:3 0 EDT 06/09/2022 21:25 EDT Provider Outr Resulting Lab MICROBIOLOGY - GENERAL ORDERABLES [facility] [address] [place] [address] * COVID-19 TESTING (06/08/2022 15:30 EDT) COVID-19 rt-PCR Result Negative Negative 06/10/2022 14:08 EDT [facility] Comment: This test has not been FDA cleared or approved. This test has been authorized by FDA under an EUA for use by authorized laboratories. This test has been authorized only for detection of nucleic acid from 2019-nCoV, not for any other viruses or pathogens. This test is only authorized for the duration of the declaration that circumstances exist justifying the authorization of emergency use of in vitro diagnostic tests for detection and/or diagnosis of 2019-nCoV under section 564(b)(1) of Act, 21 U.S.C ?? 360bbb-3(b) (1), unless the authorization is terminated or revoked sooner. Negative results do not preclude 2019-nCoV infection and should not be used as the sole basis for treatment or other patient management decisions. Negative results must be combined with clinical observations, patient history, and epidemiological information. Testing was performed using the robyn SARS-CoV-2 assay ([employer] on the Robyn 6800 System Performing Lab Robyn [address] [facility] 06/10/2022 14:08 EDT [facility] Swab 06/08/2022 15:3 0 EDT 06/09/2022 21:25 EDT Provider Outr Resulting Lab MICROBIOLOGY - GENERAL ORDERABLES [facility] [address] [place] [address] documented in this encounter Visit Diagnoses Not on filedocumented in this encounter Care Teams Online Marketing Coordinator Relationship Specialty Start Date End Date Rika Matthews MD [address] [place] [address] PCP - General 03/27/16 documented as of this encounter
--- OUTSIDE RECORDS SUMMARY | 2024-05-26 18:31 | XMS_ITS | Encounter Summary ---
Author Organization [facility] [place] [address] Care Team Providers Care Foundry Worker Name Role Phone Rika Matthews MD Primary Care Provider [phone] Reason for Visit * Reason Comments Procedure ALT OS Encounter Details Date Type Department Care Team (Latest Contact Info) Description 04/12/2014 12:30 PM EDT Procedure [place] [address] Martín Santamaria MD [facility] [place] [address] COAG (chronic open-angle glaucoma) (Primary Dx) Discharge [...] Progress Notes * Martín Santamaria MD - 04/12/2014 1:19 PM EDT 07/04/2011 Arlet Hilton is a 65 y.o. female ref by dr chicho koehler, [facility], on 04/20 With coag. Discs= 0.3/0.5. VFs=nl od and os= small inf nasal step.and no change on 12/23 and no change on 01/21.and on 02/22= nscod and slight increase in density of L inf nasal step.. OCT= 89/76 on 04/20. And 88/72 on 07/23. 83/74 on 07/24 and nsc ou. Tmax=~25. IOP status= 19 ou on lexy ou and az os. ie mtmt. ADR= lum, xal, lobo, alpha. Gonio= open ou but slight plat config= watch. Surgery= pi ou nj 04. VA=20 ou w -3 myopia. Target= ~20/17. 02/16/2014= iops= 18/19 and the hvf os slightly worse. Plan alt os 360 in 2m after [place] trip. pilo1 os 04/12/2014= ALT os 360, seg pig, plan ck 4m dil oct disc ou documented in this encounter Plan of Treatment Upcoming Encounters Date Type Department Care Team (Late st Contact Info) Description 10/13/2024 2:45 PM EST Office [place] [address] Rodolfo Xavier MD [facility] [place] [address] documented as of this encounter Procedures Procedure Name Priority Date/Time Associated Diagnosis Comments TRABECULOPLASTY BY LASER - OS - LEFT EYE Routine 04/12/2014 1:20 PM EDT COAG (chronic open-angle glaucoma) documented in this encounter Results * Laser Trabeculoplasty - OS - Left Eye (04/12/2014 1:20 PM EDT) Laser Applications Laser Total Energy Anatomical Region Laterality Modality Other Narrative 04/12/2014 1:20 PM EDT 04/12/2014= PROCEDURE: ARGON LASER TRABECULOPLASTY os Arlet Hilton is a 68 y.o. female , with a diagnosis of open angle glaucoma, underwent an argon laser trabeculoplasty treatment, 360 degrees, in the os. Surgeon: Martín Santamaria MD Procedure: Following the installation of 1 drop of 1% pilocarpine in the surgical eye, and following the installation of one drop of proparacaine in each eye, the patient seated at the argon laser. A trabeculoplasty gonioscopy lens was placed on the eye and an argon laser trabeculoplasty treatment was performed for 360 degrees. ??The laser settings were argon laser, 50 micron spot size, 0.1 second duration, at a power setting of 700 milliwatts, and ??118 applications were placed evenly ??.over 360 degrees. The trabecular meshwork pigmentation was 0-2 w segmentation. The patient tolerated the procedure well and there were no complications. The patient will use pred forte 1% in the surgical eye four times a day for four days and will be rechecked in four months. Martín Santamaria MD Professor in Ophthalmology [facility] Director: Glaucoma Service [facility] ?? Procedure Note Martín Santamaria MD - 04/12/2014 04/12/2014= PROCEDURE: ARGON LASER TRABECULOPLASTY os Arlet Hilton is a 68 y.o. female , with a diagnosis of open angleglaucoma, underwent an argon laser trabeculoplasty treatment, 360 degrees,in the os. Surgeon: Martín Santamaria MD Procedure: Following the installation of 1 drop of 1% pilocarpine in thesurgical eye, and following the installation of one drop of proparacainein each eye, the patient seated at the argon laser. A trabeculoplastygonioscopy lens was placed on the eye and an argon laser trabeculoplastytreatment was performed for 360 degrees. The laser settings were argonlaser, 50 micron spot size, 0.1 second duration, at a power setting of 700milliwatts, and 118 applications were placed evenly .over 360 degrees.The trabecular meshwork pigmentation was 0-2 w segmentation. The patient tolerated the procedure well and there were no complications.The patient will use pred forte 1% in the surgical eye four times a dayfor four days and will be rechecked in four months. Martín Santamaria MD Professor in Ophthalmology [facility] Breaker: Glaucoma Service [facility] Martín Santamaria MD OPHTHALMOLOGY SERVIC ES ORDERABLES documented in this encounter Visit Diagnoses Diagnosis COAG (chronic open-angle glaucoma)- Primary Primary open-angle glaucoma documented in this encounter Care Teams Foundry Worker Relationship Specialty Start Date End Date Rika Matthews MD [address] [place] [address] PCP - General 07/30/13 documented as of this encounter
--- OUTSIDE RECORDS SUMMARY | 2024-05-26 18:31 | XMS_ITS | Encounter Summary ---
Author Organization [facility] Address [address] [place] [address] Care Team Providers Care Tray Room Worker Name Role Phone Unknown, Provider Primary Care Provider [phone] Reason for Referral * (Routine) - Closed Specialty Diagnoses / Procedures Referred By Contac t Referred To Contact Diagnoses Symptomatic menopausal or female climacteric states Procedures DXA-DUAL XRAY ABSORPTIOMETRY FOR BONE DENSITY Gwen Merino MD [facility] [address] Referral ID Status Reason Start Date Expiration Date Visits Re quested Visits Authorized [id number] Closed 03/27/2016 1 1 Encounter Details Date Type Department Care Team (Late st Contact Info) Description 03/20/2016 Orders Only [facility] Osteoporosis - Main [place] [address] [place] [address] Gwen Merino MD [facility] [address] Symptomatic menopausal or female climacteric states (Primary Dx) Social History Tobacco Use Types Packs/Day Years Used Date Smoking Tobacco: Never Assessed Sex and Gender Information Value Date Recorded Sex Assigned at Not on file Gender Identity Female 08/17/2022 16:46 EDT Sexual Orientation Not on file documented as of this encounter Plan of Treatment Not on file documented as of this encounter Results * DXA-DUAL XRAY ABSORPTIOMETRY FOR BONE DENSITY (03/30/2016 10:10 EDT) DEXA Bone Density [facility] DEXA Bone Density, External [facility] Anatomical Region Laterality Modality Other 03/30/2016 10:1 0 EDT Gwen Merino MD IMG DEXA ORDERAB LES documented in this encounter Visit Diagnoses Diagnosis Symptomatic menopausal or female climacteric states- Primary documented in this encounter Care Teams Tray Room Worker Relationship Specialty Start Date End Date Unknown, Provider, PCP - General 05/17/09 03/26/16 documented as of this encounter
--- OUTSIDE RECORDS SUMMARY | 2024-05-26 18:31 | XMS_ITS | Encounter Summary ---
Author Organization [facility] Address [address] [place] [address] Care Team Providers Care Stores Naval Name Role Phone Rika Matthews MD Primary Care Provider [phone] Reason for Visit * Reason Comments New Patient Visit Encounter Details Date Type Department Care Team (Latest Contact Info) Description 03/27/2016 12:30 EDT Office Visit [facility] Osteoporosis - [address] [address] Khoa Riley MD Rad, Tech 1, MD History of estrogen therapy (Primary Dx); Symptomatic menopausal or female climacteric states; Osteoporosis screening Social History Tobacco Use Types Packs/Day Years [...] Body Mass Index 22.53 03/27/2016 1230 EDT documented in this encounter Discharge Diagnoses Diagnosis N95.1 Menopausal and female climacteric states-N95.1[ICD-10-CM] documented in this encounter Progress Notes * Kimi Espinoza - 03/27/2016 1347 EDT Procedure Date: 03/27/2016 Referring Physician: Gwen Merino MD Previous Scan Date: None at [facility] (Previous DXA in [place] about 10 yrs ago) ABN Necessary: No Ht 169.1 cm (66.58) Wt 64.411 kg (142 lb) BMI 22.53 kg/m2 Done AP SPINE yes FEMUR yes TOTAL BODY FOREARM LVA/VFA HEEL US PATIENT HISTORY: There is no problem list on file for this patient. No past medical history on file. Additional Comments: Previous/Prior Comparison? No Pharmacologic? No Osteoporosis Center Patient Information Ethnicity/Race: Nutrition and Habits: Do you consume dairy? Yes Number of servings per day? 2-3 Do you take calcium supplements? Yes Amount? 500 mg daily Do you drink 3 or more alcoholic beverages daily? No Have you now or have you had in the past an eating disorder? No Do you or have you smoked in the last 6 months? No Family History: Did your mother or father have a hip fracture? No Do you have a parent or sibling who suffered a broken hip, shoulder, wrist or ribs after age 45? No Patient History-Medications: Have you taken any of the following medications or treatments. (Now or in the past)?: Steroid (prednisone, cortisone, Medrol) 5mg. or more for at least 3 months? No Thyroid medication for thyroid cancer suppression? No Anticonvulsants (phenytoin, Dilantin, phenobarbital) No GnRH Agonist (for endometriosis or prostate cancer, Example - Lupron) No Depo Povera (Current use) No Aromatase inhibitor: Letrozol (Femera), Anastrozole (arimidex), Exemestane (Aromasin) No TZD's for diabetes (Actos, Avandia) No Medical History: Have you had any of the following?: Hyperthyroidism (over active thyroid) No Hyperparathyroidism (over active parathyroid, high blood calcium) No Kidney failure No Rheumatoid arthritis No Seizure disorder (epilepsy) No Diabetes mellitus No Bariatric surgery/Gastric bypass No Back Surgery No Back X-ray No Fractures after age 40 No Area: Treatments: Alendronate (Fosamax) Never, Date stopped: Calcitonin (Miacalcin) Never, Date stopped: Denosumab (Prolia) Never, Date stopped: Ibandronate (Boniva) Never, Date stopped: Pamidronate (Aredia) Never, Date stopped: Raloxifene (Evista) Never, Date stopped: Risendronate (Actonel) Never, Date stopped: Teriparatide (Forteo) Never, Date stopped: Zoledronic Acid (Reclast, Zomata) Never, Date stopped: Other: Never, Date stopped: For Women Only: What was your age at menopause? 50 Are you taking estrogen now or within the past year? Past use oral HRT X 10 yrs, Date stopped: ? Have you been treated for breast cancer? Never Comments: ? Exclude L2-L3 due to OA? Kimi Espinoza 03/27/2016 13:47 documented in this encounter Plan of Treatment Not on file documented as of this encounter Procedures Procedure Name Priority Date/Time Associated Diagnosis Comments ORDERS - SCANNED 04/03/2016 6:20 EDT DXA DUAL XRAY ABSORPTIOMETRY FOR BONE DENSITY ([facility] PERFORMED) Routine 03/30/2016 10:10 EDT Symptomatic menopausal or female climacteric states documented in this encounter Results * ORDERS - SCANNED (04/03/2016 6:20 EDT) 04/03/2016 6:20 EDT Scan 2 Spray Drier Operator Helper ADMISSION ORDERABLE S * DXA-DUAL XRAY ABSORPTIOMETRY FOR BONE DENSITY (03/30/2016 10:10 EDT) DEXA Bone Density [facility] DEXA Bone Density, External [facility] Anatomical Region Laterality Modality Other 03/30/2016 10:1 0 EDT Gwen Merino MD IMG DEXA ORDERAB LES documented in this encounter Visit Diagnoses Diagnosis History of estrogen therapy- Primary Personal history of estrogen therapy Symptomatic menopausal or female climacteric states Osteoporosis screening Special screening for osteoporosis documented in this encounter Care Teams Stores Naval Relationship Specialty Start Date End Date Rika Matthews MD [address] [place] [phone] PCP - General 03/27/16 documented as of this encounter
--- OUTSIDE RECORDS SUMMARY | 2024-05-26 18:31 | XMS_ITS | Encounter Summary ---
[place] [address] Care Team Providers Care Commercial Collector Name Role Phone Rika Matthews MD Primary Care Provider [phone] Reason for Visit * Reason Comments Procedure Laser retinopexy OD Encounter Details Date Type Department Care Team (Latest Contact Info) Description 10/10/2015 11:15 AM EST Procedure [place] [phone] Darwin Carrero MD [facility] [place] [address] Retinal tear, right Social History Tobacco Use [...] 2:45 PM EST Office [place] [phone] Rodolfo Xavier MD [facility] [place] [address] documented as of this encounter Procedures Procedure Name Priority Date/Time Associated Diagnosis Comments DESTRUCTION LOC LESION RETINA-PHOTOCOAG - OD - RIGHT EYE Routine 10/10/2015 2:40 PM EST Retinal tear, right documented in this encounter Results * Laser Focal Retinal Lesion - OD - Right Eye (10/10/2015 2:40 PM EST) Anatomical Region Laterality Modality Other Narrative 10/10/2015 2:40 PM EST Pre-Op Patient understands the risks and benefits of the treatment as outlined on the consent. Anesthesia Topical anesthesia was used. Anesthesia medications included Proparacaine. Laser Information The type of laser was diode. The duration in seconds was 0.1. Laser power was 300.0. Total spots was 220. The spot size was 200 microns. Darwin Carrero MD OPHTHALMOLOGY SERVIC ES ORDERABLES documented in this encounter Visit Diagnoses Diagnosis Retinal tear, right documented in this encounter Care Teams Commercial Collector Relationship Specialty Start Date End Date Rika Matthews MD [address] [place] [address] PCP - General 07/30/13 documented as of this encounter
--- OUTSIDE RECORDS SUMMARY | 2024-05-26 18:31 | XMS_ITS | Encounter Summary ---
[place] [address] Care Team Providers Care Tool Specialist Name Role Phone Rika Matthews MD Primary Care Provider Reason for Visit * Reason Onset Date Comments Procedure 02/28/2015 Encounter Details Date Type Department Care Team (Latest Contact Info) Description 02/28/2015 10:35 AM EDT Procedure [place] [address] COAG (chronic open-angle glaucoma), moderate stage Social History Tobacco Use Types Packs/Day Years Used Date Smoking Tobacco: Never Alcohol Use Standard Drinks/Week Comments Yes 0 (1 standard drink = 0.6 oz pur e alcohol) Sex and Gender Information Value Date Recorded Sex Assigned at Not on file Gender Identity Female 08/26/2018 8:14 PM EDT Sexual Orientation Not on file documented as of this encounter Progress Notes * Zaida Mojica MD - 02/28/2015 12:02 PM EDT Please see procedure note for details. Zaida Mojica MD documented in this encounter Miscellaneous Notes * Addendum Note - Zaida Mojica MD - 02/28/2015 12:03 PM EDTAddended by: ZAIDA MOJICA on: 02/28/2015 12:03 PM Modules accepted: Orders, Level of Service, SmartSet documented in this encounter Plan of Treatment Upcoming Encounters Date Type Department Care Team (Late st Contact Info) Description 10/13/2024 2:45 PM EST Office Visit Ophthalmology at [facility] [place] [address] [place] [address] documented as of this encounter Procedures Procedure Name Priority Date/Time Associated Diagnosis Comments AUTOMATED VISUAL FIELD - EXTENDED - OU- BOTH EYES Routine 02/28/2015 12:03 PM EDT COAG (chronic open-angle glaucoma), moderate stage documented in this encounter Results * AUTOMATED VISUAL FIELD - EXTENDED - OU- BOTH EYES (02/28/2015 12:03 PM EDT) Anatomical Region Laterality Modality Other Narrative 02/28/2015 12:03 PM EDT Right Eye Threshold was 24-2. Strategy was BRIANDA. Left Eye Threshold was 24-2. Strategy was BRIANDA. Reliability was good. Notes No significant change/stable OU MD: OD -0.05, OS -3.77 Zaida Mojica MD OPHTHALMOLOGY SERVIC ES ORDERABLES documented in this encounter Visit Diagnoses Diagnosis Coag (chronic open-angle glaucoma), moderate stage documented in this encounter Care Teams Tool Specialist Relationship Specialty Start Date End Date Rika Matthews MD [address] [place] [address] PCP - General 07/30/13 documented as of this encounter
--- OUTSIDE RECORDS SUMMARY | 2024-05-26 18:31 | XMS_ITS | Encounter Summary ---
Author Organization [facility] [address] Care Team Providers Care Silk Spreader Name Role Phone Asim Boyd MD Primary Care Provider Reason for Visit * Reason Comments Chronic Open Angle Glaucoma Pt here for IOP and HVF Encounter Details Date Type Department Care Team (Late st Contact Info) Description 01/26/2013 9:00 AM EDT [place] [address] Martín Santamaria MD [facility] [place] [address] COAG (chronic open-angle glaucoma) (Primary Dx) Discharge [...] Progress Notes * Martín Santamaria MD - 01/26/2013 9:57 AM EDT 07/04/2011 Arlet Hilton is a 65 y.o. female ref by dr chicho koehler, [facility], on 04/20 With coag. Discs= 0.3/0.5. VFs=nl od and os= small inf nasal step.and no change on 12/23 and no change on 01/21.. OCT= 89/76 on 04/20. And 88/72 on 07/23. Tmax=~25. IOP status= 19 ou on lexy ou and az os. ADR= lum, xal, lobo, alpha. Gonio= open ou but slight plat config= watch. Surgery= pi ou nj 04. VA=20 ou w -3 myopia. Target= ~20/17. 07/21/2012= 20/19 glc stale dk 6m dil hvfsand dil mentioned alt if iops elevate 01/26/2013=16/16.5 glc stable same rx ck 6m dil octs d. documented in this encounter Plan of Treatment Upcoming Encounters Date Type Department Care Team (Late st Contact Info) Description 10/13/2024 2:45 PM EST Office Visit Ophthalmology at [facility] [place] [address] Rodolfo Xavier MD [facility] [place] [address] documented as of this encounter Visit Diagnoses Diagnosis COAG (chronic open-angle glaucoma)- Primary Primary open-angle glaucoma documented in this encounter Care Teams Silk Spreader Relationship Specialty Start Date End Date Asim Boyd MD [address] [place] [address] PCP - General 10/03/10 07/29/13 documented as of this encounter
--- OUTSIDE RECORDS SUMMARY | 2024-05-26 18:31 | XMS_ITS | Encounter Summary ---
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 COAG (chronic open-angle glaucoma), moderate stage Arlet Hilton is a 70 y.o. with the following ophthalmic problems: Assessment and Plan: COAG OU, stable nerves and IOP below goal OD, at goal OS. - Continue Azopt OS BID, and Timolol 0.5% OU QAM - RTC 6 months for DFE & HVF 24-2 Glaucoma summary (continued from visits with Dr. Santamaria) 07/04/2011 Arlet Hilton is a 65 y.o. female ref by dr chicho koehler, [facility] on 04/20 With moderate coag. Discs= 0.3/0.5. VFs=nl od and os= small inf nasal step.and no change on 12/23 and no change on 01/21.and on 02/22= nscod and slight increase in density of L inf nasal step.. And nsc ou on 02/23. OCT= 89/76 on 04/20. And 88/72 on 07/23. 83/74 on 07/24 and nsc ou. And on 08/24= nsc ou at 83/75. On 08/25 = 81/70 Tmax=~25. IOP status= 19 ou on lexy ou and az os. ie mtmt. ADR= lum, xal, lobo, alpha. Gonio= open ou but slight plat config= watch. Surgery= pi ou nj 04. Alt os 360 dgc on 04/24. VA=20 ou w -3 myopia. OCT mac on 08/24= nl ou. Nc. Target= ~20/17. 08/24/2014= iops= 16 ou. glc stable same rs; ck 6m hvfs and dil 02/28/2015= iops= 18 ou. And glcstable. 09/05/15 = iop 17/17, stable nerves. Cataracts OU - Monitor for now, sooner with changes in vision. 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 Carrero for second opinion in 1 month. - Pt ed re si/sx/risks of RD and to RTC STAT w/ increase in floaters, flashes, curtains/shades. - Findings and concerns discussed with Arlet and she expressed understanding. -Upon Return [address] Carrero, [address] Calle for HVF 24-2, DFE, sooner with changes in sx/vision. documented in this encounter Plan of Treatment Upcoming Encounters Date Type Department Care Team (Late st Contact Info) Description 10/13/2024 2:45 PM EST Office Visit Ophthalmology at [facility] [place] [address] Rodolfo Xavier [place] [address] documented as of this encounter Procedures Procedure Name Priority Date/Time Associated Diagnosis Comments OCT OPTIC NERVE - OU - BOTH EYES Routine 09/05/2015 1:32 PM EDT COAG (chronic open-angle glaucoma), moderate stage documented in this encounter Results * OCT OPTIC [id number] EYES (09/05/2015 1:32 PM EDT) Anatomical Region Laterality Modality Other Narrative 09/05/2015 1:34 PM EDT OCT RNFL OD: Reliable, borderline superior, within normal limits all other quadrants. OS: Reliable, thin superior, borderline nasal, within normal limits all other quadrants. Macula OD: Reliable, normal foveal pit. OS: Reliable, normal foveal pit. 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
--- OUTSIDE RECORDS SUMMARY | 2024-05-26 18:31 | XMS_ITS | Encounter Summary ---
Author Organization [facility] Address [address] [place] [address] Care Team Providers Care Hand Tool Filer Name Role Phone Rika Matthews MD Primary Care Provider [phone] Reason for Visit * Radiology Services (Routine/Next Available) - Authorization Not Required Specialty Diagnoses / Procedures Referred By Contlit t Referred To Contact Nuclear Medicine Diagnoses Presence of right artificial ankle joint Pain in right ankle and joints of right foot Procedures NM BONE SINGLE ZONE WITH SPECT/CT NM BONE SCAN 3 PHASE James Verduzco MD [address] [place] [address] [facility] Referral ID Status Reason Start Date Expiration Date Visits Requested Visits Authorized [id number] Authorization Not Required 07/27/2022 1 1 Encounter Details Date Type Department Care Team (Latest Contact Info) Description 09/11/2022 9:32 EDT - 09/11/2022 23:59 EDT Hospital En[facility] Radiology Nuclear Medicine and PET - [address] [address] Discharge Disposition: Home or Self Care Social [...] andagree with the findings. James Verduzco MD IM NM ORDERABLES documented in this encounter Visit Diagnoses Not on filedocumented in this encounter Care Teams Hand Tool Filer Relationship Specialty Start Date End Date Rika Matthews MD [address] [place] [phone] PCP - General 03/27/16 documented as of this encounter
--- OUTSIDE RECORDS SUMMARY | 2024-05-26 18:31 | XMS_ITS | Encounter Summary ---
[place] [address] Care Team Providers Care Fabrics And Material Cutter Name Role Phone Rika Matthews MD Primary Care Provider [phone] Reason for Visit * Reason Onset Date Comments Procedure 02/16/2014 Encounter Details Date Type Department Care Team (Latest Contact Info) Description 02/16/2014 10:00 AM EDT Procedure [place] [address] COAG (chronic open-angle glaucoma) (Primary Dx) Social History Tobacco Use Types [...] Progress Notes * Zaida Mojica MD - 02/16/2014 11:01 AM EDT Please see procedure note for details. ZAIDA MOJICA MD documented in this encounter Plan of Treatment Upcoming Encounters Date Type Department Care Team (Late st Contact Info) Description 10/13/2024 2:45 PM EST Office [place] [address] Rodolfo Xavier MD [facility] [place] [address] documented as of this encounter Procedures Procedure Name Priority Date/Time Associated Diagnosis Comments AUTOMATED VISUAL FIELD - EXTENDED - OU- BOTH EYES Routine 02/16/2014 11:02 AM EDT COAG (chronic open-angle glaucoma) documented in this encounter Results * AUTOMATED VISUAL FIELD - EXTENDED - OU- BOTH EYES (02/16/2014 11:02 AM EDT) Anatomical Region Laterality Modality Other Narrative 02/16/2014 11:02 AM EDT OD: no significant change MD: -0.91 OS: slight increase in density of inferior nasal step MD -3.90 Procedure Note Zaida Mojica MD - 02/16/2014 OD: no significant change MD: -0.91 OS: slight increase in density of inferior nasal step MD -3.90 Zaida Mojica MD OPHTHALMOLOGY SERVIC ES ORDERABLES documented in this encounter Visit Diagnoses Diagnosis COAG (chronic open-angle glaucoma)- Primary Primary open-angle glaucoma documented in this encounter Care Teams Fabrics And Material Cutter Relationship Specialty Start Date End Date Rika Matthews MD [address] [place] [address] PCP - General 07/30/13 documented as of this encounter
--- OUTSIDE RECORDS SUMMARY | 2024-05-26 18:31 | XMS_ITS | Encounter Summary ---
Author Organization [facility] [place] [address] Care Team Providers Care Cut Off Sawyer Name Role Phone Rika Matthews MD Primary Care Provider Reason for Visit * Reason Comments Chronic Open Angle Glaucoma pt is here f or 6 month follow up Encounter Details Date Type Department Care Team (Late st Contact Info) Description 02/28/2015 10:30 AM EDT Follow-[place] [id number] Martín Santamaria MD [facility] [place] [address] COAG (chronic open-angle glaucoma), moderate stage Discharge Disposition: Home Social History Tobacco Use [...] Progress Notes * Martín Santamaria MD - 02/28/2015 12:01 PM EDT IMartín, performed the above scribed services and agree with the accuracy of the documentation of this encounter. Encounter Diagnosis Name Primary? COAG (chronic open-angle glaucoma), moderate stage 07/04/2011 Arlet Hilton is a 65 y.o. female ref by dr chicho koehler, [facility], on 04/20 With moderate coag. Discs= 0.3/0.5. VFs=nl od and os= small inf nasal step.and no change on 12/23 and no change on 01/21.and on 02/22= nscod and slight increase in density of L inf nasal step.. And nsc ou on 02/23. OCT= 89/76 on 04/20. And 88/72 on 07/23. 83/74 on 07/24 and nsc ou. And on 08/24= nsc ou at 83/75. Tmax=~25. IOP status= 19 ou on lexy [...] dil 02/28/2015= iops= 18 ou. And glcstable. Plan ret ment. Ref to dr hung in 6m, dil octs disc and if any problem occurs, then ref to glc seervice ty dgc documented in this encounter Plan of Treatment Upcoming Encounters Date Type Department Care Team (Late st Contact Info) Description 10/13/2024 2:45 PM EST Office Visit Ophthalmology at [facility] [place] [address] Rodolfo Xavier MD [facility] [place] [address] documented as of this encounter Visit Diagnoses Diagnosis Coag (chronic open-angle glaucoma), moderate stage documented in this encounter Care Teams Cut Off Sawyer Relationship Specialty Start Date End Date Rika Matthews MD [address] [place] [address] PCP - General 07/30/13 documented as of this encounter
--- OUTSIDE RECORDS SUMMARY | 2024-05-26 18:31 | XMS_ITS | Encounter Summary ---
Author Organization [facility] Address [address] [place] [address] Care Team Providers Care Elastic Yarn Twister Name Role Phone Unknown, Provider Primary Care Provider [phone] Encounter Details Date Type Department Care Team ([facility] st Contact Info) Description 05/03/2008 Results Only [facility] - [facility] [address] [place] [address] Jc Maldonado MD [address] [place] [address] Social History Tobacco Use Types Packs/Day Years Used Date Smoking Tobacco: Never Assessed Sex and Gender Information Value Date Recorded Sex Assigned at Not on file Gender Identity Female 08/17/2022 16:46 EDT Sexual Orientation Not on file documented as of this encounter Plan of Treatment Not on file documented as of this encounter Procedures Procedure Name Priority Date/Time Associated Diagnosis Comments CYTOPATHOLOGY Routine 05/03/2008 0:00 EDT documented in this encounter Results * CYTOPATHOLOGY (05/03/2008 0:00 EDT) Pathology Report: CYTOPATHOLOGY REPORT Reports generated via electronic interface contain original data; however they are lacking the format of the original report. Caution should be taken when reading/interpreti ng unformatted reports. Name: ? DESTINEE SCALES ? Accession #: ? [id number] : ? 1945 (Age: 62) ??F ?Collect Date: ? 05/03/2008 Location: ? [facility] ? Receive Date: ? 05/04/2008 Provider: ?JC MALDONADO MD Copy to: ? Specimen/Source: ?ThinPrep Pap Test, Cervix, processed on [employer] ThinPrep Imaging System, with manual evaluation Last Menstrual Period: ? Menstrual/Pregnanc y Status: ? Menopausal Other: ? HPVA - HPV testing requested if ASC-US on the current ThinPrep Pap test. ? SPECIMEN ADEQUACY ? Satisfactory for Evaluation - transformation zone component absent GENERAL CATEGORIZATION ? Negative for Intraepithelial Lesion or Malignancy ? Document reviewed and electronically signed by: ? DARELL Garduno(ASCP) ? Report Date: ??05/06/2008 14:38 End of Report SYDNEY DUARTE 05/03/2008 05/04/2008 Jc Maldonado MD PATHOLOGY ORDERABLES [facility] [address] [place] [address] documented in this encounter Visit Diagnoses Not on filedocumented in this encounter Care Teams Elastic Yarn Twister Relationship Specialty Start Date End Date Unknown, Provider, PCP - General 05/17/09 03/26/16 documented as of this encounter
--- OUTSIDE RECORDS SUMMARY | 2024-05-26 18:31 | XMS_ITS | Encounter Summary ---
Author Organization [facility] Address [address] [place] [address] Care Team Providers Care Bottle Line Worker Name Role Phone Unavailable Primary Care Provider Unavailabl e Encounter Details Date Type Department Care Team (Latest Contact Info) Description 04/23/2007 12:56 EDT Hospital Encounter [facility] - Other [address] [place] [address] Glo Maldonado MD [address] [place] [address] Discharge Disposition: Auto Discharge Social History Tobacco Use Types Packs/Day Years Used Date Smoking Tobacco: Never Assessed Sex and Gender Information Value Date Recorded Sex Assigned at Not on file Gender Identity Female 08/17/2022 16:46 EDT Sexual Orientation Not on file documented as of this encounter Discharge Disposition Disposition Code Departure Means Destination Auto Discharge documented in this encounter Plan of Treatment Not on file documented as of this encounter Visit Diagnoses Not on filedocumented in this encounter
--- OUTSIDE RECORDS SUMMARY | 2024-05-26 18:31 | XMS_ITS | Encounter Summary ---
[place] [address] Care Team Providers Care Hospice Community Liaison Name Role Phone Asim Boyd MD Primary Care Provider Reason for Visit * Reason Onset Date Comments Procedure 01/26/2013 Encounter Details Date Type Department Care Team (Latest Contact Info) Description 01/26/2013 9:20 AM EDT Procedure [place] [phone] COAG (chronic open-angle glaucoma) (Primary Dx); Unspecified glaucoma Social History Tobacco Use Types Packs/Day [...] Progress Notes * Zaida Mojica MD - 01/26/2013 9:51 AM EDT Please see procedure note for details. ZAIDA MOJICA MD documented in this encounter Plan of Treatment Upcoming Encounters Date Type Department Care Team (Late st Contact Info) Description 10/13/2024 2:45 PM EST Office Visit Ophthalmology at [facility] [place] [address] Rodolfo Xavier MD [facility] [place] [address] documented as of this encounter Procedures Procedure Name Priority Date/Time Associated Diagnosis Comments AUTOMATED VISUAL FIELD - EXTENDED - OU- BOTH EYES Routine 01/26/2013 9:58 AM EDT COAG (chronic open-angle glaucoma) documented in this encounter Results * AUTOMATED VISUAL FIELD - EXTENDED - OU- BOTH EYES (01/26/2013 9:58 AM EDT) Anatomical Region Laterality Modality Other Addenda Addendum by Zaida Mojica MD on 01/26/2013 9:59 AM EDT Note: OS: tinny inf nasal step as previous, no change Narrative 01/26/2013 9:51 AM EDT Normal OU MD: OD -0.30, -0.80 Procedure Note Zaida Mojica MD - 01/26/2013 Normal OU MD: OD -0.30, -0.80 Zaida Mojica MD OPHTHALMOLOGY SERVIC ES ORDERABLES documented in this encounter Visit Diagnoses Diagnosis COAG (chronic open-angle glaucoma)- Primary Primary open-angle glaucoma Unspecified glaucoma(365.9) Unspecified glaucoma documented in this encounter Care Teams Hospice Community Liaison Relationship Specialty Start Date End Date Asim Boyd MD [address] [place] [address] PCP - General 10/03/10 07/29/13 documented as of this encounter
--- OUTSIDE RECORDS SUMMARY | 2024-05-26 18:31 | XMS_ITS | Encounter Summary ---
[place] [address] Care Team Providers Care Steward/Stewardess Name Role Phone Asim Boyd MD Primary Care Provider Reason for Visit * Reason Comments Chronic Open Angle Glaucoma Here for IOP and OCT, OU Encounter Details Date Type Department Care Team (Late st Contact Info) Description 07/21/2012 8:25 AM EDT [place] [address] Zaida Mojica MD [facility] [address] [place] [address] Chronic open angle glaucoma (Primary Dx); COAG (chronic open-angle glaucoma) Discharge Disposition: Home Social History Tobacco Use [...] Progress Notes * Zaida Mojica MD - 07/21/2012 10:09 AM EDT 07/04/2011 Arlet Hilton is a 65 y.o. female ref by dr chicho koehler, [facility], on 04/20 With coag. Discs= 0.3/0.5. VFs=nl od and os= small inf nasal step.and no change on 12/23. OCT= 89/76 on 04/20.And 88/72 on 07/23. Tmax=~25. IOP status= 19 ou on lexy ou and az os. ADR= lum, xal, lobo, alpha. Gonio= open ou but slight plat config= watch. Surgery= pi ou nj 04. VA=20 ou w -3 myopia. Target= ~20/17. 07/21/2012= 20/19 glc stale dk 6m dil hvfsand dil mentioned alt if iops elevate documented in this encounter Nursing Notes * 07/21/2012 8:25 AM EDT >> ZAIDA MOJICA MD SatJul 21, 2012 10:09 AM Arlet Hilton is a 66yo female with COAG OU, no VF changes, no pain >> SCOT Ward SatJul 21, 2012 9:10 AM Last visit was 12/14/11, pt states no changes with OU. No irritation with OU Drops:Azopt BID-OS (used last @ 5:00 this am) Timolol QAM-OU (used last @ 5:05 this am) LPI-OU documented in this encounter Plan of Treatment Upcoming Encounters Date Type Department Care Team (Late st Contact Info) Description 10/13/2024 2:45 PM EST Office Visit Ophthalmology at [facility] [place] [address] Rodolfo Xavier MD [facility] [place] [address] documented as of this encounter Procedures Procedure Name Priority Date/Time Associated Diagnosis Comments OCT OPTIC NERVE - OU - BOTH EYES Routine 07/21/2012 10:10 AM EDT Chronic open angle glaucoma documented in this encounter Results * OCT OPTIC [id number] EYES (07/21/2012 10:10 AM EDT) Anatomical Region Laterality Modality Other Narrative 07/21/2012 10:10 AM EDT ie no sig change ou. Procedure Note Zaida Mojica MD - 07/21/2012 ie no sig change ou. Zaida Mojica MD OPHTHALMOLOGY SERVIC ES ORDERABLES documented in this encounter Visit Diagnoses Diagnosis Chronic open angle glaucoma- Primary Primary open-angle glaucoma COAG (chronic open-angle glaucoma) Primary open-angle glaucoma documented in this encounter Care Teams Steward/Stewardess Relationship Specialty Start Date End Date Asim Boyd MD [address] [place] [address] PCP - General 10/03/10 07/29/13 documented as of this encounter
--- OUTSIDE RECORDS SUMMARY | 2024-05-26 18:31 | XMS_ITS | Encounter Summary ---
Author Organization [facility] Address [facility] [address] Care Team Providers Care Housing Director Name Role Phone Rika Matthews MD Primary Care Provider [phone] Reason for Visit * Reason Comments Chronic Open Angle Glaucoma 6 mo HVF and dil Encounter Details Date Type Department Care Team (Late st Contact Info) Description 02/16/2014 9:30 AM EDT [place] [phone] Martín Santamaria MD [facility] [place] [address] COAG (chronic open-angle glaucoma) (Primary Dx) Discharge [...] Progress Notes * Martín Santamaria MD - 02/16/2014 11:04 AM EDT IMartín, performed the above scribed services and agree with the accuracy of the documentation of this encounter. Encounter Diagnosis Name Primary? COAG (chronic open-angle glaucoma) 07/04/2011 Arlet Hilton is a 65 y.o. female ref by dr chicho koehler, [facility], on 04/20 With coag. Discs= 0.3/0.5. [...] in 2m after [place] trip. pilo1 os documented in this encounter Plan of Treatment Upcoming Encounters Date Type Department Care Team (Late st Contact Info) Description 10/13/2024 2:45 PM EST Office [place] [address] Rodolfo Xavier MD [facility] [place] [address] documented as of this encounter Visit Diagnoses Diagnosis COAG (chronic open-angle glaucoma)- Primary Primary open-angle glaucoma documented in this encounter Care Teams Housing Director Relationship Specialty Start Date End Date Rika Matthews MD [address] [place] [address] PCP - General 07/30/13 documented as of this encounter
--- OUTSIDE RECORDS SUMMARY | 2024-05-26 18:31 | XMS_ITS | Encounter Summary ---
Author Organization [facility] Address [address] [place] [address] Care Team Providers Care Telephone Sales Representative Name Role Phone Rika Matthews MD Primary Care Provider [phone] Encounter Details Date Type Department Care Team (Late st Contact Info) Description 07/30/2022 Orders Only [facility] Radiology - Main [place] [address] [place] [address] Vianey You MD [address] MD Social History Tobacco Use Types Packs/Day Years [...] on filedocumented in this encounter Care Teams Telephone Sales Representative Relationship Specialty Start Date End Date Rika Matthews MD [address] [place] [address] PCP - General 03/27/16 documented as of this encounter
--- OUTSIDE RECORDS SUMMARY | 2024-05-26 18:31 | XMS_ITS | Encounter Summary ---
Author Organization [facility] Address [address] [place] [address] Care Team Providers Care Hairspring Ii Inspector Name Role Phone Rika Matthews MD Primary Care Provider [phone] Encounter Details Date Type Department Care Team (Late st Contact Info) Description 06/13/2022 Lab Requisition [facility] Pathology & Laboratory Medicine - [address] [address] Outr Resulting Lab, Provider Social History Tobacco [...] Procedure Name Priority Date/Time Associated Diagnosis Comments LYME AB Routine 06/12/2022 15:00 EDT documented in this encounter Results * LYME AB (06/12/2022 15:00 EDT) Lyme Ab Negative Negative 06/14/2022 10:47 EDT [facility] Blood VENOUS BLOOD / Unknown 06/12/2022 15:00 EDT 06/13/2022 21:01 EDT Provider Outr Resulting Lab IMMUNOLOGY A ND SEROLOGY ORDERABLES [facility] [address] [place] [address] documented in this encounter Visit Diagnoses Not on filedocumented in this encounter Care Teams Hairspring Ii Inspector Relationship Specialty Start Date End Date Rika Matthews MD [address] [place] [address] PCP - General 03/27/16 documented as of this encounter
--- OUTSIDE RECORDS SUMMARY | 2024-05-26 18:31 | XMS_ITS | Encounter Summary ---
[place] [address] Care Team Providers Care Computer Technical Specialist Name Role Phone Asim Boyd MD Primary Care Provider [phone] Encounter Details Date Type Department Care Team (Late st Contact Info) Description 11/13/2010 8:25 AM EST Follow-[place] [address] Martín Santamaria MD [facility] DR [place] [address] Discharge Disposition: Home Social History Tobacco Use [...] 2:45 PM EST Office [place] [address] Rodolfo Xavier MD [facility] [place] [address] documented as of this encounter Visit Diagnoses Not on filedocumented in this encounter Care Teams Computer Technical Specialist Relationship Specialty Start Date End Date Asim Boyd MD [address] [place] [address] PCP - General 10/03/10 07/29/13 documented as of this encounter
--- OUTSIDE RECORDS SUMMARY | 2024-05-26 18:31 | XMS_ITS | Encounter Summary ---
Author Organization [facility] Address [facility] [place] [address] Care Team Providers Care Cost Accounting Clerk Name Role Phone Asim Boyd MD Primary Care Provider [phone] Reason for Visit * Reason Comments Chronic Open Angle Glaucoma ou 6 m f/u I OP, Dilate and HVF Encounter Details Date Type Department Care Team (Late st Contact Info) Description 12/14/2011 10:25 AM EST Follow-[place] [address] Zaida Mojica MD [facility] [place] [address] COAG (chronic open-angle glaucoma) (Primary Dx) Discharge Disposition: Home Social History Tobacco Use Types Packs/Day Years Used Date Smoking Tobacco: Never Assessed Sex and Gender Information Value Date Recorded Sex Assigned at Not on file Gender Identity Female 08/26/2018 8:14 PM EDT Sexual Orientation Not on file documented as of this encounter Progress Notes * Zaida Mojica MD - 12/14/2011 11:32 AM EST 07/04/2011 Arlet Hilton is a 65 y.o. female ref by dr chicho koehler, [facility], on 04/20 With coag. Discs= 0.3/0.5. VFs=nl od and os= small inf nasal step.and no change on 12/23. OCT= 89/76 on 04/20.Tmax=~25. IOP status= 19 ou on lexy ou and az os. ADR= lum, xal, lobo, alpha. Gonio= open ou but slight plat config= watch. Surgery= pi ou nj 04. VA=20 ou w -3 myopia. Target= ~20/17. 12/14/2011 = iops at [facility] and hvfs=nc. Stable ck 6m dil octs d documented in this encounter Nursing Notes * 12/14/2011 10:25 AM EST >> ZAIDA MOJICA MD SatDec 14, 2011 11:33 AM Coag ou yrs on meds no new probs [facility] >> LISA SMITH [facility] SatDec 14, 2011 10:47 AM Description:Patient presents with: Chronic Open Angle Glaucoma - ou 6 m f/u IOP, Dilate and HVF Location: both eye Duration: 6 months f/u Rapidity of Onset:gradual Severity: Condition:No Change Pain:none Modifying Factors: 65 y.o. female ref by dr chicho koehler, [facility], on 04/20 With coag. Discs= 0.3/0.5. VFs=nl od and os= small inf nasal step. OCT= 89/76 on 04/20. Tmax=~25. IOP status= 19 ou on timou and az os. ADR= lum, xal, lobo, alpha. Gonio= open ou but slight plat config= watch. Surgery= piou nj 04. VA=20 ou w -3 myopia. Target= ~20/17. Associated Symptoms: pt hasn't noticed any change since last visit. Pt is using timolol qam ou and azopt bid os w/o problem. documented in this encounter Plan of Treatment Upcoming Encounters Date Type Department Care Team (Late st Contact Info) Description 10/13/2024 2:45 PM EST Office Visit [place] [address] Rodolfo Xavier MD [facility] [place] [address] documented as of this encounter Procedures Procedure Name Priority Date/Time Associated Diagnosis Comments AUTOMATED VISUAL FIELD - EXTENDED - OU- BOTH EYES Routine 12/14/2011 11:32 AM EST COAG (chronic open-angle glaucoma) documented in this encounter Results * AUTOMATED VISUAL FIELD - EXTENDED - OU- BOTH EYES (12/14/2011 11:32 AM EST) Anatomical Region Laterality Modality Other Narrative 12/14/2011 11:32 AM EST Od= nl and os = mild inf step os stable Procedure Note Zaida Mojica MD - 12/14/2011 Od= nl and os = mild inf step os stable Zaida Mojica MD OPHTHALMOLOGY SERVIC ES ORDERABLES documented in this encounter Visit Diagnoses Diagnosis COAG (chronic open-angle glaucoma)- Primary Primary open-angle glaucoma documented in this encounter Care Teams Cost Accounting Clerk Relationship Specialty Start Date End Date Asim Boyd MD [address] [place] [address] PCP - General 10/03/10 07/29/13 documented as of this encounter
--- OUTSIDE RECORDS SUMMARY | 2024-05-26 18:31 | XMS_ITS | Encounter Summary ---
Author Organization [facility] Address [address] [place] [address] Care Team Providers Care Rn New Grad Name Role Phone Unknown, Provider Primary Care Provider Encounter Details Date Type Department Care Team (Latest Contact Info) Description 10/12/2011 7:42 EST - 10/12/2011 7:43 [facility] Hospital Encounter [facility] [address] [place] [address] Glo Maldonado MD [address] [place] [address] Discharge Disposition: Home or Self Care Social [...] on filedocumented in this encounter Care Teams Rn New Grad Relationship Specialty Start Date End Date Unknown, Provider, PCP - General 05/17/09 03/26/16 documented as of this encounter
--- OUTSIDE RECORDS SUMMARY | 2024-05-26 18:31 | XMS_ITS | Encounter Summary ---
Author Organization Formerly [facility] [place] [address] Care Team Providers Care Attendant Campground Name Role Phone Asim Boyd MD Primary Care Provider Reason for Visit * Reason Comments Chronic Open Angle Glaucoma Six month fo llow up on meds [facility] Encounter Details Date Type Department Care Team (Late st Contact Info) Description 07/06/2011 9:25 AM EDT [place] [address] Zaida Mojica MD [facility] [place] [address] COAG (chronic open-angle glaucoma) (Primary Dx) Discharge Disposition: Home Social History Tobacco Use Types Packs/Day Years Used Date Smoking Tobacco: Never Assessed Sex and Gender Information Value Date Recorded Sex Assigned at Not on file Gender Identity Female 08/26/2018 8:14 PM EDT Sexual Orientation Not on file documented as of this encounter Progress Notes * Zaida Mojica MD - 07/06/2011 10:37 AM EDT 07/04/2011 Arlet Hilton is a 65 y.o. female ref by dr chicho koehler, [facility], on 04/20 With coag. Discs= 0.3/0.5. VFs=nl od and os= small inf nasal step. OCT= 89/76 on 04/20. Tmax=~25. IOP status=19 ou on lexy ou and az os. ADR= lum, xal, lobo, alpha. Gonio= open ou but slight plat config= watch. Surgery= pi ou nj 04. VA=20 ou w -3 myopia. Target= ~20/17. The glaucoma is considered to be stable. The patient is instructed to use the same medications and to return in 6 months. Dil hvfs documented in this encounter Nursing Notes * 07/06/2011 9:25 AM EDT >> ZAIDA MOJICA MD SatJul 06, 2011 10:40 AM Stable for awhile [facility] >> SCOT GOMEZ SatJul 06, 2011 10:07 AM Description:Patient presents with: Chronic Open Angle Glaucoma - Six month follow up Location: both eye Duration: unknown Rapidity of Onset:unknown Severity: unknown Condition:No Change Pain:none Associated Symptoms: None Tolerating Azopt well documented in this encounter Plan of Treatment Upcoming Encounters Date Type Department Care Team (Late st Contact Info) Description 10/13/2024 2:45 PM EST Office [place] [address] Rodolfo Xavier MD [facility] [place] [address] documented as of this encounter Visit Diagnoses Diagnosis COAG (chronic open-angle glaucoma)- Primary Primary open-angle glaucoma documented in this encounter Care Teams Attendant Campground Relationship Specialty Start Date End Date Asim Boyd MD [address] [place] [address] PCP - General 10/03/10 07/29/13 documented as of this encounter
--- OUTSIDE RECORDS SUMMARY | 2024-05-26 18:31 | XMS_ITS | Encounter Summary ---
Author Organization [facility] Address [address] [place] [address] Care Team Providers Care Road Contractor Name Role Phone Unknown, Provider Primary Care Provider [phone] Encounter Details Date Type Department Care Team ([facility] st Contact Info) Description 10/12/2011 Results Only [facility] Laboratory Services - [facility] ([facility]) [address] [place] [address] Gol Maldonado MD [address] [place] [address] Social History Tobacco Use Types Packs/Day Years Used Date Smoking Tobacco: Never Assessed Sex and Gender Information Value Date Recorded Sex Assigned at Not on file Gender Identity Female 08/17/2022 16:46 EDT Sexual Orientation Not on file documented as of this encounter Plan of Treatment Not on file documented as of this encounter Procedures Procedure Name Priority Date/Time Associated Diagnosis Comments BACTERIAL CULTURE, URINE Routine 10/12/2011 10:00 EST documented in this encounter Results * BACTERIAL CULTURE, URINE (10/12/2011 10:00 EST) Specimen Description Urine [facility] Result Mixed organisms, culture interpretation difficult. If patient has a chronic indwelling catheter and requires antibiotic treatment, consult laboratory for further testing. If clinically indicated and patient is not catheterized, consider recollecting sample via in and out catheter. [facility] Report Status 10/14/2011 Final [facility] Urine specimen (specimen) 10/12/2011 10:00 EST 10/12/2011 18:51 EST Glo Maldonado MD MICROBIOLOGY - GENER AL ORDERABLES Performing Organization Address City/State/[facility] Co de Phone Number [facility] [address] [place] [address] documented in this encounter Visit Diagnoses Not on filedocumented in this encounter Care Teams Road Contractor Relationship Specialty Start Date End Date Unknown, Provider, PCP - General 05/17/09 03/26/16 documented as of this encounter
--- OUTSIDE RECORDS SUMMARY | 2024-05-26 18:31 | XMS_ITS | Encounter Summary ---
[place] [address] Care Team Providers Care Manager Communication Name Role Phone Asim Boyd MD Primary Care Provider [phone] Reason for Visit * Reason Comments Medication Refill Encounter Details Date Type Department Care Team (Late st Contact Info) Description 07/24/2013 [place] [address] Martín Santamaria MD [facility] DR [place]AL[place] [address] COAG (chronic open-angle glaucoma) (Primary Dx) Social [...] Encounters Date Type Department Care Team (Late Contact Info) Description 10/13/2024 2:45 PM EST Office [place] [address] Rodolfo Xavier MD [facility] [place] [address] documented as of this encounter Visit Diagnoses Diagnosis COAG (chronic open-angle glaucoma)- Primary Primary open-angle glaucoma documented in this encounter Care Teams Manager Communication Relationship Specialty Start Date End Date Asim Boyd MD [address] [address] PCP - General 10/03/10 07/29/13 documented as of this encounter
--- OUTSIDE RECORDS SUMMARY | 2024-05-26 18:31 | XMS_ITS | Encounter Summary ---
Author Organization [facility] Address [address] [place] [address] Care Team Providers Care Smoke Eater Name Role Phone Unavailable Primary Care Provider Unavailabl e Encounter Details Date Type Department Care Team (Latest Contact Info) Description 05/03/2008 9:51 EDT - 05/03/2008 11:59 EDT Hospital Encounter [facility] - Other [address] [place] [address] Jc Maldonado MD [address] [place] [address] Discharge Disposition: Home-Health Care Svc Social History Tobacco Use Types Packs/Day Years Used Date Smoking Tobacco: Never Assessed Sex and Gender Information Value Date Recorded Sex Assigned at Not on file Gender Identity Female 08/17/2022 16:46 EDT Sexual Orientation Not on file documented as of this encounter Discharge Disposition Disposition Code Departure Means Destination Home-Health Care Svc documented in this encounter Plan of Treatment Not on file documented as of this encounter Procedures Procedure Name Priority Date/Time Associated Diagnosis Comments CYTOPATHOLOGY Routine 05/11/2009 0:00 EDT documented in this encounter Results * CYTOPATHOLOGY (05/11/2009 0:00 EDT) Pathology Report: CYTOPATHOLOGY REPORT ? Reports generated via electronic interface contain original data; ? however they are lacking the format of the original report. ? Caution should be taken when reading/interpreti ng unformatted reports. ? Name: ? YORDY, DESTINEE ? Accession #: ? [id number] ? : ? 1945 (Age: 63) ??F ?Collect Date: ? 05/11/2009 ? Location: ? [facility] ? Receive Date: ? 05/12/2009 ? Provider: ?JC VISELLI MD ? Copy to: ? Specimen/Source: ?Pap Test, Cervix/Endocervix, ThinPrep Imaging System ? with manual evaluation ? Last Menstrual Period: ? Hormonal/Contracep tive Status: ? Yes: estrace ? Other: ? HPVA - HPV testing requested if ASC-US on the current ThinPrep Pap test. ? SPECIMEN ADEQUACY ? Satisfactory for Evaluation ? - transformation zone component present ? GENERAL CATEGORIZATION ? Negative for Intraepithelial Lesion or Malignancy ? Document reviewed and electronically signed by: ? Syeda [place],CT(ASCP) ? Report Date: ??05/20/2009 07:46 ? End of Report ? [facility] 05/11/2009 05/12/2009 Jc Maldonado MD PATHOLOGY ORDERABLES [facility] [address] [place] [address] documented in this encounter Visit Diagnoses Not on filedocumented in this encounter
--- OUTSIDE RECORDS SUMMARY | 2024-05-26 18:31 | XMS_ITS | Encounter Summary ---
[place] [address] Care Team Providers Care Skidder Driver Name Role Phone Asim Boyd MD Primary Care Provider Encounter Details Date Type Department Care Team (Late st Contact Info) Description 12/22/2010 8:25 AM EST [place] [phone] Martín Santamaria MD [facility] [place] [address] Discharge Disposition: Home Social History Tobacco Use [...] 2:45 PM EST [place] [phone] Rodolfo Xavier MD [facility] [place] [address] documented as of this encounter Visit Diagnoses Not on filedocumented in this encounter Care Teams Skidder Driver Relationship Specialty Start Date End Date Asim Boyd MD [address] [place] [address] PCP - General 10/03/10 07/29/13 documented as of this encounter
--- OUTSIDE RECORDS SUMMARY | 2024-05-26 18:31 | XMS_ITS | Encounter Summary ---
Author Organization [place] [address] Care Team Providers Care Foundry Operator Name Role Phone Rika Matthews MD Primary Care Provider [phone] Reason for Visit * Reason Comments Eye Problem New patient evaluati on for chronic retinal hole/tear OD Encounter Details Date Type Department Care Team (Late st Contact Info) Description 10/10/2015 10:00 AM EST Office [place] [address] Darwin Crarero MD [facility] [place] [address] Retinal tear, right Social History Tobacco Use [...] Progress Notes * Darwin Carrero MD - 10/10/2015 2:37 PM EST ASSESSMENT 1. Retinal tear, right Incomplete surrounding pigment No prior treatment Otherwise asymptomatic and incidental finding PLAN Laser Retinopexy OD today to augment pigmented scarring Follow up in 2-3 months for DFE OU Sooner PRN The ophthalmology scribe for this encounter is EDWIN Agrawal I performed and personally participated in the best and critical portions of the service. I have reviewed/updated the documentation, and confirm that all of the information is accurate as described. Darwin Carrero MD documented in this encounter Plan of Treatment Upcoming Encounters Date Type Department Care Team (Late st Contact Info) Description 10/13/2024 2:45 PM EST Office Visit Ophthalmology at [place] [address] Rodolfo Xavier MD [facility] [place] [address] documented as of this encounter Visit Diagnoses Diagnosis Retinal tear, right documented in this encounter Care Teams Foundry Operator Relationship Specialty Start Date End Date Rika Matthews MD [address] [place] [address] PCP - General 07/30/13 documented as of this encounter
--- OUTSIDE RECORDS SUMMARY | 2024-05-26 18:31 | XMS_ITS | Encounter Summary ---
[place] [address] Care Team Providers Care Silk Weaver Name Role Phone Rika Matthews MD Primary Care Provider [phone] Reason for Visit * Reason Onset Date Comments Medication Refill 07/04/2016 Encounter Details Date Type Department Care Team (Late st Contact Info) Description 07/04/2016 Ref[place] [phone] Billie Marcano, RN Counseling about travel Social History Tobacco Use Types Packs/Day Years [...] encounter Miscellaneous Notes * Telephone Encounter - Billie Marcano RN - 07/04/2016 8:03 AM EDT Traveler was seen in travel clinic in April 2015. She is now traveling to [place], [place], [place] and [place]. Immunizations are up to date. She received her second hepatitis A shot from her PCP.Reviewed meds, allergies and problem list. No changes. Rx for #18 malarone to pharmacy. Traveler does not need renewal of antibiotic. Yellow fever medical letter signed by Dr. James Jerome given to patient. documented in this encounter Plan of Treatment Upcoming Encounters Date Type Department Care Team (Late st Contact Info) Description 10/13/2024 2:45 PM EST Office Visit Ophthalmology at [facility] [place] [address] Rodolfo Xavier MD [facility] [place] [address] documented as of this encounter Visit Diagnoses Diagnosis Counseling about travel Other specified counseling documented in this encounter Care Teams Silk Weaver Relationship Specialty Start Date End Date Rika Matthews MD [address] [place] [address] PCP - General 07/30/13 documented as of this encounter
--- OUTSIDE RECORDS SUMMARY | 2024-05-26 18:31 | XMS_ITS | Encounter Summary ---
Author Organization [facility] Address [address] [place] [address] Care Team Providers Care Coordinator Skill Training Program Name Role Phone Rika Matthews MD Primary Care Provider [phone] Encounter Details Date Type Department Care Team (Late st Contact Info) Description 03/30/2016 Orders Only [facility] [address] [place] [address] Gwen Merino MD [address] [place] [address] [address] [place] [address] Social History Tobacco Use Types Packs/Day Years [...] on filedocumented in this encounter Care Teams Coordinator Skill Training Program Relationship Specialty Start Date End Date Rika Matthews MD [address] [place] [phone] PCP - General 03/27/16 documented as of this encounter
--- OUTSIDE RECORDS SUMMARY | 2024-05-26 18:31 | XMS_ITS | Encounter Summary ---
[place] [address] Care Team Providers Care Die Storage Worker Name Role Phone Asim Boyd MD Primary Care Provider [phone] Reason for Visit * Reason Onset Date Comments Medication Refill 09/12/2011 timolol Encounter Details Date Type Department Care Team (Late st Contact Info) Description 09/12/2011 [place] [phone] Martín Santamaria MD [facility] [address] [place] [address] COAG (chronic open-angle glaucoma) Social History Tobacco Use Types Packs/Day Years [...] 2:45 PM EST [place] [address] Rodolfo Xavier MD [facility] [place] [address] documented as of this encounter Visit Diagnoses Diagnosis COAG (chronic open-angle glaucoma) Primary open-angle glaucoma documented in this encounter Care Teams Die Storage Worker Relationship Specialty Start Date End Date Asim Boyd MD [address] [place] [address] PCP - General 10/03/10 07/29/13 documented as of this encounter
--- OUTSIDE RECORDS SUMMARY | 2024-05-26 18:31 | XMS_ITS | Encounter Summary ---
[place] [address] Care Team Providers Care Assistant Passenger Locomotive Engineer Name Role Phone Rika Matthews MD Primary Care Provider [phone] Reason for Visit * Reason Comments Travel Consult Encounter Details Date Type Department Care Team (Late st Contact Info) Description 04/19/2015 2:30 PM EDT Office [place] [phone] CLINIC, Billie Juarez, RN Need for prophylactic vaccination with typhoid-paratyphoid (TAB) vaccine; Need for prophylactic vaccination and inoculation against viral hepatitis; Other specified counseling Discharge Disposition: Home Social History Tobacco Use [...] this encounter Patient Instructions * Patient Instructions* Billie Marcano, RACHID - 04/19/2015 3:14 PM EDT Today, you received the following vaccines: [] Flu shot (recommended annually) [] TDaP (good for 10 years) [] Td (good for 10 years) [] MMR (this is your one lifetime booster dose) [x] Hepatitis A* (first dose good for 6 months, need a booster anytime after 6 months) [] Hepatitis B* (series is a total of 3) [] IPV (polio - this is your adult lifetime booster) [] Meningococcal meningitis [] Pneumococcal [] Rabies* (series is a total of 3, Day 1, Day 7, and Day 21) [] Yellow fever (good for 10 yrs. Keep your yellow card w/ you when traveling as proof) [] Cuban Encephalitis* (series of 2, Day 1 and Day 28) [] Typhoid IM (good for 2-3 years) [x] Typhoid oral (Take 1 capsule every other day on am empty stomach x 4 doses. Keep in fridge. Good for 5 years) *Please remember to schedule your follow-up boosters, if indicated. Call us at [phone] to schedule an appointment for these vaccines. Remember that meticulous insect precautions must be taken to prevent insect borne illnesses (see handout) We also sent a prescription for medicine to self treat for traveler;s diarrhea. Remember to carry all your medicines in your carry on luggage Additional Recommendations/Instructions: Have a great trip! Billie Marcano RN [phone] [email or web address] documented in this encounter Progress Notes * James Jerome MD - 04/22/2015 5:20 PM EDT I agree with the recommendations of Billie Marcano after review of her note. * Billie Marcano RN - 04/19/2015 2:59 PM EDT Adult Travel Clinic Reason for Visit: Arlet Hilton is a 69 y.o. female patient who comes to travel clinic today forpre-travel evaluation, vaccination and traveler's health education. Trip Details: Destination countries (list from first to last): Fly to [place], [place] [facility] [place]- land in [facility] x 4 days then fly home. Departure date: 2014 Length of trip: 15 days Purpose of travel: pleasure Type of environment: cruise and urban Accommodations: cruise ship cabin and hotels in [facility] Medical History: Medical problems: Patient Active Problem List Diagnosis Code ??? COAG (chronic open-angle glaucoma) 365.11, 365.70 Current Outpatient Prescriptions Medication Sig Dispense Refill ??? brinzolamide (AZOPT) 1 % Drops, Suspension Place 1 drop into the left eye 2 times daily. 20 mL 3 ??? timolol (TIMOPTIC-XE) 0.5 % Gel Forming Solution Place 1 drop into both eyes every morning. 15 mL 3 ??? solifenacin (VESICARE) 5 mg tablet Take 10 mg by mouth daily. ??? rosuvastatin (CRESTOR) 10 mg tablet ??? estradiol (ESTRACE) 0.01 % (0.1 mg/g) vaginal cream No current facility-administered medications for this visit. Immunosuppression: none History of adverse vaccine reactions: no History of latex, egg or beesting allergy: no Patient advised to carry all medications in carry on luggage. Travel Health and Safety Issues: A discussion of travel health hazards and safety issues was done, including the following topics: traffic-accidents (alcohol, seatbelts), crime, alcohol related issues, sun exposure/heat illness, Schistosomiasis and other fresh water exposures, rabies, HIV infections, Hepatitis and other STD's, control, TB, Health Insurance coverage/[employer]. Discussed food and water precautions and patient handout provided. The following strategies were recommended for the management of traveler's diarrhea according to severity: ?? For treatment of mild diarrhea: hydration and over the counter antidiarrheal recommended. ?? For treatment of diarrhea accompanied by fever or systemic illness: hydration and empiric treatment with antibiotic recommended. A prescription for Ciprofloxacin 500 mg twice daily x 3 days sent to pharmacy. ?? For severe or bloody diarrhea, or diarrhea accompanied by vomiting: patient advised to seek medical treatment. Vector-borne Disease Prevention Discussed insect bite prevention to reduce risk of malaria, dengue, chikungunya and other insect borne illnesses. Handout given. Malaria Risk: No malaria risk on this particular trip. Altitude: This trip does not involve high altitude. Immunizations Immunization History Administered Date(s) Administered ??? Tdap Vaccine 11/11/2007 Immunizations given today- Hepatitis A#1 and oral typhoid. Traveler is up to date on routine vaccinations including Tdap and influenza. She has received zostavax from her PCP. Discussed relative riskof typhoid and traveler opts to be maximally protected for this and future travel expected within next five years. Rabies- discussed animal avoidance, wound care and need for post-exposure prophylaxis. Follow-up Recommendations: Traveler will get second Hepatitis A at PCP in six months. Patient advised to call travel clinic if they return from trip with any illness. Time spent in travel counselin minutes. Vaccine information sheets given. documented in this encounter Plan of Treatment Upcoming Encounters Date Type Department Care Team (Late st Contact Info) Description 10/13/2024 2:45 PM EST [place] [address] Rodolfo Xavier MD [facility] [place] [address] documented as of this encounter Visit Diagnoses Diagnosis Need for prophylactic vaccination with typhoid-paratyphoid (TAB) vaccine Need for prophylactic vaccination with typhoid-paratyphoid alone (TAB) Need for prophylactic vaccination and inoculation against viral hepatitis Other specified counseling documented in this encounter Care Teams Assistant Passenger Locomotive Engineer Relationship Specialty Start Date End Date Rika Matthews MD [address] [place] [address] PCP - General 07/30/13 documented as of this encounter
--- OUTSIDE RECORDS SUMMARY | 2024-05-26 18:31 | XMS_ITS | Encounter Summary ---
Author Organization [facility] Address [facility] [place] [address] Care Team Providers Care Volcanology Professor Name Role Phone Rika Matthews MD Primary Care Provider Reason for Visit * Reason Comments Chronic Open Angle Glaucoma Pt returns f or IOP check, OCT OU and dilated exam. Encounter Details Date Type Department Care Team (Late st Contact Info) Description 08/24/2014 9:30 AM EDT Follow-[place] [address] Martín Santamaria MD [facility] [place] [address] COAG (chronic open-angle glaucoma), moderate stage (Primary Dx) Discharge Disposition: Home Social History [...] Progress Notes * Martín Santamaria MD - 08/24/2014 10:14 AM EDT IMartín, performed the above scribed services and agree with the accuracy of the documentation of this encounter. Encounter Diagnosis Name Primary? COAG (chronic open-angle glaucoma), moderate stage Yes 07/04/2011 Arlet Hilton is a 65 y.o. female ref by dr chicho koehler, [facility] on 04/20 With moderate coag. Discs= 0.3/0.5. [...] same rs; ck 6m hvfs and dil * Martín Santamaria MD - 08/24/2014 10:13 AM EDT I, Martín Santamaria, performed the above scribed services and agree with the accuracy of the documentation of this encounter. Encounter Diagnosis Name Primary? COAG (chronic open-angle glaucoma), moderate stage Yes documented in this encounter Plan of Treatment Upcoming Encounters Date Type Department Care Team (Late st Contact Info) Description 10/13/2024 2:45 PM EST Office Visit Ophthalmology at [facility] [place] [address] Rodolfo Xavier MD [facility] [place] [address] documented as of this encounter Procedures Procedure Name Priority Date/Time Associated Diagnosis Comments OCT OPTIC NERVE - OU - BOTH EYES Routine 08/24/2014 10:13 AM EDT COAG (chronic open-angle glaucoma), moderate stage documented in this encounter Results * OCT OPTIC [id number] EYES (08/24/2014 10:13 AM EDT) Anatomical Region Laterality Modality Other Narrative 08/24/2014 10:13 AM EDT Robertson No significant change/stable OU 83/75 Procedure Note Martín Santamaria MD - 08/24/2014 Delicia No significant change/stable OU 83/75 Martín Santamaria MD OPHTHALMOLOGY SERVIC ES ORDERABLES documented in this encounter Visit Diagnoses Diagnosis Coag (chronic open-angle glaucoma), moderate stage- Primary documented in this encounter Care Teams Volcanology Professor Relationship Specialty Start Date End Date Rika Matthews MD [address] [address] PCP - General 07/30/13 documented as of this encounter
--- OUTSIDE RECORDS SUMMARY | 2024-05-26 18:31 | XMS_ITS | Encounter Summary ---
Author Organization [facility] Address [address] [place] [address] Care Team Providers Care [employer] Name Role Phone Unavailable Primary Care Provider Unavailabl e Encounter Details Date Type Department Care Team (Latest Contact Info) Description 05/11/2009 18:43 EDT - 05/11/2009 18:44 EDT Hospital Encounter [facility] - Other [address] [place] [address] Glo Maldonado MD [address] [place] [address] Discharge Disposition: Home or Self Care Social [...]
[2024-05-29 09:41] LABS: Lipoprotein (a) 208 nmol/L (<75)
== END 2024-05-26 18:17 | disposition home or self-care (01) ==
LOC: NCHCN 18:16
PROVIDERS: PCP Family Medicine; Visit Provider Family Medicine
DX: E78.49 Other hyperlipidemia (principal)
CPT/HCPCS: 83695

== ENCOUNTER 2025-03-29 12:10 | Outpatient (REF) | payer MEDICARE, SELFPAY ==
[2025-03-31 09:38] LABS: Lipoprotein (a) 195 nmol/L (<75)
== END 2025-03-29 12:11 | disposition home or self-care (01) ==
LOC: NCHCN 12:10
PROVIDERS: PCP Family Medicine; Visit Provider Family Medicine
DX: E78.49 Other hyperlipidemia (principal)
CPT/HCPCS: 83695

== ENCOUNTER 2025-04-02 21:54 | Outpatient (REF) | payer MEDICARE, SELFPAY ==
[2025-04-02 21:58] LABS: BUN 21 mg/dL (7-18); CREATININE 0.8 mg/dL (0.55-1.02); Calcium 9.4 mg/dL (8.5-10.1); Calculated LDL 88 mg/dL (<100); Chloride 105 mmol/L (98-107); Cholesterol 176 mg/dL (<200); Glucose 99 mg/dL (74-106); HDL Cholesterol 73 mg/dL (>or=50); Potassium 4.3 mmol/L (3.5-5.1); Sodium 139 mmol/L (136-145); Triglyceride 77 mg/dL (<150)
== END 2025-04-02 21:55 | disposition home or self-care (01) ==
LOC: NCHCN 21:54
PROVIDERS: PCP Family Medicine; Visit Provider Family Medicine
DX: E78.49 Other hyperlipidemia (principal); R73.03 Prediabetes
CPT/HCPCS: 80048; 80061